=== PATIENT | female | born 1955 | race Caucasian/White ===

== ENCOUNTER 2019-07-14 15:09 | Observation (INO) | payer MEDICARE, MEDICAID, SELFPAY ==
[2019-07-14] VITALS (8 sets, daily range): BP systolic 98–134; BP diastolic 41–85; PULSE 72–86; RESP 17–22; TEMP 35.9–36.8; O2SAT 89–96; BMI 32.2
--- NOTE | ~2019-07-14 | XR_ITS ---
EXAMINATION: XR chest 2V EXAM DATE: 07/14/2019 16:19 INDICATION: Shortness of breath, cough, history COPD, aortic dissection. TECHNIQUE: Frontal and lateral projections of the chest obtained and reviewed. Comparison is made to prior examination from 01/01/2016. 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 Size d oes not appear significantly changed. Left midlung zone granuloma. Moderate chronic hyperinflation. N o confluent consolidation, pneumothorax or pleural effusion suspected. There are no osseous abnormali ties identified. IMPRESSION: 1. No acute cardiopulmonary findings. Reviewed, dictated and finalized at location A. MOLDER
--- NOTE | 2019-07-14 15:27 | ECG_ITS ---
Measurements Intervals [place] Rate: 72 P: 66 [place]: 207 QRS: 58 QRSD: 86 T: 65 QT: 404 QTc: 444 Interpretive Statements SINUS RHYTHM DELAYED PRECORDIAL R/S TRANSITION BASELINE ARTIFACT- I, II, III, AVR, AVL, AVF BORDERLINE ECG Electronically Signed On 07-14-2019 17:04:04 HEEL SPRAYER FIRST by Jamari Vallejo D.O.
[2019-07-14 15:47] LABS: Basophils Absolute Auto 0.05 K/mm3 (0.00-0.10); Basophils Percent Auto 0.3 % (0.0-1.0); Eosinophils Absolute Auto 0.36 K/mm3 (0.02-0.50); Eosinophils Percent Auto 2.3 % (1.0-6.0); Hematocrit 42.6 % (35.0-49.0); Hemoglobin 13.5 g/dL (12.0-15.0); Immature Granulocyte Absolute 0.15 K/mm3 (0.00-0.00); Lymphocytes Absolute Auto 2.77 K/mm3 (1.10-4.50); Lymphocytes Percent Auto 18.1 % (18.0-42.0); Mean Corpuscular HGB Conc 31.7 g/dL (32.0-36.0); Mean Corpuscular Hemoglobin 29.3 pg (27.0-31.0); Mean Corpuscular Volume 92.6 fL (78.0-102.0); Mean Platelet Volume 10.6 fl (9.2-11.8); Monocytes Absolute Auto 1.31 K/mm3 (0.10-0.90); Monocytes Percent Auto 8.6 % (2.0-11.0); Neutrophils Absolute Auto 10.7 K/mm3 (1.7-7.2); Neutrophils Percent Auto 69.7 % (50.0-70.0); Platelet Count Result 192 K/mm3 (150-420); Red Cell Distribution Width 14.9 % (11.6-14.4); White Blood Count 15.3 K/mm3 (4.8-10.8)
[2019-07-14] MEDS: IPRATROPIUM 0.5 MG/ALBUTEROL SULFATE 2.5 MG AMPUL.NEB 3 ML INHALATION ×2 (15:49→20:11)
[2019-07-14 16:04] LABS: Alanine Aminotransferase 15 U/L (14-59); Alkaline Phosphatase 72 U/L (46-116); Anion Gap 10.2 mmol/L (7-16); Aspartate Amino Transferase 9 U/L (15-37); Bilirubin,Total 0.4 mg/dL (0.00-1.00); Blood Urea Nitrogen 22 mg/dL (7-18); Calcium 8.9 mg/dL (8.5-10.1); Carbon Dioxide 32 mmol/L (21-32); Chloride 103 mmol/L (98-108); Estimated Glomerular Filt Rate 29; Glucose 97 mg/dL (70-99); Osmolality Calculated 295 mOsm/kg (285-295); Potassium 4.2 mmol/L (3.5-5.1); Sodium 141 mmol/L (136-145); Total Protein 8.2 g/dL (6.4-8.2)
[2019-07-14 16:07] LABS: Troponin I < 0.02 ng/mL (0.00-0.056)
--- NOTE | 2019-07-14 16:42 | ED.GENADULT ---
HPI - General Adult History of Present Illness HPI narrative: this 64-year-old has COPD non oxygen dependent. She presents with a 7 day history of a productive cough and shortness of breath. She has had a tactile fever. He last couple of days she has had a dyspnea with exertion even with minimal activities. At the doctor's office she had a pulse ox 86%. She states in the last 2 days her sputum has been dark appearing. She denies sweating. She states for about an hour today she had discomfort in her right lateral chest. Nothing exacerbated and there was no associated symptoms. She has never had this before. Related Data Home Medications Medication Instructions Recorded Confirmed albuterol sulfate 90 mcg/actuation 1 puff INHALATION Q4H PRN 06/06/19 07/14/19 aerosol inhaler alendronate 70 mg tablet 70 mg PO WEEKLY 06/06/19 07/14/19 atenolol 100 mg tablet 100 mg PO BID tablet 06/06/19 07/14/19 atorvastatin 40 mg tablet 40 mg PO DAILY 06/06/19 07/14/19 budesonide-formoterol HFA 160 2 puff INHALATION Q12H 06/06/19 07/14/19 mcg-4.5 mcg/actuation aerosol inhaler buspirone 15 mg tablet 30 mg PO BID tablet 06/06/19 07/14/19 citalopram 40 mg tablet 20 mg PO DAILY 06/06/19 07/14/19 gabapentin 300 mg capsule 300 mg PO TID 06/06/19 07/14/19 hydrochlorothiazide 25 mg tablet 25 mg PO DAILY 06/06/19 07/14/19 ranitidine HCl 150 mg tablet 150 mg PO BID tablet 06/06/19 07/14/19 tiotropium bromide 1.25 2 puff INHALATION DAILY 06/06/19 07/14/19 mcg/actuation mist for inhalation lisinopril 20 mg tablet 20 mg PO DAILY 07/14/19 07/14/19 Allergies Allergy/AdvReac Type Severity Reaction Status Date / Time No Known Allergies Allergy Verified 07/14/19 08:40 Review of Systems Review of Systems: All systems reviewed & are unremarkable except as noted in HPI and below PMFSH Past Medical History Medical History (Updated 07/15/19 @ 06:27 by Kush Burrell MD) Age related osteoporosis Chronic kidney disease (CKD) stage G4/A1, severely decreased glomerular filtration rate (GFR) between 15-29 mL/min/1.73 square meter and albuminuria creatinine ratio less than 30 mg/g COPD (chronic obstructive pulmonary disease) WILLIAM (generalized anxiety disorder) GERD (gastroesophageal reflux disease) Gout Hyperlipidemia Hypertension Nicotine dependence Overweight Surgical History Surgical History (Updated 07/14/19 @ 08:41 by Shireen Humphreys MA) History of hip replacement, total History of mandibular surgery Hx of cataract surgery Social History Social History Smoking packs per day: 1.5 Smoking cigarettes per day: 30.0 Years smoked: 30 Smoking pack-years: 45.00 Smoking status: Current every day smoker Tobacco type: cigarettes Alcohol intake: current Substance use: current Substance use type: marijuana Gender identity (if verbalized by the patient): Female Spiritual care concerns: No Agree to blood products: Yes Exam Const: Orientation/consciousness: oriented x3 HENMT: Mouth: Yes oral mucosae normal Other: no retractions Eyes: Conjunctivae: conjunctivae normal Chest: Chest palpation & inspection: normal inspection of the chest Other: Minor tenderness in the right pectoralis region to firm palpation. This is the location of chest pain earlier in the day no tenderness on the left side Resp: Auscultation: no rales, wheezes and diminished lung sounds Cardio: Other: heart sounds are distant. Difficult to assess murmur or sun GI: Other: flat soft nontender no organomegaly Back/Spine/Pelvis: Back: no CVA tenderness Skin: General skin exam: normal color Rashes: no rashes Neuro: General: oriented x3 Extrem: General: normal to inspection and no pedal edema Psych: Mental Status: mental status grossly normal Affect: normal affect Course Course Emergency Course: Improvement following neb. tx. Will admit for steroids, antibiotics a
--- NOTE | 2019-07-14 16:50 | PC.NURSE ---
IN FLUIDS INFUSING TO SECOND FLOOR
[2019-07-14] MEDS: methylPREDNISolone SOD SUCC 125 MG VIAL 80 MG IV PUSH (16:55)
[2019-07-14] MEDS: SODIUM CHLORIDE 0.9% IV 1,000 ML 125 ML IV CONT (16:55)
[2019-07-14 17:20] LABS: Influenza Control Valid (Valid)
[2019-07-14] MEDS: levoFLOXacin 500 MG/D5W 100 ML 500 MG/100 ML BAG 100 MG IVPB (17:27)
[2019-07-14] MEDS: BUDESONIDE/FORMOTEROL (*SP) 160-4.5 MCG 6 GM INH 2 PUFF INHALATION (20:09)
[2019-07-15] VITALS (16 sets, daily range): BP systolic 105–154; BP diastolic 49–82; PULSE 71–95; RESP 18–20; TEMP 36.4–36.7; O2SAT 90–96
[2019-07-15] MEDS: IPRATROPIUM 0.5 MG/ALBUTEROL SULFATE 2.5 MG AMPUL.NEB 3 ML INHALATION ×5 (00:47→23:31)
--- NOTE | 2019-07-15 01:28 | PC.NURSE ---
Rt tx waS given. PT ON O2 2L PER NC.
[2019-07-15] MEDS: SODIUM CHLORIDE 0.9% IV 1,000 ML 80 ML IV CONT ×2 (02:12→14:26)
--- NOTE | 2019-07-15 03:46 | PC.NURSE ---
Sleeping, resp even. O2 continues 2L per nc.
--- NOTE | 2019-07-15 05:18 | PC.NURSE ---
Remains on 2L o2 per nc. IV continues NS 80ml hr.
[2019-07-15] MEDS: BUDESONIDE/FORMOTEROL (*SP) 160-4.5 MCG 6 GM INH 2 PUFF INHALATION ×2 (05:58→18:17)
[2019-07-15 08:48] LABS: Hematocrit 41.7 % (35.0-49.0); Hemoglobin 13.1 g/dL (12.0-15.0); Mean Corpuscular HGB Conc 31.4 g/dL (32.0-36.0); Mean Corpuscular Hemoglobin 29.1 pg (27.0-31.0); Mean Corpuscular Volume 92.7 fL (78.0-102.0); Mean Platelet Volume 11.2 fl (9.2-11.8); Platelet Count Result 187 K/mm3 (150-420); Red Cell Distribution Width 14.7 % (11.6-14.4); White Blood Count 13.2 K/mm3 (4.8-10.8)
[2019-07-15 09:03] LABS: Anion Gap 12.7 mmol/L (7-16); Blood Urea Nitrogen 25 mg/dL (7-18); Carbon Dioxide 29 mmol/L (21-32); Chloride 106 mmol/L (98-108); Estimated CRCL calculation 41 ml/min; Estimated Glomerular Filt Rate 32; Glucose 157 mg/dL (70-99); Osmolality Calculated 303 mOsm/kg (285-295); Potassium 4.7 mmol/L (3.5-5.1); Sodium 143 mmol/L (136-145)
[2019-07-15] MEDS: BENZONATATE 100 MG CAPSULE 200 MG PO ×3 (09:09→16:54)
[2019-07-15] MEDS: predniSONE 20 MG TABLET 60 MG PO (09:09)
[2019-07-15] MEDS: hydroCHLOROthiazide 25 MG TABLET PO (09:10)
[2019-07-15] MEDS: ATORVASTATIN 10 MG TABLET 40 MG PO (09:10)
[2019-07-15] MEDS: busPIRone HCL 5 MG TABLET 30 MG PO ×2 (09:11→16:54)
[2019-07-15] MEDS: lisinopriL 20 MG TABLET PO (09:12)
[2019-07-15] MEDS: GABAPENTIN 300 MG CAPSULE PO ×3 (09:12→16:54)
[2019-07-15] MEDS: atenoloL 50 MG TABLET 100 MG PO ×2 (09:12→16:53)
[2019-07-15] MEDS: CITALOPRAM HYDROBROMIDE 20 MG TABLET PO (09:12)
--- NOTE | 2019-07-15 10:31 | PC.NURSE ---
Pt. sleeping quietly in bed with hob elevated. Friend dropped off several things for pt. Call light at side.
--- NOTE | 2019-07-15 10:51 | PM.IMHP ---
H&P: HPI History of Present Illness Chief complaint: breathing trouble Narrative: vital signsRosa Escalante is a 64 year old female to the ED with shortness of breath and a productive cough with dark sputum. According to patient she had this and shortness of for 7 days with subjective fever. While at the doctor's office her sats 86% air. She was then transported to the ED her past medical history is chronic kidney disease stage 4, COPD, generalized anxiety disorder, GERD, gout, hyperlipidemia, hypertension, overweight and nicotine dependence. patient was diagnosed with COPD exacerbation. While in the ER patient was giving nebulizer treatment sputum sample was collected and results pending, prednisone was given, oxygen therapy given with Levaquin. At this time patient vital signs are 154/82, 88, 20, 26.6, 96% on 2 L nasal cannula. Patient continues to have uncontrollable productive cough with clear sputum and shortness of breath while coughing. I will give patient cough suppressant and decongestant medication. I will alsobcontinue the Levaquin restart steroids Patient denies , CP, palpitation, extremity numbness, lightheadness, dizziness, constipation, diarrhea, or chills or fever. Patient agree that they are ready for discharge and discharge plan. Review of Systems Constitutional: Constitutional: Denies chills, Denies fatigue, Denies fever(s) and Denies headache(s) Cardiovascular: Cardiovascular: Denies no additional cardiovascular complaints, Denies chest pain, Denies edema, Denies lightheadedness, Denies palpitations and Reports dyspnea on exertion Respiratory: Respiratory: Reports chest congestion, Reports cough, Reports dyspnea and Reports dyspnea on exertion Gastrointestinal: Gastrointestinal: Reports no additional gastrointestinal complaints, Denies heartburn, Denies diarrhea, Denies nausea and Denies vomiting Musculoskeletal: Musculoskeletal: Denies muscle cramps, Reports muscle weakness, Denies stiffness and Denies tingling Neurologic: Denies vertigo, Denies dizziness, Denies syncope, Denies headache(s) and Reports weakness Psychiatric: Psychiatric: Reports anxiety PMFSH Past Medical History Medical History (Updated 07/15/19 @ 11:24 by DEBRA Ch-C) Age related osteoporosis Chronic kidney disease (CKD) stage G4/A1, severely decreased glomerular filtration rate (GFR) between 15-29 mL/min/1.73 square meter and albuminuria creatinine ratio less than 30 mg/g COPD (chronic obstructive pulmonary disease) WILLIAM (generalized anxiety disorder) GERD (gastroesophageal reflux disease) Gout Hyperlipidemia Hypertension Nicotine dependence Overweight Surgical History Surgical History (Updated 07/14/19 @ 08:41 by Shireen Humphreys MA) History of hip replacement, total History of mandibular surgery Hx of cataract surgery Social History Social History Smoking packs per day: 1.5 Smoking cigarettes per day: 30.0 Years smoked: 30 Smoking pack-years: 45.00 Smoking status: Current every day smoker Tobacco type: cigarettes Alcohol intake: current Substance use: current Substance use type: marijuana Gender identity (if verbalized by the patient): Female Spiritual care concerns: No Agree to blood products: Yes Meds Home Medications and Allergies Home Medications Medication Instructions Recorded Confirmed Type albuterol sulfate 90 mcg/actuation 1 puff INHALATION Q4H PRN 06/06/19 07/14/19 History aerosol inhaler alendronate 70 mg tablet 70 mg PO WEEKLY 06/06/19 07/14/19 History atenolol 100 mg tablet 100 mg PO BID tablet 06/06/19 07/14/19 History atorvastatin 40 mg tablet 40 mg PO DAILY 06/06/19 07/14/19 History budesonide-formoterol HFA 160 2 puff INHALATION Q12H 06/06/19 07/14/19 History mcg-4.5 mcg/actuation aerosol inhaler buspirone 15 mg tablet 30 mg PO BID tablet 06/06/19 07/14/19 History citalopram 40 mg tablet 20
[2019-07-15] MEDS: levoFLOXacin 250 MG/D5W 50 ML 250 MG/50 ML BAG 50 MG IVPB (16:54)
[2019-07-16 03:40] VITALS: O2SAT 93
[2019-07-16] MEDS: SODIUM CHLORIDE 0.9% IV 1,000 ML 80 ML IV CONT (03:42)
[2019-07-16 04:25] VITALS: BP 129/61; PULSE 71; RESP 18; TEMP 36.4; O2SAT 93
[2019-07-16 05:38] LABS: Hematocrit 38.2 % (35.0-49.0); Hemoglobin 11.8 g/dL (12.0-15.0); Mean Corpuscular HGB Conc 30.9 g/dL (32.0-36.0); Mean Corpuscular Hemoglobin 28.8 pg (27.0-31.0); Mean Corpuscular Volume 93.2 fL (78.0-102.0); Mean Platelet Volume 11.2 fl (9.2-11.8); Platelet Count Result 165 K/mm3 (150-420); Red Cell Distribution Width 14.7 % (11.6-14.4); White Blood Count 15.8 K/mm3 (4.8-10.8)
[2019-07-16 06:00] LABS: Anion Gap 10.2 mmol/L (7-16); Blood Urea Nitrogen 27 mg/dL (7-18); Calcium 8.1 mg/dL (8.5-10.1); Carbon Dioxide 30 mmol/L (21-32); Chloride 109 mmol/L (98-108); Estimated CRCL calculation 48 ml/min; Estimated Glomerular Filt Rate 39; Glucose 112 mg/dL (70-99); Osmolality Calculated 306 mOsm/kg (285-295); Potassium 4.2 mmol/L (3.5-5.1); Sodium 145 mmol/L (136-145)
[2019-07-16] MEDS: IPRATROPIUM 0.5 MG/ALBUTEROL SULFATE 2.5 MG AMPUL.NEB 3 ML INHALATION (06:01)
[2019-07-16 06:02] VITALS: PULSE 87; RESP 20
[2019-07-16 06:09] VITALS: PULSE 74; RESP 18
[2019-07-16] MEDS: BUDESONIDE/FORMOTEROL (*SP) 160-4.5 MCG 6 GM INH 2 PUFF INHALATION (06:10)
[2019-07-16] MEDS: busPIRone HCL 5 MG TABLET 30 MG PO (09:03)
[2019-07-16] MEDS: ATORVASTATIN 10 MG TABLET 40 MG PO (09:03)
[2019-07-16] MEDS: GABAPENTIN 300 MG CAPSULE PO (09:03)
[2019-07-16 09:04] VITALS: PULSE 75
[2019-07-16] MEDS: hydroCHLOROthiazide 25 MG TABLET PO (09:04)
[2019-07-16] MEDS: atenoloL 50 MG TABLET 100 MG PO (09:04)
[2019-07-16] MEDS: CITALOPRAM HYDROBROMIDE 20 MG TABLET PO (09:04)
[2019-07-16] MEDS: BENZONATATE 100 MG CAPSULE 200 MG PO (09:05)
[2019-07-16] MEDS: predniSONE 40 MG, predniSONE 10 MG 50 MG PO (09:05)
[2019-07-16] MEDS: lisinopriL 20 MG TABLET PO (09:05)
--- NOTE | 2019-07-16 10:20 | PC.NURSE ---
Pt. sleeping quietly in bed with hob elevated. IV fluids cont. per order. Shows no signs of distress. Breathing even and unlabored.
--- NOTE | 2019-07-16 11:15 | PC.NURSE ---
Pt. notified that all discharge instructions at complete. Nurse assisted pt. to gather belongings together. Pt. dressed self independenlty in room. Waiting for pt. friend to come pick her up.
--- NOTE | 2019-07-16 12:00 | PC.NURSE ---
IV site removed, tip intact. Dressing applied to site. All pt. belongings gathered together and sent home with pt. Pt. home medications sent home with her. All discharge instructions and education reviewed with pt. Pt. states understanding. Denies any questions or concerns. This nurse accompanied pt. to front door via wheelchair. Pt. left via private vehicle with friend.
--- NOTE | 2019-07-16 13:00 | PM.DS ---
DS: Diagnosis Admitting Diagnosis Admitting Diagnosis: Chronic obstructive pulmonary disease with (acute) exacerbation <ROOSEVELT Ch - Last Filed: 07/16/19 13:07> Discharge Diagnosis (1) Chronic kidney disease (CKD) stage G4/A1, severely decreased glomerular filtration rate (GFR) between 15-29 mL/min/1.73 square meter and albuminuria creatinine ratio less than 30 mg/g: Code(s): N18.4 - Chronic kidney disease, stage 4 (severe) <ROOSEVELT Ch - Last Filed: 07/16/19 13:07> Status: Acute <ROOSEVELT Ch - Last Filed: 07/16/19 13:07> Assessment and Plan: stable patient creatinine level has improved since admission , near baseline on discharge - baseline appears to be 1.10 back in 2015 <ROOSEVELT Ch - Last Filed: 07/16/19 13:07> (2) Acute exacerbation of chronic obstructive pulmonary disease (COPD): Code(s): J44.1 - Chronic obstructive pulmonary disease with (acute) exacerbation <ROOSEVELT Ch - Last Filed: 07/16/19 13:07> Status: Acute <ROOSEVELT Ch - Last Filed: 07/16/19 13:07> Assessment and Plan: - Continue p.o. Levaquin - continue use of prednisone - continue nebulizers and inhalers - order patient nebulizer - sputum culture pending - chest x-ray unremarkable. <ROOSEVELT Ch - Last Filed: 07/16/19 13:07> (3) Nicotine dependence: Code(s): F17.200 - Nicotine dependence, unspecified, uncomplicated <ROOSEVELT Ch - Last Filed: 07/16/19 13:07> Status: Acute <ROOSEVELT Ch - Last Filed: 07/16/19 13:07> Assessment and Plan: - patient educated on smoking cessation. <ROOSEVELT Ch - Last Filed: 07/16/19 13:07> (4) Hypertension: Code(s): I10 - Essential (primary) hypertension <ROOSEVELT Ch - Last Filed: 07/16/19 13:07> Status: Acute <ROOSEVELT Ch Last Filed: 07/16/19 13:07> Assessment and Plan: stable - continue lisinopril 20 mg daily and atenolol 100 mg b.i.d.. - follow up with PCP <ROOSEVELT Ch - Last Filed: 07/16/19 13:07> DS: Summary Hospital Course Hospital Course: patient's condition has improved since admission. She will be discharged home with antibiotics, steroids, Cough suppressant, congestion, neb treatments and a nebulizer machine. patient educated on smoking cessation before discharge. She was also given information on chronic kidney disease instructed to follow up with her primary care physician <ROOSEVELT Ch - Last Filed: 07/16/19 13:07> Time Spent with Patient Time attestation: Total time spent providing and/or coordinating discharge services:60 <ROOSEVELT Ch - Last Filed: 07/16/19 13:07> Exam Const: General: cooperative, alert, awake and uncomfortable <ROOSEVELT Ch - Last Filed: 07/16/19 13:07> Orientation/consciousness: oriented x3 <ROOSEVELT Ch Last Filed: 07/16/19 13:07> Resp: Auscultation: wheezes and diminished lung sounds <ROOSEVELT Ch - Last Filed: 07/16/19 13:07> Cardio: Rhythm: regular rhythm <ROOSEVELT Ch Last Filed: 07/16/19 13:07> GI: Inspection: normal to inspection and no edema <ROOSEVELT Ch Last Filed: 07/16/19 13:07> Auscultation: normal bowel sounds <ROOSEVELT Ch Last Filed: 07/16/19 13:07> Skin: General skin exam: normal color <ROOSEVELT Ch Last Filed: 07/16/19 13:07> Neuro: General: oriented x3 <ROOSEVELT Ch - Last Filed: 07/16/19 13:07> Psych: Attitude: cooperative <ROOSEVELT Ch - Last Filed: 07/16/19 13:07> DS: Data Data Completed and Pending Labs on day of discharge: Labs from last 24 hours 07/16/19 07/16/19 05:23 05:23 WBC 15.8 H RBC 4.10 L Hgb 11.8 L Hct 38.2 MCV 93.2 MCH 28.8 MCHC 30.9 L RDW
--- NOTE | 2019-07-16 20:23 | PM.EVENT ---
Event Note Event Note: The patient states that she feels much better today. She is now off of supplemental oxygen and maintaining normal sats. Late expiratory wheezing bilaterally with slightly decreased breath sounds throughout. Home today on steroids, antibiotics, and nebulizers. I have examined the patient and reviewed the chart. I discussed the patient's care S Micheal STRANGE and agree with her assessment and plan.
--- NOTE | 2019-07-18 14:24 | PC.NURSE ---
Discharge call back [phone] Understood all discharge instructions written and verbal. had a problem with obtaining prescriptions r/t cost.
--- NOTE | 2019-08-15 02:10 | PC.NURSE ---
Existing IV fluids from ER of 0.9NS completed @ this time.
== END 2019-07-16 12:05 | disposition home or self-care (01) ==
LOC: CHSED 15:30 → CHS2ND 16:50
PROVIDERS: Nurse Practitioner; Admitting Provider Family Medicine; Emergency Provider Family Medicine; PCP Family Medicine; Visit Provider Family Medicine
DX: J44.1 Chronic obstructive pulmonary disease with (acute) exacerbation (principal); M81.0 Age-related osteoporosis without current pathological fracture; I12.9 Hypertensive chronic kidney disease with stage 1 through stage 4 chronic kidney disease, or unspecified chronic kidney disease; N18.4 Chronic kidney disease, stage 4 (severe); K21.9 Gastro-esophageal reflux disease without esophagitis; E78.5 Hyperlipidemia, unspecified; F41.9 Anxiety disorder, unspecified; F17.210 Nicotine dependence, cigarettes, uncomplicated; Z96.649 Presence of unspecified artificial hip joint
CPT/HCPCS: 36415; 71046; 80048; 80053; 84484; 85025; 85027; 87070; 87205; 87804; 93005; 94640; 96361; 96365; 96366; 96375; 99285; A9270; G0378; J1650; J1956; J2930; J7030; J7512

== ENCOUNTER 2019-08-26 09:15 | Outpatient (CLI) | payer MEDICARE, MEDICAID, SELFPAY ==
--- NOTE | ~2019-08-26 | MR_ITS ---
EXAMINATION: MR lumbar spine wo con EXAM DATE: 08/26/2019 11:07 INDICATION: Chronic low back pain, bilateral leg pain. TECHNIQUE: Multi-sequential, multiplanar MR images of the lumbar spine were obtained without contrast . Sagittal T1, T2, T2 fat saturation images. Axial T2 weighted images. Comparison is made to prior examination from 05/05/2017. FINDINGS: There is partial osseous fusion anterior aspects of the L2 and 3 vertebral bodies. There is moderate to severe disc disease at L3-4, progression compared to prior study. Mild to moderate disc disease at the other lumbar levels. The conus medullaris terminates at the L1/2 level and has normal signal intensity and morphology. Endplate degenerative signal change mostly L3-4. Paraspinal soft ti ssue is unremarkable. There is aneurysmal dilation of the abdominal aorta, up to about 3.8 cm in AP d imension, probably not significant changed. Level by level evaluation: L1-L2: There is a mild diffuse disc bulge. Facet arthropathy: Mild. Neural foraminal stenosis: No stenosis. Central canal stenosis: No stenosis. L2-L3: Disc does not extend beyond the endplate margin. Facet arthropathy: Mild. Neural foraminal stenosis: No stenosis. Central canal stenosis: No stenosis. L3-L4: There is a moderate diffuse disc bulge. Facet arthropathy: Moderate. Ligamentum flavum enlargement. Neural foraminal stenosis: Mild to moderate bilateral. Central canal stenosis: Mild to moderate. L4-L5: There is a mild to moderate diffuse disc bulge. Facet arthropathy: Moderate. Neural foraminal stenosis: Mild to moderate bilateral. Central canal stenosis: Mild to moderate. L5-S1: There is a mild diffuse disc bulge. Facet arthropathy: Moderate right, mild left. Neural foraminal stenosis: Mild bilateral. Central canal stenosis: Mild. IMPRESSION: 1. L3-4 moderate to severe disc disease. 2. Lesser spondylosis above. Reviewed, dictated and finalized at location A. LO DRIVER
== END 2019-08-26 09:16 | disposition home or self-care (01) ==
PROVIDERS: PCP Family Medicine
DX: M54.5 Low back pain (principal); M54.16 Radiculopathy, lumbar region
CPT/HCPCS: 72148

== ENCOUNTER 2020-08-01 13:51 | Outpatient (CLI) | payer MEDICARE, MEDICAID, SELFPAY ==
--- NOTE | ~2020-08-01 | MM_ITS ---
EXAMINATION: MM screening liliana BI w rashard HISTORY: Screening mammogram TECHNIQUE: Craniocaudal and mediolateral oblique 3-D tomosynthesis images were obtained and synthetic 2-D images were generated. CAD analysis was submitted and interpreted. COMPARISON: 03/05/2011 bilateral digital screening mammogram and left breast ultrasound examination BREAST PARENCHYMAL COMPOSITION: There are scattered areas of fibroglandular density.. FINDINGS: Left breast: Approximately 1.6 cm circumscribed lobular mass is noted in the slightly upper mid left breast. There is an approximately 9.5 mm mass in the upper outer quadrant left breast. Diagnostic left mammog crow and left breast ultrasound examination are recommended. Right breast: There is no evidence of suspicious mass, calcification, or architectural distortion to suggest malignancy in the right breast breast. There has been no suspicious interval change of right breast. IMPRESSION: 1. Left breast masses 2. Diagnostic left mammogram and left breast ultrasound examination are recommended. BI-RADS Category 0: Incomplete: Needs additional imaging evaluation. Reviewed, dictated and finalized at location A. BAGGAGE PORTER IMPRESSION: 1. Left breast masses 2. Diagnostic left mammogram and left breast ultrasound examination are recomme nded. BI-RADS Category 0: Incomplete: Needs additional imaging evaluation.
== END 2020-08-01 13:52 | disposition home or self-care (01) ==
LOC: CHSIMG 13:53
PROVIDERS: PCP Family Medicine; Visit Provider Family Medicine
DX: Z12.31 Encounter for screening mammogram for malignant neoplasm of breast (principal)
CPT/HCPCS: 77063; 77067

== ENCOUNTER 2020-08-06 09:08 | Outpatient (CLI) | payer MEDICARE, MEDICAID, SELFPAY ==
--- NOTE | ~2020-08-06 | US_ITS ---
Please refer to diagnostic mammogram report dated 08/06/2020 for details. Reviewed, dictated and finalized at location A. CAL TRANSCRIPTIONIST
--- NOTE | ~2020-08-06 | MM_ITS ---
EXAMINATION: MM diagnostic liliana LT w rashard HISTORY: Follow-up left breast masses. TECHNIQUE: Additional 3-D tomosynthesis images of the left breast were performed and synthetic 2-D im ages were generated. CAD analysis was submitted and interpreted. High resolution left breast ultrasou nd was performed. COMPARISON: Comparison to multiple prior studies sequentially, with oldest reviewed study dated 03/05. BREAST PARENCHYMAL COMPOSITION: Breast composed of scattered areas of fibroglandular density. FINDINGS: MAMMOGRAPHIC FINDINGS: There are multiple masses of the left breast, largest measuring 1.7 cm maximum dimension in the upper central aspect of the left breast. There is a 1.1 cm mass in the upper outer quadrant of the left br east. There are smaller masses in the outer aspect of the left breast. ULTRASOUND: Left breast ultrasound: 12:00, 4 cm from the nipple there is a 1.5 cm cyst corresponding to the domin ant mass by mammography.. At 2:00 near the nipple there is a 7 mm cyst. At 2:00, 2 cm from the nipple there is a 3 mm cyst. There are multiple additional cysts. At 2:00, 4 cm from the nipple there is a 1.2 cm cyst. At 2:00, 2 cm from the nipple, there is an oval hypoechoic mass measuring 4 mm IMPRESSION: 1. Probable benign 4 mm hypoechoic mass of the left breast at 2:00, 2 cm from the nipple. 2. Recommend 6 month follow-up left breast ultrasound BI-RADS category 3, probably benign findings. Reviewed, dictated and finalized at location A. [employer] ENGINE[employer] IMPRESSION: 1. Probable benign 4 mm hypoechoic mass of the left breast at 2:00, 2 cm from t he nipple. 2. Recommend 6 month follow-up left breast ultrasound BI-RADS category 3, probably benign findings.
== END 2020-08-06 09:09 | disposition home or self-care (01) ==
PROVIDERS: PCP Family Medicine; Visit Provider Family Medicine
DX: R92.8 Other abnormal and inconclusive findings on diagnostic imaging of breast (principal)
CPT/HCPCS: 76641; 77061; 77065; G0279

== ENCOUNTER 2020-09-25 07:45 | Outpatient (CLI) | payer MEDICARE, MEDICAID, SELFPAY ==
--- NOTE | ~2020-09-25 | CT_ITS ---
EXAMINATION: CT abdomen pelvis w con DATE: 09/25/2020 08:42 INDICATION: Splenomegaly TECHNIQUE: Computed tomography (CT) of the abdomen and pelvis was performed with 100 mL Omnipaque-350 intravenous contrast. Automated exposure control and iterative reconstruction technique were employe d. The dose-length product was 1358.67 mGy-cm. COMPARISON: None FINDINGS: Mild discoid atelectasis in the bilateral lower lobes. Heart size is normal. Small amount of atherosc lerotic coronary artery calcification at the origin of the right coronary artery. Aortic valve calcif ication. No pericardial or pleural effusion. Small amount of gas within a small thick-walled structur e at the gallbladder fossa which appears contiguous with both the common bile duct in the duodenum delarosa ggesting a cholecystoduodenal fistula. Liver, pancreas and bilateral adrenal glands are normal. Khloe l spleen which measures 11.0 x 12.0 x 7.3 cm in maximal dimensions. Regions of cortical scarring at b oth kidneys most prominent on the right where there is moderate to severe atrophy. Bilateral renal cy sts the largest on the left measuring up to 4.0 cm. There are a couple 3 mm nonobstructing right ashvin l stones. Bladder, uterus and bilateral adnexa are unremarkable. Small calcified appendicolith within the normal appendix. No periappendiceal stranding to suggest acute appendicitis. No bowel obstructio n. A few scattered colonic diverticula without adjacent inflammatory change to suggest diverticulitis . Streak artifact extending across the deep pelvis resulting from a right total hip arthroplasty. No free intraperitoneal gas or fluid. No pathologically enlarged abdominal or pelvic lymphadenopathy. Se sky lumbar spondylosis with anterior fusion at L2-L3. Postoperative changes at the left and right inguinal regions likely related to vascular access for pr ior aortic stent grafting. There is calcified atherosclerosis of the aorta and many of the other traci zahra. There is a partially visualized stent graft in the visualized caudal thoracic aorta. There is a second infrarenal aortobiiliac stent graft extending into the proximal right external iliac artery a nd the distal aspect of the left external iliac artery. There is aneurysmal dilation of the distal th oracic aorta measuring up to 3.9 x 3.3 cm at the caudal aspect of the thoracic stent. There is an aor tic dissection with secondary fusiform aneurysm of the abdominal aorta beginning in the unstented abd ominal aorta between the level of the origin of the superior mesenteric artery and the bilateral ashvin l arteries, the latter which arise from the larger patent false lumen. The aneurysm measures up to ma ximal diameter of 4.0 x 3.7 cm immediately proximal to the cephalad aspect of the more caudal stent. The right internal iliac artery is ectatic measuring up to 1.3 cm in maximal diameter. IMPRESSION: 1. Normal spleen measuring 11.0 x 12.0 x 7.3 cm. 2. 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 3. Abdominal aortic dissection with 4.0 x 3.7 cm fusiform aneurysm situated between a lower thoracic abdominal aortic stent graft in the more caudal aortobiiliac stent graft. The bilateral renal arterie s arise from the patent false lumen. 4. Scattered bilateral renal cortical atrophy, mild on the left and moderate to severe on the right w hich may be related to infarcts related to the aortic dissection. 5. A couple nonobstructing 3 mm right renal stones. Reviewed, dictated and finalized at location B. IMPRESSION: 1. Normal spleen measuring 11.0 x 12.0 x 7.3 cm. 2. Small amount of gas within a likely decompressed gallbladder with cholecysto duodenal fistula which likely results from prior cho
[2020-09-25 07:59] LABS: Hematocrit 46.9 % (35.0-42.0); Hemoglobin 14.7 g/dL (11.7-13.8); Mean Corpuscular HGB Conc 31.3 g/dL (32.0-36.0); Mean Corpuscular Hemoglobin 29.6 pg (27.0-31.0); Mean Corpuscular Volume 94.6 fL (78.0-102.0); Mean Platelet Volume 11.2 fl (9.2-11.8); Platelet Count Result 146 K/mm3 (150-420); Red Blood Count 4.96 M/mm3 (4.20-5.40); Red Cell Distribution Width 14.6 % (11.6-14.4); White Blood Count 10.7 K/mm3 (4.8-10.8)
[2020-09-25 08:15] LABS: Alanine Aminotransferase 22 U/L (14-59); Albumin Level 3.4 g/dL (3.4-5.0); Alkaline Phosphatase 66 U/L (46-116); Anion Gap 10 mmol/L (8-16); Aspartate Amino Transferase 19 U/L (15-37); Bilirubin,Total 0.5 mg/dL (0.00-1.00); Blood Urea Nitrogen 26 mg/dL (7-18); Calcium 9.4 mg/dL (8.5-10.1); Carbon Dioxide 28 mmol/L (21-32); Chloride 104 mmol/L (98-108); Estimated Glomerular Filt Rate 35; Glucose 108 mg/dL (70-99); Osmolality Calculated 299 mOsm/kg (285-295); Potassium 4.2 mmol/L (3.5-5.1); Sodium 142 mmol/L (136-145); Total Protein 7.6 g/dL (6.4-8.2)
== END 2020-09-25 07:46 | disposition home or self-care (01) ==
LOC: CHSLAB 07:48
PROVIDERS: PCP Family Medicine; Visit Provider Family Medicine
DX: R16.1 Splenomegaly, not elsewhere classified (principal)
CPT/HCPCS: 36415; 74177; 80053; 85027; Q9967

== ENCOUNTER → 2020-11-30 01:57 | Outpatient (CLI) | payer MEDICARE, MEDICAID, SELFPAY ==
[2020-11-30 19:56] LABS: SARS-CoV-2 RNA PCR Negative
== END ==
PROVIDERS: PCP Family Medicine; Visit Provider Orthopaedic Surgery
DX: Z01.812 Encounter for preprocedural laboratory examination (principal); Z20.822 Contact with and (suspected) exposure to COVID-19
CPT/HCPCS: C9803; U0003; U0005

== ENCOUNTER 2020-11-30 09:04 | Outpatient (CLI) | payer MEDICARE, MEDICAID, SELFPAY ==
--- NOTE | 2020-11-30 | ECG_ITS ---
Measurements Intervals [place] Rate: 66 P: 39 AR: 205 QRS: 29 QRSD: 87 T: 61 QT: 399 QTc: 418 Interpretive Statements SINUS RHYTHM DELAYED PRECORDIAL R/S TRANSITION BASELINE ARTIFACT- I, II, AVR, AVF BORDERLINE ECG Electronically Signed On 11-30-2020 12:09:06 CDT by Jamari Vallejo D.O.
[2020-11-30 10:01] LABS: Anion Gap 5 mmol/L (8-16); Blood Urea Nitrogen 22 mg/dL (7-17); Calcium 9.7 mg/dL (8.4-10.2); Carbon Dioxide 30 mmol/L (22-30); Chloride 105 mmol/L (98-107); Estimated Glomerular Filt Rate 38; Glucose 102 mg/dL (65-105); Potassium 4.4 mmol/L (3.4-5.0); Sodium 140 mmol/L (137-145)
== END 2020-11-30 09:05 | disposition home or self-care (01) ==
PROVIDERS: PCP Family Medicine; Visit Provider Anesthesiology
DX: Z01.818 Encounter for other preprocedural examination (principal); T50.2X5A Adverse effect of carbonic-anhydrase inhibitors, benzothiadiazides and other diuretics, initial encounter; I10 Essential (primary) hypertension
CPT/HCPCS: 36415; 80048; 93005

== ENCOUNTER 2020-12-04 02:01 | Day surgery (SDC) | payer MEDICARE, MEDICAID, SELFPAY ==
[2020-11-20 15:24] VITALS: BMI 32.3
--- NOTE | 2020-11-28 11:41 | P.PNOP_ITS ---
Progress Note: A&P Additional Plan Patient has a ganglion cyst left wrist. The patient has discussed risks benefits limitations and alternatives of surgery in great detail Dr. Snell she is never a proceed with excision ganglion cyst left wrist. The patient is scheduled to go surgery December 04, 2020 [facility] Dr. Snell. The patient voiced understanding and agrees with above plan. Subjective Subjective Date/Time Seen: 11/28/20 11:41 The patient is a 65-year-old female who presents with a ganglion cyst left wrist. Patient has a chronic ongoing history of a mass consistent with a ganglion cyst, this is enlarged a bit over time it aggravates her daily activities. If she bumps it is painful. She denies any erythema heat effusion no signs of infection no weakness no neurovascular deficits due to the issue. She states her skin is otherwise intact. Despite conservative measures including activity modification and previous cyst aspiration symptoms continue. X-rays are unremarkable. The patient has a ganglion cyst left wrist like this excised. Review of Systems Review of Systems: All systems reviewed & are unremarkable except as noted in HPI and below Exam Narrative: Exam Narrative: Patient is well-developed well-nourished female no acute distress alert oriented x3. Normal mood and affect. HEENT exam within normal limits. Heart regular rate rhythm. Lungs are auscultation. Abdomen benign. Extremities showed the patient's left wrist did have a small mass consistent with a ganglion cyst. It is firm smooth somewhat mobile mildly tender. There is no erythema heat effusion or signs of infection. Range of mo tion of the wrist is well maintained. Strength is 5 5. Neurovascular patient is intact. Skin is intact without erosions are rashes. Central nervous system exam within normal limits.
--- NOTE | 2020-11-28 11:46 | PM.IMHP ---
H&P: HPI History of Present Illness Date/Time: 11/28/20 11:46 Ganglion cyst left wrist chronic in nature. Please see progress note dictated today as well. Chief Complaint: Left wrist pain/ganglion cyst left wrist Review of Systems Review of Systems: All systems reviewed & are unremarkable except as noted in HPI and below PMFSH Past Medical History Medical History Age related osteoporosis Chronic back pain Chronic kidney disease (CKD) stage G4/A1, severely decreased glomerular filtration rate (GFR) between 15-29 mL/min/1.73 square meter and albuminuria creatinine ratio less than 30 mg/g COPD (chronic obstructive pulmonary disease) WILLIAM (generalized anxiety disorder) GERD (gastroesophageal reflux disease) Gout Hyperlipidemia Hypertension Nicotine dependence Overweight Tobacco abuse Surgical History Surgical History History of hip replacement, total History of mandibular surgery Hx of cataract surgery Family History Family History Father Family history of malignant neoplasm Sibling Family history of malignant neoplasm of breast in first degree relative Mother Family history of congestive heart failure Other Hypertension Social History Social History Smoking packs per day: 1 Smoking cigarettes per day: 20.0 Years smoked: 50 Smoking pack-years: 50.00 Smoking status: Current every day smoker Tobacco type: cigarettes Second hand tobacco smoke exposure: No Alcohol intake: current Substance use: current Substance use type: marijuana Other substance usage details: ONCE A MONTH Last use: 07/07/20 Gender identity (if verbalized by the patient): Female Spiritual care concerns: No Agree to blood products: Yes Meds Home Medications and Allergies Home Medications Medication Instructions Recorded Confirmed Type nebulizer and compressor #1 each 07/16/19 11/20/20 Rx albuterol sulfate 90 mcg/actuation See Rx Instructions .ROUTE 01/02/20 11/20/20 Rx aerosol inhaler .COMPLEX #18 gm buspirone 15 mg tablet See Rx Instructions .ROUTE 01/17/20 11/20/20 Rx .COMPLEX #270 tablet atorvastatin 40 mg tablet See Rx Instructions .ROUTE 04/22/20 11/20/20 Rx .COMPLEX #90 tablet budesonide-formoterol HFA 160 See Rx Instructions .ROUTE 04/25/20 11/20/20 Rx mcg-4.5 mcg/actuation aerosol .COMPLEX #10.2 unspecified inhaler aspirin [Adult Low Dose Aspirin] 81 mg PO DAILY 07/18/20 11/20/20 History atenolol 100 mg PO BID 07/18/20 11/20/20 History cholecalciferol (vitamin D3) 50 mcg PO TID 07/18/20 11/20/20 History citalopram 40 mg PO QPM 07/18/20 11/20/20 History gabapentin 300 mg PO TID 07/18/20 11/20/20 History hydrochlorothiazide 25 mg PO DAILY 07/18/20 11/20/20 History hydrocodone-acetaminophen 1 tablet PO PRN PRN 07/18/20 11/20/20 History lisinopril 10 mg PO DAILY 07/18/20 11/20/20 History multivit with min-folic acid 1 tablet PO DAILY 07/18/20 11/20/20 History [Adult One Daily Multivitamin] alendronate 70 mg tablet See Rx Instructions .ROUTE 08/20/20 11/20/20 Rx .COMPLEX #4 tablet tiotropium bromide 1.25 2 puff INHALATION DAILY #4 g 09/19/20 11/20/20 Rx mcg/actuation mist for inhalation Allergies Allergy/AdvReac Type Severity Reaction Status Date / Time No Known Allergies Allergy Verified 11/20/20 15:23 Exam Narrative: Exam Narrative: Please see progress note physical exam dictated today Assessment and Plan Additional Plan Ganglion cyst left wrist, patient is now ready proceed with a excision ganglion cyst left wrist. The patient voiced understanding agrees above plan. Surgery scheduled for December 04, [address] [facility] [address] Snell.
--- NOTE | 2020-12-04 06:49 | WPDANESEPPF ---
Anes - Initial Pre Proc Eval Procedure: Operation Date: 12/04/20 07:30 Proposed Procedures p Excision of Ganglion Cyst Left Wrist - James Snell MD Date/Time: 12/04/20 06:49 Surgeon: James Snell MD Pre Op Diagnosis: Ganglion cyst left wrist Patient Data Age: 65 Gender: F Height: 1.78 m Weight: 102.06 kg Allergies Allergy/AdvReac Type Severity Reaction Status Date / Time No Known Allergies Allergy Verified 12/04/20 06:42 Home Medications Medication Instructions Recorded Confirmed Type nebulizer and compressor #1 each 07/16/19 11/20/20 Rx albuterol sulfate 90 mcg/actuation See Rx Instructions .ROUTE 01/02/20 11/20/20 Rx aerosol inhaler .COMPLEX #18 gm buspirone 15 mg tablet See Rx Instructions .ROUTE 01/17/20 11/20/20 Rx .COMPLEX #270 tablet atorvastatin 40 mg tablet See Rx Instructions .ROUTE 04/22/20 11/20/20 Rx .COMPLEX #90 tablet budesonide-formoterol HFA 160 See Rx Instructions .ROUTE 04/25/20 11/20/20 Rx mcg-4.5 mcg/actuation aerosol .COMPLEX #10.2 unspecified inhaler aspirin [Adult Low Dose Aspirin] 81 mg PO DAILY 07/18/20 12/04/20 History atenolol 100 mg PO BID 07/18/20 12/04/20 History cholecalciferol (vitamin D3) 50 mcg PO TID 07/18/20 12/04/20 History citalopram 40 mg PO QPM 07/18/20 11/20/20 History gabapentin 300 mg PO TID 07/18/20 11/20/20 History hydrochlorothiazide 25 mg PO DAILY 07/18/20 11/20/20 History hydrocodone-acetaminophen 1 tablet PO PRN PRN 07/18/20 11/20/20 History lisinopril 10 mg PO DAILY 07/18/20 11/20/20 History multivit with min-folic acid 1 tablet PO DAILY 07/18/20 12/04/20 History [Adult One Daily Multivitamin] alendronate 70 mg tablet See Rx Instructions .ROUTE 08/20/20 11/20/20 Rx .COMPLEX #4 tablet tiotropium bromide 1.25 2 puff INHALATION DAILY #4 g 09/19/20 11/20/20 Rx mcg/actuation mist for inhalation Patient hx anesthesia problems: none Family hx anesthesia problems: none PMFSH Past Medical History Medical History (Updated 12/03/20 @ 13:09 by Danie Spear DO) Age related osteoporosis Asthma Chronic back pain Chronic kidney disease (CKD) stage G4/A1, severely decreased glomerular filtration rate (GFR) between 15-29 mL/min/1.73 square meter and albuminuria creatinine ratio less than 30 mg/g COPD (chronic obstructive pulmonary disease) WILLIAM (generalized anxiety disorder) GERD (gastroesophageal reflux disease) Gout History of aortic dissection 2001 Hyperlipidemia Hypertension Nicotine dependence Overweight Tobacco abuse Surgical History Surgical History (Updated 12/03/20 @ 13:09 by Danie Spear DO) History of hip replacement, total History of mandibular surgery Hx of cataract surgery S/P insertion of iliac artery stent Family History Family History Father Family history of malignant neoplasm Sibling Family history of malignant neoplasm of breast in first degree relative Mother Family history of congestive heart failure Other Hypertension Social History Social History Smoking packs per day: 1 Smoking cigarettes per day: 20.0 Years smoked: 50 Smoking pack-years: 50.00 Smoking status: Current every day smoker Tobacco type: cigarettes Second hand tobacco smoke exposure: No Alcohol intake: current Alcohol use details: 1 glass of wine per year Substance use: current Substance use type: marijuana Other substance usage details: ONCE A MONTH Last use: 07/07/20 Living arrangements: with family Gender identity (if verbalized by the patient): Female Spiritual care concerns: No Agree to blood products: Yes Anes - Eval Final PreProcedure Day of Procedure 12/04/20 06:49 Patient weight: obese Heart: regular rate and rhythm Lungs: clear to auscultation and normal air movement Airway: Mallampati scale class II Neurological: alert and oriented [place]
[2020-12-04] MEDS: LACTATED RINGERS 1,000 ML 30 ML IV CONT (06:55)
[2020-12-04] MEDS: ACETAMINOPHEN 500 MG TABLET 1000 MG PO (06:59)
[2020-12-04 07:00] VITALS: BP 136/62; PULSE 73; RESP 18; TEMP 36.5; O2SAT 96; BMI 33.3
--- NOTE | 2020-12-04 07:10 | SUR.PREOP ---
0710- Notified Dr. Snell patient discontinued Aspirin 81MG on 12/01/2020. Per Dr. Snell it is OK to proceed with procedure this AM.
--- NOTE | 2020-12-04 07:17 | WPDHPUPDATE1 ---
History and Physical Update Update Date/Time: 12/04/20 07:17 History and Physical has been reviewed, including an updated exam of the patient. There are NO changes in the patient's condition. Risks, benefits, and alternatives have been discussed and questions answered. Patient agrees to proceed with procedure.
[2020-12-04] MEDS: ceFAZolin 2 GM/D5W 50 ML 2 GM/50 ML BAG IVPB (07:19)
--- NOTE | 2020-12-04 07:57 | PM.PROC ---
Procedure Note - Detailed Date of procedure: 12/04/20 Pre-op diagnosis: Ganglion cyst left wrist Surgeon: James Snell MD Registered Nurse Fetal Tomas Dickson Patient brought to operative room 7. General anesthetic was administered after she was placed on the operating table she had a massive cyst from the dorsal ulnar surface wrist after sterile prep and drape a longitudinal incision made over the dissection. Down fairly large cyst was dissected around staying above tendons patient shows removed on bloc. She had a fair bit of bleeding the edges cauterized and then the skin was closed with 2 O Vicryl 3 0 Prolene sterile dressing applied patient tolerated procedure well and left the operating room in satisfactory condition thank you.
[2020-12-04 08:15] VITALS: BP 161/71; PULSE 69; RESP 16; O2SAT 94
[2020-12-04 08:47] VITALS: BP 154/59; PULSE 67; RESP 14
== END 2020-12-04 09:15 | disposition home or self-care (01) ==
PROVIDERS: PCP Family Medicine; Visit Provider Orthopaedic Surgery
PROC: (CPT 25111; principal; 2020-12-04 07:30)
DX: M67.432 Ganglion, left wrist (principal); I12.9 Hypertensive chronic kidney disease with stage 1 through stage 4 chronic kidney disease, or unspecified chronic kidney disease; N18.4 Chronic kidney disease, stage 4 (severe); J44.9 Chronic obstructive pulmonary disease, unspecified; M81.0 Age-related osteoporosis without current pathological fracture; F41.1 Generalized anxiety disorder; E78.5 Hyperlipidemia, unspecified; M10.9 Gout, unspecified; F17.210 Nicotine dependence, cigarettes, uncomplicated; F12.90 Cannabis use, unspecified, uncomplicated; Z79.51 Long term (current) use of inhaled steroids; Z79.82 Long term (current) use of aspirin; E66.9 Obesity, unspecified; Z68.33 Body mass index [BMI] 33.0-33.9, adult
CPT/HCPCS: 25111; 36415; 80048; 88304; 88305; 93005; A9270; C9803; J0690; J2704; J3010; J7120; U0003; U0005

== ENCOUNTER 2021-10-02 13:38 | Inpatient (IN) | payer MEDICARE, MEDICAID, SELFPAY ==
[2021-10-02] VITALS (11 sets, daily range): BP systolic 115–150; BP diastolic 60–75; PULSE 70–88; RESP 16–26; TEMP 36.4–36.8; O2SAT 88–98
--- NOTE | ~2021-10-02 | XR_ITS ---
XR chest 1V portable 10/02/2021 14:29 Indication: Dyspnea. COPD. Procedure: AP portable chest Comparison: Comparison to multiple prior studies sequentially, with oldest reviewed study dated 11/29. Findings: Borderline heart size. There is an aortic stent. There is a calcified granuloma left midlun g. No focal air space disease, pulmonary edema, pleural effusion or suspected pneumothorax. Impression: 1: No acute cardiopulmonary disease. Reviewed, dictated and finalized at location A. Impression: 1: No acute cardiopulmonary disease.
--- NOTE | ~2021-10-02 | CT_ITS ---
EXAMINATION: CTA chest PE protocol DATE: 10/02/2021 15:47 INDICATION: Shortness of breath TECHNIQUE: Computed tomography angiography (CTA) of the chest was performed with 100 mL Omnipaque-350 intravenous contrast timed to evaluate the pulmonary arteries. Coronal maximum intensity projection 3D-reconstructions were created by the technologist. The dose-length product (DLP) was 668.49 mGy-cm. Automated exposure control and iterative reconstruction technique were employed. COMPARISON: 10/28/2016 FINDINGS: Respiratory motion artifact limits somewhat limits evaluation. The pulmonary arteries are w ell-opacified. No pulmonary embolism is identified. There is mild atelectasis in the lower lobes. No focal airspace opacity is identified. Calcified pulmonary nodules and calcified left hilar lymph node s are consistent with old granulomatous disease. There is no pleural effusion or pneumothorax. An end oluminal stent is present in the descending thoracic aorta. There is moderate thoracic spondylosis. IMPRESSION: 1. No pulmonary embolism or acute cardiopulmonary abnormality, sensitivity slightly limited by motion artifact.. Reviewed, dictated and finalized at location B. IMPRESSION: 1. No pulmonary embolism or acute cardiopulmonary abnormality, sensitivity slig htly limited by motion artifact..
--- NOTE | 2021-10-02 13:45 | ECG_ITS ---
Measurements Intervals [place] Rate: 79 P: 62 [place]: 190 QRS: 43 QRSD: 105 T: 73 QT: 401 QTc: 462 Interpretive Statements SINUS RHYTHM NONSPECIFIC T-WAVE ABNORMALITY DELAYED R-WAVE PROGRESSION ABNORMAL ECG COMPARED TO ECG 11/30/2020 09:46:30 NO SIGNIFICANT CHANGES Electronically Signed On 10-02-2021 15:36:53 CDT by [place] Park M.D.
--- NOTE | 2021-10-02 13:50 | ED.SOB ---
HPI - SOB/Dyspnea General Chief Complaint: Shortness of Breath/Dyspnea Stated Complaint: low oxygen level Time Seen by Provider: 10/02/21 15:07 Source: patient Mode of arrival: ambulatory Limitations: no limitations History of Present Illness HPI Narrative: this is a 66-year-old female that presented from her primary care's office has a history of COPD has been short of breath over the last few days has increased today and while at her primary care physician's office her O2 sats were in the 70s, patient was brought over to the emergency department placed on 2L and currently satting at about 94%. Patient has some mild cough with nonproductive with no chest pain no abdominal pain no peripheral edema no fever chills. Patient has a history of COPD and hypertension and is a current smoker. MD elicited complaint: shortness of breath Related Data Home Medications Medication Instructions Recorded Confirmed aspirin [Adult Low Dose Aspirin] 81 mg PO DAILY 07/18/20 12/04/20 cholecalciferol (vitamin D3) 50 mcg PO TID 07/18/20 12/04/20 multivit with min-folic acid 1 tablet PO DAILY 07/18/20 12/04/20 [Adult One Daily Multivitamin] varenicline 0.5 mg (11)-1 mg (42) ea PO 09/08/21 09/08/21 tablets in a dose pack Allergies Allergy/AdvReac Type Severity Reaction Status Date / Time No Known Allergies Allergy Verified 10/02/21 09:33 Review of Systems Review of Systems: All systems reviewed & are unremarkable except as noted in HPI and below PMFSH Past Medical History Medical History Age related osteoporosis Asthma Chronic back pain Chronic kidney disease (CKD) stage G4/A1, severely decreased glomerular filtration rate (GFR) between 15-29 mL/min/1.73 square meter and albuminuria creatinine ratio less than 30 mg/g COPD (chronic obstructive pulmonary disease) WILLIAM (generalized anxiety disorder) GERD (gastroesophageal reflux disease) Gout History of aortic dissection 2001 Hyperlipidemia Hypertension Overweight Tobacco abuse Surgical History Surgical History History of hip replacement, total History of mandibular surgery Hx of cataract surgery S/P insertion of iliac artery stent Family History Family History Father Family history of malignant neoplasm Sibling Family history of malignant neoplasm of breast in first degree relative Mother Family history of congestive heart failure Other Hypertension Social History Social History Smoking packs per day: 1 Smoking cigarettes per day: 20.0 Years smoked: 50 Smoking pack-years: 50.00 Tobacco type: cigarettes Second hand tobacco smoke exposure: No Alcohol intake: current Alcohol use details: 1 glass of wine per year Substance use: current Substance use type: marijuana Other substance usage details: ONCE A MONTH Last use: 07/07/20 Gender identity (if verbalized by the patient): Female Spiritual care concerns: No Agree to blood products: Yes Exam Const: General: no acute distress Orientation/consciousness: patient oriented x3 HENMT: Head: normal to inspection Eyes: Conjunctivae: conjunctivae normal Pupils: Equal, round and reactive pupils present EOM: EOMs intact bilaterally Neck: Neck: normal visual inspection, no lymphadenopathy and no meningeal signs Chest: Chest palpation & inspection: normal inspection of the chest Resp: Effort & Inspection: normal respiratory effort Auscultation: rhonchi and diminished lung sounds Cardio: Rate: regular rate and tachycardic GI: GI Palp: Yes Soft to palpation Percussion: Yes normal to percussion : General: Yes no CVA tenderness Urinary Catheter: Urinary Catheter: patent and draining Back/Spine/Pelvis: Back: no CVA tenderness Skin: General skin exam: nor
[2021-10-02] MEDS: IPRATROPIUM 0.5 MG/ALBUTEROL SULFATE 2.5 MG AMPUL.NEB 3 ML INHALATION ×3 (13:52→23:59)
[2021-10-02 13:55] LABS: Glucose Point of Care 124 mg/dl (65-105)
[2021-10-02] MEDS: methylPREDNISolone SOD SUCC 125 MG VIAL IV PUSH (13:57)
[2021-10-02 14:01] LABS: Base Excess ABG 0.6 mmol/L (0-2); HCO3 ABG 26.2 mmol/L (23-29); Oxygen Content ABG 17.5 %vol (16.0-22.0); Oxygen Saturation ABG 90.7 % (95-97); Oxyhemoglobin 87.5 % (94-100); PCO2 ABG 45.9 mmHg (35-45); PO2 ABG 59.6 mmHg (75-85); Total Hemoglobin 14.2 g/dL (12.0-18.0); pH ABG 7.38 (7.35-7.45)
[2021-10-02 14:03] LABS: Device ROOM AIR; Modified Allen's Test Pass; Site Drawn RIGHT RADIAL
[2021-10-02 14:21] LABS: Basophils Absolute Auto 0.03 K/mm3 (0.00-0.10); Basophils Percent Auto 0.3 % (0.0-1.0); Eosinophils Absolute Auto 0.05 K/mm3 (0.02-0.50); Eosinophils Percent Auto 0.6 % (1.0-6.0); Hematocrit 44.8 % (35.0-42.0); Hemoglobin 14.1 g/dL (11.7-13.8); Immature Granulocyte Absolute 0.05 K/mm3 (0.00-0.00); Immature Granulocyte Percent A 0.6 % (0.0-0.0); Immature Platelet Fraction Pct 5.8 % (1.0-7.0); Lymphocytes Absolute Auto 0.81 K/mm3 (1.10-4.50); Lymphocytes Percent Auto 9.2 % (18.0-42.0); Mean Corpuscular HGB Conc 31.5 g/dL (32.0-36.0); Mean Corpuscular Hemoglobin 30.7 pg (27.0-31.0); Mean Corpuscular Volume 97.6 fL (78.0-102.0); Mean Platelet Volume 11.9 fl (9.2-11.8); Monocytes Absolute Auto 0.92 K/mm3 (0.10-0.90); Monocytes Percent Auto 10.4 % (2.0-11.0); Neutrophils Percent Auto 78.9 % (50.0-70.0); Platelet Count Result 121 K/mm3 (150-420); Red Blood Count 4.59 M/mm3 (4.20-5.40); Red Cell Distribution Width 14.6 % (11.6-14.4); White Blood Count 8.8 K/mm3 (4.8-10.8)
[2021-10-02 14:31] LABS: Partial Thromboplastin Time 31.6 SEC (23.90-30.70); Prothrombin Time 11.1 Seconds (9.50-12.10)
[2021-10-02 14:37] LABS: SARS-CoV-2 RNA PCR Negative (Negative)
[2021-10-02 14:38] LABS: D Dimer 2.42 mg/L (0.19-0.50)
--- NOTE | 2021-10-02 14:38 | PC.NURSE ---
patient has 2.34 ddimer.
[2021-10-02 14:39] LABS: Alanine Aminotransferase 29 U/L (14-59); Albumin Level 3.1 g/dL (3.4-5.0); Alkaline Phosphatase 62 U/L (46-116); Anion Gap 10 mmol/L (8-16); Aspartate Amino Transferase 14 U/L (15-37); Bilirubin,Total 0.4 mg/dL (0.00-1.00); Blood Urea Nitrogen 20 mg/dL (7-18); Calcium 8.6 mg/dL (8.5-10.1); Carbon Dioxide 29 mmol/L (21-32); Chloride 100 mmol/L (98-108); Estimated CRCL calculation 42 ml/min; Estimated Glomerular Filt Rate 32; Glucose 112 mg/dL (70-99); Magnesium 2.1 mg/dL (1.8-2.4); NT Pro B Type Natriuretic Pept 1158 pg/mL (0-125); Osmolality Calculated 291 mOsm/kg (285-295); Potassium 3.7 mmol/L (3.5-5.1); Sodium 139 mmol/L (136-145); Total Protein 7.5 g/dL (6.4-8.2); Troponin I 10.3 ng/L (0.00-60.4)
[2021-10-02 14:40] LABS: Influenza A QL RT-PCR Positive (Negative); Influenza B QL RT-PCR Negative (Negative)
--- NOTE | 2021-10-02 18:27 | ADMGEN ---
This patient, Rosa Escalante, was admitted to 2nd Floor Room 202-2. she is here sob and copd. Patient/family oriented to hospital policies and general routines including ID bracelet, bed and alarms, visiting hours, pain management, procedures, bathroom and other care routines, personal items, smoking policy, room service/diet, and visiting hours. Information on how to activate the Rapid Response Team has been discussed. Patient/Family are encouraged to report perceived risks to care and to ask questions if they do not understand what they are told or what they should do.
[2021-10-02] MEDS: OSELTAMIVIR PHOSPHATE 30 MG CAPSULE PO (20:12)
[2021-10-02] MEDS: atenoloL 50 MG TABLET 100 MG PO (20:12)
[2021-10-02] MEDS: methylPREDNISolone SOD SUCC 125 MG VIAL 80 MG IV PUSH (20:13)
[2021-10-03] VITALS (22 sets, daily range): BP systolic 122–132; BP diastolic 61–71; PULSE 68–88; RESP 14–24; TEMP 36.2–36.6; O2SAT 84–99
[2021-10-03 05:21] LABS: Hematocrit 45.3 % (35.0-42.0); Hemoglobin 13.9 g/dL (11.7-13.8); Mean Corpuscular HGB Conc 30.7 g/dL (32.0-36.0); Mean Corpuscular Hemoglobin 30.5 pg (27.0-31.0); Mean Corpuscular Volume 99.3 fL (78.0-102.0); Platelet Count Result 119 K/mm3 (150-420); Red Blood Count 4.56 M/mm3 (4.20-5.40); Red Cell Distribution Width 14.5 % (11.6-14.4); White Blood Count 5.3 K/mm3 (4.8-10.8)
[2021-10-03] MEDS: IPRATROPIUM 0.5 MG/ALBUTEROL SULFATE 2.5 MG AMPUL.NEB 3 ML INHALATION ×3 (05:39→18:37)
[2021-10-03 05:44] LABS: Alanine Aminotransferase 41 U/L (14-59); Albumin Level 2.9 g/dL (3.4-5.0); Alkaline Phosphatase 56 U/L (46-116); Anion Gap 6 mmol/L (8-16); Aspartate Amino Transferase 11 U/L (15-37); Bilirubin,Total 0.3 mg/dL (0.00-1.00); Blood Urea Nitrogen 28 mg/dL (7-18); Calcium 8.5 mg/dL (8.5-10.1); Carbon Dioxide 33 mmol/L (21-32); Chloride 102 mmol/L (98-108); Estimated CRCL calculation 44 ml/min; Estimated Glomerular Filt Rate 34; Glucose 144 mg/dL (70-99); Magnesium 2.2 mg/dL (1.8-2.4); Osmolality Calculated 300 mOsm/kg (285-295); Potassium 4.3 mmol/L (3.5-5.1); Sodium 141 mmol/L (136-145); Total Protein 7.3 g/dL (6.4-8.2)
[2021-10-03] MEDS: BUDESONIDE/FORMOTEROL 80/4.5 MCG 6.9 GM INHALER (*SP) 2 PUFF INHALATION ×2 (06:08→19:00)
--- NOTE | 2021-10-03 07:56 | PM.IMHP ---
H&P: HPI History of Present Illness Date/Time: 10/03/21 07:56 this is a 66-year-old female who presented to her primary care physician's office with complaints of increased shortness of breath she was then sent to our emergency department. Patient has a history of asthma, chronic back pain, chronic kidney disease, COPD, WILLIAM, GERD, gout and osteoporosis. According to patient for the last 3 days she has been experience shortness of breath. Patient also notes that she has not had her solution for her nebulizer for 6 months and did not inform her primary care physician that she needed a refill. according to primary care physician notes patient presented to his office with a productive cough, shortness of breath and upper back pain with sats at 87% on room air. Patient did test positive for influenza A. WBCs 8.8, hemoglobin 14.1, hematocrit 44.8, platelets 121, D-dimer 2.42, ABG pH 7.38, CO2 45.9, O2 59.6, bicarb 26.2, sodium 139, potassium 3.7, BUN 20, creatinine 1.61, glucose 112, magnesium 2.1, total bili 0.4, AST 14, ALT 29, troponin 10.3, BNP 1158, negative for Covid, CTA negative for PE chest x-ray unremarkable. Patient being admitted for influenza A and COPD exacerbation. Patient continues to experience shortness of breath with uncontrollable nonproductive coughing. Home to evaluation indicates that patient needs continuous oxygen at 4 L with and without activity. Patient is anxious to discharge home she has animals that she needs to take care of. I have asked the patient to stay for 1 additional day for treatment, patient has agreed. Plans to discharge patient tomorrow, arranging for home oxygen Chief Complaint: Shortness of breath Review of Systems Review of Systems: A 14 organ system Review of Systems was performed and pertinent positives included in the HPI, otherwise remaining ROS is negative. [facility] Past Medical History Medical History Age related osteoporosis Asthma Chronic back pain Chronic kidney disease (CKD) stage G4/A1, severely decreased glomerular filtration rate (GFR) between 15-29 mL/min/1.73 square meter and albuminuria creatinine ratio less than 30 mg/g COPD (chronic obstructive pulmonary disease) WILLIAM (generalized anxiety disorder) GERD (gastroesophageal reflux disease) Gout History of aortic dissection 2002 Hyperlipidemia Hypertension Overweight Tobacco abuse Surgical History Surgical History History of hip replacement, total History of mandibular surgery Hx of cataract surgery S/P insertion of iliac artery stent Family History Family History Father Family history of malignant neoplasm Sibling Family history of malignant neoplasm of breast in first degree relative Mother Family history of congestive heart failure Other Hypertension Social History Social History Smoking packs per day: 30 Smoking cigarettes per day: 600.0 Years smoked: 50 Smoking pack-years: 1500.00 Smoking status: Heavy tobacco smoker Tobacco type: cigarettes Second hand tobacco smoke exposure: Yes Alcohol intake: never Alcohol use details: 1 glass of wine per year Substance use: never Substance use type: marijuana Other substance usage details: ONCE A MONTH Last use: 07/07/20 Gender identity (if verbalized by the patient): Female Spiritual care concerns: No Agree to blood products: Yes Meds Home Medications and Allergies Home Medications Medication Instructions Recorded Confirmed Type aspirin [Adult Low Dose Aspirin] 81 mg PO DAILY 07/18/20 10/02/21 History multivit with min-folic acid 1 tablet PO DAILY 07/18/20 10/02/21 History [Adult One Daily Multivitamin] hydrocodone-acetaminophen 1 tablet PO Q4H PRN #40 tablet 12/04/20 10/02/21 Rx atenolol 100 mg tablet See
--- NOTE | 2021-10-03 08:32 | HOMEO2EVAL ---
Evaluation was performed at [facility] Home Oxygen Evaluation RC: Home Oxygen (O2) Evaluation Start: 10/03/21 07:52 Freq: ONCE Status: Active Protocol: RPE Activity Type Activity Date Activity User E-Sign Co-Sign Detail Recorded Client Recorded Date Recorded By Document 10/03/21 08:00 SJB [id number] 10/03/21 08:31 SJB Document 10/03/21 08:02 SJB [id number] 10/03/21 08:31 SJB Document 10/03/21 08:03 SJB [id number] 10/03/21 08:31 SJB Document 10/03/21 08:04 SJB [id number] 10/03/21 08:31 SJB Document 10/03/21 08:06 SJB [id number] 10/03/21 08:31 SJB Document 10/03/21 08:10 SJB [id number] 10/03/21 08:31 SJB 10/03/21 10/03/21 10/03/21 08:00 08:02 08:03 Home O2 Evaluation Test Phase Resting Resting Resting Oxygen Delivery Room Air Nasal Cannula Nasal Cannula Oxygen Flow Rate (L/min) 1 2 Pulse Oximetry (90-100 %) 84 L 85 L 89 L Pulse Rate (60-100 beats/min) 72 70 68 Activity Tolerance Rating of Perceived Dyspnea (PD) +2 Mild, Some Difficulty, Noticeable to the Observer Rate of Perceived Exertion (PE) Ambulation Distance (feet) Ambulation Distance (meters) Home Oxygen Evaluation Comments Pts Sp02 at Sp02 on 1 lpm Sp02 on 2 lpm rest on r/a is at rest is 85%, is 89%, will 84%, will start will increase increase to 3 on 1 lpm. O2 to 2 lpm. lpm. Encouraged patient to talk less and do PLB. 10/03/21 10/03/21 10/03/21 08:04 08:06 08:10 Home O2 Evaluation Test Phase Resting Exercise Exercise Oxygen Delivery Nasal Cannula Nasal Cannula Nasal Cannula Oxygen Flow Rate (L/min) 3 3 4 Pulse Oximetry (90-100 %) 91 87 L 89 L Pulse Rate (60-100 beats/min) 69 76 78 Activity Tolerance Fair Fair Rating of Perceived Dyspnea (PD) +2 Mild, Some +3 Moderate Difficulty, Difficulty, But Noticeable to Can Continue the Observer Rate of Perceived Exertion (PE) 15 Hard Ambulation Distance (feet) 45 105 Ambulation Distance (meters) 13.71 32.00 Home Oxygen Evaluation Comments Will begin walk After approx 45 Pt finished now on 3 lpm. ft on 3 lpm, walk on 4 lpm pts Sp02 with Sp02 dropped to 87%. staying at or Will increase above 89%. Pt to 4 lpm. continually wanting to stop due c/o she is out of shape but finished walk pushing wheelchair without sitting down. Pt does not like to do PLB so had to be continuously reminded. She walked an approx total of 150 ft.
[2021-10-03] MEDS: BENZONATATE 100 MG CAPSULE 200 MG PO ×3 (08:44→16:40)
[2021-10-03] MEDS: PANTOPRAZOLE 40 MG TABLET PO (08:44)
[2021-10-03] MEDS: atenoloL 50 MG TABLET 100 MG PO ×2 (08:45→20:18)
[2021-10-03] MEDS: OSELTAMIVIR PHOSPHATE 30 MG CAPSULE PO ×2 (08:45→20:18)
[2021-10-03] MEDS: guaiFENesin 12 HR 600 MG TABCR 1200 MG PO ×2 (08:45→20:18)
[2021-10-03] MEDS: hydroCHLOROthiazide 25 MG TABLET PO (08:45)
[2021-10-03] MEDS: ASPIRIN 81 MG ENTERIC TABLET PO (08:46)
[2021-10-03] MEDS: NICOTINE (*PBKC) 21 MG PATCH 1 PATCH TRANSDERM (08:46)
[2021-10-03] MEDS: methylPREDNISolone SOD SUCC 125 MG VIAL 80 MG IV PUSH ×2 (13:00→22:25)
[2021-10-03] MEDS: CALCIUM CARBONATE (TUMS) 500 MG (200 MG ELEMENTAL) PO (13:23)
[2021-10-03] MEDS: ALBUTEROL SULFATE (*SP) INHALER 2 PUFF INHALATION (20:18)
[2021-10-04] VITALS (10 sets, daily range): BP systolic 153; BP diastolic 75; PULSE 71–80; RESP 19–20; TEMP 36.3; O2SAT 90–94
[2021-10-04] MEDS: IPRATROPIUM 0.5 MG/ALBUTEROL SULFATE 2.5 MG AMPUL.NEB 3 ML INHALATION ×2 (00:36→05:46)
[2021-10-04 05:08] LABS: Hemoglobin 13.1 g/dL (11.7-13.8); Mean Corpuscular HGB Conc 31.2 g/dL (32.0-36.0); Mean Corpuscular Hemoglobin 30.8 pg (27.0-31.0); Mean Corpuscular Volume 98.8 fL (78.0-102.0); Platelet Count Result 128 K/mm3 (150-420); Red Blood Count 4.25 M/mm3 (4.20-5.40); Red Cell Distribution Width 14.6 % (11.6-14.4); White Blood Count 9.5 K/mm3 (4.8-10.8)
[2021-10-04] MEDS: methylPREDNISolone SOD SUCC 125 MG VIAL 80 MG IV PUSH (05:12)
[2021-10-04 05:20] LABS: Anion Gap 6 mmol/L (8-16); Blood Urea Nitrogen 36 mg/dL (7-18); Calcium 8.5 mg/dL (8.5-10.1); Carbon Dioxide 32 mmol/L (21-32); Chloride 103 mmol/L (98-108); Estimated CRCL calculation 45 ml/min; Estimated Glomerular Filt Rate 35; Glucose 158 mg/dL (70-99); Osmolality Calculated 303 mOsm/kg (285-295); Potassium 3.9 mmol/L (3.5-5.1); Sodium 141 mmol/L (136-145)
[2021-10-04] MEDS: BUDESONIDE/FORMOTEROL 80/4.5 MCG 6.9 GM INHALER (*SP) 2 PUFF INHALATION (05:30)
--- NOTE | 2021-10-04 08:34 | P.DS_ITS ---
DS: Admitting Diagnosis Discharge Date 10/04/2021 Admitting Diagnosis Influenza and COPD exacerbation DS: Discharge Diagnosis Discharge Diagnosis (1) COPD exacerbation: Code(s): J44.1 - Chronic obstructive pulmonary disease with (acute) exacerbation Status: Acute Assessment and Plan: * Worsened by influenza * Chest x-ray no acute findings * Continue inhalers, nebulizer, Tessalon Perles, guaifenesin, supplementary oxygen and Solu-Medrol * Patient will discharge home with portable oxygen if 4 L continuous (2) Influenza A: Code(s): J10.1 - Influenza due to other identified influenza virus with other respiratory manifestations Status: Acute Assessment and Plan: * Continue Tamiflu x5-day, day 3/ 5 (3) Tobacco abuse: Code(s): Z72.0 - Tobacco use Status: Chronic Assessment and Plan: * Educated on cessation * Ordered a nicotine patch * Patient does not have the desire to stop smoking * Educated patient on the use tobacco in oxygen tanks. Informed her that she is not allowed to smoke with oxygen tank in the same room (4) Chronic back pain: Code(s): M54.9 - Dorsalgia, unspecified; G89.29 - Other chronic pain Status: Chronic Assessment and Plan: * Continue pain medication (5) Gout: Code(s): M10.9 - Gout, unspecified Status: Acute Assessment and Plan: * Stable (6) Hypertension: Code(s): I10 - Essential (primary) hypertension Status: Chronic Assessment and Plan: * Stable * Continue home medication * (7) Hyperlipidemia: Code(s): E78.5 - Hyperlipidemia, unspecified Status: Chronic Assessment and Plan: * Continue statins (8) GERD (gastroesophageal reflux disease): Code(s): K21.9 - Gastro-esophageal reflux disease without esophagitis Status: Chronic Assessment and Plan: * Continue pantoprazole (9) WILLIAM (generalized anxiety disorder): Code(s): F41.1 - Generalized anxiety disorder Status: Chronic Assessment and Plan: * Started Ativan (10) Overweight: Code(s): E66.3 - Overweight Status: Chronic Assessment and Plan: * Educated on healthy lifestyle (11) Elevated d-dimer: Code(s): R79.89 - Other specified abnormal findings of blood chemistry Status: Acute Assessment and Plan: * Possibly secondary to COPD exacerbation * CTA negative for PE (12) Chronic kidney disease (CKD) stage G4/A1, severely decreased glomerular filtration rate (GFR) between 15-29 mL/min/1.73 square meter and albuminuria creatinine ratio less than 30 mg/g: Code(s): N18.4 - Chronic kidney disease, stage 4 (severe) Status: Chronic Assessment and Plan: * Baseline BUN/creatinine appears to be at 26/1.40 now 28/1.54>36/1.50 * Follow-up with primary care physician DS: Summary Hospital Course Reason for hospitalization: Influenza, COPD exacerbation Hospital Course: this is a 66-year-old female who presented to her primary care physician's office with complaints of increased shortness of breath she was then sent to our emergency department. Patient has a history of asthma, chronic back pain, chronic kidney disease, COPD, WILLIAM, GERD, gout and osteoporosis. According to patient for the last 3 days she has been experience shortness of breath. Patient also notes that she has not had her solution for her nebulizer for 6 months and did not inform her primary care physician that she needed a refill. according to primary care physician notes
--- NOTE | 2021-10-04 08:34 | PM.DS ---
DS: Admitting Diagnosis Discharge Date 10/04/2021 Admitting Diagnosis Influenza and COPD exacerbation DS: Discharge Diagnosis Discharge Diagnosis (1) COPD exacerbation: Code(s): J44.1 - Chronic obstructive pulmonary disease with (acute) exacerbation Status: Acute Assessment and Plan: Worsened by influenza Chest x-ray no acute findings Continue inhalers, nebulizer, Tessalon Perles, guaifenesin, supplementary oxygen and Solu-Medrol Patient will discharge home with portable oxygen if 4 L continuous (2) Influenza A: Code(s): J10.1 - Influenza due to other identified influenza virus with other respiratory manifestations Status: Acute Assessment and Plan: Continue Tamiflu x5-day, day 3/ 5 (3) Tobacco abuse: Code(s): Z72.0 - Tobacco use Status: Chronic Assessment and Plan: Educated on cessation Ordered a nicotine patch Patient does not have the desire to stop smoking Educated patient on the use tobacco in oxygen tanks. Informed her that she is not allowed to smoke with oxygen tank in the same room (4) Chronic back pain: Code(s): M54.9 - Dorsalgia, unspecified; G89.29 - Other chronic pain Status: Chronic Assessment and Plan: Continue pain medication (5) Gout: Code(s): M10.9 - Gout, unspecified Status: Acute Assessment and Plan: Stable (6) Hypertension: Code(s): I10 - Essential (primary) hypertension Status: Chronic Assessment and Plan: Stable Continue home medication (7) Hyperlipidemia: Code(s): E78.5 - Hyperlipidemia, unspecified Status: Chronic Assessment and Plan: Continue statins (8) GERD (gastroesophageal reflux disease): Code(s): K21.9 - Gastro-esophageal reflux disease without esophagitis Status: Chronic Assessment and Plan: Continue pantoprazole (9) WILLIAM (generalized anxiety disorder): Code(s): F41.1 - Generalized anxiety disorder Status: Chronic Assessment and Plan: Started Ativan (10) Overweight: Code(s): E66.3 - Overweight Status: Chronic Assessment and Plan: Educated on healthy lifestyle (11) Elevated d-dimer: Code(s): R79.89 - Other specified abnormal findings of blood chemistry Status: Acute Assessment and Plan: Possibly secondary to COPD exacerbation CTA negative for PE (12) Chronic kidney disease (CKD) stage G4/A1, severely decreased glomerular filtration rate (GFR) between 15-29 mL/min/1.73 square meter and albuminuria creatinine ratio less than 30 mg/g: Code(s): N18.4 - Chronic kidney disease, stage 4 (severe) Status: Chronic Assessment and Plan: Baseline BUN/creatinine appears to be at 26/1.40 now 28/1.54>36/1.50 Follow-up with primary care physician DS: Summary Hospital Course Reason for hospitalization: Influenza, COPD exacerbation Hospital Course: this is a 66-year-old female who presented to her primary care physician's office with complaints of increased shortness of breath she was then sent to our emergency department. Patient has a history of asthma, chronic back pain, chronic kidney disease, COPD, WILLIAM, GERD, gout and osteoporosis. According to patient for the last 3 days she has been experience shortness of breath. Patient also notes that she has not had her solution for her nebulizer for 6 months and did not inform her primary care physician that she needed a refill. according to primary care physician notes patient presented to his office with a productive cough, shortness of breath and upper back pain with sats at 87% on room air. Patient did test positive for influenza A. Patient will discharge home today with oxygen which is new for her and 3 more days of Tamiflu. Patient agrees that she is ready for discharge. Spoke with patient once again about smoking informed her that her COPD will only worsen with the use of tobacco. Patient n
[2021-10-04] MEDS: atenoloL 50 MG TABLET 100 MG PO (09:15)
[2021-10-04] MEDS: OSELTAMIVIR PHOSPHATE 30 MG CAPSULE PO (09:16)
[2021-10-04] MEDS: hydroCHLOROthiazide 25 MG TABLET PO (09:16)
[2021-10-04] MEDS: BENZONATATE 100 MG CAPSULE 200 MG PO (09:16)
[2021-10-04] MEDS: ASPIRIN 81 MG ENTERIC TABLET PO (09:16)
[2021-10-04] MEDS: guaiFENesin 12 HR 600 MG TABCR 1200 MG PO (09:16)
[2021-10-04] MEDS: PANTOPRAZOLE 40 MG TABLET PO (09:16)
--- NOTE | 2021-10-04 09:35 | PC.NURSE ---
All discharge instructions and education reviewed with patient. Patient states understanding. All belongings gathered together and sent home with patient. Inhalers given to patient to take home. IV site removed, tip intact, dressing applied to site. Patient accompanied to front door via wheelchair with portable home 02 tank. Patient left via private vehicle with friend. Denies any questions at discharge
--- NOTE | 2021-10-07 10:02 | PC.NURSE ---
Pt states she received and understood her discharge instructions. Pt also states I just still feel awful .
== END 2021-10-04 09:35 | disposition home or self-care (01) | DRG 191 ==
LOC: CHSED 16:43 → CHS2ND 17:15
PROVIDERS: Nurse Practitioner; Admitting Provider Internal Medicine; Emergency Provider Emergency Medicine; PCP Family Medicine; Visit Provider Internal Medicine
DX: J44.1 Chronic obstructive pulmonary disease with (acute) exacerbation (principal); I12.9 Hypertensive chronic kidney disease with stage 1 through stage 4 chronic kidney disease, or unspecified chronic kidney disease; N18.4 Chronic kidney disease, stage 4 (severe); E78.5 Hyperlipidemia, unspecified; K21.9 Gastro-esophageal reflux disease without esophagitis; M81.0 Age-related osteoporosis without current pathological fracture; M10.9 Gout, unspecified; F41.1 Generalized anxiety disorder; F17.210 Nicotine dependence, cigarettes, uncomplicated; Z96.649 Presence of unspecified artificial hip joint; Z20.822 Contact with and (suspected) exposure to COVID-19; J10.1 Influenza due to other identified influenza virus with other respiratory manifestations; M54.9 Dorsalgia, unspecified; G89.29 Other chronic pain; R79.1 Abnormal coagulation profile
CPT/HCPCS: 36415; 36600; 71045; 71275; 80048; 80053; 82805; 82948; 83735; 83880; 84484; 85025; 85027; 85055; 85380; 85610; 85730; 87040; 87502; 93005; 94640; 96374; 99285; A9270; C9803; J1650; J2930; Q9967; U0003; U0005

== ENCOUNTER 2021-11-03 14:24 | Outpatient (CLI) | payer MEDICARE, MEDICAID, SELFPAY ==
--- NOTE | ~2021-11-03 | XR_ITS ---
XR chest 2V DATE: 11/03/2021 14:58 INDICATION: Shortness of breath for one week, leg swelling. Smoker. TECHNIQUE: 2 views COMPARISON: 09/28/2021 CT pulmonary scan FINDINGS: An endoluminal thoracic aortic stent is noted from the mid aortic arch including all of the descending thoracic aorta. Heart size is within normal range. No pulmonary infiltrate or consolidation, pleural effusion or pulmonary vascular congestion or pneumo thorax is detected. Diffuse osteopenia. IMPRESSION: No active pulmonary disease Reviewed, dictated and finalized at location A. IMPRESSION: No active pulmonary disease
[2021-11-03 14:46] LABS: Hematocrit 42.6 % (35.0-42.0); Mean Corpuscular HGB Conc 30.5 g/dL (32.0-36.0); Mean Corpuscular Hemoglobin 29.5 pg (27.0-31.0); Mean Corpuscular Volume 96.8 fL (78.0-102.0); Mean Platelet Volume 11.4 fl (9.2-11.8); Platelet Count Result 185 K/mm3 (150-420); Red Cell Distribution Width 14.9 % (11.6-14.4); White Blood Count 10.9 K/mm3 (4.8-10.8)
[2021-11-03 15:26] LABS: Alanine Aminotransferase 27 U/L (14-59); Albumin Level 2.8 g/dL (3.4-5.0); Alkaline Phosphatase 72 U/L (46-116); Anion Gap 4 mmol/L (8-16); Aspartate Amino Transferase 13 U/L (15-37); Bilirubin,Total 0.3 mg/dL (0.00-1.00); Blood Urea Nitrogen 16 mg/dL (7-18); Carbon Dioxide 36 mmol/L (21-32); Chloride 104 mmol/L (98-108); Estimated Glomerular Filt Rate 34; Glucose 105 mg/dL (70-99); NT Pro B Type Natriuretic Pept 244 pg/mL (0-125); Osmolality Calculated 299 mOsm/kg (285-295); Potassium 3.4 mmol/L (3.5-5.1); Sodium 144 mmol/L (136-145); Total Protein 6.7 g/dL (6.4-8.2); Troponin I 7.8 ng/L (0.00-60.4)
[2021-11-03 15:27] LABS: Thyroid Stimulating Hormone Reflex 0.77 u/IU/mL (0.36-3.74)
== END 2021-11-03 14:25 | disposition home or self-care (01) ==
PROVIDERS: PCP Family Medicine; Visit Provider Family Medicine
DX: I50.9 Heart failure, unspecified (principal); E11.9 Type 2 diabetes mellitus without complications
CPT/HCPCS: 36415; 71046; 80053; 83880; 84443; 84484; 85027

== ENCOUNTER 2021-11-07 12:24 | Outpatient (CLI) | payer MEDICARE, MEDICAID, SELFPAY ==
--- NOTE | 2021-11-07 12:30 | ECHO_ITS ---
Patient Info Name: Rosa Escalante Age: 66 years : 1955 Gender: Female Ht: 71 in Wt: 240 lbs BSA: 2.37 m2 Technical Quality: Fair Exam Date: 11/07/2021 12:26 PM Exam Location: [facility] [place] Patient Status: Outpatient Admit Date: 11/07/2021 Staff Ordering Physician: Kyle Montenegro DO Sales Host: Ignacia Johnson RDCS Attending Provider: Kyle Montenegro DO Exam Type: CA echo doppler color flow Study Info Indications I50.9 - Heart failure, unspecified Complete two-dimensional, color flow and Doppler transthoracic echocardiogram is performed. Summary 1. Complete two-dimensional, color flow and Doppler transthoracic echocardiogram is performed. 2. Left ventricular chamber dimension is normal. 3. Left ventricular systolic function is normal, estimated at 60-65%. 4. There is mildly increased left ventricular wall thickness. 5. The left ventricular diastolic function is grade I diastolic dysfunction. 6. Moderate lipomatous interatrial septum. 7. No pulmonary hypertension, estimated pulmonary arterial systolic pressure is 12 mmHg. Left Ventricle Tissue doppler is not performed. Left ventricular chamber dimension is normal. Left ventricular systolic function is normal, estimated at 60-65%. There is mildly increased left ventricular wall thickness. The left ventricular diastolic function is grade I diastolic dysfunction. Right Ventricle Right ventricular chamber dimension is normal. Right ventricular systolic function is normal. Left Atria Left atrial chamber dimension is normal. Right Atria Right atrial chamber dimension is normal. Atrial Septum Moderate lipomatous interatrial septum. Aortic Valve The aortic valve is trileaflet. There is no aortic valve stenosis. There is no aortic valve regurgitation. Pulmonic Valve There is no pulmonic regurgitation. Mitral Valve There is no mitral valve stenosis. There is no mitral valve regurgitation. Tricuspid Valve There is no tricuspid valve regurgitation. No pulmonary hypertension, estimated pulmonary arterial systolic pressure is 12 mmHg. Pericardium/Pleural There is no pericardial effusion. Inferior Vena Cava Normal inferior vena cava with >50% collapse upon inspiration consistent with normal right atrial pressure, 5 mmHg. Aorta The aortic root size at the sinus of Valsalva is normal. Left Ventricular Outflow Tract Name Value Normal LVOT 2D LVOT Diameter 2.0 cm LVOT Doppler LVOT Peak Velocity 78 cm/s LVOT Peak Gradient 2 mmHg LVOT Mean Gradient 1 mmHg LVOT VTI 16 cm LVOT VTI/AV VTI Ratio 0.7 LVOT Stroke Volume 53 ml Pulmonic Valve Name Value Normal RVOT Doppler RVOT Peak Gradient 3 mmHg
== END 2021-11-07 12:25 | disposition home or self-care (01) ==
LOC: CHSIMG 12:25
PROVIDERS: PCP Family Medicine; Visit Provider Family Medicine
DX: I50.9 Heart failure, unspecified (principal)
CPT/HCPCS: 93306

== ENCOUNTER 2021-11-13 19:33 | Observation (INO) | payer MEDICARE, MEDICAID, SELFPAY ==
[2021-11-13] VITALS (9 sets, daily range): BP systolic 133–135; BP diastolic 54–55; PULSE 67–74; RESP 22–24; TEMP 36.1–36.2; O2SAT 89–95; BMI 33.0
--- NOTE | ~2021-11-13 | XR_ITS ---
EXAMINATION: XR chest 1V portable DATE: 11/13/2021 20:12 INDICATION: Dyspnea. TECHNIQUE: A single frontal view of the chest was obtained. COMPARISON: Chest 2 views 11/03/[address] 10/02/2021 FINDINGS: A calcified left lung nodule and calcified left hilar lymph nodes are consistent with old g ranulomatous disease. No pleural effusion or pneumothorax. The heart size is normal. There is a stent graft in descending thoracic aorta. IMPRESSION: 1. No acute cardiopulmonary disease. Reviewed, dictated and finalized at location A.
--- NOTE | 2021-11-13 19:47 | ECG_ITS ---
Measurements Intervals [place] Rate: 72 P: 48 PA: 195 QRS: 37 QRSD: 97 T: 74 QT: 412 QTc: 451 Interpretive Statements SINUS RHYTHM BASELINE ARTIFACT- I, II, III, AVR, AVL, AVF, V1-V6 BORDERLINE ECG Electronically Signed On 11-14-2021 6:43:44 CDT by Jamari Vlalejo D.O.
[2021-11-13 20:06] LABS: Basophils Absolute Auto 0.02 K/mm3 (0.00-0.10); Basophils Percent Auto 0.3 % (0.0-1.0); Eosinophils Absolute Auto 0.09 K/mm3 (0.02-0.50); Eosinophils Percent Auto 1.2 % (1.0-6.0); Hematocrit 42.3 % (35.0-42.0); Hemoglobin 12.7 g/dL (11.7-13.8); Immature Granulocyte Absolute 0.05 K/mm3 (0.00-0.00); Immature Granulocyte Percent A 0.6 % (0.0-0.0); Lymphocytes Absolute Auto 1.69 K/mm3 (1.10-4.50); Lymphocytes Percent Auto 21.9 % (18.0-42.0); Mean Corpuscular Hemoglobin 28.7 pg (27.0-31.0); Mean Corpuscular Volume 95.5 fL (78.0-102.0); Mean Platelet Volume 12.4 fl (9.2-11.8); Monocytes Absolute Auto 0.82 K/mm3 (0.10-0.90); Monocytes Percent Auto 10.6 % (2.0-11.0); Neutrophils Absolute Auto 5.1 K/mm3 (1.7-7.2); Neutrophils Percent Auto 65.4 % (50.0-70.0); Platelet Count Result 128 K/mm3 (150-420); Red Blood Count 4.43 M/mm3 (4.20-5.40); Red Cell Distribution Width 15.6 % (11.6-14.4); White Blood Count 7.7 K/mm3 (4.8-10.8)
--- NOTE | 2021-11-13 20:18 | ED.SOB ---
HPI - SOB/Dyspnea General Chief Complaint: Shortness of Breath/Dyspnea Stated Complaint: AMB Source: patient and EMS Mode of arrival: EMS History of Present Illness HPI Narrative: this is a 66-year-old female with a history of COPD and/ asthma, is a chronic smoker has a history of CHF with grade 1 diastolic dysfunction with an ejection fraction of 60 to 65% presents via EMS with increasing shortness of breath patient was started on DuoNebs EN route by EMS currently the patient is satting 89 to 90% on room air. Patient with no chest pain abdominal no nausea vomiting no diarrhea constipation no dysuria no hematuria. Patient also has a history of hypertension, hyperlipidemia and chronic kidney disease. Patient has a small area of breakdown on her lower back area non tracking no drainage it is red. Currently there is no fever chills and vitals are stable. MD elicited complaint: shortness of breath and cough Pertinent past history: COPD and asthma Onset (ago): hour(s) Timing: constant Severity: moderate Exacerbating factors: coughing Related Data Home Medications Medication Instructions Recorded Confirmed tiotropium bromide [Spiriva 1.25 mcg INHALATION DAILY 11/13/21 11/13/21 Respimat] Allergies Allergy/AdvReac Type Severity Reaction Status Date / Time No Known Allergies Allergy Verified 11/13/21 20:30 Review of Systems Review of Systems: All systems reviewed & are unremarkable except as noted in HPI and below PMFSH Past Medical History Medical History Age related osteoporosis Asthma Chronic back pain Chronic kidney disease (CKD) stage G4/A1, severely decreased glomerular filtration rate (GFR) between 15-29 mL/min/1.73 square meter and albuminuria creatinine ratio less than 30 mg/g COPD (chronic obstructive pulmonary disease) WILLIAM (generalized anxiety disorder) GERD (gastroesophageal reflux disease) Gout History of aortic dissection 2001 Hyperlipidemia Hypertension Overweight Tobacco abuse Surgical History Surgical History History of hip replacement, total History of mandibular surgery Hx of cataract surgery S/P insertion of iliac artery stent Family History Family History Father Family history of malignant neoplasm Sibling Family history of malignant neoplasm of breast in first degree relative Mother Family history of congestive heart failure Other Hypertension Social History Social History Smoking packs per day: 3 Smoking cigarettes per day: 60.0 Years smoked: 50 Smoking pack-years: 150.00 Tobacco type: cigarettes Second hand tobacco smoke exposure: Yes Alcohol intake: never Alcohol use details: 1 glass of wine per year Substance use: never Substance use type: marijuana Other substance usage details: ONCE A MONTH Last use: 07/07/20 Gender identity (if verbalized by the patient): Female Spiritual care concerns: No Agree to blood products: Yes Exam Const: General: no acute distress and alert Orientation/consciousness: patient oriented x3 HENMT: Head: normal to inspection Eyes: Conjunctivae: conjunctivae normal Pupils: Equal, round and reactive pupils present Neck: Neck: normal visual inspection, no lymphadenopathy and no meningeal signs Chest: Chest palpation & inspection: normal inspection of the chest Resp: Effort & Inspection: normal respiratory effort Auscultation: diminished lung sounds Cardio: Rate: regular rate Rhythm: regular rhythm GI: GI Palp: Yes Soft to palpation Percussion: Yes normal to percussion : General: Yes no CVA tenderness Urinary Catheter: Urinary Catheter: patent and draining Back/Spine/Pelvis: Back: no CVA tenderness Skin: General skin exam: normal color Wounds: wounds noted Neuro: G
[2021-11-13 20:22] LABS: Partial Thromboplastin Time 29.4 SEC (23.90-30.70); Prothrombin Time 10.8 Seconds (9.50-12.10)
[2021-11-13] MEDS: methylPREDNISolone SOD SUCC 125 MG VIAL IV PUSH (20:23)
[2021-11-13 20:27] LABS: Lactic Acid Reflex 0.9 mmol/L (0.4-2.0)
[2021-11-13 20:28] LABS: Alanine Aminotransferase 20 U/L (14-59); Albumin Level 2.9 g/dL (3.4-5.0); Alkaline Phosphatase 64 U/L (46-116); Anion Gap 8 mmol/L (8-16); Aspartate Amino Transferase 18 U/L (15-37); Bilirubin,Total 0.9 mg/dL (0.00-1.00); Blood Urea Nitrogen 18 mg/dL (7-18); Carbon Dioxide 32 mmol/L (21-32); Chloride 100 mmol/L (98-108); Estimated CRCL calculation 48 ml/min; Estimated Glomerular Filt Rate 38; Glucose 89 mg/dL (70-99); NT Pro B Type Natriuretic Pept 213 pg/mL (0-125); Osmolality Calculated 290 mOsm/kg (285-295); Potassium 3.2 mmol/L (3.5-5.1); Sodium 140 mmol/L (136-145); Total Protein 7.6 g/dL (6.4-8.2); Troponin I 9.8 ng/L (0.00-60.4)
[2021-11-13] MEDS: POTASSIUM CHLORIDE 20 MEQ TABLET 40 MEQ PO (21:24)
[2021-11-13] MEDS: CLINDAMYCIN 600 MG/D5W 50 ML 600 MG/50 ML PIGGYBACK 100 MG IVPB (21:24)
--- NOTE | 2021-11-13 21:40 | PC.NURSE ---
wound photos taken and uploaded to system
--- NOTE | 2021-11-13 22:57 | PC.NURSE ---
Patient admitted to room 208 from the ER, is alert and oriented and denies pain, oriented to room and call rock.
[2021-11-13] MEDS: GABAPENTIN 300 MG CAPSULE PO (23:09)
[2021-11-13] MEDS: LORazepam INJ (*CRX) 2 MG/ML VIAL 0.5 MG IV PUSH (23:10)
[2021-11-13] MEDS: atenoloL 50 MG TABLET 100 MG PO (23:11)
[2021-11-14] VITALS (9 sets, daily range): BP systolic 119–144; BP diastolic 58–60; PULSE 68–82; RESP 16–20; TEMP 36–36.5; O2SAT 84–97
[2021-11-14] MEDS: IPRATROPIUM 0.5 MG/ALBUTEROL SULFATE 2.5 MG AMPUL.NEB 3 ML INHALATION ×3 (00:23→11:48)
[2021-11-14 05:22] LABS: Hematocrit 41.2 % (35.0-42.0); Hemoglobin 12.4 g/dL (11.7-13.8); Mean Corpuscular HGB Conc 30.1 g/dL (32.0-36.0); Mean Corpuscular Hemoglobin 29.1 pg (27.0-31.0); Mean Corpuscular Volume 96.7 fL (78.0-102.0); Mean Platelet Volume 12.5 fl (9.2-11.8); Platelet Count Result 119 K/mm3 (150-420); Red Blood Count 4.26 M/mm3 (4.20-5.40); Red Cell Distribution Width 15.3 % (11.6-14.4); White Blood Count 5.7 K/mm3 (4.8-10.8)
[2021-11-14 05:42] LABS: Alanine Aminotransferase 23 U/L (14-59); Albumin Level 2.6 g/dL (3.4-5.0); Alkaline Phosphatase 60 U/L (46-116); Anion Gap 6 mmol/L (8-16); Aspartate Amino Transferase 16 U/L (15-37); Bilirubin,Total 0.5 mg/dL (0.00-1.00); Blood Urea Nitrogen 21 mg/dL (7-18); Calcium 8.4 mg/dL (8.5-10.1); Carbon Dioxide 33 mmol/L (21-32); Chloride 105 mmol/L (98-108); Estimated CRCL calculation 49 ml/min; Estimated Glomerular Filt Rate 38; Glucose 162 mg/dL (70-99); Magnesium 2.1 mg/dL (1.8-2.4); Osmolality Calculated 305 mOsm/kg (285-295); Potassium 4.2 mmol/L (3.5-5.1); Sodium 144 mmol/L (136-145); Total Protein 7.3 g/dL (6.4-8.2)
[2021-11-14] MEDS: BUDESONIDE/FORMOTEROL 80/4.5 MCG 6.9 GM INHALER (*SP) 2 PUFF INHALATION (06:04)
[2021-11-14] MEDS: CIPROFLOXACIN 400 MG/D5W 200ML 200 ML 200 MG IVPB (07:37)
[2021-11-14] MEDS: methylPREDNISolone SOD SUCC 40 MG VIAL IV PUSH (08:27)
[2021-11-14] MEDS: busPIRone HCL 5 MG TABLET 30 MG PO (08:28)
[2021-11-14] MEDS: ENOXAPARIN 40 MG/0.4 ML SYRINGE SUB-Q (08:28)
[2021-11-14] MEDS: CITALOPRAM HYDROBROMIDE 20 MG TABLET 40 MG PO (08:29)
[2021-11-14] MEDS: ATORVASTATIN 40 MG TABLET PO (08:30)
[2021-11-14] MEDS: atenoloL 50 MG TABLET 100 MG PO (08:30)
[2021-11-14] MEDS: GABAPENTIN 300 MG CAPSULE PO ×2 (08:31→13:03)
[2021-11-14] MEDS: NICOTINE (*PBKC) 21 MG PATCH 1 PATCH TRANSDERM (08:31)
[2021-11-14] MEDS: FUROSEMIDE 10 MG TABLET PO (08:43)
--- NOTE | 2021-11-14 08:55 | PC.NURSE ---
Discontinued patient IV due to patient tolerating it poorly and will be discharging. IV ABT changed to oral.
[2021-11-14] MEDS: CIPROFLOXACIN 500 MG TAB PO (09:20)
--- NOTE | 2021-11-14 10:11 | PM.SD2 ---
Same Day Admit/Disch: HPI History of Present Illness Chief complaint: COPD EXCERBATION Narrative: Rosa Escalante is a 66 year old female that presented to our emergency department with shortness of breath and dyspnea. Patient has a past medical history of asthma, chronic back pain, chronic kidney disease stage IV, COPD, WILLIAM, GERD, gout, hyperlipidemia, hypertension, in tobacco abuse. Patient is well-known to our establishment. Patient notes that while at home she started to experience uncontrolled shortness of breath. Patient was previously ordered require oxygen. According to patient she told her primary care physician that she did not want oxygen and it was discontinued. Home oxygen evaluation completed today patient does require 3 L nasal cannula at all times. She does note that her condition has improved since her admission. Vital signs 97.7, 68, 16, 94% on 3 L nasal cannula, 119/60, WBCs 7.7, hemoglobin 12.7, hematocrit 42.3, platelets 128, sodium 140, potassium 3.2, BUN 18, creatinine 1.39, glucose 89, lactic acid 0.9, liver function test within normal limit, troponin 9.8, BUN 213, chest x-ray no acute findings. Patient will be admitted for COPD exacerbation and cellulitis to her buttocks area. The patient denies, CP, palpitation, extremity numbness, lightheadedness, dizziness, constipation, diarrhea, chills, or fever. Patient continues to have shortness of breath which is chronic for her PMFSH Past Medical History Medical History Age related osteoporosis Asthma Chronic back pain Chronic kidney disease (CKD) stage G4/A1, severely decreased glomerular filtration rate (GFR) between 15-29 mL/min/1.73 square meter and albuminuria creatinine ratio less than 30 mg/g COPD (chronic obstructive pulmonary disease) WILLIAM (generalized anxiety disorder) GERD (gastroesophageal reflux disease) Gout History of aortic dissection 2002 Hyperlipidemia Hypertension Overweight Tobacco abuse Surgical History Surgical History History of hip replacement, total History of mandibular surgery Hx of cataract surgery S/P insertion of iliac artery stent Family History Family History Father Family history of malignant neoplasm Sibling Family history of malignant neoplasm of breast in first degree relative Mother Family history of congestive heart failure Other Hypertension Social History Social History Smoking packs per day: 1 Smoking cigarettes per day: 20.0 Years smoked: 50 Smoking pack-years: 50.00 Smoking status: Current every day smoker Tobacco type: cigarettes Second hand tobacco smoke exposure: Yes Alcohol intake: never Alcohol use details: 1 glass of wine per year Substance use: never Substance use type: does not use Other substance usage details: ONCE A MONTH Last use: 07/07/20 Gender identity (if verbalized by the patient): Female Spiritual care concerns: No Agree to blood products: Yes Same Day Admit/Disch: Med Pre-admit Medications Home Medications Medication Instructions Recorded Confirmed Type hydrocodone-acetaminophen 1 tablet PO Q4H PRN #40 tablet 12/04/20 11/13/21 Rx atenolol 100 mg tablet See Rx Instructions .ROUTE 05/19/21 11/13/21 Rx .COMPLEX #180 tablet atorvastatin 40 mg tablet See Rx Instructions .ROUTE 05/19/21 11/13/21 Rx .COMPLEX #90 tablet citalopram 40 mg tablet See Rx Instructions .ROUTE 05/19/21 11/13/21 Rx .COMPLEX #90 tablet alendronate 70 mg tablet See Rx Instructions .ROUTE 08/18/21 11/13/21 Rx .COMPLEX #12 tablet buspirone 15 mg tablet 30 mg PO BID 90 Days #360 tablet 09/01/21 11/13/21 Rx budesonide-formoterol HFA 160 See Rx Instructions .ROUTE 09/29/21 11/13/21 Rx mcg-4.5 mcg/actuation aerosol .COMPLEX #10.2 g inhaler
--- NOTE | 2021-11-14 14:22 | PC.NURSE ---
Patient discharged from unit at 1415. Patient accompanied off unit to lobby by policy writer in w/c. Home O2 sent home with patient. Patient left by private vehicle. Discharge instructions given to patient, and patient voiced understanding. Personal items sent home with patient.
--- NOTE | 2021-11-17 09:40 | PC.NURSE ---
Unable to contact for discharge call back.
== END 2021-11-14 14:15 | disposition home or self-care (01) ==
LOC: CHSED 21:18 → CHS2ND 21:34
PROVIDERS: Nurse Practitioner; Admitting Provider Internal Medicine; Emergency Provider Emergency Medicine; PCP Family Medicine; Visit Provider Internal Medicine
DX: J44.1 Chronic obstructive pulmonary disease with (acute) exacerbation (principal); E87.6 Hypokalemia; I13.0 Hypertensive heart and chronic kidney disease with heart failure and stage 1 through stage 4 chronic kidney disease, or unspecified chronic kidney disease; I50.30 Unspecified diastolic (congestive) heart failure; N18.4 Chronic kidney disease, stage 4 (severe); E78.5 Hyperlipidemia, unspecified; K21.9 Gastro-esophageal reflux disease without esophagitis; L89.50 Pressure ulcer of unspecified ankle; L03.317 Cellulitis of buttock; M81.0 Age-related osteoporosis without current pathological fracture; M10.9 Gout, unspecified; F41.1 Generalized anxiety disorder; F17.210 Nicotine dependence, cigarettes, uncomplicated; Z96.649 Presence of unspecified artificial hip joint
CPT/HCPCS: 36415; 71045; 80053; 83605; 83735; 83880; 84484; 85025; 85027; 85610; 85730; 87040; 93005; 94618; 94640; 96365; 96366; 96367; 96372; 96375; 96376; 99285; A9270; G0378; J0744; J1650; J2060; J2920; J2930

== ENCOUNTER 2022-04-07 12:10 | Outpatient (CLI) | payer MEDICARE, SELFPAY ==
--- NOTE | ~2022-04-07 | US_ITS ---
EXAMINATION: US venous doppler [facility] DATE: 04/07/2022 12:48 INDICATION: Left lower limb swelling TECHNIQUE: Gonzalez scale images without and with compression and Doppler images of the left lower extrem ity veins were obtained. COMPARISON: None FINDINGS: The left common femoral vein, profunda femoral vein, femoral vein, popliteal vein, peroneal trunk, posterior tibial veins, and greater saphenous vein are patent. IMPRESSION: 1. Patent left lower extremity veins. No evidence of deep venous thrombosis. Reviewed, dictated and finalized at location A.
== END 2022-04-07 12:11 | disposition home or self-care (01) ==
LOC: CHSIMG 12:12
PROVIDERS: PCP Family Medicine; Visit Provider Family Medicine
DX: R60.0 Localized edema (principal)
CPT/HCPCS: 93971

== ENCOUNTER 2022-04-30 13:46 | Outpatient (CLI) | payer MEDICARE, MEDICAID, SELFPAY ==
[2022-04-30 14:12] LABS: Hematocrit 47.4 % (35.0-42.0); Mean Corpuscular HGB Conc 31.6 g/dL (32.0-36.0); Mean Corpuscular Hemoglobin 29.4 pg (27.0-31.0); Mean Corpuscular Volume 92.8 fL (78.0-102.0); Platelet Count Result 190 K/mm3 (150-420); Red Blood Count 5.11 M/mm3 (4.20-5.40); Red Cell Distribution Width 15.1 % (11.6-14.4); White Blood Count 11.4 K/mm3 (4.8-10.8)
[2022-04-30 14:50] LABS: Alanine Aminotransferase 26 U/L (14-59); Albumin Level 3.3 g/dL (3.4-5.0); Alkaline Phosphatase 77 U/L (46-116); Anion Gap 3 mmol/L (8-16); Aspartate Amino Transferase 14 U/L (15-37); Bilirubin,Total 0.9 mg/dL (0.00-1.00); Blood Urea Nitrogen 22 mg/dL (7-18); Calcium 9.8 mg/dL (8.5-10.1); Carbon Dioxide 39 mmol/L (21-32); Chloride 101 mmol/L (98-108); Estimated Glomerular Filt Rate 40; Glucose 90 mg/dL (70-99); NT Pro B Type Natriuretic Pept 171 pg/mL (0-125); Osmolality Calculated 299 mOsm/kg (285-295); Potassium 3.8 mmol/L (3.5-5.1); Sodium 143 mmol/L (136-145); Total Protein 7.5 g/dL (6.4-8.2)
== END 2022-04-30 13:47 | disposition home or self-care (01) ==
LOC: CHSLAB 13:49
PROVIDERS: PCP Family Medicine; Visit Provider Family Medicine
DX: I50.9 Heart failure, unspecified (principal); I10 Essential (primary) hypertension
CPT/HCPCS: 36415; 80053; 83880; 85027

== ENCOUNTER 2022-06-23 16:04 | Outpatient (CLI) | payer MEDICARE, MEDICAID, SELFPAY ==
[2022-06-23 16:16] LABS: Basophils Absolute Auto 0.05 K/mm3 (0.00-0.10); Basophils Percent Auto 0.4 % (0.0-1.0); Eosinophils Absolute Auto 0.54 K/mm3 (0.02-0.50); Eosinophils Percent Auto 4.6 % (1.0-6.0); Hematocrit 48.5 % (35.0-42.0); Hemoglobin 15.2 g/dL (11.7-13.8); Immature Granulocyte Absolute 0.06 K/mm3 (0.00-0.00); Immature Granulocyte Percent A 0.5 % (0.0-0.0); Lymphocytes Absolute Auto 2.07 K/mm3 (1.10-4.50); Lymphocytes Percent Auto 17.6 % (18.0-42.0); Mean Corpuscular HGB Conc 31.3 g/dL (32.0-36.0); Mean Corpuscular Hemoglobin 29.3 pg (27.0-31.0); Mean Corpuscular Volume 93.6 fL (78.0-102.0); Mean Platelet Volume 11.8 fl (9.2-11.8); Monocytes Absolute Auto 0.85 K/mm3 (0.10-0.90); Monocytes Percent Auto 7.2 % (2.0-11.0); Neutrophils Absolute Auto 8.2 K/mm3 (1.7-7.2); Neutrophils Percent Auto 69.7 % (50.0-70.0); Platelet Count Result 183 K/mm3 (150-420); Red Blood Count 5.18 M/mm3 (4.20-5.40); Red Cell Distribution Width 15.8 % (11.6-14.4); White Blood Count 11.8 K/mm3 (4.8-10.8)
[2022-06-23 16:38] LABS: Alanine Aminotransferase 33 U/L (14-59); Albumin Level 3.3 g/dL (3.4-5.0); Alkaline Phosphatase 77 U/L (46-116); Anion Gap 9 mmol/L (8-16); Aspartate Amino Transferase 18 U/L (15-37); Bilirubin,Total 0.6 mg/dL (0.00-1.00); Blood Urea Nitrogen 25 mg/dL (7-18); Calcium 9.6 mg/dL (8.5-10.1); Carbon Dioxide 31 mmol/L (21-32); Chloride 102 mmol/L (98-108); Estimated Glomerular Filt Rate 37; Glucose 94 mg/dL (70-99); NT Pro B Type Natriuretic Pept 101 pg/mL (0-125); Osmolality Calculated 298 mOsm/kg (285-295); Sodium 142 mmol/L (136-145); Total Protein 7.7 g/dL (6.4-8.2)
[2022-06-23 16:48] LABS: Add Urine Microscopic? YES; Appearance Urine Clear (Clear); Bilirubin Urine Negative (Negative); Blood Urine Trace-Intact (Negative); Color Urine Yellow (Yellow); Glucose Urine UA Negative (Negative); Ketones Urine Trace (Negative); Leukocyte Esterase Ur Negative LEU/UL (Negative); Nitrate Urine Negative (Negative); Protein Urine Trace (Negative); Urobilinogen Urine 0.2 mg/dL (0.2-1.0)
[2022-06-23 17:00] LABS: Bacteria Urine 1+ /hpf; RBC Urine 0-2 /hpf (0-2); Squamous Epithelial Cell Urine Moderate /hpf (Few); WBC Urine None seen /hpf (0-3)
== END 2022-06-23 16:05 | disposition home or self-care (01) ==
LOC: CHSLAB 16:07
PROVIDERS: PCP Nurse Practitioner Family; Visit Provider Nurse Practitioner Family
DX: R60.0 Localized edema (principal); I13.2 Hypertensive heart and chronic kidney disease with heart failure and with stage 5 chronic kidney disease, or end stage renal disease
CPT/HCPCS: 36415; 80053; 81001; 83880; 85025

== ENCOUNTER 2022-08-18 14:32 | Outpatient (CLI) | payer MEDICARE, MEDICAID, SELFPAY | END 2022-08-18 14:33 | disposition home or self-care (01) | PROVIDERS: PCP Nurse Practitioner Family; Visit Provider Specialist | DX: L01.00 Impetigo, unspecified (principal) | CPT/HCPCS: 87070; 87147; 87186; 87205 ==

== ENCOUNTER 2022-11-24 07:55 | Emergency (ER) | payer MEDICARE, MEDICAID, SELFPAY ==
[2022-11-24] VITALS (17 sets, daily range): BP systolic 126–134; BP diastolic 58–63; PULSE 75–86; RESP 18–32; TEMP 36.7–37.5; O2SAT 83–100
--- NOTE | ~2022-11-24 | XR_ITS ---
XR chest 1V portable 11/24/2022 08:30 Indication: Shortness of breath, cough Procedure: AP portable chest Comparison: Comparison to multiple prior studies sequentially, with oldest reviewed study dated 09/2019. Findings: Cardiomegaly. Diffuse bilateral interstitial infiltrates with peribronchial thickening. No pleural effusion or pneumothorax. No acute osseous abnormality. Calcified granuloma left mid thorax. Impression: 1: Diffuse bilateral interstitial infiltrates with peribronchial thickening which may represent mild edema or pneumonia. Reviewed, dictated and finalized at location L. Impression: 1: Diffuse bilateral interstitial infiltrates with peribronchial thickening whi ch may represent mild edema or pneumonia.
--- NOTE | 2022-11-24 08:04 | ECG_ITS ---
Measurements Intervals [place] Rate: 81 P: 72 [place]: 205 QRS: 103 QRSD: 103 T: 95 QT: 365 QTc: 426 Interpretive Statements SINUS RHYTHM ATRIAL AND VENTRICULAR PREMATURE COMPLEXES RIGHT AXIS DEVIATION INCOMPLETE RIGHT BUNDLE BRANCH BLOCK BORDERLINE R WAVE PROGRESSION, ANTERIOR LEADS BORDERLINE ST-T WAVE ABNORMALITY- ANTEROLAT/HIGH LAT LEADS BASELINE ARTIFACT- I, II, III, AVR, AVL, AVF, V3-V6 ABNORMAL ECG COMPARED TO ECG 11/13/2021 20:02:37 ATRIAL AND VENTRICULAR PREMATURE COMPLEXES NOW PRESENT Electronically Signed On 11-24-2022 11:48:05 CDT by Jamari Vallejo D.O.
[2022-11-24] MEDS: IPRATROPIUM BR 0.02% INH SOLN 0.5 MG/2.5 ML VIAL INHALATION (08:15)
[2022-11-24 08:16] LABS: Basophils Percent Auto 0.6 % (0.0-1.0); Eosinophils Absolute Auto 0.09 K/mm3 (0.02-0.50); Eosinophils Percent Auto 0.5 % (1.0-6.0); Hematocrit 48.1 % (35.0-42.0); Hemoglobin 15.2 g/dL (11.7-13.8); Immature Granulocyte Absolute 0.09 K/mm3 (0.00-0.00); Immature Granulocyte Percent A 0.5 % (0.0-0.0); Lymphocytes Percent Auto 7.9 % (18.0-42.0); Mean Corpuscular HGB Conc 31.6 g/dL (32.0-36.0); Mean Corpuscular Hemoglobin 29.9 pg (27.0-31.0); Mean Corpuscular Volume 94.5 fL (78.0-102.0); Mean Platelet Volume 11.4 fl (9.2-11.8); Monocytes Absolute Auto 1.57 K/mm3 (0.10-0.90); Monocytes Percent Auto 9.5 % (2.0-11.0); Neutrophils Absolute Auto 13.4 K/mm3 (1.7-7.2); Platelet Count Result 184 K/mm3 (150-420); Red Blood Count 5.09 M/mm3 (4.20-5.40); Red Cell Distribution Width 14.1 % (11.6-14.4); White Blood Count 16.5 K/mm3 (4.8-10.8)
[2022-11-24] MEDS: methylPREDNISolone SOD SUCC 125 MG VIAL IV PUSH (08:20)
[2022-11-24] MEDS: MAGNESIUM SULF 2 GM/WATER 50ML 2 GM/50 ML BAG IVPB (08:25)
[2022-11-24 08:30] LABS: D Dimer 1.32 mg/L (0.19-0.50)
[2022-11-24 08:40] LABS: Alanine Aminotransferase 35 U/L (14-59); Albumin Level 2.9 g/dL (3.4-5.0); Alkaline Phosphatase 83 U/L (46-116); Anion Gap 5 mmol/L (8-16); Aspartate Amino Transferase 21 U/L (15-37); Bilirubin,Total 1.1 mg/dL (0.00-1.00); Blood Urea Nitrogen 28 mg/dL (7-18); Calcium 9.8 mg/dL (8.5-10.1); Carbon Dioxide 40 mmol/L (21-32); Chloride 95 mmol/L (98-108); Estimated CRCL calculation 40 ml/min; Estimated Glomerular Filt Rate 35; Glucose 190 mg/dL (70-99); NT Pro B Type Natriuretic Pept 750 pg/mL (0-125); Osmolality Calculated 300 mOsm/kg (285-295); Potassium 2.8 mmol/L (3.5-5.1); Sodium 140 mmol/L (136-145); Total Protein 8.5 g/dL (6.4-8.2); Troponin I 12.3 ng/L (0.00-60.4)
[2022-11-24 08:42] LABS: Magnesium 2.1 mg/dL (1.8-2.4)
--- NOTE | 2022-11-24 08:47 | ED.SOB ---
HPI - SOB/Dyspnea General Chief Complaint: Shortness of Breath/Dyspnea Stated Complaint: SOB/COPD Time Seen by Provider: 11/24/22 08:00 History of Present Illness HPI Narrative: 67-year-old white female with a lifelong history of heavy tobacco smoking, large amount of secondhand tobacco exposure, severe COPD, on home O2 at 3 L nasal cannula 24 hours a day, and also has a history of obesity, section apparently treated with stent, peripheral vascular disease with apparent stents, chronic back pain, hyperlipidemia, chronic kidney disease, GFR between 15 and 29, noncompliance with medical regimen, presents with several-day history of increasing cough, shortness of breath, fatigue, generalized weakness, wheezing, and today she finally called EMS. On their arrival she had a pulse ox around 65%, but rapidly improved with O2, albuterol, and came up to the mid to upper 80s en route. She has been coughing, courses at times brings up sputums, at other times does not bring up sputum, denies any overt chest pain, palpitations, near-syncope or syncope. Denies abdominal pain, nausea or vomiting, diarrhea or constipation. 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 and would want to be intubated and resuscitated Related Data Home oxygen amount: 3 liters Home Medications Medication Instructions Recorded Confirmed aspirin 81 mg tablet,delayed 81 mg PO DAILY 07/16/22 11/24/22 release (Enteric Coated Aspirin) calcium carbonate 600 mg-vitamin 600 tablet PO DAILY 07/16/22 11/24/22 D3 10 mcg (400 unit) chewable tablet (Calcium 600 with Vitamin D3) cholecalciferol (vitamin D3) 25 25 mcg PO DAILY 07/16/22 11/24/22 mcg (1,000 unit) capsule multivitamin 1 tablet PO DAILY 07/16/22 11/24/22 omega-3 fatty acids 1,000 mg 2,000 mg PO DAILY 07/16/22 11/24/22 capsule Allergies Allergy/AdvReac Type Severity Reaction Status Date / Time No Known Allergies Allergy Verified 11/24/22 08:38 Review of Systems Review of Systems: All systems reviewed & are unremarkable except as noted in HPI and below PMFSH Past Medical History Medical History Age related osteoporosis Asthma Chronic back pain Chronic kidney disease (CKD) stage G4/A1, severely decreased glomerular filtration rate (GFR) between 15-29 mL/min/1.73 square meter and albuminuria creatinine ratio less than 30 mg/g COPD (chronic obstructive pulmonary disease) WILLIAM (generalized anxiety disorder) GERD (gastroesophageal reflux disease) Gout History of aortic dissection 2001 Hyperlipidemia Hypertension Overweight Tobacco abuse Surgical History Surgical History History of hip replacement, total History of mandibular surgery Hx of cataract surgery S/P insertion of iliac artery stent Family History Family History Father Family history of malignant neoplasm Sibling Family history of malignant neoplasm of breast in first degree relative Mother Family history of congestive heart failure Other Hypertension Social History Social History Smoking packs per day: 1 Smoking cigarettes per day: 20.0 Years smoked: 50 Smoking pack-years: 50.00 Smoking status: Current every day smoker Tobacco type: cigarettes Second hand tobacco smoke exposure: Yes Alcohol intake: never Alcohol use details: 1 glass of wine per year Substance use: never Substance use type: does not use Other substance usage details: ONCE A MONTH Last use: 07/07/20 Living arrangements: with family Occupation/Education: retired Gender identity (if verbalized by the patient): Female Spiritual care concerns: No Agree to blood products: Yes Exam Narrative: patient appears older than her stated age, skin changes consisten
[2022-11-24 08:49] LABS: Base Excess ABG 6.5 mmol/L (0-2); HCO3 ABG 38.4 mmol/L (23-29); Oxygen Content ABG 21.5 %vol (16.0-22.0); Oxygen Saturation ABG 98.7 % (95-97); Oxyhemoglobin 95.1 % (94-100); PO2 ABG 186.2 mmHg (75-85); Total Hemoglobin 15.8 g/dL (12.0-18.0); pH ABG 7.23 (7.35-7.45)
[2022-11-24 08:51] LABS: Modified Allen's Test Pass; PCO2 ABG 94.4 mmHg (35-45); Site Drawn LEFT RADIAL
[2022-11-24 08:52] LABS: Device NASAL CANNULA
[2022-11-24 09:23] LABS: Lactic Acid Reflex 1.6 mmol/L (0.4-2.0)
[2022-11-24] MEDS: ENOXAPARIN 100 MG/ML SYRINGE SUB-Q (09:32)
[2022-11-24] MEDS: cefTRIAXone 2 GM/NS 100 ML 2 GM/100 ML BAG IVPB (09:34)
[2022-11-24] MEDS: AZITHROMYCIN 500 MG/NS 250 ML 500 MG/250 ML BAG 250 MG IVPB (10:11)
[2022-11-24 10:24] LABS: Base Excess ABG 9.6 mmol/L (0-2); HCO3 ABG 39.8 mmol/L (23-29); Oxygen Content ABG 19.3 %vol (16.0-22.0); Oxygen Saturation ABG 89.9 % (95-97); Oxyhemoglobin 86.5 % (94-100); PO2 ABG 59.1 mmHg (75-85); Total Hemoglobin 15.9 g/dL (12.0-18.0); pH ABG 7.31 (7.35-7.45)
[2022-11-24] MEDS: POTASSIUM CHLORIDE 20 MEQ PACKET (FOR LIQUID) 40 MEQ PO (10:24)
[2022-11-24 10:26] LABS: Device BIPAP; Modified Allen's Test Pass; PCO2 ABG 80.1 mmHg (35-45); Site Drawn LEFT RADIAL
[2022-11-24 10:29] LABS: Expiratory Pressure 8 cmH2O; Inspiratory Pressure 16 cmH2O
[2022-11-24 10:46] LABS: Troponin I 19.4 ng/L (0.00-60.4)
--- NOTE | 2022-11-30 13:20 | PC.NURSE ---
FINAL BLOOD CULTURE RESULTS: No growth after 5 days. No further treatment needed.
== END 2022-11-24 10:44 | disposition short-term general hospital (02) ==
PROVIDERS: Emergency Provider Emergency Medicine; PCP Family Medicine
DX: J96.22 Acute and chronic respiratory failure with hypercapnia (principal); J96.21 Acute and chronic respiratory failure with hypoxia; J44.1 Chronic obstructive pulmonary disease with (acute) exacerbation; J18.9 Pneumonia, unspecified organism; F41.9 Anxiety disorder, unspecified; I12.9 Hypertensive chronic kidney disease with stage 1 through stage 4 chronic kidney disease, or unspecified chronic kidney disease; N18.4 Chronic kidney disease, stage 4 (severe); R74.8 Abnormal levels of other serum enzymes; E87.6 Hypokalemia; R60.0 Localized edema; R94.4 Abnormal results of kidney function studies; E78.5 Hyperlipidemia, unspecified; F17.210 Nicotine dependence, cigarettes, uncomplicated; Z79.82 Long term (current) use of aspirin; Z99.81 Dependence on supplemental oxygen
CPT/HCPCS: 36415; 36600; 71045; 80053; 82805; 83605; 83735; 83880; 84484; 85025; 85380; 87040; 93005; 94640; 96365; 96367; 96368; 96372; 96375; 99291; A9270; J0456; J0696; J1650; J2930; J3475

== ENCOUNTER 2023-07-15 11:25 | Outpatient (CLI) | payer MEDICARE, MEDICAID, SELFPAY ==
[2023-07-15 12:10] LABS: Hematocrit 45.1 % (35.0-42.0); Hemoglobin 14.2 g/dL (11.7-13.8); Mean Corpuscular HGB Conc 31.5 g/dL (32.0-36.0); Mean Corpuscular Hemoglobin 29.4 pg (27.0-31.0); Mean Corpuscular Volume 93.4 fL (78.0-102.0); Mean Platelet Volume 11.4 fl (9.2-11.8); Platelet Count Result 193 K/mm3 (150-420); Red Blood Count 4.83 M/mm3 (4.20-5.40); Red Cell Distribution Width 14.3 % (11.6-14.4); White Blood Count 12.1 K/mm3 (4.8-10.8)
[2023-07-15 12:53] LABS: Creatinine Urine 119.16 mg/dL (40-278); MALB Creatinine Ratio 10.9 mg/g (0-30); Microalbumin Urine Random < 13.0 mg/L
[2023-07-15 13:43] LABS: Alanine Aminotransferase 26 U/L (14-59); Albumin Level 3.4 g/dL (3.4-5.0); Alkaline Phosphatase 82 U/L (46-116); Anion Gap 5 mmol/L (8-16); Aspartate Amino Transferase 10 U/L (15-37); Bilirubin,Total 0.7 mg/dL (0.00-1.00); Blood Urea Nitrogen 27 mg/dL (7-18); Calcium 9.4 mg/dL (8.5-10.1); Carbon Dioxide 37 mmol/L (21-32); Chloride 101 mmol/L (98-108); Cholesterol 173 mg/dL (0-200); Estimated Glomerular Filt Rate 37; Glucose 86 mg/dL (70-99); HDL Direct 32 mg/dL (40-60); LDL Cholesterol Calculated 92 mg/dL (<130); Osmolality Calculated 300 mOsm/kg (285-295); Potassium 3.8 mmol/L (3.5-5.1); Sodium 143 mmol/L (136-145); Total Protein 7.1 g/dL (6.4-8.2); Triglycerides 246 mg/dL (0-150)
[2023-07-18 16:10] LABS: Vitamin D 25 Hydroxy 56 ng/mL (30-100)
[2023-07-21 13:15] LABS: H Band Histoplasma Negative (Negative); M Band Histoplasma Negative (Negative)
[2023-07-28 11:22] LABS: Blastomyces Antibody NEGATIVE
[2023-07-28 11:23] LABS: Candida Antibody NEGATIVE
[2023-07-28 11:24] LABS: Coccidioides Antibody NEGATIVE
== END 2023-07-15 11:26 | disposition home or self-care (01) ==
PROVIDERS: PCP Family Medicine; Visit Provider Nurse Practitioner Family
DX: E78.5 Hyperlipidemia, unspecified (principal); E66.3 Overweight; R60.0 Localized edema; M81.0 Age-related osteoporosis without current pathological fracture; I50.9 Heart failure, unspecified; I10 Essential (primary) hypertension; N18.4 Chronic kidney disease, stage 4 (severe); J44.1 Chronic obstructive pulmonary disease with (acute) exacerbation; R91.1 Solitary pulmonary nodule
CPT/HCPCS: 36415; 80053; 80061; 82043; 82306; 85027; 86606; 86612; 86628; 86635; 86698; 87385

== ENCOUNTER 2023-09-03 11:53 | Outpatient (CLI) | payer MEDICARE, MEDICAID, SELFPAY ==
--- NOTE | ~2023-09-03 | XR_ITS ---
EXAMINATION: XR foot LT min 3V DATE: 09/03/2023 12:20 INDICATION: Left foot pain. Injury. TECHNIQUE: 4 views of left foot were obtained. COMPARISON: Left knee radiographs 08/08/2019 FINDINGS: There is moderate hallux valgus. No fracture. There is mild osteoarthritis of first metatar sophalangeal joint. There are enthesophytes at the posterior and plantar aspects of calcaneal tuberos ity. IMPRESSION: 1. Mild osteoarthritis of first metatarsophalangeal joint. 2. Moderate hallux valgus. Reviewed, dictated and finalized at location E. [employer]
== END 2023-09-03 11:54 | disposition home or self-care (01) ==
PROVIDERS: PCP Family Medicine; Visit Provider Family Medicine
DX: S99.922A Unspecified injury of left foot, initial encounter (principal); M19.072 Primary osteoarthritis, left ankle and foot; M20.12 Hallux valgus (acquired), left foot
CPT/HCPCS: 73630

== ENCOUNTER 2023-11-16 12:46 | Outpatient (CLI) | payer MEDICARE, MEDICAID, SELFPAY ==
[2023-11-16 13:04] LABS: Basophils Absolute Auto 0.07 K/mm3 (0.00-0.10); Basophils Percent Auto 0.7 % (0.0-1.0); Eosinophils Absolute Auto 0.63 K/mm3 (0.02-0.50); Eosinophils Percent Auto 6.2 % (1.0-6.0); Hematocrit 44.4 % (35.0-42.0); Hemoglobin 14.3 g/dL (11.7-13.8); Immature Granulocyte Absolute 0.05 K/mm3 (0.00-0.00); Immature Granulocyte Percent A 0.5 % (0.0-0.0); Lymphocytes Absolute Auto 2.54 K/mm3 (1.10-4.50); Lymphocytes Percent Auto 25.1 % (18.0-42.0); Mean Corpuscular HGB Conc 32.2 g/dL (32-36); Mean Corpuscular Hemoglobin 28.9 pg (27.0-31.0); Mean Corpuscular Volume 89.7 fL (78.0-102.0); Monocytes Absolute Auto 0.86 K/mm3 (0.10-0.90); Monocytes Percent Auto 8.5 % (2.0-11.0); Neutrophils Absolute Auto 5.95 K/mm3 (1.70-7.20); Platelet Count Result 208 K/mm3 (150-420); Red Blood Count 4.95 M/mm3 (4.20-5.40); Red Cell Distribution Width 13.6 % (11.6-14.4); White Blood Count 10.1 K/mm3 (4.8-10.8)
[2023-11-16 13:15] LABS: Hemoglobin A1C 5.5 % (<5.7)
[2023-11-16 14:15] LABS: Alanine Aminotransferase 26 U/L (14-59); Albumin Level 3.5 g/dL (3.4-5.0); Alkaline Phosphatase 75 U/L (46-116); Anion Gap 6 mmol/L (4-12); Aspartate Amino Transferase 14 U/L (15-37); Bilirubin,Total 0.6 mg/dL (0.00-1.00); Blood Urea Nitrogen 24 mg/dL (7-18); Calcium 10.1 mg/dL (8.5-10.1); Carbon Dioxide 36 mmol/L (21-32); Chloride 101 mmol/L (98-108); Estimated Glomerular Filt Rate 41; Glucose 77 mg/dL (70-99); Osmolality Calculated 299 mOsm/kg (285-295); Potassium 3.9 mmol/L (3.5-5.1); Sodium 143 mmol/L (136-145); Total Protein 7.4 g/dL (6.4-8.2); Vitamin B12 607 pg/mL (193-986)
[2023-11-16 14:18] LABS: Folic Acid > 20.0 ng/mL (8.6->20)
[2023-11-16 14:36] LABS: Thyroid Stimulating Hormone Reflex 1.14 u/IU/mL (0.36-3.74)
== END 2023-11-16 12:47 | disposition home or self-care (01) ==
LOC: CHSLAB 12:49
PROVIDERS: PCP Family Medicine; Visit Provider Family Medicine
DX: E11.9 Type 2 diabetes mellitus without complications (principal); E53.8 Deficiency of other specified B group vitamins; E03.9 Hypothyroidism, unspecified; G62.9 Polyneuropathy, unspecified
CPT/HCPCS: 36415; 80053; 82607; 82746; 83036; 84443; 85025

== ENCOUNTER 2023-12-08 12:45 | Outpatient (CLI) | payer MEDICARE, MEDICAID, SELFPAY ==
--- NOTE | 2023-12-08 14:30 | NEURO_ITS ---
Impression: # Complains of pain of lower extremities. Not diabetic. # Asymmetrical motor/sensory neuropathy. # Needle/EMG exam with neurogenic changes but no acute fibrillations or myotonia. # Clinical correlation recommended. Nerve Conduction Studies Anti Sensory Summary Table Stim Site NR Peak (ms) P-T Amp (?V) Site1 Site2 Delta-P (ms) Dist (cm) Jose L (m/s) Left Sup Fibular Anti Sensory (Ant Lat Mall) 14 cm 3.4 18.5 14 cm Ant Lat Mall 3.4 16.0 47 Right Sup Fibular Anti Sensory (Ant Lat Mall) 14 cm 4.3 4.6 14 cm Ant Lat Mall 4.3 16.0 37 Left Sural Anti Sensory (Lat Mall) NO RESPONSE Calf NR Calf Lat Mall 16.0 Right Sural Anti Sensory (Lat Mall) NO RESPONSE Calf NR Calf Lat Mall 16.0 Motor Summary Table Stim Site NR Onset (ms) O-P Amp (mV) Site1 Site2 Delta-0 (ms) Dist (cm) Jose L (m/s) Left Peroneal Motor (Vastus Med) Ankle 4.9 1.0 Popit Ankle 10.9 44.0 40 Popit 15.8 1.0 Right Peroneal Motor (Vastus Med) Ankle 4.1 0.4 Popit Ankle 9.7 42.0 43 Popit 13.8 1.8 Left Tibial Motor (Abd Banks Brev) Ankle 4.8 0.3 Knee Ankle 13.8 42.0 30 Knee 18.6 0.6 Right Tibial Motor (Abd Banks Brev) Ankle 4.3 1.8 Knee Ankle 11.1 44.0 40 Knee 15.4 0.5 F Wave Studies NR F-Lat (ms) L-R F-Lat (ms) Left Peroneal (Mrkrs) (EDB) 61.28 3.74 Right Peroneal (Mrkrs) (EDB) 57.54 3.74 Left Tibial (Mrkrs) (Abd Hallucis) 60.70 3.29 Right Tibial (Mrkrs) (Abd Hallucis) 57.40 3.29 EMG Side Muscle Nerve Root Ins Act Fibs Amp Dur Recrt Comment Left AntTibialis Dp Br Fibular L4-5 Nml Nml Nml >12ms +1 Left Gastroc Tibial S1-2 Nml Nml Nml >12ms +1 Left Fibularis Long Sup Br Fibular L5-S1 Nml Nml Nml >12ms +1 Left Flex Dig Long Tibial L5-S2 Nml Nml Nml >12ms +1 Left Ext Dig Brev Dp Br Fibular L5, S1 Nml Nml Nml >12ms +1 Right AntTibialis Dp Br Fibular L4-5 Nml Nml Nml >12ms +1 Right Gastroc Tibial S1-2 Nml Nml Nml >12ms +1 Right Fibularis Long Sup Br Fibular L5-S1 Nml Nml Nml >12ms +1 Right Flex Dig Long Tibial L5-S2 Nml Nml Nml >12ms +1 Right Ext Dig Brev Dp Br Fibular L5, S1 Nml Nml Nml >12ms +1 MTDD
== END 2023-12-08 12:46 | disposition home or self-care (01) ==
LOC: ANHNEURO 12:46
PROVIDERS: PCP Family Medicine; Visit Provider Family Medicine
DX: G62.9 Polyneuropathy, unspecified (principal)
CPT/HCPCS: 95886; 95910

== ENCOUNTER 2024-03-20 01:40 | Day surgery (SDC) | payer MEDICARE, MEDICAID, SELFPAY ==
[2023-10-01 09:37] VITALS: BMI 27.3
--- NOTE | 2023-10-05 08:17 | SUR.PREOP ---
Patient called regarding upcoming procedure. Voicemail left regarding appointment times.
[2024-02-14 14:24] VITALS: BMI 26.4
--- NOTE | 2024-02-29 08:36 | SUR.PREOP ---
patient called and stated that she does not feel that she is cleaned out. She said she threw up last night and that her stools this morning are not clear. SPoke with Dr Serrano, orders to reschedule her. I notified the office and they said they would call her to reschedule.
[2024-03-08 16:13] VITALS: BMI 26.4
--- NOTE | 2024-03-17 10:43 | PC.NURSE ---
Pt called this morning to verify 2 day prep and see if she had any questions. We reviewed 2 day prep and clear liquid diet. 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
--- NOTE | 2024-03-20 09:29 | WPDANESEPPF ---
Anes - Initial Pre Proc Eval Procedure: Operation Date: 03/20/24 10:00 Proposed Procedures p Screening Colonoscopy - Cem Serrano DO Date/Time: 03/20/24 09:29 Surgeon: Cem Serrano DO Pre Op Diagnosis: neoplasm screening Patient Data Age: 69 Gender: F Height: 1.8 m Weight: 85.8 kg Allergies Allergy/AdvReac Type Severity Reaction Status Date / Time No Known Allergies Allergy Verified 03/20/24 08:57 Home Medications Medication Instructions Recorded Confirmed Type nebulizers #1 ea 10/14/21 01/20/24 Rx albuterol sulfate 2.5 mg/3 mL 2.5 mg (3 mL) inhalation Q4H PRN 04/30/22 01/20/24 Rx (0.083 %) solution for nebulization shortness of breath or wheezing #180 mL citalopram 40 mg tablet See Rx Instructions .Route 06/29/22 01/20/24 Rx .COMPLEX #90 tabs aspirin 81 mg tablet,delayed 81 mg PO DAILY 07/16/22 01/20/24 History release (Enteric Coated Aspirin) calcium carbonate 600 mg-vitamin 600 tablet PO DAILY 07/16/22 01/20/24 History D3 10 mcg (400 unit) chewable tablet (Calcium 600 with Vitamin D3) cholecalciferol (vitamin D3) 25 25 mcg PO DAILY 07/16/22 01/20/24 History mcg (1,000 unit) capsule multivitamin 1 tablet PO DAILY 07/16/22 01/20/24 History omega-3 fatty acids 1,000 mg 2,000 mg PO DAILY 07/16/22 01/20/24 History capsule fluticasone fur. 100 mcg-umeclid 1 inh inhalation DAILY 05/04/23 01/20/24 History 62.5 mcg-vilant 25 mcg inhalat.powder (Trelegy Ellipta) atorvastatin 40 mg tablet See Rx Instructions .Route 08/09/23 01/20/24 Rx .COMPLEX #90 tabs clobetasol 0.05 % scalp solution 1 applic topical DAILY 10/01/23 01/20/24 History hydrocodone 10 mg-acetaminophen 1 tablet PO Q6-8H PRN Pain 10/01/23 01/20/24 History 325 mg tablet mupirocin 2 % topical ointment 1 applic topical DAILY 10/01/23 01/20/24 History gabapentin 600 mg tablet 300 mg PO TID #90 tabs 12/07/23 02/09/24 Rx buspirone 15 mg tablet See Rx Instructions .Route 12/31/23 02/09/24 Rx .COMPLEX #360 tabs metoprolol succinate 50 mg See Rx Instructions .Route 12/31/23 02/09/24 Rx tablet,extended release 24 hr .COMPLEX #90 tabs pantoprazole 40 mg tablet,delayed See Rx Instructions .Route 01/10/24 02/09/24 Rx release .COMPLEX #90 tabs amlodipine 5 mg tablet 5 mg PO DAILY #90 tabs 01/20/24 02/09/24 Rx albuterol sulfate 90 mcg/actuation See Rx Instructions .Route 01/31/24 02/09/24 Rx aerosol inhaler .COMPLEX #8.5 grams furosemide 20 mg tablet See Rx Instructions .Route 01/31/24 02/09/24 Rx .COMPLEX #90 tabs hydrochlorothiazide 25 mg tablet See Rx Instructions .Route 01/31/24 02/09/24 Rx .COMPLEX #90 tabs alendronate 70 mg tablet See Rx Instructions .Route 02/28/24 Rx .COMPLEX #12 tabs varenicline 1 mg tablet See Rx Instructions .Route 03/03/24 Rx .COMPLEX #42 tabs Patient hx anesthesia problems: none Family hx anesthesia problems: none Results Review: All pre-operative results and documents have been reviewed as part of the pre-operative evaluation. [facility] Past Medical History Medical History Age related osteoporosis Asthma Chronic back pain Chronic kidney disease (CKD) stage G4/A1, severely decreased glomerular filtration rate (GFR) between 15-29 mL/min/1.73 square meter and albuminuria creatinine ratio less than 30 mg/g COPD (chronic obstructive pulmonary disease) WILLIAM (generalized anxiety disorder) GERD (gastroesophageal reflux disease) Gout History of aortic dissection 2001 Hyperlipidemia Hypertension Overweight Tobacco abuse Surgical History Surgical History History of hip replacement, total right History of mandibular surgery Hx of cataract surgery S/P insertion of iliac artery stent Family History Family History Father Family history of malignant neoplasm Sibling Family history of
[2024-03-20] MEDS: LACTATED RINGERS 1,000 ML 150 ML IV CONT (09:33)
[2024-03-20 09:36] VITALS: BP 143/68; PULSE 90; RESP 18; TEMP 36.2; O2SAT 96
--- NOTE | 2024-03-20 09:49 | PM.IMHP ---
H&P: HPI History of Present Illness Date/Time: 03/20/24 09:49 Chief Complaint: screening for colorectal cancer, history of colon polyps Narrative: this is a 69-year-old woman who presents for colonoscopy. Her last colonoscopy was 5 years ago. She had polyps removed at that time. She denies any hematochezia or melena. Review of Systems Review of Systems: All systems reviewed & are unremarkable except as noted in HPI and below Constitutional: Constitutional: Denies chills, Denies fever(s), Denies headache(s) and Denies weight loss Eyes: Eyes: Denies change in vision ENT: Denies dizziness, Denies headache(s), Denies neck mass and Denies throat swelling Cardiovascular: Cardiovascular: Denies chest pain, Denies lightheadedness and Denies dyspnea Respiratory: Respiratory: Denies cough, Denies dyspnea and Denies wheezing Gastrointestinal: Gastrointestinal: Denies abdominal pain, Denies change in bowel habits, Denies nausea and Denies vomiting Genitourinary: Genitourinary: Denies hematuria and Denies dysuria Musculoskeletal: Musculoskeletal: Reports as per HPI Integumentary/Breasts: Skin/Breast: Reports as per HPI Neurologic: Denies dizziness and Denies headache(s) Allergic/Immunologic: Allergic/Immunologic: Denies throat swelling and Denies wheezing [facility] Past Medical History Medical History Age related osteoporosis Asthma Chronic back pain Chronic kidney disease (CKD) stage G4/A1, severely decreased glomerular filtration rate (GFR) between 15-29 mL/min/1.73 square meter and albuminuria creatinine ratio less than 30 mg/g COPD (chronic obstructive pulmonary disease) WILLIAM (generalized anxiety disorder) GERD (gastroesophageal reflux disease) Gout History of aortic dissection 2001 Hyperlipidemia Hypertension Overweight Tobacco abuse Surgical History Surgical History History of hip replacement, total right History of mandibular surgery Hx of cataract surgery S/P insertion of iliac artery stent Family History Family History Father Family history of malignant neoplasm Sibling Family history of malignant neoplasm of breast in first degree relative Mother Family history of congestive heart failure Other Hypertension Social History Social History Smoking packs per day: 0.5 Smoking cigarettes per day: 10.0 Years smoked: 50 Smoking pack-years: 25.00 Smoking status: Current every day smoker Tobacco type: cigarettes Second hand tobacco smoke exposure: Yes Alcohol intake: current Alcohol use details: 1 glass of wine per year Substance use: current Substance use type: marijuana Other substance usage details: OCCASIONALLY Last use: 07/07/20 Do You Feel Safe in your Home?: Yes Lack of Transportation: YES Lack of Food: Never True Current Housing: I Have Housing Concerned About Future Housing: No Difficulty Paying Gas/Electric Bills: YES Difficulty Paying for Meds: No Currently Unemployed: No Education: High School Diploma/GED Difficulty w/ Childcare or Family Care: No Living arrangements: with family Additional living arrangements comments: [facility] WITH [facility] Occupation/Education: retired Gender identity (if verbalized by the patient): Female Spiritual care concerns: No Agree to blood products: Yes Meds Home Medications and Allergies Home Medications Medication Instructions Recorded Confirmed Type nebulizers #1 ea 10/14/21 01/20/24 Rx albuterol sulfate 2.5 mg/3 mL 2.5 mg (3 mL) inhalation Q4H PRN 04/30/22 03/20/24 Rx (0.083 %) solution for nebulization shortness of breath or wheezing #180 mL citalopram 40 mg tablet See Rx Instructions .Route 06/29/22 03/20/24 Rx .COMPLEX #90 tabs aspirin 81 mg tablet,delayed 81 mg PO
[2024-03-20 10:22] VITALS: BP 93/68; PULSE 71; RESP 21; O2SAT 97
[2024-03-20 10:32] VITALS: BP 134/74; PULSE 73; RESP 20; O2SAT 97
[2024-03-20 10:42] VITALS: BP 130/71; PULSE 74; RESP 20; O2SAT 100
== END 2024-03-20 10:56 | disposition home or self-care (01) ==
PROVIDERS: PCP Family Medicine; Visit Provider Surgery
PROC: 0DJD8ZZ Inspection of Lower Intestinal Tract, Via Natural or Artificial Opening Endoscopic (ICD-10-PCS; CPT 45378; principal; 2024-03-20 10:00)
DX: Z12.11 Encounter for screening for malignant neoplasm of colon (principal); K63.5 Polyp of colon; K64.8 Other hemorrhoids; K57.30 Diverticulosis of large intestine without perforation or abscess without bleeding; I12.9 Hypertensive chronic kidney disease with stage 1 through stage 4 chronic kidney disease, or unspecified chronic kidney disease; N18.4 Chronic kidney disease, stage 4 (severe); E78.5 Hyperlipidemia, unspecified; M81.0 Age-related osteoporosis without current pathological fracture; G89.29 Other chronic pain; J44.9 Chronic obstructive pulmonary disease, unspecified; F41.9 Anxiety disorder, unspecified; K21.9 Gastro-esophageal reflux disease without esophagitis; F17.210 Nicotine dependence, cigarettes, uncomplicated; Z79.51 Long term (current) use of inhaled steroids; Z79.82 Long term (current) use of aspirin; Z79.891 Long term (current) use of opiate analgesic; Z79.83 Long term (current) use of bisphosphonates; Z98.890 Other specified postprocedural states; Z95.5 Presence of coronary angioplasty implant and graft; Z86.79 Personal history of other diseases of the circulatory system; Z80.3 Family history of malignant neoplasm of breast; Z82.49 Family history of ischemic heart disease and other diseases of the circulatory system
CPT/HCPCS: 45385; 88305; J2704; J7120

== ENCOUNTER 2024-04-08 10:55 | Emergency (ER) | payer MEDICARE, MEDICAID, SELFPAY ==
--- NOTE | ~2024-04-08 | XR_ITS ---
XR wrist LT min 3V 04/08/2024 11:16 Indication: Left wrist pain Procedure: 3 views left wrist Comparison: Comparison to multiple prior studies sequentially, with oldest reviewed study dated 06/12. Findings: There is moderate-severe polyarticular osteoarthritis of the carpal bones. No fracture or t raumatic malalignment. There is mild soft tissue swelling dorsal to the carpal bones. There is a poss ible old triquetral fracture. Impression: 1: No acute fracture. Reviewed, dictated and finalized at location B. Impression: 1: No acute fracture.
[2024-04-08 10:56] VITALS: BP 129/80; PULSE 81; RESP 18; TEMP 36.7; O2SAT 97
--- NOTE | 2024-04-08 11:45 | ED.UPPEXIN ---
HPI - Extremity Injury (Upper) General Chief Complaint: Extremity Injury, Upper Stated Complaint: left wrist pain Time Seen by Provider: 04/08/24 11:03 Source: patient Mode of arrival: ambulatory Limitations: no limitations History of Present Illness HPI narrative: this is a 69-year-old female with left wrist pain no known injuries as no numbness or tingling has a history of osteoarthritis has a good radial pulse on the left with good range of motion although tender with palpation and movement. complaint: injury to: left Onset (ago): week(s) Other Extremity Injury: Left: wrist ( Tenderness) Related Data Home Medications Medication Instructions Recorded Confirmed aspirin 81 mg tablet,delayed 81 mg PO DAILY 07/16/22 03/20/24 release (Enteric Coated Aspirin) calcium carbonate 600 mg-vitamin 600 tablet PO DAILY 07/16/22 03/20/24 D3 10 mcg (400 unit) chewable tablet (Calcium 600 with Vitamin D3) cholecalciferol (vitamin D3) 25 25 mcg PO DAILY 07/16/22 01/20/24 mcg (1,000 unit) capsule multivitamin 1 tablet PO DAILY 07/16/22 03/20/24 omega-3 fatty acids 1,000 mg 2,000 mg PO DAILY 07/16/22 03/20/24 capsule fluticasone fur. 100 mcg-umeclid 1 inh inhalation DAILY 05/04/23 03/20/24 62.5 mcg-vilant 25 mcg inhalat.powder (Trelegy Ellipta) clobetasol 0.05 % scalp solution 1 applic topical DAILY 10/01/23 03/20/24 hydrocodone 10 mg-acetaminophen 1 tablet PO Q6-8H PRN Pain 10/01/23 03/20/24 325 mg tablet mupirocin 2 % topical ointment 1 applic topical DAILY 10/01/23 03/20/24 Allergies Allergy/AdvReac Type Severity Reaction Status Date / Time No Known Allergies Allergy Verified 04/08/24 11:44 Review of Systems Review of Systems: All systems reviewed & are unremarkable except as noted in HPI and below PMFSH Past Medical History Medical History Age related osteoporosis Asthma Chronic back pain Chronic kidney disease (CKD) stage G4/A1, severely decreased glomerular filtration rate (GFR) between 15-29 mL/min/1.73 square meter and albuminuria creatinine ratio less than 30 mg/g COPD (chronic obstructive pulmonary disease) WILLIAM (generalized anxiety disorder) GERD (gastroesophageal reflux disease) Gout History of aortic dissection 2002 Hyperlipidemia Hypertension Overweight Tobacco abuse Surgical History Surgical History History of hip replacement, total right History of mandibular surgery Hx of cataract surgery S/P insertion of iliac artery stent Family History Family History Father Family history of malignant neoplasm Sibling Family history of malignant neoplasm of breast in first degree relative Mother Family history of congestive heart failure Other Hypertension Social History Social History Smoking packs per day: 0.5 Smoking cigarettes per day: 10.0 Years smoked: 50 Smoking pack-years: 25.00 Smoking status: Current every day smoker Tobacco type: cigarettes Second hand tobacco smoke exposure: Yes Alcohol intake: current Alcohol use details: 1 glass of wine per year Substance use: current Substance use type: marijuana Other substance usage details: OCCASIONALLY Last use: 07/07/20 Do You Feel Safe in your Home?: Yes Lack of Transportation: YES Lack of Food: Never True Current Housing: I Have Housing Concerned About Future Housing: No Difficulty Paying Gas/Electric Bills: YES Difficulty Paying for Meds: No Currently Unemployed: No Education: High School Diploma/GED Difficulty w/ Childcare or Family Care: No Living arrangements: with family Additional living arrangements comments: [facility] WITH [facility] Occupation/Education: retired Gender identity (if verbalized by the patient): Female Spiritual care concerns:
== END 2024-04-08 11:50 | disposition home or self-care (01) ==
PROVIDERS: Emergency Provider Emergency Medicine; PCP Family Medicine
DX: S63.502A Unspecified sprain of left wrist, initial encounter (principal); E78.5 Hyperlipidemia, unspecified; I12.9 Hypertensive chronic kidney disease with stage 1 through stage 4 chronic kidney disease, or unspecified chronic kidney disease; N18.4 Chronic kidney disease, stage 4 (severe); F17.210 Nicotine dependence, cigarettes, uncomplicated; X58.XXXA Exposure to other specified factors, initial encounter
CPT/HCPCS: 73110; 99283

== ENCOUNTER 2024-09-27 12:12 | Outpatient (CLI) | payer MEDICARE, MEDICAID, SELFPAY ==
--- NOTE | 2024-09-27 12:19 | ECG_ITS ---
Test Date: 2024-09-27 12:32:41 Measurements Intervals [place] Rate: 83 P: 71 TX: 193 QRS: 69 QRSD: 86 T: 81 QT: 371 QTc: 438 Interpretive Statements SINUS RHYTHM NONSPECIFIC T-WAVE ABNORMALITY ABNORMAL ECG No previous ECG available for comparison Electronically Signed On 09-27-2024 12:56:54 CDT by [place] M.D.
--- OUTSIDE RECORDS SUMMARY | 2024-09-27 13:43 | XMS_ITS | Clinical Summary ---
Author Organization [facility] [employer] Address [address] [place] [address] Care Team Providers Care Administrator Of Home Health Name Role Phone Papo Ambriz MD Primary Care Provider [phone] Source Comments [facility] [employer],non-owned Affiliates and Associated Physician Practices is amultiple site organization consisting of ambulatory clinics and hospital sitesin [place], [place], [place] and [place]. This disclosure is being madepursuant to the Care Everywhere program and may not contain all information available regarding this patient. Last updated 18.[facility] [employer] Allergies No known active allergies Medications * Be aware that medications may not be up to date on this document. Alwaysverify current medications with the patient. Medication Sig Dispensed Refills Start Date End Date Status Calcium Carbonate (CALCIUM 500 PO) 2 times daily. Acti ve Multiple Vitamin (MULTIVITAMINS PO) once daily. Activ e LOVAZA PO 3 times daily. Active LORAZEPAM PO 2 times daily. Active atenolol (TENORMIN) 100 MG tablet 2 times daily. Active ranitidine (ZANTAC) 150 MG tablet 2 times daily. Active citalopram (CELEXA) 40 MG tablet once daily. Active hydrochlorothiazide (HYDRODIURIL) 12.5 MG TABS once daily. Active simvastatin (ZOCOR) 40 MG tablet once daily. Active ALBUTEROL IN 4 times daily as needed. Active Tiotropium [place] Monohydrate (SPIRIVA HANDIHALER IN) once daily. Active aspirin 81 MG tablet once daily. Act addis gabapentin (NEURONTIN) 300 MG capsule Take 300 mg by mouth 3 times daily Active busPIRone (BUSPAR) 10 MG tablet Take 10 mg by mouth 3 times daily Active hydrocodone-acetaminoph en (NORCO) 10-325 MG tablet Take 1 Tab by mouth every 4 hours as needed for Pain Active Active Problems Problem Noted Date Diagnosed Date High cholesterol Hypertension COPD (chronic obstructive pulmonary disease) Family History Medical History Relation Name Comments Leukemia Father Heart Disease Mother Breast Cancer after age 50 o r unknown Paternal Aunt 1 Cancer - Ovarian Paternal Aunt 2 Breast Cancer after age 50 o r unknown Sister 40 years old when di agnosed Cancer - Breast Sister Relation Name Status Comments Father Mother Paternal Aunt 1 Paternal Aunt 2 Sister Social History Tobacco Use Types Packs/Day Years Used Date Smoking Tobacco: Every Day Cigarettes Smokeless Tobacco: Never Alcohol Use Standard Drinks/Week Comments Not Asked 0 (1 standard drink = 0.6 oz pur e alcohol) Sex and Gender Information Value Date Recorded Sex Assigned at Not on file Gender Identity Not on file Sexual Orientation Not on file Last Filed Vital Signs Vital Sign Reading Time Taken Comments Blood Pressure 122/70 10/18/2012 11:35 AM CDT Pulse 79 05/05/2012 11:16 AM CDT Temperature 37.2 C (99 F) 05/05/2012 11:16 AM CDT Respiratory Rate - - Oxygen Saturation - - Inhaled Oxygen Concentration - - Weight 110.2 kg (243 lb) 10/18/2012 11:35 AM CDT Height 179.1 cm (5' 10.5 ) 10/18/2012 11:35 AM C DT Body Mass Index 34.37 10/18/2012 11:35 AM CDT Plan of Treatment Health Maintenance Due Date Last Done Comments BONE DENSITY TESTING 1955 COLOGUARD (AGES 45-75) - COLON CA SCREENING 1955 COLON MONITORING 1955 COLONOSCOPY - COLON CA SCREENING 1955 CT COLONOGRAPHY - COLON CA SCREENING 1955 Colorectal Cancer Screening 1955 FIT - COLON CA SCREENING 1955 FLEX SIG - COLON CA SCREENING 1955 HEPATITIS C SCREENING 02/25/1973 DTAP/TDAP/TD VACCINES (1 - Tdap) 1974 PNEUMOCOCCAL VACCINE 50+ (1 of 2 - PCV) 1974 ZOSTER VACCINE (1 of 2) 2005 Respiratory Syncytial Virus (RSV) Vaccine Pt: or over 60 yrs (1 - Risk 60-74 years 1-dose series) 2015 MAMMOGRAM 05/21/2017 05/21/2015, 05/05/2012 COVID-19 VACCINE ( - 2023- season) 2024 INFLUENZA VACCINE (#1) 2024 6, 03/14/2015, 05/04/2014, Additional history exists DEPRESSION SCREENING 07/12/2024 MEDICARE AWV CALENDAR YEAR 2024 HEPATITIS B VACCINE Aged Out No longe r eligible based on patient's age to complete this topic HIB VACCINE Aged Out No longer eligi ble based on patient's age to complete this topic HPV VACCINE Aged Out No longer eligi ble based on patient's age to complete this topic MENINGOCOCCAL (Group B) VACCINE SHARED DECISION-MAKING Aged Out No longer eligible based on patient's age to complete this topic MENINGOCOCCAL GROUPS A/C/Y/W VACCINE Aged Out No longer eligible based on patient's age to complete this topic Procedures Procedure Name Priority Date/Time Associated Diagnosis Comments MAMMO BILAT DIAGNOSTIC Routine 05/21/2015 1:58 PM MALTED MILK SUPERVISOR Breast cyst, left from Last 3 Months or Most Recently Relevant to Health Maintenance Results * MAMMO DIAG DIRECT DIGITAL IMAGE BILA (05/21/2015 1:58 PM MALTED MILK SUPERVISOR) Anatomical Region Laterality Modality Bilateral Mammography 05/21/2015 5:0 0 PM MALTED MILK SUPERVISOR Impressions 05/21/2015 5:03 PM MALTED MILK SUPERVISOR 1. No evidence of malignancy in either breast. 2. Multiple benign left breast masses. No further imaging followup is required. ASSESSMENT: BIRADS Category 2: Benign finding(s). RECOMMENDATION: 1. Patient may return to screening with next bilateral screening mammogram in one year. 2. Your patient recently completed a breast cancer risk assessment survey. Based on the information provided by your patient, it appears that she may be at increased risk to have a hereditary form of breast cancer. Patient is already under the care of Dr. Vera Rice. Findings and recommendation were discussed with the patient by Dr. Javed. Thank you for allowing us to participate in the care of your patient. [facility] utilizes [employer] as a reminder system to notify patients of their next recommended mammogram. Narrative 05/21/2015 5:03 PM MALTED MILK SUPERVISOR EXAMINATION: Digital bilateral diagnostic mammogram and targeted left breast ultrasound on 05/21/2015. Low-dose digital breast tomosynthesis examination was performed with 2D and 3D acquisitions. Computer assisted detection was utilized. PRIOR: 10/18/2012 and 05/05/2012. HISTORY: 60-year-old female here for followup of probably benign left breast mass, followed from October 2012. FINDINGS: Breast parenchymal density: The breasts are almost entirely fatty. Risk assessment calculation: Based on the information provided by your patient, her lifetime risk of breast cancer is intermediate (calculated at 12% by the BRCAPRO model, 6% by the Galo model, 13% by the Fanta model, and 15% by the Tyrer-Cuzick model). Her risk of a BRCA1/2 mutation is elevated (14% by BRCAPRO model, 5.3% by Myriad model). Please note this information is only as accurate as the data entered by the patient. No suspicious masses, areas of architectural distortion or microcalcifications are evident in either breast on 2D mammogram or tomosynthesis images. There has been no significant interval change since the prior examination. Multiple left breast masses with circumscribed margins are unchanged from 2012. Targeted ultrasound was performed at 11:00 in the left breast, 4 cm from the nipple, in location of previously identified probably benign mass. There is an unchanged oval hypoechoic mass measuring 1.1 x 1.1 x 0.4 cm, not significantly changed in size or morphology compared with the previous ultrasound in October 2012. Vera Rice MD MAMMO ORDERABLES from Last 3 Months or Most Recently Relevant to Health Maintenance Care Teams Administrator Of Home Health Relationship Specialty Start Date End Date Papo Ambriz MD PCP - General Internal Medicine 10/14/12
--- OUTSIDE RECORDS SUMMARY | 2024-09-27 13:43 | XMS_ITS | Encounter Summary ---
Author Organization [facility] Address [address] [place] [address] Care Team Providers Care Head Of Operation And Logistics Name Role Phone Fabien Jarrett MD Unavailable [phone] Jaqueline Rosas NP Unavailable [phone] Leo Jacobson MD Primary Care Provider + [phone] Simba Keating MD Unavailable [phone] Rah Reid MD Unavailable Bj Cox MD Unavailable Unavailable Leo Jacobson MD Primary Care Provider + [phone] Kyle Montenegro DO Primary Care Provider [phone] Irma Miller MD Unavailable Rah Reid MD Unavailable Simba Keating MD Unavailable [phone] Abdirahman Mcghee APRN Unavailable [phone] Jamil Flanagan MD Unavailable [phone] Vera Rice MD Unavailable [phone] Encounter Details Date Type Department Care Team (Late st Contact Info) Description 04/17/2015 Abstract [facility] [address] [place] [address] Fabien Jarrett MD [address] [place] [address], [address] [place], [place] [id number] Social History Tobacco Use Types Packs/Day Years Used Date Smoking Tobacco: Former Smokeless Tobacco: Never Alcohol Use Standard Drinks/Week Comments No 0 (1 standard drink = 0.6 oz pur e alcohol) Comments Unknown Sex and Gender Information Value Date Recorded Sex Assigned at Female 09/21/2024 8:52 AM CDT Legal Sex Female 9:27 PM CDT Gender Identity Female 09/18/2021 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 Sexual Orientation Not on file Occupation Industry Job Start Date Job End Date Disability Not on file Not on file Not on file documented as of this encounter Plan of Treatment Upcoming Encounters Date Type Department Care Team (Late st Contact Info) Description 02/26/2025 2:20 PM CDT Appointment [facility] [address] [place] [address] Abdirahman Mcghee, CARPENTER APPRENTICE [address] [address] 02/26/2025 3:15 PM CDT Office Visit [facility] [address] [place] [address] Simba Keating MD [address] [facility] [address] [facility], [address] [place] [address] documented as of this encounter Visit Diagnoses Not on filedocumented in this encounter Additional Health Concerns Infection Onset Date Last Indicated Resolved Time COVID-19 Rule Out 11/24/2022 11/24/2022 11/24/2022 2:05 PM CDT documented as of this encounter Care Teams Head Of Operation And Logistics Relationship Specialty Start Date End Date Leo Jacobson MD [address] [place] [address] PCP - General FAMILY PRACTICE 11/03/16 08/20/19 Leo Jacobson MD [address] [place] [address] PCP - General FAMILY PRACTICE 08/21/19 08/21/19 Kyle Montenegro DO [address] [place] [address] PCP - General FAMILY PRACTICE 08/22/19 Fabien Jarrett MD CARDIOVASCULAR DISEASE 06/02/16 07/19/18 Jaqueline Rosas NP [address] [place] [address] [address] [place] [address] Calion Diamond Expert NURSE PRACTITIONER 11/03/16 07/19/18 Simba Keating MD [address] [place] [address] CARDIOVASCULAR DISEASE 09/09/17 11/17/20 Rah Reid MD [address] [place] [address] Vascular/Diamond Expert INTERNAL MEDICINE 05/18/18 Bj Cox MD [address] [place] [address] Calion Diamond Expert INTERVENTIONAL CARDIOLOGY 07/20/18 11/17/20 Irma Miller MD [address] [place] [address] Consulting Physician CARDIOVASCULAR DISEASE 11/18/20 Rah Reid MD [address] [place] [address] Vascular/Diamond Expert INTERNAL MEDICINE 12/01/21 Simba Keating MD [address] [place] [address] Consulting Physician INTERVENTIONAL CARDIOLOGY 05/11/22 Abdiramhan Mcghee APRN [address] [place] [address] Nurse Practitioner NURSE PRACTITIONER 05/21/22 Jamil Flanagan MD [address] [place] [phone] Consulting Physician INTERNAL MEDICINE 04/22/23 Vera Rice MD [facility] [address] [address] SURGERY 04/22/23 documented as of this encounter
--- OUTSIDE RECORDS SUMMARY | 2024-09-27 13:43 | XMS_ITS | Encounter Summary ---
Author Organization [facility] Address [facility] [place] [address] Care Team Providers Care Service Order Clerk Name Role Phone Fabien Jarrett MD Unavailable [phone] Jaqueline Rosas NP Unavailable [phone] Leo Jacobson MD Primary Care Provider [phone] Simba Keating MD Unavailable [phone] Rah Reid MD Unavailable Bj Cox MD Unavailable Unavailable Leo Jacobson MD Primary Care Provider [phone] Kyle Montenegro DO Primary Care Provider [phone] Irma Miller MD Unavailable Rah Reid MD Unavailable Simba Keating MD Unavailable [phone] Abdirahman Mcghee APRN Unavailable [phone] Jamil Flanagan MD Unavailable [phone] Vera Rice MD Unavailable [phone] Encounter Details Date Type Department Care Team (Late st Contact Info) Description 09/25/2017 Abstract [facility] [address] [place], [place] [id number] , Generic MD Shanon Social History Tobacco Use Types Packs/Day Years Used Date Smoking Tobacco: Every Day Cigarettes 1.5 40 Smokeless Tobacco: Never Alcohol Use Standard Drinks/Week Comments Yes 0 (1 standard drink = 0.6 oz pur e alcohol) one glass of wine yearly Comments Unknown Sex and Gender Information Value Date Recorded Sex Assigned at Female 09/21/2024 8:52 AM CDT Legal Sex Female 9:27 PM CDT Gender Identity Female 09/18/2021 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 Sexual Orientation Not on file Occupation Industry Job Start Date Job End Date Disability Not on file Not on file Not on file Not on file Not on file Not on file Not on file documented as of this encounter Plan of Treatment Upcoming Encounters Date Type Department Care Team (Late st Contact Info) Description 02/26/2025 2:20 PM CDT Appointment [facility] [address] [place] [address] Abdirahman Mcghee, MAJOR LEAGUE BASEBALL UMPIRE [address] [address] 02/26/2025 3:15 PM CDT [facility] [address] [place] [phone] Simba Keating MD [address] [facility], [address] [place] [address] documented as of this encounter Visit Diagnoses Not on filedocumented in this encounter Additional Health Concerns Infection Onset Date Last Indicated Resolved Time COVID-19 Rule Out 11/24/2022 11/24/2022 11/24/2022 2:05 PM CDT documented as of this encounter Care Teams Service Order Clerk Relationship Specialty Start Date End Date Leo Jacobson MD [address] [place] [address] PCP - General FAMILY PRACTICE 11/03/16 08/20/19 Leo Jacobson MD [address] [place] [address] PCP - General FAMILY PRACTICE 08/21/19 08/21/19 Kyle Montenegro DO [address] [place] [address] PCP - General FAMILY PRACTICE 08/22/19 Fabien Jarrett MD CARDIOVASCULAR DISEASE 06/02/16 07/19/18 Jaqueline Rosas NP [address] [place] [address] [address] [place] [address] [employer] Patternmaker NURSE PRACTITIONER 11/03/16 07/19/18 Simba Keating MD [address] [place] [address] CARDIOVASCULAR DISEASE 09/09/17 11/17/20 Rah Reid MD [address] [place] [address] Vascular/Foundry Patternmaker INTERNAL MEDICINE 05/18/18 Bj Cox MD [address] [place] [address] [employer] INTERVENTIONAL CARDIOLOGY 07/20/18 11/17/20 Irma Miller MD [address] [place] [address] Consulting Physician CARDIOVASCULAR DISEASE 11/18/20 Rah Reid MD [address] [place] [address] Vascular/Foundry Patternmaker INTERNAL MEDICINE 12/01/21 Simba Keating MD [address] [place] [address] Consulting Physician INTERVENTIONAL CARDIOLOGY 05/11/22 Abdirahman Mcghee APRN [address] [place] [address] Nurse Practitioner NURSE PRACTITIONER 05/21/22 Jamil Flanagan MD [address] [place] [phone] Consulting Physician INTERNAL MEDICINE 04/22/23 Vera Rice MD [address] [address] SURGERY 04/22/23 documented as of this encounter
--- OUTSIDE RECORDS SUMMARY | 2024-09-27 13:43 | XMS_ITS | Clinical Summary ---
Author Organization [facility] Address [address] [place] [address] Care Team Providers Care Senior Electrical Project Manager Name Role Phone Kyle Montenegro Primary Care Provider [phone] Rah Reid MD Unavailable Simba Keating MD Unavailable [phone] Abdirahman Mcghee APRN Unavailable [phone] Sera Fisher MD Unavailable [phone] Vera Rice MD Unavailable [phone] Medications aspirin 81 MG tablet Aspirin 81 mg ; 1tablet daily ; 0; -Jun-2009; Active 9 Active Multiple Vitamin (MULTI-VITAMIN ) tablet Take 1 tablet by mouth daily. 1 Active alendronate 70 MG tablet Take 1 tablet (70 mg total) by mouth every 7 days. 8 Active OMEGA-3 ACID 1 GM capsule TAKE ONE CAPSULE BY MOUTH 3 TIMES A DAY 90 capsule 8 Active Additional Information Patient taking differently: 1 g Oral 2 times daily, (No instructions reported), Reported on 02/22/2023 atorvastatin 40 MG tablet Take 1 tablet (40 mg total) by mouth daily. 0 Active busPIRone 15 MG tablet Take 2 tablets (30 mg total) by mouth 2 (two) times a day. Take 2 tablets by mouth BID 0 Active citalopram 40 MG tablet Take 1 tablet (40 mg total) by mouth daily. 0 Active hydroCHLOROthi azide 25 MG tablet Take 1 tablet (25 mg total) by mouth every morning. 0 Active gabapentin 300 MG capsule Take 1 capsule (300 mg total) by mouth 3 (three) times daily. 0 Active VENTOLIN HFA 108 (90 Base) MCG/ACT inhaler 0 Active COMPRESSION STOCKINGS 20-30 MMHG Compression stockings, knee-high, open or closed toe Dx: I83.893 1 Container 6 2 Active calcium carb-cholecalc iferol (CALTRATE+D) 600-10 MG-MCG Tab tablet Take 1 tablet by mouth daily. Active furosemide (LASIX) 20 MG tablet Take 1 tablet (20 mg total) by mouth daily. Active pantoprazole EC (PROTONIX) 40 MG tablet Take 1 tablet (40 mg total) by mouth daily. 30 tablet 3 Active nystatin (MYCOSTATIN) powder Apply topically 2 (two) times daily. In btw gluteal cleft 60 g 1 3 Active Additional Information Patient not taking.Reported on 02/22/2023 zinc oxide (DESITIN) 40 % Paste paste Apply topically as needed for Irritation. 453 g 3 Active metoprolol succinate ER (TOPROL-XL) 50 MG 24 hr tablet TAKE 1 TABLET BY MOUTH DAILY. 30 tablet 6 3 Active HYDROcodone-ac etaminophen (NORCO) 10-325 MG tablet Take 1 tablet by mouth every 8 (eight) hours as needed for Pain. 3 Active varenicline (CHANTIX) 1 MG tablet Take 1 tablet (1 mg total) by mouth 2 (two) times daily. 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[facility]) 10/03/2018 Bilateral carotid bruits 10/03/2018 Other closed fracture of pro ximal end of left fibula, sequela 01/06/2017 COPD (chronic obstructive pu lmonary disease) ([facility]) 06/03/2016 Essential hypertension AAA (abdominal aortic aneurysm) Innominate artery stenosis PAD (peripheral artery disease) Resolved Problems Problem Noted Date Diagnosed Date Resolved Date Ruptured aneurysm of thoraci c aorta ([facility]) 02/23/2023 02/23/2023 High blood cholesterol 02/11/201710/04 Aortic dissection, thoracoabdominal 10/03/2018 Overview (06/02/2016): S-P ThoracicAortic Stent Graft, Bilateral common iliac stents () Encounters Date Type Department Care Team Description 09/21/2024 8:52 AM CDT - 09/21/2024 11:59 PM CDT Hospital Encounter [facility] [address] [place] [address] Sera Fisher MD Discharge Disposition: Home or Self Care (Routine Discharge) 09/21/2024 Travel 09/13/2024 Telephone [facility] [place] [address] [place] [address] Abdirahman Mcghee, RESEARCH MANAGEMENT ASSOCIATE Called To Cancel Office Appt. 09/06/2024 Telephone [facility] [place] [address] [place] [address] Abdirahman Mcghee, RESEARCH MANAGEMENT ASSOCIATE Problem 07/24/2024 Telephone [facility] [place] [address] [place] [address] Abdirahman Mcghee, RESEARCH MANAGEMENT ASSOCIATE Information from Last 3 Months Immunizations Name Administration Dates Next Due Influenza (Generic) 05/04/2014 Influenza Adult (Generic) 05/12/2016,03/14/2015, 03/27/2013,05/20/2012 Pneumococcal (Pneumovax 23) 06/19/2014 Pneumococcal (Prevnar 13) 12/12/2014 Family History Medical History Relation Comments Arthritis Mother Heart Disease Mother Hypertension Mother Relation Status Comments Brother Father (Age 51 ) Leukemia Maternal Grandfather Maternal Grandmother Mother (Age 77 ) CAD, CHF, CAB G Paternal Grandfather Paternal Grandmother Sister Cancer Social History Tobacco Use Types Packs/Day Years Used Date Smoking Tobacco: Every Day Cigarettes 1.5 50 Smokeless Tobacco: Never Tobacco Cessation:Ready to Q uit: Not Asked; Counseling Given: Not Answered Alcohol Use Standard Drinks/Week Comments Not Currently 0 (1 standard drink = 0.6 oz pur e alcohol) one glass of wine yearly Humiliation, Afraid, Rape, and Kick questionnair e Answer Date Recorded Within the last year, have y ou been afraid of your partner or ex-partner? No 11/24/2022 Within the last year, have y ou been humiliated or emotionally abused in other ways by your partner or ex-partner? No Within the last year, have y ou been kicked, hit, slapped, or otherwise physically hurt by your partner or ex-partner? No 11/24/2022 Within the last year, have y ou been raped or forced to have any kind of sexual activity by your partner or ex-partner? No 11/24/2022 Overall Financial Resource Strain (CARDIA) Answe r Date Recorded How hard is it for you to pa y for the very basics like food, housing, medical care, and heating? Not hard at all 11/24/2022 Hunger Vital Sign Answer Date Recorded Within the past 12 months, y ou worried that your food would run out before you got the money to buy more. Never true 11/25/19 23 Within the past 12 months, t he food you bought just didn't last and you didn't have money to get more. Never true 11/24/2022 PRAPARE - Transportation Answer Date Re corded In the past 12 months, has l ack of transportation kept you from medical appointments or from getting medications? No 11/09 In the past 12 months, has l ack of transportation kept you from meetings, work, or from getting things needed for daily living? No 11/24/2022 Housing Stability Vital Sign Answer Jeff e Recorded In the last 12 months, was t here a time when you were not able to pay the mortgage or rent on time? No 11/24/2022 In the last 12 months, how many places have you lived? 1 11/24/2022 In the last 12 months, was t here a time when you did not have a steady place to sleep or slept in a nursing home (including now)? 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 Sexual Orientation Not on file Occupation Industry Job Start Date Job End Date Disability Not on file Not on file Not on file Not on file Not on file Not on file Not on file Last Filed Vital Signs Vital Sign Reading Time Taken Comments Blood Pressure 122/76 02/22/2024 10:04 AM CDT Pulse 74 02/22/2024 10:04 AM CDT Temperature 36.5 C (97.7 F) 11/30/2022 8:05 AM CDT Respiratory Rate 16 02/22/2024 10:04 AM CDT Oxygen Saturation 95% 02/22/2024 10:04 AM CDT Inhaled Oxygen Concentration - - Weight 85.9 kg (189 lb 6.4 oz) 02/22/2024 10:04 AM CDT Height 177.8 cm (5' 10 ) 02/22/2024 10:04 AM CDT Body Mass Index 27.18 02/22/2024 10:04 AM CDT Plan of Treatment Upcoming Encounters Date Type Department Care Team (Late st Contact Info) Description 02/26/2025 2:20 PM CDT Appointment [facility] [address] [place], [place] [id number] Abdirahman Mcghee, RESEARCH MANAGEMENT ASSOCIATE [address] [id number] 02/26/2025 3:15 PM CDT Office Visit [facility] [address] [place] [phone] Simba Keating MD [address] [place] [address] Health Maintenance Due Date Last Done Comments ASCVD Statin 1955 Colorectal Cancer Screening Colonoscopy (10 Years) 1955 Hepatitis C 1973 DTaP, Tdap and Td Vaccines (1 - Tdap) 1974 Zoster Vaccines (1 of 2) 2005 RSV Immunization or 60+ Years (1 - Risk 60-74 years 1-dose series) 2015 Mammogram Screening 05/21/2017 05/21/2015, 10/18/2012, 05/05/2012 Annual Medicare Wellness Visit 2020 Dexa Scan (General) 2020 Pneumococcal Vaccine: 65+ Years (3 of 3 - PPSV23 or PCV20) 2020 12/12/2014, 06/19/2014 COVID-19 Vaccine ( season) 2024 Influenza Adult (#1) 2024 05/12/2016, 03/14/2015, 05/04/2014, Additional history exists Lung Cancer Screening 09/21/2025 09/21/2024 , 05/16/2024, 10/27/2023, Additional history exists Meningococcal B Vaccine Aged Out No l onger eligible based on patient's age to complete this topic Meningococcal Vaccine Aged Out No anyi jonel eligible based on patient's age to complete this topic RSV Immunizations Under 20 Months Aged Out No longer eligible based on patient's age to complete this topic Goals Goal Patient Goal Type Associated Problems Recent Progress Patient-Stated? Author Safety Patient/family will have appropriate support at home upon discharge Lifestyle No Leti Gupta, plasma cutting machine operator Procedure Name Priority Date/Time Associated Diagnosis Comments CT CHEST WO CON Routine 09/21/2024 9:00 AM CDT Nodule of lower lobe of lung from Last 3 Months Results * CT CHEST WO CON (09/21/2024 9:00 AM CDT) Anatomical Region Laterality Modality Chest Computed Tomogra phy 09/21/2024 10:1 8 AM CDT Impressions 09/21/2024 11:14 AM CDT Impression: 1. Redemonstrated 2 cm mixed density nodular region within the superior segment of the left lower lobe. This appears similar to the previous lung screening exam performed in May 2024 but has progressively increased in size over time and demonstrated FDG uptake on previous PET/CT imaging. As stated on prior lung screening examination, consider tissue sampling with image guidance. 2. A new 4.5 mm nodule is seen in the posterior left lower lobe. Attention to this region on follow-up imaging is recommended. 3. Other chronic and nonemergent findings as above. Ordered By: SERA FISHER Interpreted By: Young Yi MD, 09/21/2024 10:18 AM Narrative 09/21/2024 11:14 AM CDT [address] [place] [address] Examination: CT CHEST WO CON Clinical Information: Lung nodule. Comparison:CT 05/16/2024, 10/27/2023, 04/09/2023 and 02/21/2020. Technique: IV contrast: None. Oral contrast: None. Technical comments: Standard technique. Dose reduction: This CT exam was performed using one or more of the following dose reduction techniques: Automated exposure control, adjustment of the mA and/or kV according to patient size, and/or use of iterative reconstruction technique. Findings: MEDIASTINUM Support tubes and lines: None. Base of neck/thyroid: Negative. Heart: Normal in size. No pericardial effusion. Coronary artery calcifications are present. Lymph nodes: No supraclavicular, axillary, internal mammary, mediastinal, or hilar adenopathy. Granulomatous calcifications are noted. VASCULATURE Atherosclerotic calcification of the thoracic aorta. Redemonstrated arch and descending thoracic aorta graft, appearing similar to previous exams. The unenhanced pulmonary arteries appear unremarkable. LUNGS AND PLEURA Lungs: Scattered calcified granulomas are present. Right basilar atelectasis/scarring noted. Mild centrilobular emphysematous changes. Redemonstrated approximately 2 cm mixed density nodular region within the superior segment of the left lower lobe (series 3 image 41). This appears similar to the previous lung screening exam performed in May 2024 but has progressively increased in size over time and demonstrated FDG uptake on previous PET/CT imaging. A new 4.5 mm nodule is seen in the posterior left lower lobe (series 3 image 56). Pleura: No pleural effusion, thickening, or calcification. UPPER ABDOMEN Unremarkable. BONES/SOFT TISSUES No significant lesion. Procedure Note Young Yi MD - 09/21/2024 [facility] [address] [place] [address] Examination: CT CHEST WO CON Clinical Information: Lung nodule. Comparison:CT 05/16/2024, 10/27/2023, 04/09/2023 and 02/21/2020. Technique: IV contrast: None. Oral contrast: None. Technical comments: Standard technique. Dose reduction: This CT exam was performed using one or more of thefollowing dose reduction techniques: Automated exposure control,adjustment of the mA and/or kV according to patient size, and/or use ofiterative reconstruction technique. Findings: MEDIASTINUM Support tubes and lines: None. Base of neck/thyroid: Negative. Heart: Normal in size. No pericardial effusion. Coronary arterycalcifications are present. Lymph nodes: No supraclavicular, axillary, internal mammary, mediastinal,or hilar adenopathy. Granulomatous calcifications are noted. VASCULATURE Atherosclerotic calcification of the thoracic aorta. Redemonstrated archand descending thoracic aorta graft, appearing similar to previous exams.The unenhanced pulmonary arteries appear unremarkable. LUNGS AND PLEURA Lungs: Scattered calcified granulomas are present. Right basilaratelectasis/scarring noted. Mild centrilobular emphysematous changes.Redemonstrated approximately 2 cm mixed density nodular region within thesuperior segment of the left lower lobe (series 3 image 41). This appearssimilar to the previous lung screening exam performed in May 2024 buthas progressively increased in size over time and demonstrated FDG uptakeon previous PET/CT imaging. A new 4.5 mm nodule is seen in the posteriorleft lower lobe (series 3 image 56). Pleura: No pleural effusion, thickening, or calcification. UPPER ABDOMEN Unremarkable. BONES/SOFT TISSUES No significant lesion. Impression: 1. Redemonstrated 2 cm mixed density nodular region within the superiorsegment of the left lower lobe. This appears similar to the previous lungscreening exam performed in May 2024 but has progressively increasedin size over time and demonstrated FDG uptake on previous PET/CT imaging.As stated on prior lung screening examination, consider tissue samplingwith image guidance. 2. A new 4.5 mm nodule is seen in the posterior left lower lobe.Attention to this region on follow-up imaging is recommended. 3. Other chronic and nonemergent findings as above. Ordered By: SERA FISHER Interpreted By: Young Yi MD, 09/21/2024 10:18 AM Sera Fisher MD CT Final Result from Last 3 Months Insurance MEDICAID [facility] MEDICAID U[employer] Advance Directives * Full Code (Latest Code Status on File) Date Activated Date Inactivated Comments 11/24/2022 12:16 PM 11/30/2022 2:43 PM Care Teams Senior Electrical Project Manager Relationship Specialty Start Date End Date Kyle Montenegro DO [address] [place] [address] PCP - General FAMILY PRACTICE 08/22/19 Rah Reid MD [address] [place] [address] Vascular/Microsoft Solutions Architect INTERNAL MEDICINE 12/01/21 Simba Keating MD [address] [place] [address] Consulting Physician INTERVENTIONAL CARDIOLOGY 05/11/22 Abdirahman Mcghee APRN [address] [place] [address] Nurse Practitioner NURSE PRACTITIONER 05/21/22 Sera Fisher MD [address] [place] [phone] Consulting Physician INTERNAL MEDICINE 04/22/23 Vera Rice MD [address] [address] SURGERY 04/22/23
--- OUTSIDE RECORDS SUMMARY | 2024-09-27 13:43 | XMS_ITS | Encounter Summary ---
Author Organization [facility] Address [facility] [place] [address] Care Team Providers Care Gore Stitcher Name Role Phone Leo Jacobson MD Primary Care Provider [phone] Simba Keating MD Unavailable [phone] Rah Reid MD Unavailable Bj Cox MD Unavailable Unavailable Leo Jacobson MD Primary Care Provider [phone] Kyle Montenegro DO Primary Care Provider [phone] Irma Miller MD Unavailable Rah Reid MD Unavailable Simba Keating MD Unavailable [phone] Abdirahman Mcghee APRN Unavailable [phone] Jamil Flanagan MD Unavailable [phone] Vera Rice MD Unavailable [phone] Encounter Details Date Type Department Care Team (Late st Contact Info) Description 12/17/2018 Abstract [facility] CON[facility] [address] [place] [address] , Generic Conversion, Social History Tobacco Use Types Packs/Day Years Used Date Smoking Tobacco: Every Day Cigarettes 1.5 40 Smokeless Tobacco: Never Alcohol Use Standard Drinks/Week Comments Yes 0 (1 standard drink = 0.6 oz pur e alcohol) one glass of wine yearly Comments No Sex and Gender Information Value Date Recorded Sex Assigned at Female 09/21/2024 8:52 AM CDT Legal Sex Female 9:27 PM CDT Gender Identity Female 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 Not on file Occupation Industry Job Start Date Job End Date Disability Not on file Not on file Not on file Not on file Not on file Not on file Not on file documented as of this encounter Plan of Treatment Upcoming Encounters Date Type Department Care Team (Late st Contact Info) Description 02/26/2025 2:20 PM CDT Appointment [facility] [address] [place] [address] Abdirahman Mcghee, RADIO INTERFERENCE INVESTIGATOR [address] [address] 02/26/2025 3:15 PM CDT Office Visit [facility] [address] [place] [address] Simba Keating MD [address] [facility], [address] [place] [address] documented as of this encounter Visit Diagnoses Not on filedocumented in this encounter Additional Health Concerns Infection Onset Date Last Indicated Resolved Time COVID-19 Rule Out 11/24/2022 11/24/2022 11/24/2022 2:05 PM CDT documented as of this encounter Care Teams Gore Stitcher Relationship Specialty Start Date End Date Leo Jacobson MD [address] [place] [address] PCP - General FAMILY PRACTICE 11/03/16 08/20/19 Leo Jacobson MD [address] [place] [address] PCP - General FAMILY PRACTICE 08/21/19 08/21/19 Kyle Montenegro DO [address] [place] [address] PCP - General FAMILY PRACTICE 08/22/19 Simba Keating MD [address] [place] [address] CARDIOVASCULAR DISEASE 09/09/17 11/17/20 Rah Reid MD [address] [place] [address] Vascular/Photographer Helper INTERNAL MEDICINE 05/18/18 Bj Cox MD [address] [place] [address] Photographer Helper INTERVENTIONAL CARDIOLOGY 07/20/18 11/17/20 Irma Miller MD [address] [place] [address] Consulting Physician CARDIOVASCULAR DISEASE 11/18/20 Rah Reid MD [address] [place] [address] Vascular/Photographer Helper INTERNAL MEDICINE 12/01/21 Simba Keating MD [address] [place] [address] Consulting Physician INTERVENTIONAL CARDIOLOGY 05/11/22 Abdirahman Mcghee APRN [address] [place] [address] Nurse Practitioner NURSE PRACTITIONER 05/21/22 Jamil Flanagan MD [address] [place] [phone] Consulting Physician INTERNAL MEDICINE 04/22/23 Vera Rice MD [facility] [address] [address] SURGERY 04/22/23 documented as of this encounter
--- OUTSIDE RECORDS SUMMARY | 2024-09-27 13:43 | XMS_ITS | Data Portability ---
Author Organization [facility], [address] [place] [address] Neurology ([place]) Address [address] [address] Assessment Encounter Date Assessment Date Assessment LastModified by Organization Details LastModified Time 06/01/2024 06/01/2024 AMENDMENT: 06.18.2024 Patient's Mind.Px results shows that she is most likely a responder to ALL biologic classes. I recommend Cosentyx. Her labs have some abnormalities including abnormal kidney function (elevated creatinine) and slightly elevated CO2, in keeping with her COPD. Please fill out Cosentyx prescription form. s t x UnoReady: 300 mg/2 mL (2 mL) 300 mg once weekly at weeks 0, 1, 2, 3, and 4 followed by 300 mg every 4 weeks. Follow up as scheduled. ------- The following diagnoses are categorized as CHRONIC ILLNESS WITH EXACERBATION, PROGRESSION OR SIDE EFFECTS #Psoriasis including #Scalp Psoriasis (Severe) LOCATION: scalp , BL ears, face BSA: 3% pink well-demarcated plaques with micaceous scale Discussed diagnosis and treatment options. We reviewed the fact that this is a multisystem disorder and can be associated with other problems such as arthritis, diabetes, hypertension and hyperlipidemia. We discussed the chronic nature of this condition and the fact that symptoms can fluctuate over time. The importance of daily use of emollients was reviewed. Pt informed pt about psoriasis, cause, and that trauma/rubbing/it sheridan can make it worse. The various therapeutic modalities for psoriasis including topical treatments, ultraviolet light treatment, oral treatments and injectable biologic treatments were discussed. We discussed the benefits, risks and side effects of biologics in great details. Discussed these kind of medications may increase risk of serious infections, tuberculosis, malignancies, demyelinating disease, autoimmune disease, pancytopenia, reactivating hepatitis B, lupus like reaction, worsening heart failure and may cause anaphylaxis/hyper sensitivity reaction. Common adverse effects include but not limited to infections (i.e. candidiasis, URI), headache, fatigue, dizziness, skin rash, nausea, antibody development, injection site reaction, arthralgia, back pain. Discussed possible increased risk of NMSC. Pt instructed to hold the medication and seek medical attention right away if there is concern of infections, signs of demyelinating disease/pancytope leilani/heart failure/autoimmun e disease or development of malignancies. Patient advised that NO live vaccination while on this medication. Advised pt to update his vaccines prior to starting. Obtain flu,up to date tetanus. Consider pneumonia (especially >65 years old) and Shingle's (>50 years old) . Some forms of flu and Shingles are live so check with PCP. 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 Use daily until clear Start clobetasol 0.05% solution QHS. Do not apply clobetasol to face, axilla or groin due to risk of skin thinning unless deemed appropriate per MD. Stop Clobetasol once skin is no longer red and raised. Referral to Rheumatology due to joint pain or joint stiffness- to rule out psoriatic arthritis Patient is biologic naive, so I recommended we proceed with [employer] MindPx to determine which biologic class she would most likely respond to. MindPx sample obtained from occipital scalp/hairline. We will await results and proceed accordingly. Patient voiced understanding of education/anger control counselor ing provided. Follow up in 4-6 weeks for psoriasis [email or web address] Not available 06/18/2024 20:56:15 06/29/2024 06/29/2024 The following diagnoses are categorized as CHRONIC ILLNESS WITH EXACERBATION, PROGRESSION OR SIDE EFFECTS #Psoriasis including #Scalp Psoriasis (mild- slightly better) LOCATION: scalp , BL ears, face BSA: 3% pink well-demarcated plaques with micaceous scale Discussed diagnosis and treatment options. We reviewed the fact that this is a multisystem disorder and can be associated with other problems such as arthritis, diabetes, hypertension and hyperlipidemia. We discussed the chronic nature of this condition and the fact that symptoms can fluctuate over time. The importance of daily use of emollients was reviewed. Pt informed pt about psoriasis, cause, and that trauma/rubbing/it sheridan can make it worse. The various therapeutic modalities for psoriasis including topical treatments, ultraviolet light treatment, oral treatments and injectable biologic treatments were discussed. We discussed the benefits, risks and side effects of biologics in great details. Discussed these kind of medications may increase risk of serious infections, tuberculosis, malignancies, demyelinating disease, autoimmune disease, pancytopenia, reactivating hepatitis B, lupus like reaction, worsening heart failure and may cause anaphylaxis/hyper sensitivity reaction. Common adverse effects include but not limited to infections (i.e. candidiasis, URI), headache, fatigue, dizziness, skin rash, nausea, antibody development, injection site reaction, arthralgia, back pain. Discussed possible increased risk of NMSC. Pt instructed to hold the medication and seek medical attention right away if there is concern of infections, signs of demyelinating disease/pancytope leilani/heart failure/autoimmun e disease or development of malignancies. Patient advised that NO live vaccination while on this medication. Advised pt to update his vaccines prior to starting. Obtain flu,up to date tetanus. Consider pneumonia (especially >65 years old) and Shingle's (>50 years old) . Some forms of flu and Shingles are live so check with PCP. She denies any history of mlaignancy, heart failure, IBD - UC or Crohn's, or personal or family history of MS Patient does have COPD WNL: CBC/diff, CMP, quantiferon gold, HBsAg, HBsAb, HBcoreAb, HCV Ab, and HIV Mind.Px testing obtained (06/16/2024) Since she is a likely responder to TNFi, IL17i, and IL23i, we will give her a skyrizi sample today until we hear back from her insurance regarding Cosentyx. Skyrizi 150mg/ml was injected subcutaneously in Right Upper Arm Patient was advised to call the office should pt experience fever, chills, flu like symptoms or skin rash. Pt was also asked to report any medical problem of new onset while on Skyrizi Patient was asked to call the office if pt experiences upper respiratory infection, skin infection, sinus infection, pneumonia or any other infectious condition. Patient was advised to check with physician before having any vaccination while on Skyrizi because live vaccines should not be administered while on biologic Patient was asked to call the office with any questions or concerns. Patient voiced understanding of instructions given. Patient to follow-up in office with for recheck (in approximately 3 months after initial skyrizi if applicable PRESCRIPTION: Standard dosing for Cosentyx is 300 mg given subcutaneously once weekly at weeks 0, 1, 2, 3, and 4 followed by 300 mg every four weeks. Doses of 150 mg are sufficient for some patients For scalp: Cont: Ketoconazole 2% shampoo Lather to scalp, leave on for 5mins, then rinse. Use daily until clear Cont clobetasol 0.05% solution QHS. Do not apply clobetasol to face, axilla or groin due to risk of skin thinning unless deemed appropriate per MD. Stop Clobetasol once skin is no longer red and raised. Patient is biologic naive, so I recommended we proceed with [employer] MindPx to determine which biologic class she would most likely respond to. MindPx sample obtained from occipital scalp/hairline. We will await results and proceed accordingly. #Milia LOCATION: right medial cheek #Wart LOCATION: right medial cheek we will remove these at f/u if symptomatic. Patient voiced understanding of education/anger control counselor ing provided. Follow up in 3 months for psoriasis This encounter is considered to have a visit complexity inherent to evaluation and management associated with medical care services that serve as the continuing focal point for all needed health care services and/or with medical care services that are part of ongoing care related to a patient's single, serious condition or a complex condition. Physician-patient engagement in a continuous and active collaborative plan of care was performed and is expected to be performed with consistency and continuity over time. This includes patient education, discussion of expectations and responsibilities, shared decision-making around therapeutic goals, and shared commitments to achieve these goals. Care furnished during this visit is NOT of a discrete, routine, or time-limited nature. [email or web address] Not available 07/06/2024 18:19:33 08/04/2024 08/04/2024 Cosentyx was injected subcutaneously in abdomen. Lot:December 2025 [id number] Patient was advised to call the office should pt experience fever, chills, flu like symptoms or skin rash. Pt was also asked to report any medical problem of new onset while on Cosentyx Patient was asked to call the office if pt experiences upper respiratory infection, skin infection, sinus infection, pneumonia or any other infectious condition. Patient was advised to check with physician before having any vaccination while on Cosentyx because live vaccines should not be administered while on biologic Patient was asked to call the office with any questions or concerns. Patient voiced understanding of instructions given. Patient to follow-up in office with for recheck (in approximately 3 months after initial injection). Follow up is scheduled for October 03 2024. Not available 08/04/2024 15:09:54 08/14/2024 08/14/2024 IMPRESSION: 1. Clinical features suggestive of psoriatic arthritis possibly involving the hands. We will investigate further, see plan below. 2. Scalp psoriasis, currently undergoing initiation of biologics therapy with IL-17 antagonist, COSENTYX. This will help address both the joints and the skin. 3. Osteoarthritis. 4. Sensory peripheral neuropathy. 5. Postmenopausal status. PLAN: 1. Avoid oral NSAIDs. 2. May use acetaminophen up to 1 g p.o. t.i.d. p.r.n. for analgesic relief. 3. Labs today, including arthritis panel, CMP, CBC with differential, CRP, Westergren sed rate and HLA-B27 screen. 4. X-rays bilaterally of the hands and wrists. 5. Recommended to the patient that she obtain the Shingrix vaccine spacing each shot out by 6 months in the 2 shot series. 6. Schedule bone densitometry at [facility] near her home. 7. Counseled the patient today about the importance of smoking cessation. 8. COSENTYX dosing per Dermatology. 9. Followup visit in 4 months in [place]. [email or web address] Not available 08/14/2024 17:30:09 Plan of Treatment Reminders Order Date Submit Date Provider Last Modified By Organization Details Last Modified Time Details Appointments Laine perea Patient 10.EST 2024 11:10A M Dr. Julio Hernandez Not available Not available Not available Laine perea Patient 15.EST 2024 10:30A M Dr. Santy Brooks Not available Not available Not available New Patient Visit 15.NEW 2024 01:30P M YOBANI MARTINEZ Not available Not available Not available Lab arthrit is panel 2024 025 [email or web address] [facility], [address] [place] [address], [id number], 08/14/2024 18:04:59 CMP, serum or plasma 2024 025 [email or web address] [facility], [address] [place] [address], [id number], 08/14/2024 18:29:24 ESR (erythr ocyte sedimen tation rate), blood 2024 025 [email or web address] [facility], [address] [place] [address], [id number], 08/21/2024 09:18:57 C-react addis protein , quantit ative, serum or plasma 2024 025 [email or web address] [facility], [address] [place] [address], [id number], 08/14/2024 18:11:57 CBC w/ auto diff 2024 025 [email or web address] [facility], [address] [place] [address], [id number], 08/14/2024 17:38:48 hla-B27 , blood 2024 025 [email or web address] [facility], [address] [place] [address], [id number], 08/17/2024 18:37:52 CBC w/ auto diff 2023 024 [email or web address] [facility], [address] [place] [address], [id number], 06/05/2024 23:17:57 CMP, serum or plasma 2023 024 [email or web address] [facility], [address] [place] [address], [id number], 06/05/2024 23:17:57 HBsAg (hepati tis B surface Ag), serum 2023 024 [email or web address] [facility], [address] [place] [address], [id number], 06/05/2024 23:17:57 hepatit is B surface Ab, qualita tive, serum 2023 [email or web address] [facility], [address] [place] [address], [id number], 06/05/2024 23:17:57 Hepatit is B virus core Ab, qual immunoa ssay, serum or plasma 2023 024 [email or web address] [facility], [address] [place] [address], [id number], 06/05/2024 23:17:57 TB (M tubercu losis), IFN-andi ma+bryan gen-andi ma, blood 2023 024 [email or web address] [facility], [address] [place] [address], [id number], 06/29/2024 09:08:44 HIV 1+2 Ab + HIV 1 p24 Ag, panel, IA, serum or plasma 2023 024 [email or web address] [facility], [address] [place] [address], [id number], 06/05/2024 23:17:57 hepatit is C Ab, serum 2023 024 [email or web address] [facility], [address] [place] [address], [id number], 06/05/2024 23:17:57 Referral rheumat ologist referra l - Referra l to Rheumat ology due to joint pain or joint stiffne ss- to rule out psoriat ic arthrit is [email or web address] [facility] [address] [place] [address], [address] [place] [address], [place], [id number], 06/26/2024 10:29:17 Procedures None recorde d. Surgeries None recorde d. Imaging None recorde d. Medication Orders Cosenty x UnoRead y Pen 300 mg/2 mL subcuta neous 2024 025 Not available 08/04/2024 15:10:18 Skyrizi 150 mg/mL subcuta neous pen injecto r 2023 024 [email or web address] [facility] [place], [address], 08/14/2024 14:07:12 Zoryve 0.3 % topical cream 2023 024 [email or web address] [facility] [place], [id number], 08/14/2024 14:07:26 clobeta luis carlos 0.05 % scalp solutio n 2023 024 [email or web address] [facility] [place], [id number], 08/14/2024 14:06:03 ketocon azole 2 % shampoo 2023 024 [email or web address] [facility] [place], [id number], 08/14/2024 14:06:53 Patient TargetsNo targets recorded. Patient InstructionsNo instructions recorded. 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 Referral for Psoriasis of scalp Referral to Rheumatology due to joint pain or joint stiffness- to rule out psoriatic arthritis Referral to Rheumatology due to joint pain or joint stiffness- to rule out psoriatic arthritis Referring Physician: Julio Hernandez, Dermatology, Encounter Date: 06/01/2024 Results Created Date Observation Date Name Description Value Unit Range Abnormal Flag Note LastModifiedBy Organization Detail LastModifiedTime 06/01/2006/01/2024 CBC w/ auto diff CBC with differential Not Available [facility] [address] [place] [address], [id number], 06/01/2024 18:06:29 06/01/20 24 06/01/2024 CBC w/ auto diff WBC 9.7 K/uL 3.8-11 .2 Not Available [facility] [address] [place] [address], [id number], 06/01/2024 18:06:29 06/01/20 24 06/01/2024 CBC w/ auto diff RBC 5.33 M/uL 3.92-5 .10 high Not Available [facility] [address] [place] [address], [id number], 06/01/2024 18:06:29 06/01/20 24 06/01/2024 CBC w/ auto diff HGB 15.2 g/dL 11.8-1 5.3 Not Available [facility] [address] [place] [address], [id number], 06/01/2024 18:06:29 06/01/20 24 06/01/2024 CBC w/ auto diff HCT 45.6 % 36.5-4 4.8 high Not Available [facility] [address] [place] [address], [id number], 06/01/2024 18:06:29 06/01/20 24 06/01/2024 CBC w/ auto diff MCV 85.6 fL 80.0-9 9.0 Not Available [facility] [address] [place] [address], [id number], 06/01/2024 18:06:29 06/01/20 24 06/01/2024 CBC w/ auto diff MCH 28.5 pg 25.5-3 3.6 Not Available [facility] [address] [place] [address], [id number], 06/01/2024 18:06:29 06/01/20 24 06/01/2024 CBC w/ auto diff MCHC 33.3 g/dL 32.0-3 6.0 Not Available [facility] [address] [place] [address], [id number], 06/01/2024 18:06:29 06/01/20 24 06/01/2024 CBC w/ auto diff RDW-SD 43.6 fL 35.1 - 46.3 Not Available [facility] [address] [place] [address], [id number], 06/01/2024 18:06:29 06/01/20 24 06/01/2024 CBC w/ auto diff plt 225 K/uL 130-40 0 Not Available [facility] [address] [place] [address], [id number], 06/01/2024 18:06:29 06/01/20 24 06/01/2024 CBC w/ auto diff MPV 12.0 fL 9.3-12 .8 Not Available [facility] [address] [place] [address], [id number], 06/01/2024 18:06:29 06/01/20 24 06/01/2024 CBC w/ auto diff jana% 66.1 % not estab Not Available [facility] [address] [place] [address], [id number], 06/01/2024 18:06:29 06/01/20 24 06/01/2024 CBC w/ auto diff lym% 20.1 % not estab Not Available [facility] [address] [place] [address], [id number], 06/01/2024 18:06:29 06/01/20 24 06/01/2024 CBC w/ auto diff mono% 7.7 % not estab Not Available [facility] [address] [place] [address], [id number], 06/01/2024 18:06:29 06/01/20 24 06/01/2024 CBC w/ auto diff eos% 4.9 % not estab Not Available [facility] [address] [place] [address], [id number], 06/01/2024 18:06:29 06/01/20 24 06/01/2024 CBC w/ auto diff baso% 0.7 % not estab Not Available [facility] [address] [place] [address], [id number], 06/01/2024 18:06:29 06/01/20 24 06/01/2024 CBC w/ auto diff abs jana 6.4 K/uL 1.8-7. 5 Not Available [facility] [address] [place] [address], [id number], 06/01/2024 18:06:29 06/01/20 24 06/01/2024 CBC w/ auto diff abs lym 2.0 K/uL 1.1-3. 3 Not Available [facility] [address] [place] [address], [id number], 06/01/2024 18:06:29 06/01/20 24 06/01/2024 CBC w/ auto diff abs mono 0.8 K/uL 0.1-1. 0 Not Available [facility] [address] [place] [address], [id number], 06/01/2024 18:06:29 06/01/20 24 06/01/2024 CBC w/ auto diff abs eos 0.5 K/uL 0.0-0. 7 Not Available [facility] [address] [place] [address], [id number], 06/01/2024 18:06:29 06/01/20 24 06/01/2024 CBC w/ auto diff abs baso 0.1 K/uL 0.0-0. 2 Not Available [facility] [address] [place] [address], [id number], 06/01/2024 18:06:29 06/01/20 24 06/01/2024 CBC w/ auto diff imm. gran % 0.5 % 0-5 Not Available [facility] [address] [place] [address], [id number], 06/01/2024 18:06:29 06/01/20 24 06/01/2024 CBC w/ auto diff NRBC % 0.0 % 0.0-0. 2 Not Available [facility] [address] [place] [address], [id number], 06/01/2024 18:06:29 06/01/20 24 06/01/2024 CMP, serum or plasm a comp. met. panel Not Available [facility] [address] [place] [address], [id number], 06/01/2024 18:20:54 06/01/2006/01/2024 CMP, serum or plasm a sodium 142 mmol/ L 136-14 6 Not Available [facility] [address] [place] [address], [id number], 06/01/2024 18:20:54 06/01/20 24 06/01/2024 CMP, serum or plasm a potassium 3.5 mmol/ L 3.5-5. 1 Not Available [facility] [address] [place] [address], [id number], 06/01/2024 18:20:54 06/01/20 24 06/01/2024 CMP, serum or plasm a chloride 100 mmol/ L 98-110 Not Available [facility] [address] [place] [address], [id number], 06/01/2024 18:20:54 06/01/20 24 06/01/2024 CMP, serum or plasm a CO2 37 mEq/L 20-32 high Not Available [facility] [address] [place] [address], [id number], 06/01/2024 18:20:54 06/01/20 24 06/01/2024 CMP, serum or plasm a anion gap 9 mmol/ L 10-22 low Not Available [facility] [address] [place] [address], [id number], 06/01/2024 18:20:54 06/01/20 24 06/01/2024 CMP, serum or plasm a glucose 109 mg/dL 70-100 high Not Available [facility] [address] [place] [address], [id number], 06/01/2024 18:20:54 06/01/20 24 06/01/2024 CMP, serum or plasm a calcium 10.5 mg/dL 8.4-10 .4 high Not Available [facility] [address] [place] [address], [id number], 06/01/2024 18:20:54 06/01/20 24 06/01/2024 CMP, serum or plasm a total protein 7.3 g/dL 6.4-8. 3 Not Available [facility] [address] [place] [address], [id number], 06/01/2024 18:20:54 06/01/20 24 06/01/2024 CMP, serum or plasm a albumin 4.2 g/dL 3.5-5. 3 Not Available [facility] [address] [place] [address], [id number], 06/01/2024 18:20:54 06/01/20 24 06/01/2024 CMP, serum or plasm a ALP 88 U/L 44 - 127 Not Available [facility] [address] [place] [address], [id number], 06/01/2024 18:20:54 06/01/20 24 06/01/2024 CMP, serum or plasm a AST (SGOT) 19 U/L 10-40 Not Available [facility] [address] [place] [address], [id number], 06/01/2024 18:20:54 06/01/20 24 06/01/2024 CMP, serum or plasm a total bilirubin 0.4 mg/dL 0.2-1. 0 Not Available [facility] [address] [place] [address], [id number], 06/01/2024 18:20:54 06/01/20 24 06/01/2024 CMP, serum or plasm a ALT (SGPT) 23 U/L 8-35 Not Available [facility] [address] [place] [address], [id number], 06/01/2024 18:20:54 06/01/20 24 06/01/2024 CMP, serum or plasm a BUN 26 mg/dL 7-21 high Not Available [facility] [address] [place] [address], [id number], 06/01/2024 18:20:54 06/01/20 24 06/01/2024 CMP, serum or plasm a creatinine 1.5 mg/dL 0.7-1. 3 high Not Available [facility] [address] [place] [address], [id number], 06/01/2024 18:20:54 06/01/20 24 06/01/2024 CMP, serum or plasm a GFR(non-afri can czech) 37 Not Available [facility] [address] [place] [address], [id number], 06/01/2024 18:20:54 06/01/20 24 06/01/2024 CMP, serum or plasm a GFR() 44 (FINE ARTS TEACHER ORI KIDNE Y DISEA SE HAS A GFR LESS THAN 60 ML/NJ N/1.7 3 MM FOR A PERIO D OF THREE MONTH S OR MORE. ) Not Available [facility] [address] [place] [address], [id number], 06/01/2024 18:20:54 06/01/20 24 06/01/2024 HBsAg (hepa titis B surfa ce Ag), serum hepatitis B surface Ag NONREA CTIVE nonrea ctive Not Available [facility] [address] [place] [address], [id number], 06/01/2024 18:29:55 06/01/20 24 06/01/2024 HIV 1+2 Ab + HIV 1 p24 Ag, panel , IA, serum or plasm a HIV Ag/Ab 1-2 combo NONREA CTIVE nonrea ctive Not Available [facility] [address] [place] [address], [id number], 06/01/2024 18:43:05 06/01/20 24 06/01/2024 hepat itis C Ab, serum hepatitis C Ab NONREA CTIVE nonrea ctive Not Available [facility] [address] [place] [address], [id number], 06/01/2024 18:49:45 06/01/20 24 06/02/2024 hepat itis B surfa ce Ab, quali tativ e, serum hepatitis BS Ab, qual. NONREA CTIVE Non React addis: Not immun e to HBV infec tion. Equiv ocal: Unabl e to deter mine if anti- HBs is prese nt at level s consi stent with immun ity. React addis: Anti- HBs carl ntrat ion detec rahul at great er than 10 mIU/m L. Indiv idual is consi dered to be immun e to infec tion with HBV. Not Available [facility] [address] [place] [address], [id number], 06/02/2024 07:41:57 06/01/20 24 06/02/2024 Hepat itis B virus core Ab, qual immun oassa y, serum or plasm a hepatitis B core Ab NEGATI VE negati ve Not Available [facility] [address] [place] [address], [id number], 06/02/2024 07:41:59 06/01/20 24 06/05/2024 QUANT IFERO N TB GOLD quantiferon TB gold 0.00 IU/mL <=0.34 Not Available [address], [id number], 06/05/2024 14:25:46 06/01/20 24 06/05/2024 QUANT IFERO N TB GOLD quantiferon TB gold2 0.00 IU/mL <=0.34 Not Available [facility] [address] [place] [address], [id number], 06/05/2024 14:25:46 06/01/20 24 06/05/2024 QUANT IFERO N TB GOLD TB Q interp Negati ve M. tuber culos is infec tion (late nt tuber culos is or tuber culos is disea se) unlik chriss. The resul ts of Quant iFERO N TB Gold testi ng must be inter prete d in conju nctio n with other epide miolo gical , histo rical , medic al, and diagn ostic findi ngs. Not Available [facility] Only - [facility] [address] [place] [address], [id number], 06/05/2024 14:25:46 08/14/19 25 08/14/2024 CBC w/ auto diff CBC with differential Not Available [facility] - [facility] [address] [place] [address], [id number], 08/14/2024 17:38:48 08/14/19 25 08/14/2024 CBC w/ auto diff WBC 11.5 K/uL 3.8-11 .2 high Not Available [facility] - [facility] [address] [place] [address], [id number], 08/14/2024 17:38:48 08/14/19 25 08/14/2024 CBC w/ auto diff RBC 5.69 M/uL 3.92-5 .10 high Not Available [facility] [address] [place] [address], [id number], 08/14/2024 17:38:48 08/14/19 25 08/14/2024 CBC w/ auto diff HGB 15.8 g/dL 11.8-1 5.3 high Not Available [facility] [address] [place] [address], [id number], 08/14/2024 17:38:48 08/14/19 25 08/14/2024 CBC w/ auto diff HCT 47.9 % 36.5-4 4.8 high Not Available [facility] [address] [place] [address], [id number], 08/14/2024 17:38:48 08/14/19 25 08/14/2024 CBC w/ auto diff MCV 84.2 fL 80.0-9 9.0 Not Available [facility] [address] [place] [address], [id number], 08/14/2024 17:38:48 08/14/19 25 08/14/2024 CBC w/ auto diff MCH 27.8 pg 25.5-3 3.6 Not Available [facility] [address] [place] [address], [id number], 08/14/2024 17:38:48 08/14/19 25 08/14/2024 CBC w/ auto diff MCHC 33.0 g/dL 32.0-3 6.0 Not Available [facility] [address] [place] [address], [id number], 08/14/2024 17:38:48 08/14/19 25 08/14/2024 CBC w/ auto diff RDW-SD 43.8 fL 35.1 - 46.3 Not Available [facility] - [facility] [address] [place] [address], [id number], 08/14/2024 17:38:48 08/14/19 25 08/14/2024 CBC w/ auto diff plt 215 K/uL 130-40 0 Not Available [facility] - [facility] [address] [place] [address], [id number], 08/14/2024 17:38:48 08/14/19 25 08/14/2024 CBC w/ auto diff MPV 11.8 fL 9.3-12 .8 Not Available [facility] - [facility] [address] [place] [address], [id number], 08/14/2024 17:38:48 08/14/19 25 08/14/2024 CBC w/ auto diff jana% 61.7 % not estab Not Available [facility] [address] [place] [address], [id number], 08/14/2024 17:38:48 08/14/19 25 08/14/2024 CBC w/ auto diff lym% 23.9 % not estab Not Available [facility] [address] [place] [address], [id number], 08/14/2024 17:38:48 08/14/19 25 08/14/2024 CBC w/ auto diff mono% 8.6 % not estab Not Available [facility] - [facility] [address] [place] [address], [id number], 08/14/2024 17:38:48 08/14/19 25 08/14/2024 CBC w/ auto diff eos% 4.6 % not estab Not Available [facility] [address] [place] [address], [id number], 08/14/2024 17:38:48 08/14/19 25 08/14/2024 CBC w/ auto diff baso% 0.9 % not estab Not Available [facility] [address] [place] [address], [id number], 08/14/2024 17:38:48 08/14/19 25 08/14/2024 CBC w/ auto diff abs jana 7.1 K/uL 1.8-7. 5 Not Available [facility] - [facility] [address] [place] [address], [id number], 08/14/2024 17:38:48 08/14/19 25 08/14/2024 CBC w/ auto diff abs lym 2.7 K/uL 1.1-3. 3 Not Available [facility] - [facility] [address] [place] [address], [id number], 08/14/2024 17:38:48 08/14/19 25 08/14/2024 CBC w/ auto diff abs mono 1.0 K/uL 0.1-1. 0 Not Available [facility] - [facility] [address] [place] [address], [id number], 08/14/2024 17:38:48 08/14/19 25 08/14/2024 CBC w/ auto diff abs eos 0.5 K/uL 0.0-0. 7 Not Available [facility] - [facility] [address] [place] [address], [id number], 08/14/2024 17:38:48 08/14/19 25 08/14/2024 CBC w/ auto diff abs baso 0.1 K/uL 0.0-0. 2 Not Available [facility] - [facility] [address] [place] [address], [id number], 08/14/2024 17:38:48 08/14/19 25 08/14/2024 CBC w/ auto diff imm. gran % 0.3 % 0-5 Not Available [facility] - [facility] [address] [place] [address], [id number], 08/14/2024 17:38:48 08/14/19 25 08/14/2024 CBC w/ auto diff NRBC % 0.0 % 0.0-0. 2 Not Available [facility] - [facility] [address] [place] [address], [id number], 08/14/2024 17:38:48 08/14/19 25 08/14/2024 arthr itis panel uric acid 8.9 mg/dL 2.3-6. 6 high Not Available [facility] [address] [place] [address], [id number], 08/17/2024 17:21:01 08/14/19 25 08/14/2024 arthr itis panel sed rate 37 mm/HR 0 - 30 high Not Available [facility] [address] [place] [address], [id number], 08/17/2024 17:21:01 08/14/19 25 08/14/2024 arthr itis panel ccp antibody, IgG <0.54 U/mL <=4.9 Not Available [facility] - [facility] [address] [place] [address], [id number], 08/17/2024 17:21:01 08/14/19 25 08/15/2024 arthr itis panel rf 5.0 IU/mL <3.5-1 4 Not Available [facility] - [facility] [address] [place] [address], [id number], 08/17/2024 17:21:01 08/14/19 25 08/17/2024 arthr itis panel arthritis panel Not Available [facility] - [facility] [address] [place] [address], [id number], 08/17/2024 17:21:01 08/14/19 25 08/17/2024 arthr itis panel EVANGELIST screen NEGATI VE negati ve Perfo rmed by Bio-R ad enzym e immun oassa y Not Available [facility] - [facility] [address] [place] [address], [id number], 08/17/2024 17:21:01 08/14/19 25 08/14/2024 C-meeta ctive prote in, quant itati ve, serum or plasm a CRP high Not Available [facility] [address] [place] [address], [id number], 08/14/2024 18:11:57 08/14/19 25 08/14/2024 C-meeta ctive prote in, quant itati ve, serum or plasm a CRP 0.7 mg/dL <0.4-0 .5 high Not Available [facility] [address] [place] [address], [id number], 08/14/2024 18:11:57 08/14/19 25 08/14/2024 CMP, serum or plasm a comp. met. panel Not Available [facility] [address] [place] [address], [id number], 08/14/2024 18:29:24 08/14/19 25 08/14/2024 CMP, serum or plasm a sodium 140 mmol/ L 136-14 6 Not Available [facility] [address] [place] [address], [id number], 08/14/2024 18:29:24 08/14/19 25 08/14/2024 CMP, serum or plasm a potassium 3.7 mmol/ L 3.5-5. 1 Not Available [facility] [address] [place] [address], [id number], 08/14/2024 18:29:24 08/14/19 25 08/14/2024 CMP, serum or plasm a chloride 101 mmol/ L 98-110 Not Available [facility] [address] [place] [address], [id number], 08/14/2024 18:29:24 08/14/19 25 08/14/2024 CMP, serum or plasm a CO2 30 mEq/L 20-32 Not Available [facility] [address] [place] [address], [id number], 08/14/2024 18:29:24 08/14/19 25 08/14/2024 CMP, serum or plasm a anion gap 13 mmol/ L 10-22 Not Available [facility] [address] [place] [address], 78206, 08/14/2024 18:29:24 08/14/19 25 08/14/2024 CMP, serum or plasm a glucose 97 mg/dL 70-100 Not Available [facility] [address] [place] [address], 48020, 08/14/2024 18:29:24 08/14/19 25 08/14/2024 CMP, serum or plasm a calcium 10.4 mg/dL 8.4-10 .4 Not Available [facility] [address] [place] [address], [id number], 08/14/2024 18:29:24 08/14/19 25 08/14/2024 CMP, serum or plasm a total protein 7.8 g/dL 6.4-8. 3 Not Available [facility] [address] [place] [address], 30536, 08/14/2024 18:29:24 08/14/19 25 08/14/2024 CMP, serum or plasm a albumin 4.7 g/dL 3.5-5. 3 Not Available [facility] [address] [place] [address], [id number], 08/14/2024 18:29:24 08/14/19 25 08/14/2024 CMP, serum or plasm a ALP 86 U/L 44 - 127 Not Available [facility] [address] [place] [address], [id number], 08/14/2024 18:29:24 08/14/19 25 08/14/2024 CMP, serum or plasm a AST (SGOT) 18 U/L 10-40 Not Available [facility] - [facility] [address] [place] [address], [id number], 08/14/2024 18:29:24 08/14/19 25 08/14/2024 CMP, serum or plasm a total bilirubin 0.5 mg/dL 0.2-1. 0 Not Available [facility] [address] [place] [address], 09958, 08/14/2024 18:29:24 08/14/19 25 08/14/2024 CMP, serum or plasm a ALT (SGPT) 19 U/L 8-35 Not Available [facility] [address] [place] [address], [id number], 08/14/2024 18:29:24 08/14/19 25 08/14/2024 CMP, serum or plasm a BUN 27 mg/dL 7-21 high Not Available [facility] [address] [place] [address], 75214, 08/14/2024 18:29:24 08/14/19 25 08/14/2024 CMP, serum or plasm a creatinine 1.4 mg/dL 0.7-1. 3 high Not Available [facility] [address] [place] [address], 67630, 08/14/2024 18:29:24 08/14/19 25 08/14/2024 CMP, serum or plasm a CKD-epi GFR 41 low eGFR was calcu lated using the 2020 CKD-E PI equat ion. (Cnc Lathe Machine Operator ori Kidne y Disea se has an eGFR less than 60 mL/mi n/1.7 3mm for a perio d of three month s or more. ) This calcu latio n has not been valid ated for patie nt ages <18 or >90 years old. Not Available [facility] [address] [place] [address], [id number], 08/14/2024 18:29:24 08/14/19 25 08/17/2024 hla-B 27, blood hla-B27, DNA typing Not Available [facility] [address] [place] [address], [id number], 08/17/2024 18:37:52 08/14/19 25 08/17/2024 hla-B 27, blood hla-B27 NEGATI VE HLA-B *27 Negat addis B27 allel e inter preta tion for all loci based on IMGT/ HLA datab ase versi on 0 This test was devel oped and its perfo rmanc e yohannes cteri stics deter mined by [facility]. It has not been clear ed or appro marisela by the Food and Drug Admin istra tion. The FDA has deter mined that such clear ance or appro gian is not neces jasiel. [facility] CLIA ID Adama r [id number] This test was perfo rmed using Polym erase Chain React ion (PCR) and Seque nce Speci fic Oligo nucle otide Probe s (SSOP ) techn ique. Seque nce Based Typin g (SBT) may be used as a suppl ement al metho d when neces jasiel. If you have quest ions, pleas e call HLA custo lorenzo servi ce at [phone] or email at [email or web address]. Not Available [facility] [address] [place] [address], 78903, 08/17/2024 18:37:52 05/08/20 24 11/01/2023 imagi ng/di agnos tic resul t No observ ation record ed. [email or web address] Not Available 22:50:54 08/14/19 25 08/14/2024 XR, hand [facility] [address] [place] [address] 24558 Teleph one Name: Katelyn Roth [id number] am Date: 2024 Age: 69Phys ician: Ermias devlin MD, Allie stauffer : 1954Ex aminat ion: XR HANDS BILATE RAL PA EXAM: XR HANDS BILATE RAL PA HISTOR Y: Bilate ral hand pain for 5 plus years. Checki ng for arthri tis. No known injury . FINDIN GS: There is advanc ed bilate ral basal joint of the thumb osteoa rthrit is. There is advanc ed bilate ral osteoa rthrit is involv ing the lunate and capita te articu lation . There is mild bilate ral osteoa rthrit is involv ing the interp halang eal joints of the finger s. No acute fractu re or disloc ation is seen. Subcho ndral cyst format ion is noted within the carpal bones. IMPRES LEORA: Change s of osteoa rthrit is bilate rally Electr onical ly signed in Puente cribe by: CHRISTI Noguera on:08/14 2:04 PM cc: Page PAGE 1 of [facility] [address] [place] [address], [id number], 08/20/2024 16:35:21 Result Notes None recorded. Problems Name Problem SNOMED Code Status Onset Date Resolution Date Notes Provider Name and Address Organization Details Recorded Time Psoriasis of scalp 495173468 Active 2023 Ching Guard [facility] 4 12:55:25 Psoriasis 8746333 Active 2023 [facility] 4 12:56:04 Milia 962137300 Active 2023 [facility] 12:43:58 Facial wart 359516701 Active 2023 [facility] 4 12:44:04 Multiple joint pain 91946836 Active 2024 Santy Brooks MD [address] [place] [address], [id number] , [facility] 5 14:45:45 Degenerativ e joint disease involving multiple joints 015241877 Active 2024 Santy Brooks MD [address] [place] [address], [phone] 3, [facility] 5 14:45:53 Pain of bilateral hands 8121502664176 9109 Active 2024 [facility] 5 14:45:58 Peripheral sensory neuropathy 307939343 Active 2024 Santy Brooks MD [address] [place] [address], [phone] 3, [facility] 5 14:46:37 Postmenopau jesse osteoporosi s 123738892 Active 2024 Reagan King [facility] 5 14:46:56 Problem Notes None recorded. Procedures Surgical History Date Name Laterality Status Provider Name and Address Organization Details Recorded Time Prq card stent w/angio 1 vsl completed Not Available Health Note 08/08/2024 10:08:42 Colonoscopy with biopsy completed Not Available Health Note 08/08/2024 10:08:42 Total hip arthroplasty completed Not Available Health Note 08/08/2024 10:08:43 Imaging Results Imaging Date Name Status LastModified by Organiz ation Details LastModified Time 11/01/2023 imaging/diag nostic result completed [email or web address] Information not available 05/08/2024 22:50:54 08/14/2024 XR, hand completed tlenardo [facility] [address] [place] [address], [id number], 08/20/2024 16:35:21 Procedure Notes None recorded. Medical Equipment None Reported. Medications Name Sig Start Date Stop Date Status Note LastModified by Organization Details LastModified Time Prescript ion - Prior Authoriza tion Request active Not Available Not Available Not Available atorvasta tin 40 mg tablet Take 1 tablet every day by oral route. active Not Available Not Available No t Available gabapenti n 600 mg tablet Take 1 tablet 3 times a day by oral route. active Not Available Not Available No t Available ketoconaz ole 2 % shampoo Lather to the scalp, leave on for 5 minutes, then rinse. Unse daily until clear. 08/14 completed Not Available Not Available Not Available citalopra m 40 mg tablet Take 1 tablet every day by oral route. active Not Available Not Available No t Available metoprolo l succinate ER 50 mg tablet,ex tended release 24 hr Take 1 tablet every day by oral route. active Not Available Not Available No t Available alendrona te 70 mg tablet Take 1 tablet every week by oral route. active Not Available Not Available No t Available Claxton 3 120 mg-180 mg-1000 mg capsule once daily active Not Available Not Available No t Available amlodipin e 5 mg tablet Take 1 tablet every day by oral route. active Not Available Not Available No t Available hydrocodo ne 10 mg-acetam inophen 325 mg tablet TAKE 1 TABLET BY MOUTH EVERY 6 HOURS NEEDED active Not Available Not Available No t Available hydrocodo ne 7.5 mg-acetam inophen 325 mg tablet TAKE 1 TABLET BY MOUTH FIVE TIMES DAILY NEEDED 08/14 completed Not Available Not Available Not Available pantopraz ole 40 mg tablet,de layed release Take 1 tablet every day by oral route. active Not Available Not Available No t Available alcohol swabs USE DIRECTED 08/14 completed Not Available Not Available Not Available hydrochlo rothiazid e 25 mg tablet Take 1 tablet every day by oral route. active Not Available Not Available No t Available furosemid e 20 mg tablet Take 1 tablet every day by oral route. active Not Available Not Available No t Available albuterol 90 mcg/actua tion aerosol inhaler active Not Available Not Available Not Available clobetaso l 0.05 % scalp solution Apply to the scalp twice daily until clear 08/14 completed Not Available Not Available Not Available buspirone 15 mg tablet Take 2 tablets twice a day by oral route. active Not Available Not Available No t Available Mucinex 600 mg tablet, extended release Take 1 tablet every 12 hours by oral route. active Not Available Not Available No t Available Asprin Ec Low Dose 81 mg tablet,de layed release Take 1 tablet every day by oral route. active Not Available Not Available No t Available Calcium 600 two tablets daily active Not Available Not Available No t Available D3-2000 50 mcg (2,000 unit) capsule Take 1 capsule every day by oral route. active Not Available Not Available No t Available SharpSafe ty Container USE DIRECTED 08/14 completed Not Available Not Available Not Available Multi Vitamin once daily active Not Available Not Available No t Available Cosentyx 300 mg/2 Syringes (150 mg/mL) subcutane ous active Not Available Not Available Not Available naloxone 4 mg/actuat ion nasal spray CALL 911. SPR CONTENTS OF ONE SPRAYER (0.1ML) INTO ONE NOSTRIL. REPEAT IN 2-3 MIN IF SYMPTOMS OF OPIOID EMERGENC Y PERSIST, ALTERNAT E NOSTRILS 08/14 completed Not Available Not Available Not Available Trelegy Ellipta 100 mcg-62.5 mcg-25 mcg powder for inhalatio n Inhale 1 puff every day by inhalati on route. active Not Available Not Available No t Available Skyrizi 150 mg/mL subcutane ous pen injector Inject one pen subcutan eously every 4 weeks 08/14 completed Sample given to pt in office. Lot Number: [id number] xp date: April 2025 Not Available Not Available Not Available Zoryve 0.3 % topical cream APPLY TO THE AFFECTED AREA(S) BY TOPICAL ROUTE ONCE DAILY 08/14 completed 2 Samples provided Lot: [id number]: 12/03 Not Available Not Available Not Available Cosentyx UnoReady Pen 300 mg/2 mL subcutane ous Inject 300 MG (1 pen) Subcutan eously every 4 weeks 2024 active Not Available Not Available Not Avai lable Vitals Date Recorded Body height Oxygen saturation Oxygen saturation in Arterial blood by Pulse oximetry Heart rate Provider Name and Address Organization Details Last Updated DateTime 06/01/2024 177.8 cm 94 % 94 % 82 /min [facility] 06/01/2024 12:22:56 Date Recorded Body height Body mass index (BMI) Body weight Oxygen saturation Oxygen saturation in Arterial blood by Pulse oximetry Heart rate Provider Name and Address Organization Details Last Updated DateTime 177.8 cm 28.2 kg/m2 09121.8 2 g 93 % 93 % 90 /min [facility] 4 12:27:25 Date Recorded Body height Heart rate Oxygen saturation Oxygen saturation in Arterial blood by Pulse oximetry Provider Name and Address Organization Details Last Updated DateTime 08/04/2024 177.8 cm 80 /min 95 % 95 % Estefani Fuentes [facility] 08/04/2024 14:48:10 Date Recorded Body height Body mass index (BMI) Body weight Heart rate Oxygen saturation Oxygen saturation in Arterial blood by Pulse oximetry Pain severity - 0-10 verbal numeric rating [Score] - Reported Systolic blood pressure Diastolic blood pressure Provider Name and Address Organization Details Last Updated DateTime 177.8 cm 28 kg/m2 98482.1 5 g 80 /min 95 % 95 % 6 148 mm[Hg] 80 mm[Hg] Kelly Plunkett [facility] 5 14:05:18 Social History Question Answer Notes LastModified by Organizat ion Details LastModified Time Tobacco Smoking Status Current Every Day Smoker Kelly Plunkett [facility] 08/14/2024 14:15:12 Do You Have An Advance Directive? No [email or web address] Information not available 08/08/2024 What Is Your Level Of Alcohol Consumption? None [email or web address] Information not available 08/08/2024 What Is Your Level Of Caffeine Consumption? Moderate [email or web address] Information not available 08/08/2024 Are You Currently Employed? No [email or web address] Information not available 08/08/2024 What Is Your Occupation? Retired, Disabled [email or web address] Information not available 08/08/2024 How Many Times Per Week Do You Exercise? Less Than 1 Time Per Week [email or web address] Information not available 08/08/2024 Smokeless Tobacco? Former Smokeless Tobacco User [email or web address] Information not available 08/08/2024 How Many Packs Per Day (PPD)? 1 Pack Per Day [email or web address] Information not available 08/14/2024 How Long Have You Smoked? 50+ Years [email or web address] Information not available 08/08/2024 What Was The Date Of Your Most Recent Tobacco Screening? 08/14/2024 [email or web address] Information not available 08/08/2024 What Is Your Relationship Status? [email or web address] Information not available 08/08/2024 Do You Use Any Illicit Or Recreational Drugs? No [email or web address] Information not available 08/08/2024 Sex: Unknown Functional Status Question Answer Note LastModified by Organization D etails LastModified Time What is your exercise level? None [email or web address] Information not available 08/08/2024 Mental Status None recorded. Family History Relationship Description Onset Age of this Age Resolved Age Notes LastModified by Organization Details LastModified Time Father Family history of malignant neoplasm [email or web address] Not available 2024 10:08:41 Sister Family history of malignant neoplasm [email or web address] Not available 2024 10:08:41 Mother Heart disease [email or web address] Not available 2024 10:08:41 Mother Hypertensive disorder [email or web address] Not available 2024 10:08:41 Mother Hypercholest erolemia [email or web address] Not available 2024 10:08:41 Medical History Condition Response High Blood Pressure Y COPD Y Depression Y Anxiety Disorder N Arthritis Y Cancer N Stroke N Fibromyalgia N Kidney Disease N Bleeding Disorder N Asthma Y Seizures N Attention-deficit Hyperactivity Disorder N Thyroid Problems N Anemia N Diabetes N Hyperlipidemia N Heart Disease Y Osteoporosis N Gynecological HistoryNo gynecological history recorded. Obstetrics History GPAL:G 0 P 0 0 0 0 Past Encounters Encounter ID Performer Location Encounter Start Date Encounter Closed Date Diagnosis/Indication Diagnosis SNOMED-CT Code Diagnosis ICD10 Code Diagnosis Note [id number] MD [facility] [place] [address] [place] [address] 06/01/2024 11:40:53 06/01/2024 12:56:23 Psoriasis of scalp 186508365 L40.9 Psoriasis 1906496 L40.9 Taking hig h risk medication 4460053790 61282 Z79.899 [id number] MD [facility] [place] [address] [place] [id number] 06/29/2024 11:49:28 06/29/2024 13:16:46 Psoriasis of scalp 087962561 L40.9 Psoriasis 5460467 L40.9 Milia 444993132 L72.0 Facial wart 866282008 B0 7.9 [id number] [facility] [place] [address] [place] [id number] 08/04/2024 14:29:02 08/04/2024 14:50:33 Psoriasis 7309542 L40.9 Counseling 750218463 Z71 .89 [id number] Santy Brooks MD [address] [facility] ([place]) [address] [facility] [place] [address] 08/14/2024 13:53:50 08/15/2024 18:26:54 Psoriasis 6211017 L40.9 Multiple joint pain 3567 8005 M25.50 Degenerati ve joint disease involving multiple joints 512487834 M15.9 Postmenopausal state 764 50470 Z78.0 Peripheral sensory neuropathy 419055659 G60.8 Health Concerns Section Related Observation LastModified by Organization Detai ls LastModified Time None Recorded Concern Status LastModified by Organization Details LastModified Time None Recorded Advance Directives Directive N: Payers Encounter Date Sequence Insurance Name Policy Number Policy Jj Covered Member ID Jj Member ID Guarantor Name 06/01/2024 2 [facility] (MEDICAID REPLACEMENT - HMO) [id number] Rosa F Yauornik [id number] Rosa F Yauornik 06/29/2024 2 [facility] (MEDICAID REPLACEMENT - HMO) [id number] Rosa F Yauornik [id number] Rosa F Yauornik 06/29/2024 1 [facility] (MEDICARE REPLACEMENT/AD VANTAGE - PPO) [id number] Rosa F Yauornik [id number] Rosa F Yauornik 08/04/2024 2 [facility] (MEDICAID REPLACEMENT - HMO) [id number] Rosa F Yauornik [id number] Rosa F Yauornik 08/04/2024 1 [facility] (MEDICARE REPLACEMENT/AD VANTAGE - PPO) [id number] Rosa F Yauornik [id number] Rosa F Yauornik 08/14/2024 2 [facility] (MEDICAID REPLACEMENT - HMO) [id number] Rosa Alvaradolalo [id number] Rosa Alvaradolalo 08/14/2024 1 [facility] (MEDICARE REPLACEMENT/AD VANTAGE - PPO) [id number] Rosa Strattonbrendan [id number] Rosa Alvaradolalo Notes Date Note Type Note Provider Name and Address Organization Details Recorded Time 4 text/html NPV Room # 4 Referred by: self Reason for visit: NPV/Psoriasis Concerns: Pt states she has had psoriasis for 8 years. She has flares on her scalp and back of her neck. She has been given topicals by her previous failure analysis engineer but states she saw no change when using them. Family history of skin cancer: no Personal history of skin cancer: no Smoking: yes, 4 cigarettes a day Past dermatology: yes, Dr. Cem Kearney Work outdoors: no, retired Immunosuppression/Chemo drugs: no History of organ Transplant: no Currently , breast feeding or trying to conceive: no Wearing makeup: no Julio Hernandez MD [facility], [address], [facility] 06/18/2024 20:56:20 4 text/html Room # 4 Reason For Visit: 6 week Psoriasis Concerns:Pt states she has no concerns today. Smoking: yes, 5 a day (trying to quit) Make up: n/a Currently , breast-feeding, or trying to conceive: n/a Julio Hernandez MD [facility] [place] [address], [phone], [facility] 07/06/2024 18:19:38 5 text/html The patient is a 69-year-old postmenopausal white female smoker with a history of hyperlipidemia, hypertension, prediabetes, GERD, COPD, obstructive sleep apnea currently noncompliant with CPAP, chronic kidney disease stage 3, peripheral vascular disease status post stenting of both iliacs, also with a history of abdominal aortic dissection 20 years ago status post grafting, as well as psoriasis, who is seen today in consultation at the request of Dr. Hernandez, her failure analysis engineer, regarding rheumatologic evaluation and polyarthralgias in the setting of psoriasis, rule out psoriatic arthritis. The patient describes onset 15 years ago of a scaly erythematous rash on her scalp that was diagnosed as plaque psoriasis. She was treated with topicals, but these had not been of much benefit. Her former failure analysis engineer refused to prescribe oral DMARDs or biologic agents. She subsequently switched to Dr. Hernandez, who has initiated COSENTYX therapy. She currently has received 2 loading doses. She reports tolerating the medication well though she reports today several years of chronic lower back pain and issues with bilateral thumb and hand pain. Most of her pain is centered around the bases of the thumbs, as well as the wrists. She has noticed progressive deformities at the wrists. She has not undergone x-rays. She does see a chiropractor for her chronic low back pain, which has been diagnosed as degenerative disk disease of the lumbar spine. She did see Neurosurgery, but surgery was not an option due to her underlying multiple medical issues, including her history of aortic dissection. Currently she experiences 10 minutes of morning stiffness. She rates her pain a 6/10 on a scale. 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 No Raynaud s symptoms, fever, chills, inflammatory eye disease, pericarditis history, pleural or pericardial disease. She has a chronic cough and does smoke a pack per day of cigarettes. She has a left lower lobe nodule that is being followed by Dr. Flanagan, who is also managing her obstructive sleep apnea and COPD. The patient denies a history of peptic ulcer disease, GI bleeding, inflammatory bowel disease, melena or hematochezia. She did experience an 80 pound weight loss over the past few years and underwent extensive workup, including EGD and colonoscopy that were largely unrevealing. She reports her appetite is normal. She denies abdominal pain. No nausea or vomiting, renal calculi, gross hematuria, bleeding from the nares or gums, history of DVT or PE or shingles. She has had chickenpox as a girl. Currently she is battling some lower extremity sensory neuropathic symptoms with burning in the feet, especially at night. She is scheduled to see a neurologist in [place] in the coming month. She does take hydrocodone from her PCP and claims to take vitamin D3 though she is not sure of the exact dose. Family history is noncontributory. Of note, she has not previously, as noted above, taken any conventional DMARD agents nor anti-TNF agents. No KATHRINE inhibitors in the past. I have reviewed the patient s past medical history and [employer] intake form.angelique Sebastian a 69 year oldfemalepresenting for care. Visit Reason:Ankle or Foot Ankle/Foot/Toe Concerns: -Location: -left second toe, third toe -right second toe, third toe -left heel -plantar surface of right foot, right heel -Duration: approximately 3 year(s) -Patient complains of: deformity, difficulty ambulating, instability, swelling of surrounding area -Denies: ecchymosis, catching/locking, drainage, fevers, warmth, limited ROM, numbness, popping/clicking, erythema, tightness of shoes, wound/laceration of the affected area -Supportive treatments tried: arch support, compression stockings -Prior ankle/foot surgery: patient denies Treatments: -Seen by outside providers: no -Prior imaging/studies:X-ray-Pr ior imaging/studies location: [facility] -Denies prior: acupuncture, chiropractic treatments, injections, Medications, occupational therapy, physical therapy, surgery -Prior injury/difficulty with affected area: yes -Concern origination: Home ROS: :NegativeGeneral:Fatig ue, Unplanned Weight LossImmuno:NegativeENT:L oss of HearingOphtho:NegativeCa rdiac:NegativeRespirator y:Difficulty Breathing at Night, Swollen Legs or Feet, Wheezing (Asthma)GI:HeartburnMusc uloskeletal:Joint PainSkin:NegativeNeuro:M dacia Loss, Sensitivity or Pain of Hands or FeetPsych:Anxiety, Depression, Easily Losing TemperEndo:NegativeHem:N egative Santy Brooks MD [address] [place] [address], [phone], [place] [facility] 08/20/2024 11:18:55 OBGyn Episode No OBEpisode recorded.
== END 2024-09-27 12:13 | disposition home or self-care (01) ==
LOC: CHSLAB 12:15
PROVIDERS: PCP Family Medicine; Visit Provider Family Medicine
DX: I10 Essential (primary) hypertension (principal); R94.31 Abnormal electrocardiogram [ECG] [EKG]
CPT/HCPCS: 93005

== ENCOUNTER 2024-11-09 10:39 | Outpatient (CLI) | payer MEDICARE, MEDICAID, SELFPAY ==
--- NOTE | ~2024-11-09 | MR_ITS ---
MRI of the brain Clinical History: Other signs of symptoms of neurologic system Technique: Axial and sagittal T1-weighted images were acquired. These were followed by axial T2-weigh rahul, diffusion weighted, gradient, and FLAIR images. Findings: No significant signal abnormality seen in the brain parenchyma. No acute infarct, intracran ial hemorrhage, or mass lesion. Ventricles and subarachnoid spaces are unremarkable orbits are unremarkable. Paranasal sinuses and ma stoid air cells are essentially clear. Major intracranial flow voids are intact. Sagittal midline structures are intact. Prominent adenoids are noted. IMPRESSION: No intracranial abnormality. Prominent adenoids. Correlate with direct inspection as indicated. Reviewed, dictated and finalized at location .
--- NOTE | ~2024-11-09 | MR_ITS ---
MRI of the lumbar spine Clinical History: Disease of spinal cord Technique: Axial T2-weighted images, and sagittal T1-weighted, T2-weighted, and T2 fat-sat images wer e acquired. COMPARISON: 08/26/2019 Findings: No fracture or sublocation lumbar spine seen. There is straightening of the normal lumbar l ordosis. Osseous alignment unchanged from prior exam. There is partial fusion across the L2-L3 disc s pace. No suspicious bone marrow signal abnormality seen. There are Modic signal changes about the L3- L4 disc space due to underlying degenerative disc disease. At L1-L2, there is mild degenerative disc narrowing. There is minimal disc bulge and moderate facet a rthropathy. No central canal stenosis or definite neural foraminal narrowing. At L2-L3, there is advanced degenerative disc narrowing with mild facet arthropathy. No central canal stenosis. There is mild left neural foraminal narrowing. Right neural foramen preserved. At L3-L4, there is advanced degenerative disc narrowing. There is disc bulge with severe facet arthro yordy. There is mild central canal stenosis. There is severe bilateral neural foraminal compromise. At L4-L5, there is diffuse disc bulge and severe facet arthropathy. There is moderate to severe spina l canal stenosis/thecal sac compression. There is severe bilateral neural foraminal compromise. At L5-S1, there is minimal disc bulge with advanced facet arthropathy. No central canal stenosis. The re is mild bilateral neural foraminal narrowing. Paravertebral soft tissues are unremarkable. Impression: Moderate to advanced degenerative spondylosis, as detailed above, probably worst at L4-L5. Reviewed, dictated and finalized at [facility]. Impression: Moderate to advanced degenerative spondylosis, as detailed above, probably wors t at L4-L5.
--- OUTSIDE RECORDS SUMMARY | 2024-11-09 11:33 | XMS_ITS | Continuity of Care Document ---
Author Organization [facility] Eye [facility] Address [address] [place] [address] Phone Care Team Providers Care Shank Sorter Name Role Phone Morgan OD, Jeremias Unavailable Unavailable Procedures Procedure Date No Charge Contact Lens Check CL Replacement - Vistakon Disp W/BW Soft Tax - Medical Contact Lens Fitting Office Consultation Eye Exam & Treatment Advance Directives Directive Yes / No Effective Date File Name No Information Encounters Encounter Description Practice Location Reason(s) For Visit Diagnoses Date Provider Providers Copied on Encounter [facility], [address] [place] [address] [address], [place], [place], [id number], [place] tel:[phone] [facility] No Information 6-200 8 Morgan OD Jeremias. [address] [facility] , [address], [place], [place], [facility], . tel:[phone] [facility], [id number] [place] [address] [address], [place], [place], [id number], [place] tel:[phone] [facility] No Information 3-200 8 Morgan OD Jeremias. [address] [facility] , [address], [place], [address], [place]. tel:[phone] Referring Provider: Jones Rosas, [address] [place], [address]. tel:[phone] Office Consultation [facility], [address] [place] [address] [address], [place], [place], [id number], [place] tel:[phone] [facility] No Information [address] Alison Pedroza. [facility], [place], [address], [place]. tel:[phone] Referring Provider: Mila Holguin [address], [place], [place], [facility]. tel:[phone] [facility] Eye [facility], [address], [place], [place], [id number], tel:[phone] [facility] No Information 8 Jenny Zaragoza. [address] , [address], [place], [address], [place]. tel:[phone] Family History Family Member Type Diagnosis Age At Onset No Information Payers Payer name Insurance type Covered constitution party ID Authoriza tion(s) Medicare [facility] [id number] Social History Type Description Quantity Date Captured [...]
--- OUTSIDE RECORDS SUMMARY | 2024-11-09 11:33 | XMS_ITS | Encounter Summary ---
Author Organization [facility] Address [facility] [place] [address] Care Team Providers Care Pile Header Name Role Phone Fabien Jarrett MD Unavailable [phone] Jaqueline Rosas NP Unavailable [phone] Leo Jacobson MD Primary Care Provider [phone] Simba Keating MD Unavailable [phone] Rah Reid MD Unavailable Bj Cox MD Unavailable Unavailable Leo Jacobson MD Primary Care Provider + [phone] Kyle Montenegro DO Primary Care Provider [phone] Irma Miller MD Unavailable Rah Reid MD Unavailable Simba Keating MD Unavailable [phone] Abdirahman Mcghee APRN Unavailable [phone] Jamil Flanagan MD Unavailable [phone] Vera Rice MD Unavailable [phone] Encounter Details Date Type Department Care Team (Late st Contact Info) Description 09/25/2017 Abstract [facility] CONVERSION [address] [place], [place] [id number] , Generic MD Shanon Social History Tobacco [...] CDT Gender Identity Female 09/18/2021 2:09 PM [employer]OUN[employer] Sexual Orientation Not on file Occupation Industry Job Start Date Job End Date Disability Not on file Not on file Not on file Not on file Not on file Not on file Not on file documented as of this encounter Plan of Treatment Upcoming Encounters Date Type Department Care Team (Late st Contact Info) Description 02/26/2025 2:20 PM CDT Appointment [facility] [address] [place] [address] Abdirahman Mcghee, MUD ANALYSIS WELL LOGGING OPERATOR [address] [place] [phone] 02/26/2025 3:15 PM CDT Office Visit [facility] eld [address] [place] [phone] Simba Keating MD [address] [facility], [address] [place] [address] documented as of this encounter Visit Diagnoses Not on filedocumented in this encounter Additional Health Concerns Infection Onset Date Last Indicated Resolved Time COVID-19 Rule Out 11/24/2022 11/24/2022 11/24/2022 2:05 PM CDT documented as of this encounter Care Teams Pile Header Relationship Specialty Start Date End Date Leo Jacobson MD [address] [place] [address] PCP - General FAMILY PRACTICE 11/03/16 08/20/19 Leo Jacobson MD [address] [place] [address] PCP - General FAMILY PRACTICE 08/21/19 08/21/19 Kyle Montenegro DO [address] [place] [address] PCP - General FAMILY PRACTICE 08/22/19 Fabien Jarrett MD CARDIOVASCULAR DISEASE 06/02/16 07/19/18 Jaqueline Rosas NP [address] [place] [address] [address] [place] [address] [employer] NURSE PRACTITIONER 11/03/16 07/19/18 Simba Keating MD [address] [place] [address] CARDIOVASCULAR DISEASE 09/09/17 11/17/20 Rah Reid MD [address] [place] [address] Vascular/Extrusion Utility Worker INTERNAL MEDICINE 05/18/18 Bj Cox MD [address] [place] [address] [place] [employer] INTERVENTIONAL CARDIOLOGY 07/20/18 11/17/20 Irma Miller MD [address] [place] [address] Consulting Physician CARDIOVASCULAR DISEASE 11/18/20 Rah Reid MD [address] [place] [address] Vascular/Extrusion Utility Worker INTERNAL MEDICINE 12/01/21 Simba Keating MD [address] [place] [address] Consulting Physician INTERVENTIONAL CARDIOLOGY 05/11/22 Abdirahman Mcghee APRN [address] [place] [address] Nurse Practitioner NURSE PRACTITIONER 05/21/22 Jamil Flanagan MD [address] [place] [address] Consulting Physician INTERNAL MEDICINE 04/22/23 Vera Rice MD [address] [address] SURGERY 04/22/23 documented as of this encounter
--- OUTSIDE RECORDS SUMMARY | 2024-11-09 11:33 | XMS_ITS | Data Portability ---
Author Organization [facility], [address] [place] [address] Neurology ([place]) Address [address] [id number] Assessment Encounter Date Assessment Date Assessment LastModified [...] naive, so I recommended we proceed with [employer] MindPx to determine which biologic class she would most likely respond to. MindPx sample obtained from occipital scalp/hairline. We will await results and proceed accordingly. 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 Follow up in 4-6 weeks [...] should not be administered while on biologic P atient was asked to call the office with [...] naive, so I recommended we proceed with [employer] MindPx to determine which biologic class she would most likely respond to. MindPx sample obtained from occipital scalp/hairline. We will await results and proceed accordingly. #[place] LOCATION: right medial cheek #[place] LOCATION: right medial cheek we will remove these at f/u if symptomatic. 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 Follow up in 3 months [...] shot series. 6. Schedule bone densitometry at [facility] near her home. 7. Counseled the patient today about the importance of smoking cessation. 8. COSENTYX dosing per Dermatology. 9. Followup visit in 4 months in [place]. angelique Not available 08/14/2024 17:30:09 Plan of Treatment Reminders Order Date Submit Date Provider Last Modified By Organization Details Last Modified Time Details Appointments EMG 15.PRO 2024 09:00A M Dr. Kalen Jimenez Not available Not available Not available Laine perea Patient 10.EST 2024 11:10A M Dr. Julio Hernandez Not available Not available Not available Laine perea Patient 15.EST 2024 10:30A M Dr. Santy Brooks Not available Not available Not available New Patient Visit 15.NEW 2024 01:30P M YOBANI MARTINEZ Not available Not available Not available Lab arthrit is panel 2024 025 [email or web address] [facility], [address] [place] [address], [id number], 08/14/2024 18:04:59 CMP, serum or plasma 2024 025 KAYCEE [facility], [address] [place] [address], [id number], 08/14/2024 18:29:24 ESR (erythr ocyte sedimen tation rate), blood 2024 025 [email or web address] [facility], [address] [place] [address], [id number], 08/21/2024 09:18:57 C-react addis protein , quantit ative, serum or plasma 2024 025 KAYCEE [facility], [address] [place] [address], [id number], 08/14/2024 18:11:57 CBC w/ auto diff 2024 025 KAYCEE [facility], [address] [place] [address], 40130, 08/14/2024 17:38:48 [email or web address] , blood 2024 025 [email or web address] [facility], [address] [place] [address], [id number], 08/17/2024 18:37:52 CBC w/ auto diff 2023 024 [email or web address] [facility], [address] [place] [address], [id number], 06/05/2024 23:17:57 CMP, serum or plasma 2023 024 [email or web address] [facility], [address] [place] [address], 67904, 06/05/2024 23:17:57 HBsAg (hepati tis B surface Ag), serum 2023 024 [email or web address] [facility], [address] [place] [address], [id number], 06/05/2024 23:17:57 hepatit is B surface Ab, qualita tive, serum 2023 024 [email or web address] [facility], [address] [place] [address], [id number], 06/05/2024 23:17:57 Hepatit is B virus core Ab, qual immunoa ssay, serum or plasma 2023 024 [email or web address] [facility], [address] [place] [address], [id number], 06/05/2024 23:17:57 TB (M tubercu losis), IFN-andi ma+bryan gen-andi ma, blood 2023 024 [email or web address] [facility], [address] [place] [address], [id number], 06/29/2024 09:08:44 HIV 1+2 Ab + HIV 1 p24 Ag, panel, IA, serum or plasma 2023 024 [email or web address] [facility], [address] [place] [address], [id number], 06/05/2024 23:17:57 hepatit is C Ab, serum 2023 024 [email or web address] [facility], [address] [place] [address], [id number], 06/05/2024 23:17:57 Referral rheumat ologist referra l - Referra l to Rheumat ology due to joint pain or joint stiffne ss- to rule out psoriat ic arthrit is [address] [place]umatology ([place]), [address] [place] [address], [address] [place] [address], [place], [address], 06/26/2024 10:29:17 Procedures None recorde d. Surgeries None recorde d. Imaging None recorde d. Medication Orders Cosenty x UnoRead y Pen 300 mg/2 mL subcuta neous pen injecto r 2024 025 Not available 08/04/2024 15:10:18 Skyrizi 150 mg/mL subcuta neous pen injecto r 2023 024 [email or web address] [facility], [address], [place], [address], 08/14/2024 14:07:12 Zoryve 0.3 % topical cream 2023 024 [email or web address] [facility], [address] [facility] [address], [place], [address], 08/14/2024 14:07:26 clobeta luis carlos 0.05 % scalp solutio n 2023 024 [email or web address] [facility], [address] [facility] [address], [place], [address], 08/14/2024 14:06:03 ketocon azole 2 % shampoo 2023 024 [email or web address] [facility], [address] [facility] [address], [place], [address], 08/14/2024 14:06:53 Patient TargetsNo targets recorded. Patient InstructionsNo instructions recorded. 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 Referral for Psoriasis of scalp Referral to Rheumatology due to joint pain or joint stiffness- to rule out psoriatic arthritis Referral to Rheumatology due to joint pain or joint stiffness- to rule out psoriatic arthritis Referring Physician: Julio Hernandez, Dermatology, Encounter Date: 06/01/2024 Results Created Date Observation Date Name Description Value Unit Range Abnormal Flag Note LastModifiedBy Organization Detail LastModifiedTime 06/01/20 24 06/01/2024 CBC w/ auto diff CBC with differential Not Available [facility] [address] [place] [address], [id number], 06/01/2024 18:06:29 06/01/20 24 06/01/2024 CBC w/ auto diff WBC 9.7 K/uL 3.8-11 .2 Not Available [facility] [address] [place] [address], 32754, 06/01/2024 18:06:29 06/01/20 24 06/01/2024 CBC w/ auto diff RBC 5.33 M/uL 3.92-5 .10 high Not Available [facility] [address] [place] [address], 11387, 06/01/2024 18:06:29 06/01/20 24 06/01/2024 CBC w/ auto diff HGB 15.2 g/dL 11.8-1 5.3 Not Available [facility] [address] [place] [address], 52260, 06/01/2024 18:06:29 06/01/20 24 06/01/2024 CBC w/ auto diff HCT 45.6 % 36.5-4 4.8 high Not Available [facility] [address] [place] [address], 47438, 06/01/2024 18:06:29 06/01/20 24 06/01/2024 CBC w/ auto diff MCV 85.6 fL 80.0-9 9.0 Not Available [facility] [address] [place] [address], 97215, 06/01/2024 18:06:29 06/01/20 24 06/01/2024 CBC w/ auto diff MCH 28.5 pg 25.5-3 3.6 Not Available [facility] [address] [place] [address], 05903, 06/01/2024 18:06:29 06/01/20 24 06/01/2024 CBC w/ auto diff MCHC 33.3 g/dL 32.0-3 6.0 Not Available [facility] [address] [place] [address], 58806, 06/01/2024 18:06:29 06/01/20 24 06/01/2024 CBC w/ auto diff RDW-SD 43.6 fL 35.1 - 46.3 Not Available [facility] [address] [place] [address], 13284, 06/01/2024 18:06:29 06/01/20 24 06/01/2024 CBC w/ auto diff plt 225 K/uL 130-40 0 Not Available [facility] [address] [place] [address], 24698, 06/01/2024 18:06:29 06/01/20 24 06/01/2024 CBC w/ auto diff MPV 12.0 fL 9.3-12 .8 Not Available [facility] [address] [place] [address], 71239, 06/01/2024 18:06:29 06/01/20 24 06/01/2024 CBC w/ auto diff jana% 66.1 % not estab Not Available [facility] [address] [place] [address], 94714, 06/01/2024 18:06:29 06/01/20 24 06/01/2024 CBC w/ auto diff lym% 20.1 % not estab Not Available [facility] [address] [place] [address], 58046, 06/01/2024 18:06:29 06/01/20 24 06/01/2024 CBC w/ auto diff mono% 7.7 % not estab Not Available [facility] [address] [place] [address], 29418, 06/01/2024 18:06:29 06/01/20 24 06/01/2024 CBC w/ auto diff eos% 4.9 % not estab Not Available [facility] [address] [place] [address], 72823, 06/01/2024 18:06:29 06/01/20 24 06/01/2024 CBC w/ auto diff baso% 0.7 % not estab Not Available [facility] [address] [place] [address], 36492, 06/01/2024 18:06:29 06/01/20 24 06/01/2024 CBC w/ auto diff abs jana 6.4 K/uL 1.8-7. 5 Not Available [facility] [address] [place] [address], 09890, 06/01/2024 18:06:29 06/01/20 24 06/01/2024 CBC w/ auto diff abs lym 2.0 K/uL 1.1-3. 3 Not Available [facility] [address] [place] [address], 11141, 06/01/2024 18:06:29 06/01/20 24 06/01/2024 CBC w/ auto diff abs mono 0.8 K/uL 0.1-1. 0 Not Available [facility] [address] [place] [address], 74055, 06/01/2024 18:06:29 06/01/20 24 06/01/2024 CBC w/ auto diff abs eos 0.5 K/uL 0.0-0. 7 Not Available [facility] [address] [place] [address], 70086, 06/01/2024 18:06:29 06/01/20 24 06/01/2024 CBC w/ auto diff abs baso 0.1 K/uL 0.0-0. 2 Not Available [facility] [address] [place] [address], 40182, 06/01/2024 18:06:29 06/01/20 24 06/01/2024 CBC w/ auto diff imm. gran % 0.5 % 0-5 Not Available [facility] [address] [place] [address], 66961, 06/01/2024 18:06:29 06/01/20 24 06/01/2024 CBC w/ auto diff NRBC % 0.0 % 0.0-0. 2 Not Available [facility] [address] [place] [address], 87067, 06/01/2024 18:06:29 06/01/20 24 06/01/2024 CMP, serum or plasm a comp. met. panel Not Available [facility] [address] [place] [address], 00085, 06/01/2024 18:20:54 06/01/20 24 06/01/2024 CMP, serum or plasm a sodium 142 mmol/ L 136-14 6 Not Available [facility] [address] [place] [address], 97395, 06/01/2024 18:20:54 06/01/20 24 06/01/2024 CMP, serum or plasm a potassium 3.5 mmol/ L 3.5-5. 1 Not Available [facility] [address] [place] [address], 02762, 06/01/2024 18:20:54 06/01/20 24 06/01/2024 CMP, serum or plasm a chloride 100 mmol/ L 98-110 Not Available [facility] [address] [place] [address], 50283, 06/01/2024 18:20:54 06/01/20 24 06/01/2024 CMP, serum or plasm a CO2 37 mEq/L 20-32 high Not Available [facility] [address] [place] [address], [id number], 06/01/2024 18:20:54 06/01/20 24 06/01/2024 CMP, serum or plasm a anion gap 9 mmol/ L 10-22 low Not Available [facility] [address] [place] [address], 90898, 06/01/2024 18:20:54 06/01/20 24 06/01/2024 CMP, serum or plasm a glucose 109 mg/dL 70-100 high Not Available [facility] [address] [place] [address], 12067, 06/01/2024 18:20:54 06/01/20 24 06/01/2024 CMP, serum or plasm a calcium 10.5 mg/dL 8.4-10 .4 high Not Available [facility] [address] [place] [address], 89853, 06/01/2024 18:20:54 06/01/20 24 06/01/2024 CMP, serum or plasm a total protein 7.3 g/dL 6.4-8. 3 Not Available [facility] [address] [place] [address], 14391, 06/01/2024 18:20:54 06/01/20 24 06/01/2024 CMP, serum or plasm a albumin 4.2 g/dL 3.5-5. 3 Not Available [facility] [address] [place] [address], 18055, 06/01/2024 18:20:54 06/01/20 24 06/01/2024 CMP, serum or plasm a ALP 88 U/L 44 - 127 Not Available [facility] [address] [place] [address], 93653, 06/01/2024 18:20:54 06/01/20 24 06/01/2024 CMP, serum or plasm a AST (SGOT) 19 U/L 10-40 Not Available [facility] [address] [place] [address], 31871, 06/01/2024 18:20:54 06/01/20 24 06/01/2024 CMP, serum or plasm a total bilirubin 0.4 mg/dL 0.2-1. 0 Not Available [facility] [address] [place] [address], 14546, 06/01/2024 18:20:54 06/01/20 24 06/01/2024 CMP, serum or plasm a ALT (SGPT) 23 U/L 8-35 Not Available [facility] [address] [place] [address], 67595, 06/01/2024 18:20:54 06/01/20 24 06/01/2024 CMP, serum or plasm a BUN 26 mg/dL 7-21 high Not Available [facility] [address] [place] [address], 29973, 06/01/2024 18:20:54 06/01/20 24 06/01/2024 CMP, serum or plasm a creatinine 1.5 mg/dL 0.7-1. 3 high Not Available [facility] [address] [place] [address], 07673, 06/01/2024 18:20:54 06/01/20 24 06/01/2024 CMP, serum or plasm a GFR(non-afri can bhutanese) 37 Not Available [facility] [address] [place] [address], [id number], 06/01/2024 18:20:54 06/01/20 24 06/01/2024 CMP, serum or plasm a GFR() 44 (STORE DELI MANAGER ORI KIDNE Y DISEA SE HAS A GFR LESS THAN 60 ML/MO N/1.7 3 MM FOR A PERIO D OF THREE MONTH S OR MORE. ) Not Available [facility] [address] [place] [address], 66574, 06/01/2024 18:20:54 06/01/20 24 06/01/2024 HBsAg (hepa titis B surfa ce Ag), serum hepatitis B surface Ag NONREA CTIVE nonrea ctive Not Available [facility] [address] [place] [address], 88154, 06/01/2024 18:29:55 06/01/20 24 06/01/2024 HIV 1+2 Ab + HIV 1 p24 Ag, panel , IA, serum or plasm a HIV Ag/Ab 1-2 combo NONREA CTIVE nonrea ctive Not Available [facility] [address] [place] [address], 48076, 06/01/2024 18:43:05 06/01/20 24 06/01/2024 hepat itis C Ab, serum hepatitis C Ab NONREA CTIVE nonrea ctive Not Available [facility] [address] [place] [address], 90245, 06/01/2024 18:49:45 06/01/20 24 06/02/2024 hepat itis [...] to infec tion with HBV. Not Available [facility] [address] [place] [address], 50103, 06/02/2024 07:41:57 06/01/20 24 06/02/2024 Hepat itis B virus core Ab, qual immun oassa y, serum or plasm a hepatitis B core Ab NEGATI VE negati ve Not Available [facility] [address] [place] [address], 03068, 06/02/2024 07:41:59 06/01/20 24 06/05/2024 QUANT IFERO N TB GOLD quantiferon TB gold 0.00 IU/mL <=0.34 Not Available [facility] [address] [place] [address], [id number], 06/05/2024 14:25:46 06/01/20 24 06/05/2024 QUANT IFERO N TB GOLD quantiferon TB gold2 0.00 IU/mL <=0.[address] [facility] [address] [place] [address], 52206, 06/05/2024 14:25:46 06/01/20 24 06/05/2024 QUANT IFERO [...] and diagn ostic findi ngs. Not Available [facility] - [facility] [address] [place] [address], 40468, 06/05/2024 14:25:46 02/03/20 25 08/14/2024 CBC w/ auto diff CBC with differential Not Available [facility] [address] [place] [address], 88921, 08/14/2024 17:38:48 08/14/19 25 08/14/2024 CBC w/ auto diff WBC 11.5 K/uL 3.8-11 .2 high Not Available [facility] [address] [place] [address], 78986, 08/14/2024 17:38:48 08/14/19 25 08/14/2024 CBC w/ auto diff RBC 5.69 M/uL 3.92-5 .10 high Not Available [facility] [address] [place] [address], 56079, 08/14/2024 17:38:48 08/14/19 25 08/14/2024 CBC w/ auto diff HGB 15.8 g/dL 11.8-1 5.3 high Not Available [facility] [address] [place] [address], 37032, 08/14/2024 17:38:48 08/14/19 25 08/14/2024 CBC w/ auto diff HCT 47.9 % 36.5-4 4.8 high Not Available [facility] [address] [place] [address], 07718, 08/14/2024 17:38:48 08/14/19 25 08/14/2024 CBC w/ auto diff MCV 84.2 fL 80.0-9 9.0 Not Available [facility] [address] [place] [address], 31298, 08/14/2024 17:38:48 08/14/19 25 08/14/2024 CBC w/ auto diff MCH 27.8 pg 25.5-3 3.6 Not Available [facility] [address] [place] [address], 66433, 08/14/2024 17:38:48 08/14/19 25 08/14/2024 CBC w/ auto diff MCHC 33.0 g/dL 32.0-3 6.0 Not Available [facility] [address] [place] [address], 65513, 08/14/2024 17:38:48 08/14/19 25 08/14/2024 CBC w/ auto diff RDW-SD 43.8 fL 35.1 - 46.3 Not Available [facility] [address] [place] [address], 31727, 08/14/2024 17:38:48 08/14/19 25 08/14/2024 CBC w/ auto diff plt 215 K/uL 130-40 0 Not Available [facility] [address] [place] [address], 41299, 08/14/2024 17:38:48 08/14/19 25 08/14/2024 CBC w/ auto diff MPV 11.8 fL 9.3-12 .8 Not Available [facility] [address] [place] [address], 22089, 08/14/2024 17:38:48 08/14/19 25 08/14/2024 CBC w/ auto diff jana% 61.7 % not estab Not Available [facility] [address] [place] [address], 55960, 08/14/2024 17:38:48 08/14/19 25 08/14/2024 CBC w/ auto diff lym% 23.9 % not estab Not Available [facility] [address] [place] [address], 24921, 08/14/2024 17:38:48 08/14/19 25 08/14/2024 CBC w/ auto diff mono% 8.6 % not estab Not Available [facility] [address] [place] [address], 18214, 08/14/2024 17:38:48 08/14/19 25 08/14/2024 CBC w/ auto diff eos% 4.6 % not estab Not Available [facility] [address] [place] [address], 50455, 08/14/2024 17:38:48 08/14/19 25 08/14/2024 CBC w/ auto diff baso% 0.9 % not estab Not Available [facility] [address] [place] [address], [id number], 08/14/2024 17:38:48 08/14/19 25 08/14/2024 CBC w/ auto diff abs jana 7.1 K/uL 1.8-7. 5 Not Available [facility] [address] [place] [address], 29059, 08/14/2024 17:38:48 08/14/19 25 08/14/2024 CBC w/ auto diff abs lym 2.7 K/uL 1.1-3. 3 Not Available [facility] [address] [place] [address], 01212, 08/14/2024 17:38:48 08/14/19 25 08/14/2024 CBC w/ auto diff abs mono 1.0 K/uL 0.1-1. 0 Not Available [facility] [address] [place] [address], 06689, 08/14/2024 17:38:48 08/14/19 25 08/14/2024 CBC w/ auto diff abs eos 0.5 K/uL 0.0-0. 7 Not Available [facility] [address] [place] [address], 72231, 08/14/2024 17:38:48 08/14/19 25 08/14/2024 CBC w/ auto diff abs baso 0.1 K/uL 0.0-0. 2 Not Available [facility] [address] [place] [address], 83485, 08/14/2024 17:38:48 08/14/19 25 08/14/2024 CBC w/ auto diff imm. gran % 0.3 % 0-5 Not Available [facility] [address] [place] [address], 18201, 08/14/2024 17:38:48 08/14/19 25 08/14/2024 CBC w/ auto diff NRBC % 0.0 % 0.0-0. 2 Not Available [facility] [address] [place] [address], 86764, 08/14/2024 17:38:48 08/14/19 25 08/14/2024 arthr itis panel uric acid 8.9 mg/dL 2.3-6. 6 high Not Available [facility] [address] [place] [address], 40238, 08/17/2024 17:21:01 08/14/19 25 08/14/2024 arthr itis panel sed rate 37 mm/HR 0 - 30 high Not Available [facility] [address] [place] [address], 21950, 08/17/2024 17:21:01 08/14/19 25 08/14/2024 arthr itis panel ccp antibody, IgG <0.54 U/mL <=4.9 Not Available [facility] [address] [place] [address], 41814, 08/17/2024 17:21:01 08/14/19 25 08/15/2024 arthr itis panel rf 5.0 IU/mL <3.5-1 4 Not Available [facility] [address] [place] [address], 13893, 08/17/2024 17:21:01 08/14/19 25 08/17/2024 arthr itis panel arthritis panel Not Available [facility] [address] [place] [address], 16196, 08/17/2024 17:21:01 08/14/19 25 08/17/2024 arthr itis panel EVANGELIST screen NEGATI VE negati ve Perfo rmed by Bio-R ad enzym e immun oassa y Not Available [facility] [address] [place] [address], [id number], 08/17/2024 17:21:01 08/14/19 25 08/14/2024 C-meeta ctive prote in, quant itati ve, serum or plasm a CRP high Not Available [facility] [address] [place] [address], 96537, 08/14/2024 18:11:57 08/14/19 25 08/14/2024 C-meeta ctive prote in, quant itati ve, serum or plasm a CRP 0.7 mg/dL <0.4-0 .5 high Not Available [facility] [address] [place] [address], 55241, 08/14/2024 18:11:57 08/14/19 25 08/14/2024 CMP, serum or plasm a comp. met. panel Not Available [facility] [address] [place] [address], 87140, 08/14/2024 18:29:24 08/14/19 25 08/14/2024 CMP, serum or plasm a sodium 140 mmol/ L 136-14 6 Not Available [facility] [address] [place] [address], 71412, 08/14/2024 18:29:24 08/14/19 25 08/14/2024 CMP, serum or plasm a potassium 3.7 mmol/ L 3.5-5. 1 Not Available [facility] [address] [place] [address], 50449, 08/14/2024 18:29:24 08/14/19 25 08/14/2024 CMP, serum or plasm a chloride 101 mmol/ L 98-110 Not Available [facility] [address] [place] [address], [id number], 08/14/2024 18:29:24 08/14/19 25 08/14/2024 CMP, serum or plasm a CO2 30 mEq/L 20-32 Not Available [facility] [address] [place] [address], 50657, 08/14/2024 18:29:24 08/14/19 25 08/14/2024 CMP, serum or plasm a anion gap 13 mmol/ L 10-22 Not Available [facility] [address] [place] [address], 74384, 08/14/2024 18:29:24 08/14/19 25 08/14/2024 CMP, serum or plasm a glucose 97 mg/dL 70-100 Not Available [facility] [address] [place] [address], 83314, 08/14/2024 18:29:24 08/14/19 25 08/14/2024 CMP, serum or plasm a calcium 10.4 mg/dL 8.4-10 .4 Not Available [facility] [address] [place] [address], 94410, 08/14/2024 18:29:24 08/14/19 25 08/14/2024 CMP, serum or plasm a total protein 7.8 g/dL 6.4-8. 3 Not Available [facility] [address] [place] [address], 98571, 08/14/2024 18:29:24 08/14/19 25 08/14/2024 CMP, serum or plasm a albumin 4.7 g/dL 3.5-5. 3 Not Available [facility] [address] [place] [address], [id number], 08/14/2024 18:29:24 08/14/19 25 08/14/2024 CMP, serum or plasm a ALP 86 U/L 44 - 127 Not Available [facility] [address] [place] [address], [id number], 08/14/2024 18:29:24 08/14/19 25 08/14/2024 CMP, serum or plasm a AST (SGOT) 18 U/L 10-40 Not Available [facility] [address] [place] [address], 91635, 08/14/2024 18:29:24 08/14/19 25 08/14/2024 CMP, serum or plasm a total bilirubin 0.5 mg/dL 0.2-1. 0 Not Available [facility] [address] [place] [address], [id number], 08/14/2024 18:29:24 08/14/19 25 08/14/2024 CMP, serum or plasm a ALT (SGPT) 19 U/L 8-35 Not Available [facility] [address] [place] [address], 83788, 08/14/2024 18:29:24 08/14/19 25 08/14/2024 CMP, serum or plasm a BUN 27 mg/dL 7-21 high Not Available [facility] [address] [place] [address], 20271, 08/14/2024 18:29:24 08/14/19 25 08/14/2024 CMP, serum or plasm a creatinine 1.4 mg/dL 0.7-1. 3 high Not Available [facility] [address] [place] [address], [id number], 08/14/2024 18:29:24 08/14/19 25 08/14/2024 CMP, serum or plasm a CKD-epi GFR 41 low eGFR was calcu lated using the 2020 CKD-E PI equat ion. (Supervisor Steno Pool ori Kidne y Disea se has an eGFR less than 60 mL/mi n/1.7 3mm for a perio d of three month s or more. ) This calcu latio n has not been valid ated for patie nt ages <18 or >90 years old. Not Available [facility] [address] [place] [address], [id number], 08/14/2024 18:29:24 08/14/19 25 08/17/2024 hla-B 27, blood [id number], DNA typing Not Available [facility] [address] [place] [address], 57889, 08/17/2024 18:37:52 08/14/19 25 08/17/2024 hla-B 27, [...] [facility] CLIA ID Adama r [id number] This test was perfo rmed using Polym erase Chain React ion (PCR) and Seque nce Speci fic Oligo nucle otide Probe s (SSOP ) techn ique. Seque nce Based Typin g (SBT) may be used as a suppl ement al metho d when neces jasiel. If you have quest ions, pleas e call HLA custo lorenzo servi ce at [phone] or email at [email or web address]. Not Available [facility] [address] [place] [address], [id number], 08/17/2024 18:37:52 05/08/20 24 11/01/2023 imagi ng/di agnos tic resul t No observ ation record ed. [email or web address] Not Available 22:50:54 08/14/19 25 08/14/2024 XR, hand [facility] [address] [place] [id number] Teleph one Name: Katelyn Roth [id number] am Date: 2024 Age: 69Phys ician: Ermias devlin MD, Allie y : 1954Ex aminat ion: XR HANDS BILATE [...] 2:04 PM cc: Page PAGE 1 of [facility] ES 1 tlenardo [place] Only - Sc Radiology [address] [place], [address], 08/20/2024 16:35:21 Result Notes None recorded. Problems Name Problem SNOMED Code Status Onset Date Resolution Date Notes Provider Name and Address Organization Details Recorded Time Psoriasis of scalp 106031867 Active 2023 [facility] 4 12:55:25 Psoriasis 8468992 Active 2023 Ching Guard [facility] 4 12:56:04 Milia 729969149 Active 2023 [facility] 4 12:43:58 Facial wart 459136794 Active 2023 [facility] 4 12:44:04 Pain of multiple joints 51201480 Active 2024 Santy Brooks MD [address] [place] [address], [phone], [facility] 5 14:45:45 Generalized osteoarthri tis 018398868 Active 2024 Santy Brooks MD [address] [place] [address], [phone], [facility] 5 14:45:53 Pain of bilateral hands 3518644210504 9109 Active 2024 [facility] 14:45:58 Peripheral sensory neuropathy 956810185 Active 2024 Santy Brooks MD [address] [place] [address], [phone], [facility] 5 14:46:37 Postmenopau jesse osteoporosi s 948926404 Active 2024 Reagan King [facility] 5 14:46:56 Problem Notes None recorded. Procedures [...] Sc Only - Sc Radiology [address] [place] [address], [address], 08/20/2024 16:35:21 Procedure Notes None recorded. Medical [...] Not Available Not Available No t Available [place] 3 120 mg-180 mg-1000 mg capsule once [...] 300 mg/2 Syringes (150 mg/mL) subcutane ous syringe active Not Available Not Available Not Available [...] given to pt in office. Lot Number: [id number] xp date: April 2025 Not Available Not Available Not Available Zoryve 0.3 % topical cream APPLY TO THE AFFECTED AREA(S) BY TOPICAL ROUTE ONCE DAILY 08/14 completed 2 Samples provided Lot: [id number]: 12/03 Not Available Not Available Not Available Cosentyx UnoReady Pen 300 mg/2 mL subcutane ous pen injector Inject 300 MG (1 pen) Subcutan eously every 4 weeks 2024 active Not Available Not Available Not Avai lable Vitals Date Recorded Body height Oxygen saturation Oxygen saturation in Arterial blood by Pulse oximetry Heart rate Provider Name and Address Organization Details Last Updated DateTime 06/01/2024 177.8 cm 94 % 94 % 82 /min Marta Woodward [facility] 06/01/2024 12:22:56 Date Recorded Body height Body mass index (BMI) Body weight Oxygen saturation Oxygen saturation in Arterial blood by Pulse oximetry Heart rate Provider Name and Address Organization Details Last Updated DateTime 12/19/202 4 177.8 cm 28.2 kg/m2 62364.8 2 g 93 % 93 % 90 /min Marta Ernandezs [facility] 4 12:27:25 Date Recorded Body height Heart rate Oxygen saturation Oxygen saturation in Arterial blood by Pulse oximetry Provider Name and Address Organization Details Last Updated DateTime 08/04/2024 177.8 cm 80 /min 95 % 95 % Estefani Conradaya [facility] 08/04/2024 14:48:10 Date Recorded Body height Body mass index (BMI) Body weight Heart rate Oxygen saturation Oxygen saturation in Arterial blood by Pulse oximetry Pain severity - 0-10 verbal numeric rating [Score] - Reported Systolic blood pressure Diastolic blood pressure Provider Name and Address Organization Details Last Updated DateTime 5 177.8 cm 28 kg/m2 27330.1 5 g 80 /min 95 % 95 % 6 148 mm[Hg] 80 mm[Hg] Kelly Plunkett [facility] 5 14:05:18 Social History Question Answer Notes LastModified by Organizat ion Details LastModified Time Tobacco Smoking Status Current Every Day Smoker Kelly Plunkett [facility] 08/14/2024 14:15:12 Do You Have An Advance [...] 10:08:41 Sister Family history of malignant neoplasm [id number] Not available 2024 10:08:41 Mother Heart disease [id number] Not available 2024 10:08:[address] [facility]-[id number] Not available 2024 10:08:41 Mother Hypercholest erolemia [id number] Not available 2024 10:08:41 Medical History Condition Response Diabetes N Anxiety Disorder N Bleeding Disorder N Attention-deficit Hyperactivity Disorder N High Blood Pressure Y Arthritis Y Hyperlipidemia N Cancer N Thyroid Problems N Stroke N Asthma Y COPD Y Depression Y Anemia N Seizures N Heart Disease Y Fibromyalgia N Osteoporosis N Kidney Disease N Gynecological HistoryNo gynecological history recorded. Obstetrics History GPAL:G 0 P 0 0 0 0 Past Encounters Encounter ID Performer Location Encounter Start Date Encounter Closed Date Diagnosis/Indication Diagnosis SNOMED-CT Code Diagnosis ICD10 Code Diagnosis Note [id number] MD [facility] [place] [address] [place] [address] 06/01/2024 11:40:53 06/01/2024 12:56:23 Psoriasis of scalp 032529704 L40.9 Psoriasis 4816478 L40.9 Taking hig h risk medication 2102347023 52203 Z79.899 [id number] MD [facility] [place] [address] [place] [address] 06/29/2024 11:49:28 06/29/2024 13:16:46 Psoriasis of scalp 201838035 L40.9 Psoriasis 8796293 L40.9 Milia 981044830 L72.0 Facial wart 067413591 B0 7.9 [id number] MD [facility] [place] [address] [place] [address] 08/04/2024 14:29:02 08/04/2024 14:50:33 Psoriasis 3662997 L40.9 Counseling 872869801 Z71 .89 [id number] Santy Brooks MD [address] [facility] [place] ([place]) [address] [place] [address] 08/14/2024 13:53:50 08/15/2024 18:26:54 Psoriasis 2039214 L40.9 Pain of mu ltiple joints 55216649 M25.50 Generalize d osteoarthritis 469920614 M15.9 Postmenopausal state 764 47027 Z78.0 Peripheral sensory neuropathy 398575405 G60.8 Health Concerns Section Related Observation LastModified by Organization Detai ls LastModified Time None Recorded Concern Status LastModified by Organization Details LastModified Time None Recorded Advance Directives Directive N: Payers Encounter Date Sequence Insurance Name Policy Number Policy Jj Covered Member ID Jj Member ID Guarantor Name 06/01/2024 2 [facility] (MEDICAID REPLACEMENT - HMO) [id number] Rosa F Yauornik [id number] Rosa F Yauornik 06/29/2024 2 [facility] (MEDICAID REPLACEMENT - HMO) [id number] Rosa F Yauornik [id number] Rosa F Yauornik 06/29/2024 1 [facility] (MEDICARE REPLACEMENT/AD VANTAGE - PPO) [id number] Rosa F Yauornik [id number] Rosa F Yauornik 08/04/2024 2 [facility] (MEDICAID REPLACEMENT - HMO) [id number] Rosa F Yauornik [id number] Rosa F Yauornik 08/04/2024 1 [facility] (MEDICARE REPLACEMENT/AD VANTAGE - PPO) [id number] Rosa F Yauornik [id number] Rosa Alvaradolalo 08/14/2024 2 [facility] (MEDICAID REPLACEMENT - HMO) [id number] Rosa Escalante [id number] Rosa Escalante 08/14/2024 1 [facility] (MEDICARE REPLACEMENT/AD VANTAGE - PPO) [id number] Rosa Alvaradolalo [id number] Rosa Escalante Notes Date Note Type Note Provider Name and Address Organization Details Recorded Time 4 text/html NPV Room # 4 Referred by: self Reason for visit: NPV/Psoriasis Concerns: Pt states she has had psoriasis for 8 years. She has flares on her scalp and back of her neck. She has been given topicals by her previous stockroom selector but states she saw no change when using them. Family history of skin cancer: no Personal history of skin cancer: no Smoking: yes, 4 cigarettes a day Past dermatology: yes, Dr. Cem Kearney Work outdoors: no, retired Immunosuppression/Chemo drugs: no History of organ Transplant: no Currently , breast feeding or trying to conceive: no Wearing makeup: no Julio Hernandez MD [facility] [place] [address], [phone], [facility] 06/18/2024 20:56:20 4 text/html Room # 4 Reason For Visit: 6 week Psoriasis Concerns:Pt states she has no concerns today. Smoking: yes, 5 a day (trying to quit) Make up: n/a Currently , breast-feeding, or trying to conceive: n/a Julio Hernandez MD [facility] [place] [address], [phone], [facility] 07/06/2024 18:19:38 5 text/html The patient [...] at the request of Dr. Hernandez, her stockroom selector, regarding rheumatologic evaluation and polyarthralgias in the setting of psoriasis, rule out psoriatic arthritis. The patient describes onset 15 years ago of a scaly erythematous rash on her scalp that was diagnosed as plaque psoriasis. She was treated with topicals, but these had not been of much benefit. Her former stockroom selector refused to prescribe oral DMARDs or biologic [...] on a scale. 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 No [...] is scheduled to see a neurologist in [place] in the coming month. She does take hydrocodone from her PCP and claims to take vitamin D3 though she is not sure of the exact dose. Family history is noncontributory. Of note, she has not previously, as noted above, taken any conventional DMARD agents nor anti-TNF agents. No KATHRINE inhibitors in the past. I have reviewed the patient s past medical history and [employer] intake form.angelique Sebastian a [...] providers: no -Prior imaging/studies:X-ray-Pr ior imaging/studies location: [facility] -Denies prior: acupuncture, chiropractic treatments, injections, Medications, occupational therapy, physical therapy, surgery -Prior injury/difficulty with affected area: yes -Concern origination: Home ROS: :NegativeGeneral:Fatig ue, Unplanned Weight LossImmuno:NegativeENT:L oss of HearingOphtho:NegativeCa rdiac:NegativeRespirator y:Difficulty Breathing at Night, Swollen Legs or Feet, Wheezing (Asthma)GI:HeartburnMusc uloskeletal:Joint PainSkin:NegativeNeuro:M dacia Loss, Sensitivity or Pain of Hands or FeetPsych:Anxiety, Depression, Easily Losing TemperEndo:NegativeHem:N egative Santy Brooks MD [address] [place] [address], [phone], [facility] 08/20/2024 11:18:55 OBGyn Episode No OBEpisode recorded.
--- OUTSIDE RECORDS SUMMARY | 2024-11-09 11:33 | XMS_ITS | Encounter Summary ---
Author Organization [facility] Address [address] [place] [address] Care Team Providers Care Product Management Intern Name Role Phone Fabien Jarrett MD Unavailable [phone] Jaqueline Rosas NP Unavailable [phone] Leo Jacobson MD Primary Care Provider + [phone] Simba Keating MD Unavailable [phone] Rah Reid MD Unavailable Bj Cox MD Unavailable Unavailable Leo Jacobson MD Primary Care Provider + [phone] Kyle Montenegro DO Primary Care Provider [phone] Irma Miller MD Unavailable Rah Reid MD Unavailable Simba Keating MD Unavailable [phone] Abdirahman Mcghee APRN Unavailable [phone] Jamil Flanagan MD Unavailable [phone] Vera Rice MD Unavailable [phone] Encounter Details Date Type Department Care Team (Late st Contact Info) Description 04/17/2015 Abstract [facility] [address] [place] [address] Fabien Jarrett MD [address] [place] [address], [address] [place], [place] [id number] Social History Tobacco Use Types Packs/Day Years Used Date Smoking Tobacco: Former Smokeless Tobacco: Never Alcohol Use Standard Drinks/Week Comments No 0 (1 standard drink = 0.6 oz pur e alcohol) Comments Unknown Sex and Gender Information Value Date Recorded Sex Assigned at Female 09/21/2024 8:52 AM CDT Legal Sex Female 9:27 PM CDT Gender Identity Female 09/18/2021 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 Sexual Orientation Not on file Occupation Industry Job Start Date Job End Date Disability Not on file Not on file Not on file documented as of this encounter Plan of Treatment Upcoming Encounters Date Type Department Care Team (Late st Contact Info) Description 02/26/2025 2:20 PM CDT Appointment [facility] [address] [place] [address] Abdirahman Mcghee, SAP HANA ARCHITECT [address] [place] [phone] 02/26/2025 3:15 PM CDT Office Visit [facility] eld [address] [place] [phone] Simba Keating MD [address] [facility], [address] [place] [address] documented as of this encounter Visit Diagnoses Not on filedocumented in this encounter Additional Health Concerns Infection Onset Date Last Indicated Resolved Time COVID-19 Rule Out 11/24/2022 11/24/2022 11/24/2022 2:05 PM CDT documented as of this encounter Care Teams Product Management Intern Relationship Specialty Start Date End Date Leo Jacobson MD [address] [place] [address] PCP - General FAMILY PRACTICE 11/03/16 08/20/19 Leo Jacobson MD [address] [place] [address] PCP - General FAMILY PRACTICE 08/21/19 08/21/19 Kyle Montenegro DO [address] [place] [address] PCP - General FAMILY PRACTICE 08/22/19 Fabien Jarrett MD CARDIOVASCULAR DISEASE 06/02/16 07/19/18 Jaqueline Rosas NP [address] [place], [place] [address] [place] [phone] [employer] Manager Agricultural NURSE PRACTITIONER 11/03/16 07/19/18 Simba Keating MD [address] [place] [address] CARDIOVASCULAR DISEASE 09/09/17 11/17/20 Rah Reid MD [address] [place] [address] Vascular/Manager Agricultural INTERNAL MEDICINE 05/18/18 Bj Cox MD [address] [place] [address] [employer] Manager Agricultural INTERVENTIONAL CARDIOLOGY 07/20/18 11/17/20 Irma Miller MD [address] [place] [address] Consulting Physician CARDIOVASCULAR DISEASE 11/18/20 Rah Reid MD [address] [place] [address] Vascular/Manager Agricultural INTERNAL MEDICINE 12/01/21 Simba Keating MD [address] [place] [address] Consulting Physician INTERVENTIONAL CARDIOLOGY 05/11/22 Abdirahman Mcghee APRN [address] [place] [address] Nurse Practitioner NURSE PRACTITIONER 05/21/22 Jamil Flanagan MD [address] [place] [address] Consulting Physician INTERNAL MEDICINE 04/22/23 Vera Rice MD [address] [place] [address] SURGERY 04/22/23 documented as of this encounter
--- OUTSIDE RECORDS SUMMARY | 2024-11-09 11:33 | XMS_ITS | Clinical Summary ---
Author Organization [facility] Address [address] [place] [address] Care Team Providers Care Marine Fuel Dock Attendant Name Role Phone Kyle Montenegro Primary Care Provider [phone] Rah Reid MD Unavailable Simba Keating MD Unavailable [phone] Abdirahman Mcghee APRN Unavailable [phone] Sera Fisher MD Unavailable [phone] Vera Rice MD Unavailable [phone] Medications aspirin 81 MG tablet Aspirin 81 [...] aneurysm repair 02/23/2023 Acute hypoxemic respiratory failure ([facility]) 11/24/2022 (aortic stenosis) 10/02/2020 Pain of right lower extremity 06/11/2020 Palpitation 08/21/2019 Tobacco abuse 08/21/2019 Hypercholesterolemia 10/04/2018 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 Bilateral carotid bruits 10/03/2018 Other closed fracture of pro ximal end of left fibula, sequela 01/06/2017 COPD (chronic obstructive pu lmonary disease) ([facility]) 06/03/2016 Essential hypertension AAA (abdominal aortic aneurysm) Innominate artery stenosis PAD (peripheral artery disease) Resolved Problems Problem Noted Date Diagnosed Date Resolved Date Ruptured aneurysm of thoraci c aorta ([facility]) 02/23/2023 02/23/2023 High blood cholesterol 02/11/201710/04 Aortic dissection, thoracoabdominal 10/03/2018 Overview (06/02/2016): S-P ThoracicAortic Stent Graft, Bilateral common iliac stents () Encounters Date Type Department Care Team Description 10/06/2024 Transcribe Orders [facility] Pre Access Team [address] [place] [address] Danie Navarro MD 09/21/2024 8:52 AM CDT - 09/21/2024 11:59 PM CDT Hospital Encounter [facility] [address] [place] [address] Sera Fisher MD Discharge Disposition: Home or Self Care (Routine Discharge) 09/21/2024 Travel 09/13/2024 Telephone [facility] [address] [place] [address] Abdirahman Mcghee APRN Called To Cancel Office Appt. 09/06/2024 [facility] [address] [place] [phone] Abdirahman Mcghee APRN Problem from Last 3 Months Immunizations Immunization Administration Dates Next Due Influenza (Generic) 05/04/2014 [...] place to sleep or slept in a retirement (including now)? 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, [address] [place] [address] Health Maintenance Due Date Last Done Comments ASCVD Statin 1955 Colorectal Cancer Screening Colonoscopy (10 Years) 1955 Hepatitis C 1973 DTaP, Tdap and Td Vaccines (1 - Tdap) 1974 Zoster Vaccines (1 of 2) 2005 RSV Immunization or 60+ Years (1 - Risk 60-74 years 1-dose series) 2015 Mammogram Screening 05/21/2017 05/21/2015, 10/18/2012, 05/05/2012 Pneumococcal Vaccine: 50+ Years (3 of 3 - PCV20 or PCV21) 12/13/2019 12/12/2014, 06/19/2014 Annual Medicare Wellness Visit 2020 Dexa Scan (General) 2020 COVID-19 Vaccine ( season) 2024 Lung Cancer Screening 09/21/2025 09/21/2024 , 05/16/2024, [...] home upon discharge Lifestyle No Leti Gupta, vision impaired teacher Procedure Name Priority Date/Time Associated Diagnosis Comments [...] 10:18 AM Narrative 09/21/2024 11:14 AM CDT [address] [place] [address] Examination: CT CHEST WO CON Clinical Information: [...] Procedure Note Young Yi MD - 09/21/2024 [facility] [address] [facility] [address] [place] [address] Examination: CT CHEST WO CON Clinical Information: [...] Result from Last 3 Months Insurance [facility] [address] MEDICAID [facility] Advance Directives * Full Code (Latest Code Status on File) Date Activated Date Inactivated Comments 11/24/2022 12:16 PM 11/30/2022 2:43 PM Care Teams Marine Fuel Dock Attendant Relationship Specialty Start Date End Date Kyle Montenegro DO [facility] [place] [address] PCP - General FAMILY PRACTICE 08/22/19 Rah Reid MD [address] [place] [address] Vascular/Inspector [employer] INTERNAL MEDICINE 12/01/21 Simba Keating MD [address] [place] [address] Consulting Physician INTERVENTIONAL CARDIOLOGY 05/11/22 Abdirahman Mcghee APRN [address] [place] [address] Nurse Practitioner NURSE PRACTITIONER 05/21/22 Sera Fisher MD [address] [place] [address] Consulting Physician INTERNAL MEDICINE 04/22/23 Vera Rice MD [address] [place] [address] SURGERY 04/22/23
--- OUTSIDE RECORDS SUMMARY | 2024-11-09 11:33 | XMS_ITS | Clinical Summary ---
Author Organization [facility] Address [address] [place] [address] Phone Care Team Providers Care Hospital Nursing Assistant Name Role Phone Kyle Montenegro MD Primary Care Provider [phone] Allergies No known active allergies Medications citalopram (CeleXA) 10 MG Tablet Take 10 mg by mouth daily. Active aspirin EC 81 MG Tablet Delayed Response Take 81 mg by mouth daily. Active Calcium Carbonate (CALCIUM 600 PO) Take by mouth. Activ e VITAMIN D PO Take by mouth. Ac tive Multiple Vitamin (MULTIVITAMIN PO) Take by mouth. Activ e [place]-3 Fatty Acids (FISH OIL PO) Take by mouth. Activ e atorvastatin (LIPITOR) 40 MG Tablet Take 40 mg by mouth daily. Active clobetasol (TEMOVATE) 0.05 % Cream Apply 2 times daily. Application Site (Description and Location) Active HYDROcodone-rachel taminophen (NORCO) 10-325 MG Tablet Take 1 Tablet by mouth every 6 hours as needed. Active hydroCHLOROthia zide 25 MG Tablet Take 25 mg by mouth daily. Active busPIRone (BUSPAR) 15 MG Tablet Take 15 mg by mouth 3 times daily. Active albuterol (PROVENTIL, VENTOLIN) (2.5 MG/3ML) 0.083% Nebulizer Soln 2.5 mg by Nebulization route every 4 hours as needed. Active amLODIPine (NORVASC) 5 MG Tablet Take 5 mg by mouth daily. Active furosemide (LASIX) 20 MG Tablet Take 20 mg by mouth daily. Active alendronate (Fosamax) 70 MG Tablet Take 70 mg by mouth every 7 days. Active Fluticasone-Ume clidin-Vilant (TRELEGY ELLIPTA IN) take by inhalation. Active pregabalin (LYRICA) 75 MG Capsule Take 75 mg by mouth 3 times daily. Active metoprolol Succinate (TOPROL-XL) 50 MG TABLET SR 24 HR Take 50 mg by mouth daily. Active pantoprazole (PROTONIX) 40 MG Tablet Delayed Response Take 40 mg by mouth daily. Active gabapentin (NEURONTIN) 600 MG Tablet Take 600 mg by mouth 3 times daily. Active Family History Medical History Relation Name Comments Cancer Father Congestive Heart Failure Mother Relation Name Status Comments Father Mother Social History Tobacco Use Types Packs/Day Years Used Date Smoking Tobacco: Every Day Cigarettes Smokeless Tobacco: Never Tobacco Cessation:Ready to Q uit: Not Asked; Counseling Given: Not Answered Alcohol Use Standard Drinks/Week Comments Yes 0 (1 standard drink = 0.6 oz pur e alcohol) 1 glass wine per year Comments Unknown Sex and Gender Information Value Date Recorded Sex Assigned at Not on file Legal Sex Female 12:40 AM CDT Gender Identity Not on file Sexual Orientation Not on file Plan of Treatment Upcoming Encounters Date Type Department Care Team (Late st Contact Info) Description 11/09/2024 3:30 PM CDT Office Visit [facility] [address] [place] [address] Sharad Faulkner MD [address] [place] [address] Health Maintenance Due Date Last Done Comments DEXA Bone Density 1955 Hepatitis C Virus (HCV) Screening 1955 Mammogram 1955 TdaP Immunization 1955 Colonoscopy 2000 Colorectal Cancer Screening 2000 Cologuard 2005 Immunochemical Fecal Occult Blood 2005 Zoster Immunization (1 of 2) 2005 SARS-COV-2 Immunization ( season) 2024 11/01/2020, 10/04/2020 Influenza Immunization (Season Ended) 2025 08/19/2023, 04/30/2022, 09/08/2021, Additional history exists Respiratory Syncytial Virus (RSV) Immunization (Adult) (1 - 1-dose 75+ series) 2030 Pneumococcal Immunization (50+ years) Completed 10/26/2024, 08/19/2023, 12/12/2014, Additional history exists Hepatitis B Immunization Aged Out No longer eligible based on patient's age to complete this topic Meningococcal Immunization (ACWY) Aged Out No longer eligible based on patient's age to complete this topic Rotavirus Immunization Aged Out No lo nger eligible based on patient's age to complete this topic Insurance MEDICARE C [facility] on file MEDICAID [place] Care Teams Hospital Nursing Assistant Relationship Specialty Start Date End Date Kyle Montenegro MD [address] [place] [address] PCP - General Family Medicine 10/31/24
--- OUTSIDE RECORDS SUMMARY | 2024-11-09 11:33 | XMS_ITS | Clinical Summary ---
Author Organization [facility] Address [address] [place] [address] Care Team Providers Care Mouthpiece Maker Name Role Phone Papo Ambriz MD Primary Care Provider [phone] Source Comments [facility],non-owned Affiliates and Associated Physician Practices is amultiple site organization consisting of ambulatory clinics and hospital sitesin [place], [place], [place] and [place]. This disclosure is being madepursuant to the Care Everywhere program and may not contain all information available regarding this patient. Last updated 18.[facility] Allergies No known active allergies Medications * Be aware that medications may not be up to date on this document. Alwaysverify current medications with the patient. Calcium Carbonate (CALCIUM 500 PO) 2 times daily. Active Multiple Vitamin (MULTIVITAMINS PO) once daily. Active LOVAZA PO 3 times daily. Active LORAZEPAM PO 2 times daily. Active atenolol (TENORMIN) 100 MG tablet 2 times daily. Active ranitidine (ZANTAC) 150 MG tablet 2 times daily. Active citalopram (CELEXA) 40 MG tablet once daily. Active hydrochlorothiaz philly (HYDRODIURIL) 12.5 MG TABS once daily. Activ e simvastatin (ZOCOR) 40 MG tablet once daily. Active ALBUTEROL IN 4 times daily as needed. Active Tiotropium [place] Monohydrate (SPIRIVA HANDIHALER IN) once daily. Act addis aspirin 81 MG tablet once daily. Active gabapentin (NEURONTIN) 300 MG capsule Take 300 mg by mouth 3 times daily Active busPIRone (BUSPAR) 10 MG tablet Take 10 mg by mouth 3 times daily Active hydrocodone-acet aminophen (NORCO) 10-325 MG tablet Take 1 Tab [...] = 0.6 oz pur e alcohol) Comments No Sex and Gender Information Value Date Recorded Sex Assigned at Not on file Legal Sex Female 2:12 PM TIP SCOURER Gender Identity Not on file Sexual Orientation [...] MAMMOGRAM 05/21/2017 05/21/2015, 05/05/2012 COVID-19 VACCINE ( season) 2024 DEPRESSION SCREENING 07/12/2024 MEDICARE AWV CALENDAR YEAR 2024 INFLUENZA VACCINE (Season Ended) 2025 05/12/2016, 03/14/2015, 05/04/2014, Additional history exists HEPATITIS B VACCINE Aged Out No longe [...] MAMMO BILAT DIAGNOSTIC Routine 05/21/2015 1:58 PM TIP SCOURER Breast cyst, left from Last 3 Months or Most Recently Relevant to Health Maintenance Results * MAMMO DIAG DIRECT DIGITAL IMAGE BILA (05/21/2015 1:58 PM TIP SCOURER) Anatomical Region Laterality Modality Bilateral Mammography 05/21/2015 5:00 PM TIP SCOURER Impressions 05/21/2015 5:03 PM TIP SCOURER 1. No evidence of malignancy in either [...] participate in the care of your patient. [facility] utilizes [employer] as a reminder system to notify patients of their next recommended mammogram. Narrative 05/21/2015 5:03 PM TIP SCOURER EXAMINATION: Digital bilateral diagnostic mammogram and targeted [...] masses with circumscribed margins are unchanged from 2011. Targeted ultrasound was performed at 11:00 in the left breast, 4 cm from the nipple, in location of previously identified probably benign mass. There is an unchanged oval hypoechoic mass measuring 1.1 x 1.1 x 0.4 cm, not significantly changed in size or morphology compared with the previous ultrasound in October 2012. us Vera Rice MD MAMMO ORDERABLES Final Resu lt from Last 3 Months or Most Recently Relevant to Health Maintenance Insurance [facility] MANAGED MEDICARE ADV [address] [place] [id number] Care Teams Mouthpiece Maker Relationship Specialty Start Date End Date Papo Ambriz MD PCP - General Internal Medicine 10/14/12
--- OUTSIDE RECORDS SUMMARY | 2024-11-09 11:33 | XMS_ITS | Encounter Summary ---
Author Organization [facility] Address [facility] [place] [address] Care Team Providers Care Risk Management Specialist Name Role Phone Leo Jacobson MD Primary Care Provider [phone] Simba Keating MD Unavailable [phone] Rah Reid MD Unavailable Bj Cox MD Unavailable Unavailable Leo Jacobson MD Primary Care Provider [phone] Kyle Montenegro DO Primary Care Provider [phone] Irma Miller MD Unavailable Rah Reid MD Unavailable Simba Keating MD Unavailable [phone] Abdirahman Mcghee APRN Unavailable [phone] Jamil Flanagan MD Unavailable [phone] Vera Rice MD Unavailable [phone] Encounter Details Date Type Department Care Team (Late st Contact Info) Description 12/17/2018 Abstract [facility] CONVERSION [address] [place] [address] , Generic Conversion, Social History [...] CDT Gender Identity Female 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 Sexual Orientation Not on file Occupation Industry Job Start Date Job End Date Disability Not on file Not on file Not on file Not on file Not on file Not on file Not on file documented as of this encounter Plan of Treatment Upcoming Encounters Date Type Department Care Team (Late st Contact Info) Description 02/26/2025 2:20 PM CDT Appointment [facility] [address] [place] [address] Abdirahman Mcghee, MUSIC STORE MANAGER [address] [place] [phone] 02/26/2025 3:15 PM CDT [facility] [address] [place] [phone] Simba Keating MD [address] [facility] [place], [address] [place], [place] [id number] documented as of this encounter Visit Diagnoses Not on filedocumented in this encounter Additional Health Concerns Infection Onset Date Last Indicated Resolved Time COVID-19 Rule Out 11/24/2022 11/24/2022 11/24/2022 2:05 PM CDT documented as of this encounter Care Teams Risk Management Specialist Relationship Specialty Start Date End Date Leo Jacobson MD [address] [place] [address] PCP - General FAMILY PRACTICE 11/03/16 08/20/19 Leo Jacobson MD [address] [place] [address] PCP - General FAMILY PRACTICE 08/21/19 08/21/19 Kyle Montenegro DO [address] [place] [address] PCP - General FAMILY PRACTICE 08/22/19 Simba Keating MD [address] [place] [phone] CARDIOVASCULAR DISEASE 09/09/17 11/17/20 Rah Reid MD [address] [place] [phone] Vascular/Business Operations Analyst INTERNAL MEDICINE 05/18/18 Bj Cox MD [address] [place] [address] Business Operations Analyst INTERVENTIONAL CARDIOLOGY 07/20/18 11/17/20 Irma Miller MD [address] [place] [phone] Consulting Physician CARDIOVASCULAR DISEASE 11/18/20 Rah Reid MD [address] [place] [address] Vascular/Business Operations Analyst INTERNAL MEDICINE 12/01/21 Simba Keating MD [address] [place] [address] Consulting Physician INTERVENTIONAL CARDIOLOGY 05/11/22 Abdirahman Mcghee APRN [address] [place] [phone] Nurse Practitioner NURSE PRACTITIONER 05/21/22 Jamil Flanagan MD [address] [place] [address] [phone] Consulting Physician INTERNAL MEDICINE 04/22/23 Vera Rice MD [facility] [address] [address] SURGERY 04/22/23 documented as of this encounter
== END 2024-11-09 10:40 | disposition home or self-care (01) ==
LOC: CHSIMG 10:39
PROVIDERS: PCP Family Medicine; Visit Provider Family Medicine
DX: G95.9 Disease of spinal cord, unspecified (principal); M43.06 Spondylolysis, lumbar region
CPT/HCPCS: 70551; 72148

== ENCOUNTER 2024-12-10 12:50 | Emergency (ER) | payer MEDICARE, MEDICAID, SELFPAY ==
--- OUTSIDE RECORDS SUMMARY | 2024-12-11 07:43 | XMS_ITS | Continuity of Care Document ---
Author Organization [facility] Address [id number] [place] [address] [address] [place] [address] Phone Care Team Providers Care Track Manager Name Role Phone Morgan OD, Jeremias Unavailable Unavailable Procedures Procedure Date No Charge Contact Lens Check CL Replacement - Vistakon Disp W/BW Soft Tax - Medical Contact Lens Fitting Office Consultation Eye Exam & Treatment Advance Directives Directive Yes / No Effective Date File Name No Information Encounters Encounter Description Practice Location Reason(s) For Visit Diagnoses Date Provider Providers Copied on Encounter [facility], [address] [place] [address] [address], [place], [place], [id number], [place] tel:[phone] [facility] No Information 6-200 8 Morgan OD Jeremias. [address] , [address], [place], [place], [facility], . tel:[phone] [facility], [address] [place] [address] [address], [place], [place], [id number], [place] tel:[phone] [facility] No Information 3-200 8 Morgan OD Jeremias. [address] , [address], [place], [address], [place]. tel:[phone] Referring Provider: Jones Rosas, [address] [place], [address]. tel:[phone] [facility], [address] [place] [address] [address], [place], [place], [id number], [place] tel:[phone] [facility] No Information 200 8 Alison Pedroza. [address] [facility], [place], [address], [place]. tel:[phone] Referring Provider: Mila Holguin [address], [place], [place], [facility]. tel:[phone] [facility], [address], [place], [place], [id number], tel:[phone] [facility] No Information 8 Jenny Zaragoza. [address] , [address], [place], [address], [place]. tel:[phone] Family History Family Member Type Diagnosis Age At Onset No Information Payers Payer name Insurance type Covered libertarian ID Authoriza tion(s) Medicare [facility] [id number] Social History Type Description Quantity Date Captured [...]
--- OUTSIDE RECORDS SUMMARY | 2024-12-11 07:43 | XMS_ITS | Data Portability ---
Author Organization [facility], [address] [place] [address] Neurology ([place]) Address [address] [address] Assessment Encounter Date Assessment Date Assessment LastModified [...] naive, so I recommended we proceed with Boastify MindPx to determine which biologic class she would most likely respond to. MindPx sample obtained from occipital scalp/hairline. We will await results and proceed accordingly. Patient voiced understanding of education/certified genetic counselor ing provided. Follow up in 4-6 [...] naive, so I recommended we proceed with Boastify MindPx to determine which biologic class she would most likely respond to. MindPx sample obtained from occipital scalp/hairline. We will await results and proceed accordingly. #[place] LOCATION: right medial cheek #[place] LOCATION: right medial cheek we will remove these at f/u if symptomatic. Patient voiced understanding of education/certified genetic counselor ing provided. Follow up in 3 [...] shot series. 6. Schedule bone densitometry at [facility] near her home. 7. Counseled the patient today about the importance of smoking cessation. 8. COSENTYX dosing per Dermatology. 9. Followup visit in 4 months in [place]. angelique Not available 08/14/2024 17:30:09 Plan of Treatment Reminders Order Date Submit Date Provider Last Modified By Organization Details Last Modified Time Details Appointments Laine perea Patient 15.EST 2024 10:30A M Dr. Santy Brooks Not available Not available Not available Laine perea Patient 10.EST 2024 02:40P M Dr. Julio Hernandez Not available Not available Not available New Patient Visit 15.NEW 2024 01:30P M YOBANI MARTINEZ Not available Not available Not available Lab arthrit is panel 2024 025 [email or web address], [address] [place] [address], [id number], 08/14/2024 18:04:59 CMP, serum or plasma 2024 025 [facility], [address] [place] [address], 92917, 08/14/2024 18:29:24 ESR (erythr ocyte sedimen tation rate), blood 2024 025 [email or web address] [facility], [address] [place] [address], [id number], 08/21/2024 09:18:57 C-react addis protein , quantit ative, serum or plasma 2024 025 [place] [facility], [address] [place] [address], 86794, 08/14/2024 18:11:57 CBC w/ auto diff 2024 025 [facility], [address] [place] [address], 45787, 08/14/2024 17:38:48 [id number] , blood 2024 025 [email or web address], [address] [place] [address], 61844, 08/17/2024 18:37:52 CBC w/ auto diff 2023 024 [email or web address] [facility], [address] [place] [address], 47636, 06/05/2024 23:17:57 CMP, serum or plasma 2023 024 [email or web address] [facility], [address] [place] [address], 60976, 06/05/2024 23:17:57 HBsAg (hepati tis B surface Ag), serum 2023 024 [email or web address] [facility], [address] [place] [address], 83074, 06/05/2024 23:17:57 hepatit is B surface Ab, qualita tive, serum 2023 024 [email or web address] [facility], [address] [place] [address], 59994, 06/05/2024 23:17:57 Hepatit is B virus core Ab, qual immunoa ssay, serum or plasma 2023 024 [email or web address] [facility], [address] [place] [address], 62084, 06/05/2024 23:17:57 TB (M tubercu losshira), IFN-andi ma+bryan gen-andi ma, blood 2023 024 [email or web address] [facility], [address] [place] [address], 49783, 06/29/2024 09:08:44 HIV 1+2 Ab + HIV 1 p24 Ag, panel, IA, serum or plasma 2023 024 [email or web address] [facility], [address] [place] [address], 73707, 06/05/2024 23:17:57 hepatit is C Ab, serum 2023 024 [email or web address] [facility], [address] [place] [address], 93034, 06/05/2024 23:17:57 Referral rheumat ologist referra l - Referra l to Rheumat ology due to joint pain or joint stiffne ss- to rule out psoriat ic arthrit is [email or web address] [facility] ([facility]), [address] [place] [address], [address] [place] [address], [place], [address], 06/26/2024 10:29:17 Procedures None recorde d. Surgeries None recorde d. Imaging None recorde d. Medication Orders Cosenty x UnoRead y Pen 300 mg/2 mL subcuta neous pen injecto r 2024 025 Not available 08/04/2024 15:10:18 Skyrizi 150 mg/mL subcuta neous pen injecto r 2023 024 [email or web address] [facility], [address], [address], 08/14/2024 14:07:12 Zoryve 0.3 % topical cream 2023 024 [email or web address] [facility], [address], [address], 08/14/2024 14:07:26 clobeta luis carlos 0.05 % scalp solutio n 2023 024 [email or web address] [facility] [place], [address] [facility] [address], [place], [address], 08/14/2024 14:06:03 ketocon azole 2 % shampoo 2023 024 [email or web address] [facility] [place], [address] [facility] [address], [place], [address], 08/14/2024 14:06:53 Patient TargetsNo targets recorded. Patient InstructionsNo instructions recorded. Reason for Referral Manufacturing Team Member Referral for Psoriasis of scalp Referral to [...] Not Available [facility] [address] [place] [address], 16026, 06/01/2024 18:06:29 06/01/20 24 06/01/2024 CBC w/ auto diff WBC 9.7 K/uL 3.8-11 .2 Not Available [facility] [address] [place] [address], 65773, 06/01/2024 18:06:29 06/01/20 24 06/01/2024 CBC w/ auto diff RBC 5.33 M/uL 3.92-5 .10 high Not Available [facility] [address] [place] [address], 76478, 06/01/2024 18:06:29 06/01/20 24 06/01/2024 CBC w/ auto diff HGB 15.2 g/dL 11.8-1 5.3 Not Available [facility] [address] [place] [address], 04915, 06/01/2024 18:06:29 06/01/20 24 06/01/2024 CBC w/ auto diff HCT 45.6 % 36.5-4 4.8 high Not Available [facility] [address] [place] [address], 61325, 06/01/2024 18:06:29 06/01/20 24 06/01/2024 CBC w/ auto diff MCV 85.6 fL 80.0-9 9.0 Not Available [facility] [address] [place] [address], 16790, 06/01/2024 18:06:29 06/01/20 24 06/01/2024 CBC w/ auto diff MCH 28.5 pg 25.5-3 3.6 Not Available [facility] [address] [place] [address], 51848, 06/01/2024 18:06:29 06/01/20 24 06/01/2024 CBC w/ auto diff MCHC 33.3 g/dL 32.0-3 6.0 Not Available [facility] [address] [place] [address], 60795, 06/01/2024 18:06:29 06/01/20 24 06/01/2024 CBC w/ auto diff RDW-SD 43.6 fL 35.1 - 46.3 Not Available [facility] [address] [place] [address], 39632, 06/01/2024 18:06:29 06/01/20 24 06/01/2024 CBC w/ auto diff plt 225 K/uL 130-40 0 Not Available [facility] [address] [place] [address], 95425, 06/01/2024 18:06:29 06/01/20 24 06/01/2024 CBC w/ auto diff MPV 12.0 fL 9.3-12 .8 Not Available [facility] [address] [place] [address], 70162, 06/01/2024 18:06:29 06/01/20 24 06/01/2024 CBC w/ auto diff jana% 66.1 % not estab Not Available [facility] [address] [place] [address], 32452, 06/01/2024 18:06:29 06/01/20 24 06/01/2024 CBC w/ auto diff lym% 20.1 % not estab Not Available [facility] [address] [place] [address], 36694, 06/01/2024 18:06:29 06/01/20 24 06/01/2024 CBC w/ auto diff mono% 7.7 % not estab Not Available [facility] [address] [place] [address], 14606, 06/01/2024 18:06:29 06/01/20 24 06/01/2024 CBC w/ auto diff eos% 4.9 % not estab Not Available [facility] [address] [place] [address], 17720, 06/01/2024 18:06:29 06/01/20 24 06/01/2024 CBC w/ auto diff baso% 0.7 % not estab Not Available [facility] [address] [place] [address], 13348, 06/01/2024 18:06:29 06/01/20 24 06/01/2024 CBC w/ auto diff abs jana 6.4 K/uL 1.8-7. 5 Not Available [facility] [address] [place] [address], 55947, 06/01/2024 18:06:29 06/01/20 24 06/01/2024 CBC w/ auto diff abs lym 2.0 K/uL 1.1-3. 3 Not Available [facility] [address] [place] [address], 46294, 06/01/2024 18:06:29 06/01/20 24 06/01/2024 CBC w/ auto diff abs mono 0.8 K/uL 0.1-1. 0 Not Available [facility] [address] [place] [address], 72260, 06/01/2024 18:06:29 06/01/20 24 06/01/2024 CBC w/ auto diff abs eos 0.5 K/uL 0.0-0. 7 Not Available [facility] [address] [place] [address], 11058, 06/01/2024 18:06:29 06/01/20 24 06/01/2024 CBC w/ auto diff abs baso 0.1 K/uL 0.0-0. 2 Not Available [facility] [address] [place] [address], 58342, 06/01/2024 18:06:29 06/01/20 24 06/01/2024 CBC w/ auto diff imm. gran % 0.5 % 0-5 Not Available [facility] [address] [place] [address], 69929, 06/01/2024 18:06:29 06/01/20 24 06/01/2024 CBC w/ auto diff NRBC % 0.0 % 0.0-0. 2 Not Available [facility] [address] [place] [address], 04187, 06/01/2024 18:06:29 06/01/20 24 06/01/2024 CMP, serum or plasm a comp. met. panel Not Available [facility] [address] [place] [address], 20091, 06/01/2024 18:20:54 06/01/20 24 06/01/2024 CMP, serum or plasm a sodium 142 mmol/ L 136-14 6 Not Available [facility] [address] [place] [address], 28813, 06/01/2024 18:20:54 06/01/20 24 06/01/2024 CMP, serum or plasm a potassium 3.5 mmol/ L 3.5-5. 1 Not Available [facility] [address] [place] [address], 85833, 06/01/2024 18:20:54 06/01/20 24 06/01/2024 CMP, serum or plasm a chloride 100 mmol/ L 98-110 Not Available [facility] [address] [place] [address], 95051, 06/01/2024 18:20:54 06/01/20 24 06/01/2024 CMP, serum or plasm a CO2 37 mEq/L 20-32 high Not Available [facility] [address] [place] [address], 71312, 06/01/2024 18:20:54 06/01/20 24 06/01/2024 CMP, serum or plasm a anion gap 9 mmol/ L 10-22 low Not Available [facility] [address] [place] [address], 37220, 06/01/2024 18:20:54 06/01/20 24 06/01/2024 CMP, serum or plasm a glucose 109 mg/dL 70-100 high Not Available [facility] [address] [place] [address], 55942, 06/01/2024 18:20:54 06/01/20 24 06/01/2024 CMP, serum or plasm a calcium 10.5 mg/dL 8.4-10 .4 high Not Available [facility] [address] [place] [address], 03395, 06/01/2024 18:20:54 06/01/20 24 06/01/2024 CMP, serum or plasm a total protein 7.3 g/dL 6.4-8. 3 Not Available [facility] [address] [place] [address], 48423, 06/01/2024 18:20:54 06/01/20 24 06/01/2024 CMP, serum or plasm a albumin 4.2 g/dL 3.5-5. 3 Not Available [facility] [address] [place] [address], 03668, 06/01/2024 18:20:54 06/01/20 24 06/01/2024 CMP, serum or plasm a ALP 88 U/L 44 - 127 Not Available [facility] [address] [place] [address], 19855, 06/01/2024 18:20:54 06/01/20 24 06/01/2024 CMP, serum or plasm a AST (SGOT) 19 U/L 10-40 Not Available [facility] [address] [place] [address], 10675, 06/01/2024 18:20:54 06/01/20 24 06/01/2024 CMP, serum or plasm a total bilirubin 0.4 mg/dL 0.2-1. 0 Not Available [facility] [address] [place] [address], 83729, 06/01/2024 18:20:54 06/01/20 24 06/01/2024 CMP, serum or plasm a ALT (SGPT) 23 U/L 8-35 Not Available [facility] [address] [place] [address], 29751, 06/01/2024 18:20:54 06/01/20 24 06/01/2024 CMP, serum or plasm a BUN 26 mg/dL 7-21 high Not Available [facility] [address] [place] [address], 29759, 06/01/2024 18:20:54 06/01/20 24 06/01/2024 CMP, serum or plasm a creatinine 1.5 mg/dL 0.7-1. 3 high Not Available [facility] [address] [place] [address], 20832, 06/01/2024 18:20:54 06/01/20 24 06/01/2024 CMP, serum or plasm a GFR(non-afri can estonian) 37 Not Available [facility] [address] [place] [address], 24127, 06/01/2024 18:20:54 06/01/20 24 06/01/2024 CMP, serum or plasm a GFR() 44 (WORKFORCE INVESTMENT ACT CAREER MANAGER ORI KIDNE Y DISEA SE HAS A GFR LESS THAN 60 ML/W[place] N/1.7 3 MM FOR A PERIO D OF THREE MONTH S OR MORE. ) Not Available [facility] [address] [place] [address], 15535, 06/01/2024 18:20:54 06/01/20 24 06/01/2024 HBsAg (hepa titis B surfa ce Ag), serum hepatitis B surface Ag NONREA CTIVE nonrea ctive Not Available [facility] [address] [place] [address], 16361, 06/01/2024 18:29:55 06/01/20 24 06/01/2024 HIV 1+2 Ab + HIV 1 p24 Ag, panel , IA, serum or plasm a HIV Ag/Ab 1-2 combo NONREA CTIVE nonrea ctive Not Available [facility] [address] [place] [address], 69300, 06/01/2024 18:43:05 06/01/20 24 06/01/2024 hepat itis C Ab, serum hepatitis C Ab NONREA CTIVE nonrea ctive Not Available [facility] [address] [place] [address], 46630, 06/01/2024 18:49:45 06/01/20 24 06/02/2024 hepat itis [...] to infec tion with HBV. Not Available [facility] [address] [place] [address], 25117, 06/02/2024 07:41:57 06/01/20 24 06/02/2024 Hepat itis B virus core Ab, qual immun oassa y, serum or plasm a hepatitis B core Ab NEGATI VE negati ve Not Available [facility] [address] [place] [address], 06547, 06/02/2024 07:41:59 06/01/20 24 06/05/2024 QUANT IFERO N TB GOLD quantiferon TB gold 0.00 IU/mL <=0.34 Not Available [facility] [address] [place] [address], 04980, 06/05/2024 14:25:46 06/01/20 24 06/05/2024 QUANT IFERO N TB GOLD quantiferon TB gold2 0.00 IU/mL <=0.34 Not Available [facility] [address] [place] [address], 24280, 06/05/2024 14:25:46 06/01/20 24 06/05/2024 QUANT IFERO [...] and diagn ostic findi ngs. Not Available [facility] - [facility] [address] [place] [address], 98571, 06/05/2024 14:25:46 08/14/19 25 08/14/2024 CBC w/ auto diff CBC with differential Not Available [facility] [address] [place] [address], 63036, 08/14/2024 17:38:48 08/14/19 25 08/14/2024 CBC w/ auto diff WBC 11.5 K/uL 3.8-11 .2 high Not Available [facility] [address] [place] [address], 04884, 08/14/2024 17:38:48 08/14/19 25 08/14/2024 CBC w/ auto diff RBC 5.69 M/uL 3.92-5 .10 high Not Available [facility] [address] [place] [address], 16876, 08/14/2024 17:38:48 08/14/19 25 08/14/2024 CBC w/ auto diff HGB 15.8 g/dL 11.8-1 5.3 high Not Available [facility] [address] [place] [address], 52894, 08/14/2024 17:38:48 08/14/19 25 08/14/2024 CBC w/ auto diff HCT 47.9 % 36.5-4 4.8 high Not Available [facility] [address] [place] [address], 84533, 08/14/2024 17:38:48 08/14/19 25 08/14/2024 CBC w/ auto diff MCV 84.2 fL 80.0-9 9.0 Not Available [facility] [address] [place] [address], 99355, 08/14/2024 17:38:48 08/14/19 25 08/14/2024 CBC w/ auto diff MCH 27.8 pg 25.5-3 3.6 Not Available [facility] [address] [place] [address], 12635, 08/14/2024 17:38:48 08/14/19 25 08/14/2024 CBC w/ auto diff MCHC 33.0 g/dL 32.0-3 6.0 Not Available [facility] [address] [place] [address], 39438, 08/14/2024 17:38:48 08/14/19 25 08/14/2024 CBC w/ auto diff RDW-SD 43.8 fL 35.1 - 46.3 Not Available [facility] [address] [place] [address], 73429, 08/14/2024 17:38:48 08/14/19 25 08/14/2024 CBC w/ auto diff plt 215 K/uL 130-40 0 Not Available [facility] [address] [place] [address], 16319, 08/14/2024 17:38:48 08/14/19 25 08/14/2024 CBC w/ auto diff MPV 11.8 fL 9.3-12 .8 Not Available [facility] [address] [place] [address], 73649, 08/14/2024 17:38:48 08/14/19 25 08/14/2024 CBC w/ auto diff jana% 61.7 % not estab Not Available [facility] [address] [place] [address], 62682, 08/14/2024 17:38:48 08/14/19 25 08/14/2024 CBC w/ auto diff lym% 23.9 % not estab Not Available [facility] [address] [place] [address], 64054, 08/14/2024 17:38:48 08/14/19 25 08/14/2024 CBC w/ auto diff mono% 8.6 % not estab Not Available [facility] [address] [place] [address], 71433, 08/14/2024 17:38:48 08/14/19 25 08/14/2024 CBC w/ auto diff eos% 4.6 % not estab Not Available [facility] [address] [place] [address], 94048, 08/14/2024 17:38:48 08/14/19 25 08/14/2024 CBC w/ auto diff baso% 0.9 % not estab Not Available [facility] [address] [place] [address], 06514, 08/14/2024 17:38:48 08/14/19 25 08/14/2024 CBC w/ auto diff abs jana 7.1 K/uL 1.8-7. 5 Not Available [facility] [address] [place] [address], 28844, 08/14/2024 17:38:48 08/14/19 25 08/14/2024 CBC w/ auto diff abs lym 2.7 K/uL 1.1-3. 3 Not Available [facility] [address] [place] [address], 81104, 08/14/2024 17:38:48 08/14/19 25 08/14/2024 CBC w/ auto diff abs mono 1.0 K/uL 0.1-1. 0 Not Available [facility] [address] [place] [address], 66619, 08/14/2024 17:38:48 08/14/19 25 08/14/2024 CBC w/ auto diff abs eos 0.5 K/uL 0.0-0. 7 Not Available [facility] [address] [place] [address], 01266, 08/14/2024 17:38:48 08/14/19 25 08/14/2024 CBC w/ auto diff abs baso 0.1 K/uL 0.0-0. 2 Not Available [facility] [address] [place] [address], 64861, 08/14/2024 17:38:48 08/14/19 25 08/14/2024 CBC w/ auto diff imm. gran % 0.3 % 0-5 Not Available [facility] [address] [place] [address], 33235, 08/14/2024 17:38:48 08/14/19 25 08/14/2024 CBC w/ auto diff NRBC % 0.0 % 0.0-0. 2 Not Available [facility] [address] [place] [address], 06942, 08/14/2024 17:38:48 08/14/19 25 08/14/2024 arthr itis panel uric acid 8.9 mg/dL 2.3-6. 6 high Not Available [facility] [address] [place] [address], 14176, 08/17/2024 17:21:01 08/14/19 25 08/14/2024 arthr itis panel sed rate 37 mm/HR 0 - 30 high Not Available [facility] [address] [place] [address], 72553, 08/17/2024 17:21:01 08/14/19 25 08/14/2024 arthr itis panel ccp antibody, IgG <0.54 U/mL <=4.9 Not Available [facility] [address] [place] [address], 35099, 08/17/2024 17:21:01 08/14/19 25 08/15/2024 arthr itis panel rf 5.0 IU/mL <3.5-1 4 Not Available [facility] [address] [place] [address], 59424, 08/17/2024 17:21:01 08/14/19 25 08/17/2024 arthr itis panel arthritis panel Not Available [facility] [address] [place] [address], 53917, 08/17/2024 17:21:01 08/14/19 25 08/17/2024 arthr itis panel EVANGELIST screen NEGATI VE negati ve Perfo rmed by Bio-R ad enzym e immun oassa y Not Available [facility] [address] [place] [address], 75555, 08/17/2024 17:21:01 08/14/19 25 08/14/2024 C-meeta ctive prote in, quant itati ve, serum or plasm a CRP high Not Available [facility] [address] [place] [address], 78524, 08/14/2024 18:11:57 08/14/19 25 08/14/2024 C-meeta ctive prote in, quant itati ve, serum or plasm a CRP 0.7 mg/dL <0.4-0 .5 high Not Available [facility] [address] [place] [address], 13452, 08/14/2024 18:11:57 08/14/19 25 08/14/2024 CMP, serum or plasm a comp. met. panel Not Available [facility] [address] [place] [address], 90388, 08/14/2024 18:29:24 08/14/19 25 08/14/2024 CMP, serum or plasm a sodium 140 mmol/ L 136-14 6 Not Available [facility] [address] [place] [address], 21484, 08/14/2024 18:29:24 08/14/19 25 08/14/2024 CMP, serum or plasm a potassium 3.7 mmol/ L 3.5-5. 1 Not Available [facility] [address] [place] [address], 05354, 08/14/2024 18:29:24 08/14/19 25 08/14/2024 CMP, serum or plasm a chloride 101 mmol/ L 98-110 Not Available [facility] [address] [place] [address], 93852, 08/14/2024 18:29:24 08/14/19 25 08/14/2024 CMP, serum or plasm a CO2 30 mEq/L 20-32 Not Available [facility] [address] [place] [address], 00576, 08/14/2024 18:29:24 08/14/19 25 08/14/2024 CMP, serum or plasm a anion gap 13 mmol/ L 10-22 Not Available [facility] [address] [place] [address], 22606, 08/14/2024 18:29:24 08/14/19 25 08/14/2024 CMP, serum or plasm a glucose 97 mg/dL 70-100 Not Available [facility] [address] [place] [address], 32134, 08/14/2024 18:29:24 08/14/19 25 08/14/2024 CMP, serum or plasm a calcium 10.4 mg/dL 8.4-10 .4 Not Available [facility] [address] [place] [address], 41678, 08/14/2024 18:29:24 08/14/19 25 08/14/2024 CMP, serum or plasm a total protein 7.8 g/dL 6.4-8. 3 Not Available [facility] [address] [place] [address], 25060, 08/14/2024 18:29:24 08/14/19 25 08/14/2024 CMP, serum or plasm a albumin 4.7 g/dL 3.5-5. 3 Not Available [facility] [address] [place] [address], 03477, 08/14/2024 18:29:24 08/14/19 25 08/14/2024 CMP, serum or plasm a ALP 86 U/L 44 - 127 Not Available [facility] [address] [place] [address], 06991, 08/14/2024 18:29:24 08/14/19 25 08/14/2024 CMP, serum or plasm a AST (SGOT) 18 U/L 10-40 Not Available [facility] [address] [place] [address], 62813, 08/14/2024 18:29:24 08/14/19 25 08/14/2024 CMP, serum or plasm a total bilirubin 0.5 mg/dL 0.2-1. 0 Not Available [facility] [address] [place] [address], 26620, 08/14/2024 18:29:24 08/14/19 25 08/14/2024 CMP, serum or plasm a ALT (SGPT) 19 U/L 8-35 Not Available [facility] [address] [place] [address], 64527, 08/14/2024 18:29:24 08/14/19 25 08/14/2024 CMP, serum or plasm a BUN 27 mg/dL 7-21 high Not Available [facility] [address] [place] [address], 98165, 08/14/2024 18:29:24 08/14/19 25 08/14/2024 CMP, serum or plasm a creatinine 1.4 mg/dL 0.7-1. 3 high Not Available [facility] [address] [place] [address], 57547, 08/14/2024 18:29:24 08/14/19 25 08/14/2024 CMP, serum or plasm a CKD-epi GFR 41 low eGFR was calcu lated using the 2020 CKD-E PI equat ion. (Chemical Engineer ori Kidne y Disea se has an eGFR less than 60 mL/mi n/1.7 3mm for a perio d of three month s or more. ) This calcu latio n has not been valid ated for patie nt ages <18 or >90 years old. Not Available [facility] [address] [place] [address], 47267, 08/14/2024 18:29:24 08/14/19 25 08/17/2024 hla-B 27, blood [id number], DNA typing Not Available [facility] [address], [address], 08/17/2024 18:37:52 08/14/19 25 08/17/2024 hla-B 27, [...] not neces jasiel. [facility] CLIA ID [id number] r [id number] This test was perfo rmed using Polym erase Chain React ion (PCR) and Seque nce Speci fic Oligo nucle otide Probe s (SSOP ) techn ique. Seque nce Based Typin g (SBT) may be used as a suppl ement al metho d when neces jasiel. If you have quest ions, pleas e call HLA custo lorenzo servi ce at [phone] or email at [email or web address]. Not Available [facility] Only [facility] [address], [address], 08/17/2024 18:37:52 05/08/20 24 11/01/2023 imagi ng/di agnos tic resul t No observ ation record ed. [email or web address] Not Available 22:50:54 08/14/19 25 08/14/2024 XR, hand [facility] [address] [place] [id number] Teleph one Name: Katelyn Roth [id number] am Date: 2024 Age: 69Phys ician: Ermias devlin MD, Timoth y : 1954Ex aminat ion: XR HANDS [...] 2:04 PM cc: Page PAGE 1 of [facility] 1 kiko Vt Only - [facility] [address] [place], [address], 08/20/2024 16:35:21 Result Notes None recorded. Problems Name Problem SNOMED Code Status Onset Date Resolution Date Notes Provider Name and Address Organization Details Recorded Time Psoriasis of scalp 966274241 Active 2023 Ching Guard null, [facility] 4 12:55:25 Psoriasis [id number] Active 2023 Ching [employer] null, [facility] 4 12:56:04 Milia 843213420 Active 2023 Ching Guard null, [facility] 4 12:43:58 Facial wart 792609182 Active 2023 Herrick Guard null, [facility] 4 12:44:04 Pain of multiple joints 62970759 Active 2024 Santy Brooks MD [address] [place], [address] [place] [address] 5 14:45:45 Generalized osteoarthri tis 801630854 Active 2024 Santy Brooks MD [address] [place] [address], [address], [facility] 5 14:45:53 Pain of bilateral hands 8016117649187 9109 Active 2024 [facility] 5 14:45:58 Peripheral sensory neuropathy 987158482 Active 2024 Santy Brooks MD [address] , [place], [address], [facility] 5 14:46:37 Postmenopau jesse osteoporosi s 378329201 Active 2024 [facility] 5 14:46:56 Seborrheic dermatitis 67258539 Active [address] [facility] 5 12:46:02 Inflamed seborrheic keratosis 731537065 Active [address] [facility] 5 12:47:49 Problem Notes None recorded. Procedures Surgical History Date Name Laterality Status Provider Name and Address Organization Details Recorded Time Prq card stent w/angio 1 vsl completed Not Available Health Note 08/08/2024 10:08:42 Colonoscopy with biopsy completed Not Available Health Note 08/08/2024 10:08:42 Total hip arthroplasty completed Not Available Health Note 08/08/2024 10:08:43 Imaging Results None recorded. Procedure Notes None recorded. Medical Equipment None [...] Not Available Not Available No t Available [place] 3 120 mg-180 mg-1000 mg capsule once [...] Not Available Not Available No t Available hydrocort isone 2.5 % topical cream Mix 1:1 with ketocona zole and apply to the face and external ears until clear, then use once weekly for [facility] 2024 active Not Available Not Available Not Avai lable alcohol swabs USE DIRECTED 08/14 completed Not [...] active Not Available Not Available Not Available ketoconaz ole 2 % topical cream Mix 1:1 with hydrocor tisone and apply to the face and external ears until clear, then use once weekly for [facility] 2024 active Not Available Not Available Not Avai lable clobetaso l 0.05 % scalp solution Apply [...] Not Available Not Available No t Available fluocinol one acetonide oil 0.01 % ear drops Apply 2-3 drops to both ear canals twice daily until clear, then use once weekly for maintena nce 2024 active Not Available Not Available Not Avai lable D3-2000 50 mcg (2,000 unit) capsule Take [...] given to pt in office. Lot Number: [id number] xp date: April 2025 Not Available Not [...] Avai lable Vitals Date Recorded Body height Heart rate Oxygen saturation Oxygen saturation in Arterial blood by Pulse oximetry Provider Name and Address Organization Details Last Updated DateTime 08/04/2024 177.8 cm 80 /min 95 % 95 % Estefani Fuentes [facility] 08/04/2024 14:48:10 Date Recorded Body height Body mass index (BMI) Body weight Heart rate Oxygen saturation Oxygen saturation in Arterial blood by Pulse oximetry Systolic blood pressure Diastolic blood pressure Provider Name and Address Organization Details Last Updated DateTime 5 177.8 cm 28 kg/m2 27446.1 5 g 80 /min 95 % 95 % 148 mm[Hg] 80 mm[Hg] Kelly jeremiah [facility] 5 14:05:18 Date Recorded Body height Oxygen saturation Oxygen saturation in Arterial blood by Pulse oximetry Heart rate Body mass index (BMI) Body weight Provider Name and Address Organization Details Last Updated DateTime 5 177.8 cm 94 % 94 % 110 /min 29 kg/m2 57954.1 g [facility] 5 12:34:46 Date Recorded Body height Oxygen saturation Oxygen saturation in Arterial blood by Pulse oximetry Heart rate Provider Name and Address Organization Details Last Updated DateTime 06/01/2024 177.8 cm 94 % 94 % 82 /min [facility] 06/01/2024 12:22:56 Date Recorded Body height Body mass index (BMI) Body weight Oxygen saturation Oxygen saturation in Arterial blood by Pulse oximetry Heart rate Provider Name and Address Organization Details Last Updated DateTime 4 177.8 cm 28.2 kg/m2 39028.8 2 g 93 % 93 % 90 /min [facility] 4 12:27:25 Social History Question Answer Notes LastModified by Organizat ion Details LastModified Time Tobacco Smoking Status Current Every Day Smoker Kelly Plunkett [facility] 08/14/2024 14:15:12 Do You Have An Advance Directive? No [email or web address] Information not available 08/08/2024 What Is Your Level Of Caffeine Consumption? Moderate [email or web address] Information not available 08/08/2024 How Many [...] Relationship Status? [email or web address] Information not available 08/08/2024 Sex: Unknown Functional Status Question Answer Note LastModified by Organizat ion Details LastModified Time Do you use any illicit or recreational drugs? No [email or web address] Information not available 08/08/2024 What is your level of alcohol consumption? None [email or web address] Information not available 08/08/2024 Are you currently employed? No [email or web address] Information not available 08/08/2024 What is your occupation? Retired, disabled [email or web address] Information not available 08/08/2024 What is your exercise level? None [email or web address] [...] SNOMED-CT Code Diagnosis ICD10 Code Diagnosis Note [id number] MD [facility] [address] [place] [address] 06/01/2024 11:40:53 06/01/2024 12:56:23 Psoriasis of scalp 939807399 L40.9 Psoriasis 8703686 L40.9 Taking hig h risk medication 6652577740 65149 Z79.899 [id number] MD [facility] [address] [place] [address] 06/29/2024 11:49:28 06/29/2024 13:16:46 Psoriasis of scalp 475913716 L40.9 Psoriasis 6159665 L40.9 Milia 184872061 L72.0 Facial wart 672174398 B0 7.9 [id number] MD [facility] [address] [place] [address] 08/04/2024 14:29:02 08/04/2024 14:50:33 Psoriasis 2510334 L40.9 Counseling 374822559 Z71 .89 [id number] Santy Brooks MD [address] [facility] ([place]) [address] [place] [address],[address] [place] [address] 08/14/2024 13:53:50 08/15/2024 18:26:54 Psoriasis 1739525 L40.9 Pain of mu ltiple joints 69576133 M25.50 Generalize d osteoarthritis 090143039 M15.9 Postmenopausal state 764 17071 Z78.0 Peripheral sensory neuropathy 589794029 G60.8 [id number] MD [facility] [address] [place] [address] 12/06/2024 11:50:28 12/06/2024 12:52:51 Psoriasis of scalp 364294609 L40.9 Psoriasis 8469117 L40.9 Seborrheic dermatitis 50 794978 L21.9 Inflamed s eborrheic keratosis 850886951 L82.0 Health Concerns Section Related Observation LastModified by Organization Detai ls LastModified Time None Recorded Concern Status LastModified by Organization Details LastModified Time None Recorded Advance Directives Directive N: Payers Insurance Date Sequence Insurance Name Policy Number Policy Jj Covered Member ID Jj Member ID Guarantor Name 12/01/2024 1 [facility] (MEDICARE REPLACEMENT/AD VANTAGE - PPO) [id number] Rosa Escalante [id number] Rosa Escalante 12/01/2024 2 [facility] (MEDICAID REPLACEMENT - HMO) [id number] Rosa Escalante [id number] Rosa Escalante Notes Date Note Type Note Provider Name and Address Organization Details Recorded Time 4 text/html NPV Room # 4 Referred by: self Reason for visit: NPV/Psoriasis Concerns: Pt states she has had psoriasis for 8 years. She has flares on her scalp and back of her neck. 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 Family history of skin cancer: no Personal history of skin cancer: no Smoking: yes, 4 cigarettes a day Past dermatology: yes, Dr. Cem Kearney Work outdoors: no, retired Immunosuppression/Chemo drugs: no History of organ Transplant: no Currently , breast feeding or trying to conceive: no Wearing makeup: no Julio Hernandez MD [facility] [place] [address], [address], [facility] 06/18/2024 20:56:20 4 text/html Room # 4 Reason For Visit: 6 week Psoriasis Concerns:Pt states she has no concerns today. Smoking: yes, 5 a day (trying to quit) Make up: n/a Currently , breast-feeding, or trying to conceive: n/a Julio Hernandez MD [address] [place] [address], [phone], [facility] 07/06/2024 18:19:38 5 text/html The patient [...] at the request of Dr. Hernandez, her aluminum siding installer, regarding rheumatologic evaluation and polyarthralgias in the setting of psoriasis, rule out psoriatic arthritis. The patient describes onset 15 years ago of a scaly erythematous rash on her scalp that was diagnosed as plaque psoriasis. She was treated with topicals, but these had not been of much benefit. Her former aluminum siding installer refused to prescribe oral DMARDs or biologic [...] on a scale. 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 She does take hydrocodone from her PCP and claims to take vitamin D3 though she is not sure of the exact dose. Family history is noncontributory. Of note, she has not previously, as noted above, taken any conventional DMARD agents nor anti-TNF agents. No KATHRINE inhibitors in the past. I have reviewed the patient s past medical history and [employer] [place] [employer] intake form.angelique Sebastian a [...] outside providers: no -Prior imaging/studies:X-ray-Pr ior imaging/studies location:[facility]-Denies prior: acupuncture, chiropractic treatments, injections, Medications, occupational therapy, physical therapy, surgery -Prior injury/difficulty with affected area: yes -Concern origination: Home ROS: :NegativeGeneral:Fatig ue, Unplanned Weight LossImmuno:NegativeENT:L oss of HearingOphtho:NegativeCa rdiac:NegativeRespirator y:Difficulty Breathing at Night, Swollen Legs or Feet, Wheezing (Asthma)GI:HeartburnMusc uloskeletal:Joint PainSkin:NegativeNeuro:M dacia Loss, Sensitivity or Pain of Hands or FeetPsych:Anxiety, Depression, Easily Losing TemperEndo:NegativeHem:N egative Santy Brooks MD [address] [place] [address], [phone], [facility] 08/20/2024 11:18:55 OBGyn Episode No OBEpisode recorded.
--- OUTSIDE RECORDS SUMMARY | 2024-12-11 07:43 | XMS_ITS | Clinical Summary ---
Author Organization [facility] Address [address] [place] [address] Phone Care Team Providers Care Geophysical Operator Name Role Phone Kyle Montenegro MD Primary Care Provider [phone] Allergies No known active allergies Medications citalopram (CeleXA) 10 MG Tablet Take 10 mg by mouth daily. Active aspirin EC 81 MG Tablet Delayed Response Take 81 mg by mouth daily. Active Calcium Carbonate (CALCIUM 600 PO) Take by mouth. Activ e VITAMIN D PO Take by mouth. Ac tive Multiple Vitamin (MULTIVITAMIN PO) Take by mouth. Activ e [place]-3 Fatty Acids (FISH OIL PO) Take by [...] mg by mouth 3 times daily. Active Encounters Date Type Department Care Team Description 11/13/2024 11:40 AM CDT - 11/13/2024 11:59 PM CDT Hospital Encounter [facility] [address] [place] [address] Provider, Not On File Discharge Disposition: Discharged to home or Selfcare 11/13/2024 11:37 AM CDT - 11/13/2024 11:39 AM CDT Hospital Encounter [facility] [address] [place] [address] Provider, Not On File Discharge Disposition: Discharged to home or Selfcare 11/13/2024 11:30 AM CDT EMG [facility] [address] [place] [address] Sharad Faulkner MD Weakness of left lower extremity Discharge Disposition: Discharged to home or Selfcare 11/13/2024 Travel 11/09/2024 3:30 PM CDT Office Visit [facility] [address] [place] [address] Sharad Faulkner MD Weakness of left lower extremity (Primary Dx) Discharge Disposition: Discharged to home or Selfcare 11/09/2024 Travel from Last 3 Months Family History Medical History Relation Name Comments [...] Sign Reading Time Taken Comments Blood Pressure 122/82 11/09/2024 3:42 PM CDT Pulse 88 11/09/2024 3:42 PM CDT Temperature 36.5 C (97.7 F) 11/09/2024 3:42 PM CDT Respiratory Rate 16 11/09/2024 3:42 PM CDT Oxygen Saturation 95% 11/09/2024 3:42 PM CDT Inhaled Oxygen Concentration - - Weight 88.3 kg (194 lb 11.2 oz) 11/09/2024 3:42 PM CDT Height 180.3 cm (5' 11) 11/09/2024 3:42 PM CDT Body Mass Index 27.16 11/09/2024 3:42 PM CDT Plan of Treatment Upcoming Encounters Date Type Department Care Team (Late st Contact Info) Description 02/05/2025 1:45 PM CDT Office Visit [facility] [address] [place] [address] Sharad Faulkner MD [address] [place] [address] Health Maintenance Due Date Last Done Comments DEXA Bone Density 1955 Hepatitis C Virus (HCV) Screening 1955 TdaP Immunization 1955 Colonoscopy 2000 Colorectal Cancer Screening 2000 Cologuard 2005 Immunochemical Fecal Occult Blood 2005 Zoster Immunization (1 of 2) 2005 Mammogram 05/21/2016 05/21/2015, 05/05/2012 SARS-COV-2 Immunization ( season) 2024 11/01/2020, 10/04/2020 Influenza Immunization (Season Ended) 2025 08/19/2023, 04/30/2022, 09/08/2021, Additional history exists Respiratory Syncytial Virus (RSV) Immunization (Adult) (1 - 1-dose 75+ series) 2030 Pneumococcal Immunization (50+ years) Completed 10/26/2024, 08/19/2023, 12/12/2014, Additional history exists Hepatitis B Immunization Aged Out No longer eligible based on patient's age to complete this topic Human Papillomavirus (HPV) Immunization Aged Out No longer eligible based on patient's age to complete this topic Meningococcal Immunization (ACWY) Aged Out No longer eligible based on patient's age to complete this topic Rotavirus Immunization Aged Out No lo nger eligible based on patient's age to complete this topic Procedures Procedure Name Priority Date/Time Associated Diagnosis Comments MR REFERENCE IMAGES FOR IMAGE IMPORT Routine 11/13/2024 11:40 AM CDT MR REFERENCE IMAGES FOR IMAGE IMPORT Routine 11/13/2024 11:37 AM CDT EMG Routine 11/13/2024 12:00 AM CDT Weakness of left lower extremity from Last 3 Months Results * MR REFERENCE IMAGES FOR IMAGE IMPORT (11/13/2024 11:40 AM CDT) Only the most recent of2 resultswithin the time period is included. us Not On File Provider IMG MR ORDERABLES Final Res ult * EMG (11/13/2024 12:00 AM CDT) 11/13/2024 Narrative SCAN - 11/13/2024 12:00 AM CDT Sharad Faulkner MD 11/15/2024 3:26 PM Electromyogram Procedure Note Date of Procedure: 11/13/2024 Pre-operative Diagnosis: bilateral lower extremity weakness. Post-operative Diagnosis: Indications: Diagnostic Procedure Details Motor Nerve Conduction Studies: The bilateral peroneal motor nerve shows normal distal motor latency, normal motor amplitude and decreased conduction velocity. The bilateral tibial motor nerve was not reactive. Sensory Nerve Conduction Studies: The bilateral sural sensory nerve peak latency was not reactive. The bilateral superficial peroneal sensory nerve peak latency was not reactive. F waves: F wave latencies for the bilateral peroneal nerve were prolonged. F wave latencies for the bilateral tibial nerve were not reactive. EMG: Needle EMG of the bilateral tibialis anterior and gastrocnemius shows polyphasic motor units. Needle EMG of the left EHL shows no motor units. Needle EMG of the bilateral vastus medialis were normal. 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 Clinical correlation is required. us Sharad Faulkner MD NEUROLOGY ORDERABLES V2 Danelle cara Result SCAN from Last 3 Months Insurance [facility]ICARE [facility] [place] Care Teams Geophysical Operator Relationship Specialty Start Date End Date Kyle Montenegro MD [address] [place] [id number] PCP - General Family Medicine 10/31/24
--- OUTSIDE RECORDS SUMMARY | 2024-12-11 07:43 | XMS_ITS | Clinical Summary ---
Author Organization [facility] [employer] Address [address] [place] [address] Care Team Providers Care Decorating Machine Tender Name Role Phone Papo Ambriz MD Primary Care Provider [phone] Source Comments [facility] [employer],non-owned Affiliates and Associated Physician Practices is amultiple site organization consisting of ambulatory clinics and hospital sitesin [place], [place], [place] and [place]. This disclosure is being madepursuant to the Care Everywhere program and may not contain all information available regarding this patient. Last updated 18.[facility] [employer] Allergies No known active allergies Medications * [...] 4 times daily as needed. Active Tiotropium [place] Monohydrate (SPIRIVA HANDIHALER [place]) once daily. Act [...] on file Legal Sex Female 2:12 PM PHYSICIAN ANESTHESIOLOGIST Gender Identity Not on file Sexual Orientation [...] 11:35 AM CDT Height 179.1 cm (5' 10.5) 10/18/2012 11:35 AM C DT Body Mass [...] MAMMO BILAT DIAGNOSTIC Routine 05/21/2015 1:58 PM PHYSICIAN ANESTHESIOLOGIST Breast cyst, left from Last 3 Months or Most Recently Relevant to Health Maintenance Results * MAMMO DIAG DIRECT DIGITAL IMAGE BILA (05/21/2015 1:58 PM PHYSICIAN ANESTHESIOLOGIST) Anatomical Region Laterality Modality Bilateral Mammography 05/21/2015 5:00 PM PHYSICIAN ANESTHESIOLOGIST Impressions 05/21/2015 5:03 PM PHYSICIAN ANESTHESIOLOGIST 1. No evidence of malignancy in either [...] of your patient. [facility] utilizes Dtime as a reminder system to notify patients of their next recommended mammogram. Narrative 05/21/2015 5:03 PM PHYSICIAN ANESTHESIOLOGIST EXAMINATION: Digital bilateral diagnostic mammogram and targeted [...] Most Recently Relevant to Health Maintenance Insurance [facility] [place] [address] [id number] [place] [id number] Care Teams Decorating Machine Tender Relationship Specialty Start Date End Date Papo Ambriz MD PCP - General Internal Medicine 10/14/12
--- NOTE | 2024-12-11 09:31 | ED_ITS ---
HPI - General Adult General Chief complaint: Abdominal Pain Stated complaint: ABD PAIN History of Present Illness HPI narrative: see downtime/paper chart Related Data Home Medications ?Medication ?Instructions ?Recorded ?Confirmed ?Last Taken ?Type aspirin 81 mg tablet,delayed 81 mg PO DAILY 07/16/22 11/30/24 Unknown History release (Enteric Coated Aspirin) calcium 600 mg (as carbonate)-vit 600 tablet PO DAILY 07/16/22 11/30/24 Unknown History D3 10 mcg (400 unit) chewable tablet (Calcium 600 with Vitamin D3) cholecalciferol (vitamin D3) 25 25 mcg PO DAILY 07/16/22 11/30/24 Unknown Hi story mcg (1,000 unit) capsule multivitamin 1 tablet PO DAILY 07/16/22 11/30/24 Unknown History omega-3 fatty acids 1,000 mg 2,000 mg PO DAILY 07/16/22 11/30/24 Unknown History capsule clobetasol 0.05 % scalp solution 1 applic topical DAILY 10/01/23 11/30/24 Unknown History hydrocodone 10 mg-acetaminophen 1 tablet PO Q6-8H PRN Pain 10/01/23 11/30/24 Unknown History 325 mg tablet mupirocin 2 % topical ointment 1 applic topical DAILY 10/01/23 11/30/24 Unknown History pregabalin 75 mg capsule 75 mg PO BID 09/22/24 11/30/24 Unknown History Allergies Allergy/AdvReac Type Severity Reaction Status Date / Time No Known Allergies Allergy Verified 11/30/24 10:14 [facility] [place] Past Medical History Medical History Peripheral neuropathy Asthma History of aortic dissection 2001 Tobacco abuse Chronic back pain Chronic kidney disease (CKD) stage G4/A1, severely decreased glomerular filtration rate (GFR) between 15-29 mL/min/1.73 square meter and albuminuria creatinine ratio less than 30 mg/g Gout Age related osteoporosis Hypertension Hyperlipidemia GERD (gastroesophageal reflux disease) WILLIAM (generalized anxiety disorder) COPD (chronic obstructive pulmonary disease) Overweight Surgical History Surgical History S/P insertion of iliac artery stent History of mandibular surgery History of hip replacement, total right Hx of cataract surgery Family History Family History Father Family history of malignant neoplasm Sibling Family history of malignant neoplasm of breast in first degree relative Mother Family history of congestive heart failure Other Hypertension Social History Social History Smoking packs per day: 0.5 Smoking cigarettes per day: 10.0 Years smoked: 50 Smoking pack-years: 25.00 Smoking status: Current every day smoker Tobacco type: cigarettes Second hand tobacco smoke exposure: Yes Alcohol intake: current Alcohol use details: 1 glass of wine per year Substance use: current Substance use type: marijuana Other substance usage details: OCCASIONALLY Last use: 07/07/20 Do You Feel Safe in your Home?: Yes Lack of Transportation: YES Lack of Food: Never True Current Housing: I Have Housing Concerned About Future Housing: No Difficulty Paying Gas/Electric Bills: YES Difficulty Paying for Meds: No Currently Unemployed: No Education: High School Diploma/GED Difficulty w/ Childcare or Family Care: No Living arrangements: with family Additional living arrangements comments: [facility] Occupation/Education: retired Gender identity (if verbalized by the patient): Female Spiritual care concerns: No Agree to blood products: Yes Discharge Plan Discharge Clinical Impression: Abdominal mass Qualifiers: Abdominal location: left upper quadrant Qualified Code(s): R19.02 - Left upper quadrant abdominal swelling, mass and lump Patient Disposition: Home Condition: Stable Patient Language: Cymraes Prescriptions: No Action multivitamin Tablet 1 tablet PO DAILY Calcium 600 with Vitamin D3 600 mg-10 mcg (400 unit) tablet,chewable 600 tablet PO DAILY cholecalciferol (vitamin D3) 25 mcg (1,000 unit) capsule 25 mcg PO DAILY omega-3 fatty acids 1,000 mg capsule 2,000 mg PO DAILY aspirin [Enteric Coated Aspirin] 81 mg tablet,delayed release (DR/EC) 81 mg PO DAILY (DME) nebulizers Misc See Rx Instructions .Route Qty: 1 0RF Rx Instructions: As directed pregabalin 75 mg capsule 75 mg PO BID gabapentin 600 mg tablet 300 mg PO TID Qty: 270 3RF hydrocodone-acetaminophen 10-325 mg tablet 1 tablet PO Q6-8H PRN (Reason: Pain) mupirocin 2 % ointment 1 applic TOPICAL DAILY clobetasol 0.05 % solution 1 applic TOPICAL DAILY citalopram 40 mg tablet See Rx Instructions .ROUTE .COMPLEX Qty: 90 3RF Dose Instruction: TAKE ONE TABLET BY MOUTH DAILY. Rx Instructions: TAKE ONE TABLET BY MOUTH DAILY. atorvastatin 40 mg tablet See Rx Instructions .ROUTE .COMPLEX Qty: 90 0RF Dose Instruction: TAKE 1 TABLET BY MOUTH DAILY Rx Instructions: TAKE 1 TABLET BY MOUTH DAILY albuterol sulfate 2.5 mg /3 mL (0.083 %) solution for nebulization 2.5 mg inhalation Q4H PRN (Reason: shortness of breath or wheezing) Qty: 180 3RF Trelegy Ellipta 100-62.5-25 mcg blister with device See Rx Instructions .ROUTE .COMPLEX Qty: 60 3RF Dose Instruction: 1 INHALATIONS INHALED DAILY Rx Instructions: 1 INHALATIONS INHALED DAILY metoprolol succinate 50 mg tablet extended release 24 hr See Rx Instructions .ROUTE .COMPLEX Qty: 90 0RF Dose Instruction: TAKE 1 TABLET BY MOUTH DAILY. Rx Instructions: TAKE 1 TABLET BY MOUTH DAILY. pantoprazole 40 mg tablet,delayed release (DR/EC) See Rx Instructions .ROUTE .COMPLEX Qty: 90 0RF Dose Instruction: TAKE ONE TABLET BY MOUTH EVERY MORNING Rx Instructions: TAKE ONE TABLET BY MOUTH EVERY MORNING hydrochlorothiazide 25 mg tablet See Rx Instructions .ROUTE .COMPLEX Qty: 90 1RF Dose Instruction: TAKE 1 TABLET BY MOUTH DAILY Rx Instructions: TAKE 1 TABLET BY MOUTH DAILY amlodipine 5 mg tablet See Rx Instructions .ROUTE .COMPLEX Qty: 90 0RF Dose Instruction: TAKE ONE TABLET BY MOUTH DAILY Rx Instructions: TAKE ONE TABLET BY MOUTH DAILY furosemide 20 mg tablet See Rx Instructions .ROUTE .COMPLEX Qty: 90 0RF Dose Instruction: TAKE 1 TABLET BY MOUTH EVERY MORNING Rx Instructions: TAKE 1 TABLET BY MOUTH EVERY MORNING alendronate 70 mg tablet See Rx Instructions .ROUTE .COMPLEX Qty: 12 0RF Dose Instruction: TAKE 1 TABLET BY MOUTH WEEKLY Rx Instructions: TAKE 1 TABLET BY MOUTH WEEKLY buspirone 15 mg tablet See Rx Instructions .ROUTE .COMPLEX Qty: 360 0RF Dose Instruction: TAKE 2 TABLETS BY MOUTH 2 TIMES DAILY Rx Instructions: TAKE 2 TABLETS BY MOUTH 2 TIMES DAILY varenicline tartrate 0.5 mg (11)- 1 mg (42) tablets,dose pack See Rx Instructions .ROUTE .COMPLEX Qty: 53 0RF Dose Instruction: BY MOUTH PER PKG DIRECTIONS Rx Instructions: BY MOUTH PER PKG DIRECTIONS albuterol sulfate 90 mcg/actuation HFA aerosol inhaler See Rx Instructions .ROUTE .COMPLEX Qty: 6.7 1RF Dose Instruction: INHALE 1 PUFF BY MOUTH EVERY 4 HOURS OR EVERY 6 HOURS NEEDED FOR SHORTNESS OF BREATH Rx Instructions: INHALE 1 PUFF BY MOUTH EVERY 4 HOURS OR EVERY 6 HOURS NEEDED FOR SHORTNESS OF BREATH Time of Disposition: 09:32
[2024-12-11 10:23] LABS: Basophils Absolute Auto 0.05 K/mm3 (0.00-0.10); Basophils Percent Auto 0.4 % (0.0-1.0); Eosinophils Absolute Auto 0.29 K/mm3 (0.02-0.50); Eosinophils Percent Auto 2.5 % (1.0-6.0); Hematocrit 46.2 % (35.0-42.0); Hemoglobin 14.9 g/dL (11.7-13.8); Immature Granulocyte Absolute 0.08 K/mm3 (0.00-0.00); Immature Granulocyte Percent A 0.7 % (0.0-0.0); Lymphocytes Absolute Auto 1.77 K/mm3 (1.10-4.50); Lymphocytes Percent Auto 15.1 % (18.0-42.0); Mean Corpuscular HGB Conc 32.3 g/dL (32-36); Mean Corpuscular Hemoglobin 27.3 pg (27.0-31.0); Mean Corpuscular Volume 84.6 fL (78.0-102.0); Mean Platelet Volume 11.3 fl (9.2-11.8); Monocytes Absolute Auto 1.15 K/mm3 (0.10-0.90); Monocytes Percent Auto 9.8 % (2.0-11.0); Neutrophils Absolute Auto 8.37 K/mm3 (1.70-7.20); Neutrophils Percent Auto 71.5 % (50.0-70.0); Platelet Count Result 214 K/mm3 (150-420); Red Blood Count 5.46 M/mm3 (4.20-5.40); Red Cell Distribution Width 14.7 % (11.6-14.4); White Blood Count 11.7 K/mm3 (4.8-10.8)
[2024-12-11 10:26] LABS: Anion Gap 9 mmol/L (4-12); Aspartate Amino Transferase 34 U/L (14-36); Bilirubin,Total 1.1 mg/dL (0.2-1.3); Blood Urea Nitrogen 28 mg/dL (7-17); Calcium 8.9 mg/dL (8.4-10.2); Carbon Dioxide 30 mmol/L (22-30); Chloride 98 mmol/L (98-107); Estimated Glomerular Filt Rate 45; Glucose 138 mg/dL (65-110); Osmolality Calculated 291 mOsm/kg (285-295); Potassium 3.3 mmol/L (3.4-5.0); Sodium 137 mmol/L (137-145)
[2024-12-11 10:27] LABS: Alanine Aminotransferase 25 U/L (6-35); Albumin Level 4.1 g/dL (3.5-5.1); Alkaline Phosphatase 70 U/L (38-126); INR 0.9; Partial Thromboplastin Time 30.8 Sec (23.9-30.70); Prothrombin Time 10.3 Seconds (9.64-11.0); Total Protein 8.5 g/dL (6.3-8.2)
== END 2024-12-10 14:10 | disposition home or self-care (01) ==
LOC: CHSED 12-11 07:41
PROVIDERS: Emergency Provider Emergency Medicine; PCP Family Medicine
DX: R10.12 Left upper quadrant pain (principal); R19.02 Left upper quadrant abdominal swelling, mass and lump
CPT/HCPCS: 36415; 80053; 85025; 85610; 85730; 99284; A9270

== ENCOUNTER 2024-12-12 09:53 | Outpatient (CLI) | payer MEDICARE, MEDICAID, SELFPAY ==
--- NOTE | ~2024-12-12 | CT_ITS ---
CT of the Abdomen and Pelvis: Indication: Left-sided abdominal pain swelling Technique: 2.5 mm axial scans were obtained through the abdomen and pelvis following intravenous adm inistration of 100 cc of Omnipaque 350. Dose reduction technique was used on this scan by utilizing a utomated exposure control and iterative reconstruction technique. The dose-length product (DLP) was 6 39.54 mGy-cm. Findings: Scans through the lung bases demonstrate bibasilar atelectasis and/or scarring. Diffuse hepatic steatosis present. Gallbladder probably contracted with small stones. The spleen, oden creas, and adrenal glands are within normal limits. Bilateral renal cysts are present. Right kidney r elatively atrophic with cortical scarring and 6 mm nonobstructing stone. No lymphadenopathy. There is a stent graft partially imaged of the distal descending thoracic aorta, with extensive ather osclerotic calcification and probable underlying aneurysmal dilatation or possibly chronic dissection . There is also extensive atherosclerotic calcification the abdominal aorta with suspected chronic di ssection versus diffuse mild aneurysm. Distal abdominal aortic stent graft is in place. No bowel obstruction or bowel wall thickening. There is no evidence to suggest acute appendicitis. Images through the pelvis were performed. Urinary bladder unremarkable. No pelvic mass seen. No ascit es. Impression: No acute abnormality seen. Probable cholelithiasis. Diffuse hepatic steatosis. 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 Correlate with relevant clinical and treatment history. Nonobstructing right nephrolithiasis. Reviewed, dictated and finalized at location . Impression: No acute abnormality seen. Probable cholelithiasis. Diffuse hepatic steatosis. 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 Correlate with relevant clinica l and treatment history. Nonobstructing right nephrolithiasis.
--- OUTSIDE RECORDS SUMMARY | 2024-12-12 10:16 | XMS_ITS | Data Portability ---
Author Organization [facility], [address] [place] [address] Neurology ([place]) Address [address] [address] Assessment Encounter Date Assessment Date Assessment LastModified [...] naive, so I recommended we proceed with DocOnYou MindPx to determine which biologic class she would most likely respond to. MindPx sample obtained from occipital scalp/hairline. We will await results and proceed accordingly. Patient voiced understanding of education/mental health counselor ing provided. Follow up in 4-6 [...] naive, so I recommended we proceed with DocOnYou MindPx to determine which biologic class she would most likely respond to. MindPx sample obtained from occipital scalp/hairline. We will await results and proceed accordingly. #Milia LOCATION: right medial cheek #Wart LOCATION: right medial cheek we will remove these at f/u if symptomatic. Patient voiced understanding of education/mental health counselor ing provided. Follow up in 3 [...] shot series. 6. Schedule bone densitometry at [facility] near her home. 7. Counseled the patient today about the importance of smoking cessation. 8. COSENTYX dosing per Dermatology. 9. Followup visit in 4 months in [place]. angelique Not available 08/14/2024 17:30:09 Plan of [...] 025 [email or web address] [facility], [address] [place] [address], [id number], 08/14/2024 18:04:59 CMP, serum or plasma 2024 025 [email or web address] [facility], [address] [place] [address], [id number], 08/14/2024 18:29:24 ESR (erythr ocyte sedimen tation rate), blood 2024 025 [email or web address] [facility], [address] [place] [address], [id number], 08/21/2024 09:18:57 C-react addis protein , quantit ative, serum or plasma 2024 025 YUMA [facility], [address] [place] [address], [id number], 08/14/2024 18:11:57 CBC w/ auto diff 2024 025 [email or web address] [facility], [address] [place] [address], 83225, 08/14/2024 17:38:48 [email or web address] , blood 2024 025 [email or web address] [facility], [address] [place] [address], 89574, 08/17/2024 18:37:52 CBC w/ auto diff 2023 024 [email or web address] [facility], [address] [place] [address], [id number], 06/05/2024 23:17:57 CMP, serum or plasma 2023 024 [email or web address] [facility], [address] [place] [address], 62302, 06/05/2024 23:17:57 HBsAg (hepati tis B surface Ag), serum 2023 024 [email or web address] [facility], [address] [place] [address], [id number], 06/05/2024 23:17:57 hepatit is B surface Ab, qualita tive, serum 2023 024 [email or web address] [facility], [address] [place] [address], [id number], 06/05/2024 23:17:57 Hepatit is B virus core Ab, qual immunoa ssay, serum or plasma 2023 024 [email or web address] [facility], [address] [place] [address], 07835, 06/05/2024 23:17:57 TB (M tubercu losshira), IFN-andi ma+bryan gen-andi ma, blood 2023 024 [email or web address] [facility], [address] [place] [address], [id number], 06/29/2024 09:08:44 HIV 1+2 Ab + HIV 1 p24 Ag, panel, IA, serum or plasma 2023 024 [email or web address] [facility], [address] [place] [address], 55696, 06/05/2024 23:17:57 hepatit is C Ab, serum 2023 024 [email or web address] [facility], [address] [place] [address], [id number], 06/05/2024 23:17:57 Referral rheumat ologist referra l - Referra l to Rheumat ology due to joint pain or joint stiffne ss- to rule out psoriat ic arthrit is [email or web address] [facility] ([facility]), [address] [place] [address], [address] [place] [address], [place], [address], 06/26/2024 10:29:17 Procedures None recorde d. Surgeries None recorde d. Imaging None recorde d. Medication Orders Cosenty x UnoRead y Pen 300 mg/2 mL subcuta neous pen injecto r 2024 025 Not available 08/04/2024 15:10:18 Skyrizi 150 mg/mL subcuta neous pen injecto r 2023 024 [email or web address] [facility], [address], [address], 08/14/2024 14:07:12 Zoryve 0.3 % topical cream 2023 024 [email or web address] [facility], [address], [address], 08/14/2024 14:07:26 clobeta luis carlos 0.05 % scalp solutio n 2023 024 [email or web address] [facility] [place], [address] [facility] [address], [place], [address], 08/14/2024 14:06:03 ketocon azole 2 % shampoo 2023 024 [email or web address] [facility] [place], [address] [facility] [address], [place], [address], 08/14/2024 14:06:53 Patient TargetsNo targets recorded. Patient InstructionsNo instructions recorded. Reason for Referral Sinker Winder Referral for Psoriasis of scalp Referral to [...] Not Available [facility] [address] [place] [address], 32509, 06/01/2024 18:06:29 06/01/20 24 06/01/2024 CBC w/ auto diff WBC 9.7 K/uL 3.8-11 .2 Not Available [facility] [address] [place] [address], 21392, 06/01/2024 18:06:29 06/01/20 24 06/01/2024 CBC w/ auto diff RBC 5.33 M/uL 3.92-5 .10 high Not Available [facility] [address] [place] [address], [id number], 06/01/2024 18:06:29 06/01/20 24 06/01/2024 CBC w/ auto diff HGB 15.2 g/dL 11.8-1 5.3 Not Available [facility] [address] [place] [address], 09114, 06/01/2024 18:06:29 06/01/20 24 06/01/2024 CBC w/ auto diff HCT 45.6 % 36.5-4 4.8 high Not Available [facility] [address] [place] [address], 02219, 06/01/2024 18:06:29 06/01/20 24 06/01/2024 CBC w/ auto diff MCV 85.6 fL 80.0-9 9.0 Not Available [facility] [address] [place] [address], 31555, 06/01/2024 18:06:29 06/01/20 24 06/01/2024 CBC w/ auto diff MCH 28.5 pg 25.5-3 3.6 Not Available [facility] [address] [place] [address], [id number], 06/01/2024 18:06:29 06/01/20 24 06/01/2024 CBC w/ auto diff MCHC 33.3 g/dL 32.0-3 6.0 Not Available [facility] [address] [place] [address], 55637, 06/01/2024 18:06:29 06/01/20 24 06/01/2024 CBC w/ auto diff RDW-SD 43.6 fL 35.1 - 46.3 Not Available [facility] [address] [place] [address], 95632, 06/01/2024 18:06:29 06/01/20 24 06/01/2024 CBC w/ auto diff plt 225 K/uL 130-40 0 Not Available [facility] [address] [place] [address], 34246, 06/01/2024 18:06:29 06/01/20 24 06/01/2024 CBC w/ auto diff MPV 12.0 fL 9.3-12 .8 Not Available [facility] [address] [place] [address], 16146, 06/01/2024 18:06:29 06/01/20 24 06/01/2024 CBC w/ auto diff jana% 66.1 % not estab Not Available [facility] [address] [place] [address], 68739, 06/01/2024 18:06:29 06/01/20 24 06/01/2024 CBC w/ auto diff lym% 20.1 % not estab Not Available [facility] [address] [place] [address], 44004, 06/01/2024 18:06:29 06/01/20 24 06/01/2024 CBC w/ auto diff mono% 7.7 % not estab Not Available [facility] [address] [place] [address], 74352, 06/01/2024 18:06:29 06/01/20 24 06/01/2024 CBC w/ auto diff eos% 4.9 % not estab Not Available [facility] [address] [place] [address], 41587, 06/01/2024 18:06:29 06/01/20 24 06/01/2024 CBC w/ auto diff baso% 0.7 % not estab Not Available [facility] [address] [place] [address], 77879, 06/01/2024 18:06:29 06/01/20 24 06/01/2024 CBC w/ auto diff abs jana 6.4 K/uL 1.8-7. 5 Not Available [facility] [address] [place] [address], 72686, 06/01/2024 18:06:29 06/01/20 24 06/01/2024 CBC w/ auto diff abs lym 2.0 K/uL 1.1-3. 3 Not Available [facility] [address] [place] [address], 46922, 06/01/2024 18:06:29 06/01/20 24 06/01/2024 CBC w/ auto diff abs mono 0.8 K/uL 0.1-1. 0 Not Available [facility] [address] [place] [address], 53013, 06/01/2024 18:06:29 06/01/20 24 06/01/2024 CBC w/ auto diff abs eos 0.5 K/uL 0.0-0. 7 Not Available [facility] [address] [place] [address], 25229, 06/01/2024 18:06:29 06/01/20 24 06/01/2024 CBC w/ auto diff abs baso 0.1 K/uL 0.0-0. 2 Not Available [facility] [address] [place] [address], 76604, 06/01/2024 18:06:29 06/01/20 24 06/01/2024 CBC w/ auto diff imm. gran % 0.5 % 0-5 Not Available [facility] [address] [place] [address], 26112, 06/01/2024 18:06:29 06/01/20 24 06/01/2024 CBC w/ auto diff NRBC % 0.0 % 0.0-0. 2 Not Available [facility] [address] [place] [address], 73142, 06/01/2024 18:06:29 06/01/20 24 06/01/2024 CMP, serum or plasm a comp. met. panel Not Available [facility] [address] [place] [address], 69229, 06/01/2024 18:20:54 06/01/20 24 06/01/2024 CMP, serum or plasm a sodium 142 mmol/ L 136-14 6 Not Available [facility] [address] [place] [address], 95066, 06/01/2024 18:20:54 06/01/20 24 06/01/2024 CMP, serum or plasm a potassium 3.5 mmol/ L 3.5-5. 1 Not Available [facility] [address] [place] [address], 24030, 06/01/2024 18:20:54 06/01/20 24 06/01/2024 CMP, serum or plasm a chloride 100 mmol/ L 98-110 Not Available [facility] [address] [place] [address], 54097, 06/01/2024 18:20:54 06/01/20 24 06/01/2024 CMP, serum or plasm a CO2 37 mEq/L 20-32 high Not Available [facility] [address] [place] [address], 73681, 06/01/2024 18:20:54 06/01/20 24 06/01/2024 CMP, serum or plasm a anion gap 9 mmol/ L 10-22 low Not Available [facility] [address] [place] [address], 06628, 06/01/2024 18:20:54 06/01/20 24 06/01/2024 CMP, serum or plasm a glucose 109 mg/dL 70-100 high Not Available [facility] [address] [place] [address], 77728, 06/01/2024 18:20:54 06/01/20 24 06/01/2024 CMP, serum or plasm a calcium 10.5 mg/dL 8.4-10 .4 high Not Available [facility] [address] [place] [address], 93252, 06/01/2024 18:20:54 06/01/20 24 06/01/2024 CMP, serum or plasm a total protein 7.3 g/dL 6.4-8. 3 Not Available [facility] [address] [place] [address], 61883, 06/01/2024 18:20:54 06/01/20 24 06/01/2024 CMP, serum or plasm a albumin 4.2 g/dL 3.5-5. 3 Not Available [facility] [address] [place] [address], 94239, 06/01/2024 18:20:54 06/01/20 24 06/01/2024 CMP, serum or plasm a ALP 88 U/L 44 - 127 Not Available [facility] [address] [place] [address], 63328, 06/01/2024 18:20:54 06/01/20 24 06/01/2024 CMP, serum or plasm a AST (SGOT) 19 U/L 10-40 Not Available [facility] [address] [place] [address], 07692, 06/01/2024 18:20:54 06/01/20 24 06/01/2024 CMP, serum or plasm a total bilirubin 0.4 mg/dL 0.2-1. 0 Not Available [facility] [address] [place] [address], 53142, 06/01/2024 18:20:54 06/01/20 24 06/01/2024 CMP, serum or plasm a ALT (SGPT) 23 U/L 8-35 Not Available [facility] [address] [place] [address], 39277, 06/01/2024 18:20:54 06/01/20 24 06/01/2024 CMP, serum or plasm a BUN 26 mg/dL 7-21 high Not Available [facility] [address] [place] [address], 01486, 06/01/2024 18:20:54 06/01/20 24 06/01/2024 CMP, serum or plasm a creatinine 1.5 mg/dL 0.7-1. 3 high Not Available [facility] [address] [place] [address], 93370, 06/01/2024 18:20:54 06/01/20 24 06/01/2024 CMP, serum or plasm a GFR(non-afri can emirati) 37 Not Available [facility] [address] [place] [address], 12101, 06/01/2024 18:20:54 06/01/20 24 06/01/2024 CMP, serum or plasm a GFR() 44 (MANUSCRIPT EDITOR ORI KIDNE Y DISEA SE HAS A GFR LESS THAN 60 ML/ND N/1.7 3 MM FOR A PERIO D OF THREE MONTH S OR MORE. ) Not Available [facility] [address] [place] [address], 26617, 06/01/2024 18:20:54 06/01/20 24 06/01/2024 HBsAg (hepa titis B surfa ce Ag), serum hepatitis B surface Ag NONREA CTIVE nonrea ctive Not Available [facility] [address] [place] [address], 16179, 06/01/2024 18:29:55 06/01/20 24 06/01/2024 HIV 1+2 Ab + HIV 1 p24 Ag, panel , IA, serum or plasm a HIV Ag/Ab 1-2 combo NONREA CTIVE nonrea ctive Not Available [facility] [address] [place] [address], 57663, 06/01/2024 18:43:05 06/01/20 24 06/01/2024 hepat itis C Ab, serum hepatitis C Ab NONREA CTIVE nonrea ctive Not Available [facility] [address] [place] [address], 19486, 06/01/2024 18:49:45 06/01/20 24 06/02/2024 hepat itis [...] to infec tion with HBV. Not Available [facility] [address] [place] [address], 53980, 06/02/2024 07:41:57 06/01/20 24 06/02/2024 Hepat itis B virus core Ab, qual immun oassa y, serum or plasm a hepatitis B core Ab NEGATI VE negati ve Not Available [facility] [address] [place] [address], 43860, 06/02/2024 07:41:59 06/01/20 24 06/05/2024 QUANT IFERO N TB GOLD quantiferon TB gold 0.00 IU/mL <=0.34 Not Available [facility] [address] [place] [address], 79910, 06/05/2024 14:25:46 06/01/20 24 06/05/2024 QUANT IFERO N TB GOLD quantiferon TB gold2 0.00 IU/mL <=0.34 Not Available [facility] [address] [place] [address], 63093, 06/05/2024 14:25:46 06/01/20 24 06/05/2024 QUANT IFERO [...] and diagn ostic findi ngs. Not Available [facility] - [facility] [address] [place] [address], 07697, 06/05/2024 14:25:46 08/14/19 25 08/14/2024 CBC w/ auto diff CBC with differential Not Available [facility] [address] [place] [address], 75051, 08/14/2024 17:38:48 08/14/19 25 08/14/2024 CBC w/ auto diff WBC 11.5 K/uL 3.8-11 .2 high Not Available [facility] [address] [place] [address], 32132, 08/14/2024 17:38:48 08/14/19 25 08/14/2024 CBC w/ auto diff RBC 5.69 M/uL 3.92-5 .10 high Not Available [facility] [address] [place] [address], 72513, 08/14/2024 17:38:48 08/14/19 25 08/14/2024 CBC w/ auto diff HGB 15.8 g/dL 11.8-1 5.3 high Not Available [facility] [address] [place] [address], 58132, 08/14/2024 17:38:48 08/14/19 25 08/14/2024 CBC w/ auto diff HCT 47.9 % 36.5-4 4.8 high Not Available [facility] [address] [place] [address], 75101, 08/14/2024 17:38:48 08/14/19 25 08/14/2024 CBC w/ auto diff MCV 84.2 fL 80.0-9 9.0 Not Available [facility] [address] [place] [address], 57609, 08/14/2024 17:38:48 08/14/19 25 08/14/2024 CBC w/ auto diff MCH 27.8 pg 25.5-3 3.6 Not Available [facility] [address] [place] [address], 79429, 08/14/2024 17:38:48 08/14/19 25 08/14/2024 CBC w/ auto diff MCHC 33.0 g/dL 32.0-3 6.0 Not Available [facility] [address] [place] [address], 47517, 08/14/2024 17:38:48 08/14/19 25 08/14/2024 CBC w/ auto diff RDW-SD 43.8 fL 35.1 - 46.3 Not Available [facility] [address] [place] [address], 54452, 08/14/2024 17:38:48 08/14/19 25 08/14/2024 CBC w/ auto diff plt 215 K/uL 130-40 0 Not Available [facility] [address] [place] [address], 21697, 08/14/2024 17:38:48 08/14/19 25 08/14/2024 CBC w/ auto diff MPV 11.8 fL 9.3-12 .8 Not Available [facility] [address] [place] [address], 25650, 08/14/2024 17:38:48 08/14/19 25 08/14/2024 CBC w/ auto diff jana% 61.7 % not estab Not Available [facility] [address] [place] [address], 51858, 08/14/2024 17:38:48 08/14/19 25 08/14/2024 CBC w/ auto diff lym% 23.9 % not estab Not Available [facility] [address] [place] [address], 02139, 08/14/2024 17:38:48 08/14/19 25 08/14/2024 CBC w/ auto diff mono% 8.6 % not estab Not Available [facility] [address] [place] [address], 73921, 08/14/2024 17:38:48 08/14/19 25 08/14/2024 CBC w/ auto diff eos% 4.6 % not estab Not Available [facility] [address] [place] [address], 95006, 08/14/2024 17:38:48 08/14/19 25 08/14/2024 CBC w/ auto diff baso% 0.9 % not estab Not Available [facility] [address] [place] [address], 98352, 08/14/2024 17:38:48 08/14/19 25 08/14/2024 CBC w/ auto diff abs jana 7.1 K/uL 1.8-7. 5 Not Available [facility] [address] [place] [address], 82567, 08/14/2024 17:38:48 08/14/19 25 08/14/2024 CBC w/ auto diff abs lym 2.7 K/uL 1.1-3. 3 Not Available [facility] [address] [place] [address], 61993, 08/14/2024 17:38:48 08/14/19 25 08/14/2024 CBC w/ auto diff abs mono 1.0 K/uL 0.1-1. 0 Not Available [facility] [address] [place] [address], 59051, 08/14/2024 17:38:48 08/14/19 25 08/14/2024 CBC w/ auto diff abs eos 0.5 K/uL 0.0-0. 7 Not Available [facility] [address] [place] [address], 51808, 08/14/2024 17:38:48 08/14/19 25 08/14/2024 CBC w/ auto diff abs baso 0.1 K/uL 0.0-0. 2 Not Available [facility] [address] [place] [address], 50962, 08/14/2024 17:38:48 08/14/19 25 08/14/2024 CBC w/ auto diff imm. gran % 0.3 % 0-5 Not Available [facility] [address] [place] [address], 23857, 08/14/2024 17:38:48 08/14/19 25 08/14/2024 CBC w/ auto diff NRBC % 0.0 % 0.0-0. 2 Not Available [facility] [address] [place] [address], 25194, 08/14/2024 17:38:48 08/14/19 25 08/14/2024 arthr itis panel uric acid 8.9 mg/dL 2.3-6. 6 high Not Available [facility] [address] [place] [address], 18738, 08/17/2024 17:21:01 08/14/19 25 08/14/2024 arthr itis panel sed rate 37 mm/HR 0 - 30 high Not Available [facility] [address] [place] [address], 53259, 08/17/2024 17:21:01 08/14/19 25 08/14/2024 arthr itis panel ccp antibody, IgG <0.54 U/mL <=4.9 Not Available [facility] [address] [place] [address], 55324, 08/17/2024 17:21:01 08/14/19 25 08/15/2024 arthr itis panel rf 5.0 IU/mL <3.5-1 4 Not Available [facility] [address] [place] [address], 96517, 08/17/2024 17:21:01 08/14/19 25 08/17/2024 arthr itis panel arthritis panel Not Available [facility] [address] [place] [address], 88228, 08/17/2024 17:21:01 08/14/19 25 08/17/2024 arthr itis panel EVANGELIST screen NEGATI VE negati ve Perfo rmed by Bio-R ad enzym e immun oassa y Not Available [facility] [address] [place] [address], 26793, 08/17/2024 17:21:01 08/14/19 25 08/14/2024 C-meeta ctive prote in, quant itati ve, serum or plasm a CRP high Not Available [facility] [address] [place] [address], 84809, 08/14/2024 18:11:57 08/14/19 25 08/14/2024 C-meeta ctive prote in, quant itati ve, serum or plasm a CRP 0.7 mg/dL <0.4-0 .5 high Not Available [facility] [address] [place] [address], 53770, 08/14/2024 18:11:57 08/14/19 25 08/14/2024 CMP, serum or plasm a comp. met. panel Not Available [facility] [address] [place] [address], 47112, 08/14/2024 18:29:24 08/14/19 25 08/14/2024 CMP, serum or plasm a sodium 140 mmol/ L 136-14 6 Not Available [facility] [address] [place] [address], 21411, 08/14/2024 18:29:24 08/14/19 25 08/14/2024 CMP, serum or plasm a potassium 3.7 mmol/ L 3.5-5. 1 Not Available [facility] [address] [place] [address], 55113, 08/14/2024 18:29:24 08/14/19 25 08/14/2024 CMP, serum or plasm a chloride 101 mmol/ L 98-110 Not Available [facility] [address] [place] [address], 10461, 08/14/2024 18:29:24 08/14/19 25 08/14/2024 CMP, serum or plasm a CO2 30 mEq/L 20-32 Not Available [facility] [address] [place] [address], 18305, 08/14/2024 18:29:24 08/14/19 25 08/14/2024 CMP, serum or plasm a anion gap 13 mmol/ L 10-22 Not Available [facility] [address] [place] [address], 65778, 08/14/2024 18:29:24 08/14/19 25 08/14/2024 CMP, serum or plasm a glucose 97 mg/dL 70-100 Not Available [facility] [address] [place] [address], 88456, 08/14/2024 18:29:24 08/14/19 25 08/14/2024 CMP, serum or plasm a calcium 10.4 mg/dL 8.4-10 .4 Not Available [facility] [address] [place] [address], 52383, 08/14/2024 18:29:24 08/14/19 25 08/14/2024 CMP, serum or plasm a total protein 7.8 g/dL 6.4-8. 3 Not Available [facility] [address] [place] [address], 10709, 08/14/2024 18:29:24 08/14/19 25 08/14/2024 CMP, serum or plasm a albumin 4.7 g/dL 3.5-5. 3 Not Available [facility] [address] [place] [address], 74702, 08/14/2024 18:29:24 08/14/19 25 08/14/2024 CMP, serum or plasm a ALP 86 U/L 44 - 127 Not Available [facility] [address] [place] [address], 86211, 08/14/2024 18:29:24 08/14/19 25 08/14/2024 CMP, serum or plasm a AST (SGOT) 18 U/L 10-40 Not Available [facility] [address] [place] [address], 94420, 08/14/2024 18:29:24 08/14/19 25 08/14/2024 CMP, serum or plasm a total bilirubin 0.5 mg/dL 0.2-1. 0 Not Available [facility] [address] [place] [address], 61331, 08/14/2024 18:29:24 08/14/19 25 08/14/2024 CMP, serum or plasm a ALT (SGPT) 19 U/L 8-35 Not Available [facility] [address] [place] [address], 10250, 08/14/2024 18:29:24 08/14/19 25 08/14/2024 CMP, serum or plasm a BUN 27 mg/dL 7-21 high Not Available [facility] [address] [place] [address], 17570, 08/14/2024 18:29:24 08/14/19 25 08/14/2024 CMP, serum or plasm a creatinine 1.4 mg/dL 0.7-1. 3 high Not Available [facility] [address] [place] [address], 22005, 08/14/2024 18:29:24 08/14/19 25 08/14/2024 CMP, serum or plasm a CKD-epi GFR 41 low eGFR was calcu lated using the 2020 CKD-E PI equat ion. (Deputy Assessor ori Kidne y Disea se has an eGFR less than 60 mL/mi n/1.7 3mm for a perio d of three month s or more. ) This calcu latio n has not been valid ated for patie nt ages <18 or >90 years old. Not Available [facility] [address] [place] [address], 59646, 08/14/2024 18:29:24 08/14/19 25 08/17/2024 hla-B 27, blood [id number]-B27, DNA typing Not Available [facility] [address], [address], 08/17/2024 18:37:52 08/14/19 25 08/17/2024 hla-B 27, [...] HLA Lab CLIA ID Melbae r [id number] This test was perfo rmed using Polym erase Chain React ion (PCR) and Seque nce Speci fic Oligo nucle otide Probe s (SSOP ) techn ique. Seque nce Based Typin g (SBT) may be used as a suppl ement al metho d when neces jasiel. If you have quest ions, pleas e call HLA custo lorenzo servi ce at [phone] or email at [email or web address]. Not Available [facility] - [facility] [address], [address], 08/17/2024 18:37:52 05/08/20 24 11/01/2023 imagi ng/di agnos tic resul t No observ ation record ed. [email or web address] Not Available 22:50:54 08/14/19 25 08/14/2024 XR, hand [facility] [address] [place] [address] Teleph one [phone] 23 Name: Katelyn Roth [id number] am Date: 2024 [...] 2:04 PM cc: Page PAGE 1 of [facility] 1 kiko Ut Only - [facility] Rad[facility] [address] [place], [address], 08/20/2024 16:35:21 Result Notes None recorded. Problems Name Problem SNOMED Code Status Onset Date Resolution Date Notes Provider Name and Address Organization Details Recorded Time Psoriasis of scalp 388825421 Active 2023 Ching Guard null, [facility] 4 12:55:25 Psoriasis 1013448 Active 2023 Ching Guard null, [facility] 4 12:56:04 Milia 407221164 Active 2023 Ching Guard null, [facility] 4 12:43:58 Facial wart 892221648 Active 2023 [place] Guard null, [facility] 4 12:44:04 Pain of multiple joints 33225562 Active 2024 Santy Brooks MD [address] [place], [address] [place] [address] 5 14:45:45 Generalized osteoarthri tis 536979012 Active 2024 Santy Brooks MD [address] [place] [address], [address], [facility] 5 14:45:53 Pain of bilateral hands 6066645676007 9109 [facility] 2024 [facility] 5 14:45:58 Peripheral sensory neuropathy 185314834 Active 2024 Santy Brooks MD [address] , [place], [address], [facility] 5 14:46:37 Postmenopau jesse osteoporosi s 931066376 Active 2024 [facility] 5 14:46:56 Seborrheic dermatitis 10510328 Active 2024 Ching Guard [facility] 5 12:46:02 Inflamed seborrheic keratosis 499617051 Active 2024 [facility] 5 12:47:49 Problem Notes None recorded. [...] Not Available Not Available No t Available [place] 3 120 mg-180 mg-1000 mg capsule once [...] until clear, then use once weekly for [facility] 2024 active Not Available Not Available Not [...] until clear, then use once weekly for [facility] 2024 active Not Available Not Available Not [...] given to pt in office. Lot Number: [id number] xp date: April 2025 Not Available Not [...] /min 95 % 95 % Estefani Fuentes [facility] 08/04/2024 14:48:10 Date Recorded Body height Body mass index (BMI) Body weight Heart rate Oxygen saturation Oxygen saturation in Arterial blood by Pulse oximetry Systolic blood pressure Diastolic blood pressure Provider Name and Address Organization Details Last Updated DateTime 5 177.8 cm 28 kg/m2 83673.1 5 g 80 /min 95 % 95 % 148 mm[Hg] 80 mm[Hg] Kelly jeremiah [facility] 5 14:05:18 Date Recorded Body height Oxygen saturation Oxygen saturation in Arterial blood by Pulse oximetry Heart rate Body mass index (BMI) Body weight Provider Name and Address Organization Details Last Updated DateTime 5 177.8 cm 94 % 94 % 110 /min 29 kg/m2 38704.1 g [facility] 5 12:34:46 Date Recorded Body height Oxygen saturation Oxygen saturation in Arterial blood by Pulse oximetry Heart rate Provider Name and Address Organization Details Last Updated DateTime 06/01/2024 177.8 cm 94 % 94 % 82 /min [facility] 06/01/2024 12:22:56 Date Recorded Body height Body mass index (BMI) Body weight Oxygen saturation Oxygen saturation in Arterial blood by Pulse oximetry Heart rate Provider Name and Address Organization Details Last Updated DateTime 4 177.8 cm 28.2 kg/m2 52319.8 2 g 93 % 93 % 90 /min [facility] 4 12:27:25 Social History Question Answer Notes LastModified by Organizat ion Details LastModified Time Tobacco Smoking Status Current Every Day Smoker Kelly [facility] 08/14/2024 14:15:12 Do You Have An [...] Y Arthritis Y Hyperlipidemia N Cancer N Stroke N Thyroid Problems N Asthma Y Depression Y COPD Y Anemia N Seizures N Heart Disease Y Fibromyalgia N Osteoporosis N Kidney Disease N Gynecological HistoryNo gynecological history recorded. Obstetrics History GPAL:G 0 P 0 0 0 0 Past Encounters Encounter ID Performer Location Encounter Start Date Encounter Closed Date Diagnosis/Indication Diagnosis SNOMED-CT Code Diagnosis ICD10 Code Diagnosis Note [id number] MD [facility] [place] [address] [place] [address] 06/01/2024 11:40:53 06/01/2024 12:56:23 Psoriasis of scalp 650943721 L40.9 Psoriasis 9620409 L40.9 Taking hig h risk medication 6864218636 32336 Z79.899 [id number] MD [facility] [place] [address] [place] [address] 06/29/2024 11:49:28 06/29/2024 13:16:46 Psoriasis of scalp 993113706 L40.9 Psoriasis 4623265 L40.9 Milia 443429749 L72.0 Facial wart 415410294 B0 7.9 [id number] MD [facility] [place] [address] [place] [address] 08/04/2024 14:29:02 08/04/2024 14:50:33 Psoriasis 4103270 L40.9 Counseling 906282934 Z71 .89 [id number] Santy Brooks MD [address] [facility] ([place]) [address] [place] [address],[address] [place] [address] 08/14/2024 13:53:50 08/15/2024 18:26:54 Psoriasis 5184439 L40.9 Pain of mu ltiple joints 70685455 M25.50 Generalize d osteoarthritis 129344434 M15.9 Postmenopausal state 764 15227 Z78.0 Peripheral sensory neuropathy 185370490 G60.8 [id number] MD [facility] [place] [address] [place] [address] 12/06/2024 11:50:28 12/06/2024 12:52:51 Psoriasis of scalp 969654015 L40.9 Psoriasis 1026958 L40.9 Seborrheic dermatitis 50 687422 L21.9 Inflamed s eborrheic keratosis 134231890 L82.0 Health Concerns Section Related Observation LastModified by Organization Detai ls LastModified Time None Recorded Concern Status LastModified by Organization Details LastModified Time None Recorded Advance Directives Directive N: Payers Insurance Date Sequence Insurance Name Policy Number Policy Jj Covered Member ID Jj Member ID Guarantor Name 12/01/2024 1 [facility] (MEDICARE REPLACEMENT/AD VANTAGE - PPO) [id number] Rosa Escalante [id number] Rosa Escalante 12/01/2024 2 [facility] (MEDICAID REPLACEMENT - HMO) [id number] Rosa Escalante [id number] Rosa Escalante Notes Date Note Type Note Provider Name and Address Organization Details Recorded Time 4 text/html NPV Room # 4 Referred by: self Reason for visit: NPV/Psoriasis Concerns: Pt states she has had psoriasis for 8 years. She has flares on her scalp and back of her neck. She has been given topicals by her previous secondary spanish teacher but states she saw no change when using them. Family history of skin cancer: no Personal history of skin cancer: no Smoking: yes, 4 cigarettes a day Past dermatology: yes, Dr. Cem Kearney Work outdoors: no, retired Immunosuppression/Chemo drugs: no History of organ Transplant: no Currently , breast feeding or trying to conceive: no Wearing makeup: no Julio Hernandez MD [facility] [place] [address], [phone], [facility] 06/18/2024 20:56:20 4 text/html Room # 4 Reason For Visit: 6 week Psoriasis Concerns:Pt states she has no concerns today. Smoking: yes, 5 a day (trying to quit) Make up: n/a Currently , breast-feeding, or trying to conceive: n/a Julio Hernandez MD [address] [place] [address], [phone], [facility] 07/06/2024 18:19:38 5 text/html The patient is [...] at the request of Dr. Hernandez, her secondary spanish teacher, regarding rheumatologic evaluation and polyarthralgias in the setting of psoriasis, rule out psoriatic arthritis. The patient describes onset 15 years ago of a scaly erythematous rash on her scalp that was diagnosed as plaque psoriasis. She was treated with topicals, but these had not been of much benefit. Her former secondary spanish teacher refused to prescribe oral DMARDs or biologic [...] on a scale. She does complain of mission commander weakness, but no carpal tunnel symptoms. No [...] is scheduled to see a neurologist in [place] in the coming month. She does take hydrocodone from her PCP and claims to take vitamin D3 though she is not sure of the exact dose. Family history is noncontributory. Of note, she has not previously, as noted above, taken any conventional DMARD agents nor anti-TNF agents. No KATHRINE inhibitors in the past. I have reviewed the patient s past medical history and [employer] intake form.angelique Sebastian a [...] TemperEndo:NegativeHem:N egative Santy Brooks MD [address] [place] [address], [phone], [facility] 08/20/2024 11:18:55 OBGyn Episode No OBEpisode recorded.
--- OUTSIDE RECORDS SUMMARY | 2024-12-12 10:16 | XMS_ITS | Clinical Summary ---
Author Organization [facility] Address [address] [place] [address] Phone Care Team Providers Care Oceanography Professor Name Role Phone Kyle Montenegro MD Primary Care Provider Allergies No known active allergies Medications citalopram (CeleXA) 10 MG Tablet Take 10 mg by mouth daily. Active aspirin EC 81 MG Tablet Delayed Response Take 81 mg by mouth daily. Active Calcium Carbonate (CALCIUM 600 PO) Take by mouth. Activ e VITAMIN D PO Take by mouth. Ac tive Multiple Vitamin (MULTIVITAMIN PO) Take by mouth. Activ e Burnham-3 Fatty Acids (FISH OIL PO) Take by [...] - 11/13/2024 11:59 PM CDT Hospital Encounter [facility] [address] [place] [address] Provider, Not On File Discharge Disposition: Discharged to home or Selfcare 11/13/2024 11:37 AM CDT - 11/13/2024 11:39 AM CDT Hospital Encounter [facility] [address] [place] [address] Provider, Not On File Discharge Disposition: Discharged to home or Selfcare 11/13/2024 11:30 AM CDT [facility] [address] [place] [address] Sharad Faulkner MD Weakness of left lower extremity Discharge Disposition: Discharged to home or Selfcare 11/13/2024 Travel 11/09/2024 3:30 PM CDT Office Visit [facility] [address] [place] [address] Sharad Faulkner MD Weakness of left lower [...] Visit [facility] - [facility] [address] [place] [address] Sharad Faulkner MD [address] [place] [address] Health Maintenance Due Date Last Done Comments [...] from Last 3 Months Insurance MEDICARE C [facility] [address] [place] Care Teams Oceanography Professor Relationship Specialty Start Date End Date Kyle Montenegro MD [address] [place] [address] PCP - General Family Medicine 10/31/24
--- OUTSIDE RECORDS SUMMARY | 2024-12-12 10:16 | XMS_ITS | Clinical Summary ---
Author Organization [facility] Address [address] [place] [address] Care Team Providers Care Hardware Design Engineer Name Role Phone Papo Ambriz MD Primary Care Provider [phone] Source Comments [facility],non-owned Affiliates and Associated Physician Practices is amultiple site organization consisting of ambulatory clinics and hospital sitesin [place], [place], [place] and [place]. This disclosure is being madepursuant to the Care Everywhere program and may not contain all information available regarding this patient. Last updated 18.[facility] Allergies No known active allergies Medications * [...] 4 times daily as needed. Active Tiotropium [place] Monohydrate (SPIRIVA HANDIHALER [place]) once daily. Act [...] on file Legal Sex Female 2:12 PM DIAMOND MERCHANT Gender Identity Not on file Sexual Orientation [...] MAMMO BILAT DIAGNOSTIC Routine 05/21/2015 1:58 PM DIAMOND MERCHANT Breast cyst, left from Last 3 Months or Most Recently Relevant to Health Maintenance Results * MAMMO DIAG DIRECT DIGITAL IMAGE BILA (05/21/2015 1:58 PM DIAMOND MERCHANT) Anatomical Region Laterality Modality Bilateral Mammography 05/21/2015 5:00 PM DIAMOND MERCHANT Impressions 05/21/2015 5:03 PM DIAMOND MERCHANT 1. No evidence of malignancy in either [...] of your patient. [facility] utilizes Logly as a reminder system to notify patients of their next recommended mammogram. Narrative 05/21/2015 5:03 PM DIAMOND MERCHANT EXAMINATION: Digital bilateral diagnostic mammogram and targeted [...] Most Recently Relevant to Health Maintenance Insurance [facility] MANAGED MEDICARE ADV [address] [place] [id number] Care Teams Hardware Design Engineer Relationship Specialty Start Date End Date Papo Ambriz MD PCP - General Internal Medicine 10/14/12
--- OUTSIDE RECORDS SUMMARY | 2024-12-12 10:16 | XMS_ITS | Continuity of Care Document ---
Author Organization [facility] Address [address] [place] [address] [address] [place] [address] Phone Care Team Providers Care Hospice Aide Name Role Phone Morgan OD, Jeremias Unavailable Unavailable Procedures Procedure Date No Charge Contact Lens Check CL Replacement - Vistakon Disp W/BW Soft Tax - Medical Contact Lens Fitting Office Consultation Eye Exam & Treatment Advance Directives Directive Yes / No Effective Date File Name No Information Encounters Encounter Description Practice Location Reason(s) For Visit Diagnoses Date Provider Providers Copied on Encounter [facility], [address] [place] [address] [address], [place], [place], [id number], [place] tel:[phone] [facility] No Information 6-200 8 Morgan OD Jeremias. [address] , [address], [place], [place], [facility], . tel:[phone] [facility], [address] [place] [address] [address], [place], [place], [id number], [place] tel:[phone] [facility] No Information 3-200 8 Morgan OD Jeremias. [address] [facility] , [address], [place], [address], [place]. tel:[phone] Referring Provider: Jones Rosas, [address] [place], [address]. tel:[phone] Office Consultation [facility], [address] [place] [address] [address], [place], [place], [id number], [place] tel:[phone] [facility] No Information 200 8 Alison Pedroza. [address] [facility], [place], [address], [place]. tel:[phone] Referring Provider: Mila Holguin [address], [place], [place], [facility]. tel:[phone] [facility], [address], [place], [place], [id number], tel:[phone] [facility] No Information 8 Jenny Zaragoza. [address] , [address], [place], [address], [place]. tel:[phone] Family History Family Member Type Diagnosis Age At Onset No Information Payers Payer name Insurance type Covered alliance party ID Authoriza tion(s) Medicare [facility] [id number] Social History Type Description Quantity Date Captured [...]
== END 2024-12-12 09:54 | disposition home or self-care (01) ==
LOC: CHSIMG 09:54
PROVIDERS: PCP Family Medicine; Visit Provider Family Medicine
DX: R16.1 Splenomegaly, not elsewhere classified (principal); K76.0 Fatty (change of) liver, not elsewhere classified; Z98.61 Coronary angioplasty status; N20.0 Calculus of kidney
CPT/HCPCS: 74177; Q9967

== ENCOUNTER 2025-02-17 11:25 | Emergency (ER) | payer MEDICARE, MEDICAID, SELFPAY ==
--- NOTE | ~2025-02-17 | XR_ITS ---
EXAMINATION: XR knee RT 3V DATE: 02/17/2025 12:18 INDICATION: 4 days of worsening right knee pain TECHNIQUE: Anteroposterior, oblique and crosstable lateral views of the right knee were obtained COMPARISON: None. FINDINGS: Alignment is normal. No fracture. Mild osteoarthritis at the medial compartment of the right knee. N o joint effusion/layering lipohemarthrosis. Soft tissues are unremarkable. IMPRESSION: 1. Mild medial compartment osteoarthritis at the right knee. No joint effusion or acute osseous abnor mality. Reviewed, dictated and finalized at location A. IMPRESSION: 1. Mild medial compartment osteoarthritis at the right knee. No joint effusion or acute osseous abnormality.
[2025-02-17 11:25] VITALS: BP 132/84; PULSE 96; RESP 18; TEMP 36.5; O2SAT 94
--- OUTSIDE RECORDS SUMMARY | 2025-02-17 11:31 | XMS_ITS | Encounter Summary ---
Author Organization [facility] Address [address] [place] [address] Care Team Providers Care Account Classification Clerk Name Role Phone Fabien Jarrett MD Unavailable [phone] Jaqueline Rosas NP Unavailable [phone] Leo Jacobson MD Primary Care Provider [phone] Simba Keating MD Unavailable [phone] Rah Reid MD Unavailable Bj Cox MD Unavailable Unavailable Leo Jacobson MD Primary Care Provider [phone] Kyle Montenegro DO Primary Care Provider [phone] Irma Miller MD Unavailable Rah Reid MD Unavailable Simba Keating MD Unavailable [phone] Abdirahman Mcghee APRN Unavailable [phone] Jamil Flanagan MD Unavailable [phone] Vera Rice MD Unavailable [phone] Encounter Details Date Type Department Care Team (Late st Contact Info) Description 09/25/2017 Abstract [facility] CONVERSION [address] [place], [place] [id number] , Generic MD Shanon Social History Tobacco [...] CDT Gender Identity Female 09/18/2021 2:09 PM HAND BOX COVERER Sexual Orientation Not on file Occupation Industry Job Start Date Job End Date Disability Not on file Not on file Not on file Not on file Not on file Not on file Not on file documented as of this encounter Plan of Treatment Upcoming Encounters Date Type Department Care Team (Late st Contact Info) Description 02/26/2025 2:20 PM CDT Appointment [facility] [address] [place] [address] Abdirahman Mcghee, FRONT END ASSISTANT [address] [place] [phone] 02/26/2025 3:15 PM CDT Office Visit [facility] eld [address] [place] [phone] Simba Keating MD [address] [facility], [address] [place] [address] documented as of this encounter Visit Diagnoses Not on filedocumented in this encounter Additional Health Concerns Infection Onset Date Last Indicated Resolved Time COVID-19 Rule Out 11/24/2022 11/24/2022 11/24/2022 2:05 PM CDT documented as of this encounter Care Teams Account Classification Clerk Relationship Specialty Start Date End Date Leo Jacobson MD [address] [place] [address] PCP - General FAMILY PRACTICE 11/03/16 08/20/19 Leo Jacobson MD [address] [place] [address] PCP - General FAMILY PRACTICE 08/21/19 08/21/19 Kyle Montenegro DO [address] [place] [address] PCP - General FAMILY PRACTICE 08/22/19 Fabien Jarrett MD CARDIOVASCULAR DISEASE 06/02/16 07/19/18 Jaqueline Rosas NP [address] [place] [address] [address] [place] [address] Manning Brick Wheeler NURSE PRACTITIONER 11/03/16 07/19/18 Simba Keating MD [address] [place] [address] CARDIOVASCULAR DISEASE 09/09/17 11/17/20 Rah Reid MD [address] [place] [address] Vascular/Brick Wheeler INTERNAL MEDICINE 05/18/18 Bj Cox MD [address] [place] [address] Manning B[place] Wheeler INTERVENTIONAL CARDIOLOGY 07/20/18 11/17/20 Irma Miller MD [address] [place] [address] Consulting Physician CARDIOVASCULAR DISEASE 11/18/20 Rah Reid MD [address] [place] [address] Vascular/[place]rick Wheeler INTERNAL MEDICINE 12/01/21 Simba Keating MD [address] [place] [address] Consulting Physician INTERVENTIONAL CARDIOLOGY 05/11/22 Abdirahman Mcghee APRN [address] [place] [address] Nurse Practitioner NURSE PRACTITIONER 05/21/22 Jamil Flanagan MD [address] [place] [address] Consulting Physician INTERNAL MEDICINE 04/22/23 Vera Rice MD [address] [address] SURGERY 04/22/23 documented as of this encounter
--- OUTSIDE RECORDS SUMMARY | 2025-02-17 11:31 | XMS_ITS | Clinical Summary ---
Author Organization [facility] Address [address] [place] [address] Care Team Providers Care Playground Equipment Erector Name Role Phone Kyle Montenegro Primary Care Provider [phone] Rah Reid MD Unavailable Simba Keating MD Unavailable [phone] Abdirahman Mcghee APRN Unavailable [phone] Sera Fisher MD Unavailable [phone] Vera Rice MD Unavailable [phone] Medications aspirin 81 MG tablet Aspirin 81 [...] aneurysm repair 02/23/2023 Acute hypoxemic respiratory failure ([facility]) 11/24/2022 (aortic stenosis) 10/02/2020 Pain of right lower extremity 06/11/2020 Palpitation 08/21/2019 Tobacco abuse 08/21/2019 Hypercholesterolemia 10/04/2018 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 Bilateral carotid bruits 10/03/2018 Other closed fracture of pro ximal end of left fibula, sequela 01/06/2017 COPD (chronic obstructive pu lmonary disease) ([facility]) 06/03/2016 Essential hypertension AAA (abdominal aortic aneurysm) Innominate artery stenosis PAD (peripheral artery disease) Resolved Problems Problem Noted Date Diagnosed Date Resolved Date Ruptured aneurysm of thoraci c aorta ([facility]) 02/23/2023 02/23/2023 High blood cholesterol 02/11/201710/04 Aortic dissection, thoracoabdominal 10/03/2018 Overview (06/02/2016): S-P ThoracicAortic Stent Graft, Bilateral common iliac stents () Immunizations Immunization Administration Dates Next Due Influenza [...] place to sleep or slept in a correction (including now)? No 11/24/2022 Comments No Sex and Gender Information Value Date Recorded Sex Assigned at Female 09/21/2024 8:52 AM CDT Legal Sex Female 9:27 PM CDT Gender Identity Female 09/18/2021 2:09 PM BEAD TRIMMER Sexual Orientation Not on file Occupation Industry [...] 10:04 AM CDT Height 177.8 cm (5' 10) 02/22/2024 10:04 AM CDT Body Mass Index 27.18 02/22/2024 10:04 AM CDT Plan of Treatment Upcoming Encounters Date Type Department Care Team (Late st Contact Info) Description 02/26/2025 2:20 PM CDT Appointment [facility] [address] [place] [address] Abdirahman Mcghee, STATION ATTENDANT [address] [place] [phone] 02/26/2025 3:15 PM CDT Office Visit [facility] eld [address] [place] [address] Simba Keating MD [address] [facility] [place] [address] Health Maintenance Due Date Last Done Comments [...] Dexa Scan (General) 2020 COVID-19 Vaccine ( - season) 2024 Lung Cancer Screening 09/21/2025 09/21/2024 [...] home upon discharge Lifestyle No Leti 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 [place] [address] Examination: CT CHEST WO CON Clinical Information: [...] Procedure Note Young Yi MD - 09/21/[address] [place] [address] Examination: CT CHEST WO CON Clinical Information: [...] CT Final Result from Last 3 Months or Most Recently Relevant to Health Maintenance Insurance MEDICAID Member Subscriber Plan / Payer (Ef fective 2017-Present) Name:Rosa Escalante Relation to Subscriber:Self Name:Rosa Escalante Payer ID:Not on file Group ID:Not on file Type:Not on file Address: [address] MEDICAID Advance Directives * Full Code (Latest Code Status on File) Date Activated Date Inactivated Comments 11/24/2022 12:16 PM 11/30/2022 2:43 PM Care Teams Playground Equipment Erector Relationship Specialty Start Date End Date Kyle Montenegro DO [address] [place] [address] PCP - General FAMILY PRACTICE 08/22/19 Rah Reid MD [address] [place] [address] Vascular/Wall Washer INTERNAL MEDICINE 12/01/21 Simba Keating MD [address] [place] [address] Consulting Physician INTERVENTIONAL CARDIOLOGY 05/11/22 Abdirahman Mcghee APRN [address] [place] [address] Nurse Practitioner NURSE PRACTITIONER 05/21/22 Sera Fisher MD [address] [place] [phone] Consulting Physician INTERNAL MEDICINE 04/22/23 Vera Rice MD [address] [facility] [address] [place] [address] SURGERY 04/22/23
--- OUTSIDE RECORDS SUMMARY | 2025-02-17 11:31 | XMS_ITS | Encounter Summary ---
Author Organization [facility] Address Formerly [facility] [place] [address] Care Team Providers Care Events Assistant Name Role Phone Leo Jacobson MD Primary Care Provider [phone] Simba Keating MD Unavailable [phone] Rah Reid MD Unavailable Bj Cox MD Unavailable Unavailable Leo Jacobson MD Primary Care Provider + [phone] Kyle Montenegro DO Primary Care Provider [phone] Irma Miller MD Unavailable Rah Reid MD Unavailable Simba Keating MD Unavailable + [phone] Abdirahman Mchgee APRN Unavailable [phone] Jamil Flanagan MD Unavailable [phone] Vera Rice MD Unavailable [phone] Encounter Details Date Type Department Care Team (Late st Contact Info) Description 12/17/2018 Abstract [facility] [address] [place] [address] , Generic Conversion, Social History [...] CDT Gender Identity Female 09/18/2021 2:09 PM BUSINESS OFFICE DIRECTOR Sexual Orientation Not on file Occupation Industry Job Start Date Job End Date Disability Not on file Not on file Not on file Not on file Not on file Not on file Not on file documented as of this encounter Plan of Treatment Upcoming Encounters Date Type Department Care Team (Late st Contact Info) Description 02/26/2025 2:20 PM CDT Appointment [facility] [address] [place] [address] Abdirahman Mcghee, TRAFFIC CLERK [address] [place] [phone] 02/26/2025 3:15 PM CDT [facility] [address] [place] [phone] Simba Keating MD [address] [facility], [address] [place], [place] [id number] documented as of this encounter Visit Diagnoses Not on filedocumented in this encounter Additional Health Concerns Infection Onset Date Last Indicated Resolved Time COVID-19 Rule Out 11/24/2022 11/24/2022 11/24/2022 2:05 PM CDT documented as of this encounter Care Teams Events Assistant Relationship Specialty Start Date End Date Leo Jacobson MD [address] [place] [address] PCP - General FAMILY PRACTICE 11/03/16 08/20/19 Leo Jacobson MD [address] [place] [address] PCP - General FAMILY PRACTICE 08/21/19 08/21/19 Kyle Montenegro DO [address] [place] [address] PCP - General FAMILY PRACTICE 08/22/19 Simba Keating MD [address] [place] [address] CARDIOVASCULAR DISEASE 09/09/17 11/17/20 Rah Reid MD [address] [place] [address] Vascular/Manager Non Profit INTERNAL MEDICINE 05/18/18 Bj Cox MD [address] [place] [address] Manager Non Profit INTERVENTIONAL CARDIOLOGY 07/20/18 11/17/20 Irma Miller MD [address] [place] [address] Consulting Physician CARDIOVASCULAR DISEASE 11/18/20 Rah Reid MD [address] [place] [address] Vascular/Manager Non Profit INTERNAL MEDICINE 12/01/21 Simba Keating MD [address] [place] [address] Consulting Physician INTERVENTIONAL CARDIOLOGY 05/11/22 Abdirahman Mcghee APRN [address] [place] [address] Nurse Practitioner NURSE PRACTITIONER 05/21/22 Jamil Flanagan MD [address] [place] [phone] Consulting Physician INTERNAL MEDICINE 04/22/23 Vera Rice MD [facility] [address] [address] SURGERY 04/22/23 documented as of this encounter
--- OUTSIDE RECORDS SUMMARY | 2025-02-17 11:31 | XMS_ITS | Clinical Summary ---
Author Organization [facility] Address [address] [place] [address] Care Team Providers Care Line Cook Name Role Phone Papo Ambriz MD Primary Care Provider [phone] Source Comments [facility],non-owned Affiliates and Associated Physician Practices is amultiple site organization consisting of ambulatory clinics and hospital sitesin [place], [place] and [place]. This disclosure is being madepursuant to the Care Everywhere program and may not contain all information available regarding this patient. Last updated 18.[facility] [employer] Allergies No known active allergies Medications * [...] 4 times daily as needed. Active Tiotropium [place] Monohydrate (SPIRIVA HANDIHALER IN) once daily. Act [...] on file Legal Sex Female 2:12 PM LOSS MITIGATION SPECIALIST Gender Identity Not on file Sexual Orientation [...] MEDICARE AWV CALENDAR YEAR 2024 INFLUENZA VACCINE (#1) 2025 6, 03/14/2015, 05/04/2014, Additional history exists HEPATITIS B [...] MAMMO BILAT DIAGNOSTIC Routine 05/21/2015 1:58 PM LOSS MITIGATION SPECIALIST Breast cyst, left from Last 3 Months or Most Recently Relevant to Health Maintenance Results * MAMMO DIAG DIRECT DIGITAL IMAGE BILA (05/21/2015 1:58 PM LOSS MITIGATION SPECIALIST) Anatomical Region Laterality Modality Bilateral Mammography 05/21/2015 5:00 PM LOSS MITIGATION SPECIALIST Impressions 05/21/2015 5:03 PM LOSS MITIGATION SPECIALIST 1. No evidence of malignancy in either [...] of your patient. [facility] utilizes Mir [employer] as a reminder system to notify patients of their next recommended mammogram. Narrative 05/21/2015 5:03 PM LOSS MITIGATION SPECIALIST EXAMINATION: Digital bilateral diagnostic mammogram and targeted [...] Most Recently Relevant to Health Maintenance Insurance [facility] MANAGED MEDICARE ADV [address] [place] [id number] Care Teams Line Cook Relationship Specialty Start Date End Date Papo Ambriz MD PCP - General Internal Medicine 10/14/12
--- OUTSIDE RECORDS SUMMARY | 2025-02-17 11:31 | XMS_ITS | Encounter Summary ---
Author Organization [facility] Address [address] [place] [address] Care Team Providers Care V Block Saw Operator Name Role Phone Fabien Jarrett MD Unavailable [phone] Jaqueline Rosas NP Unavailable [phone] Leo Jacobson MD Primary Care Provider + [phone] Simba Keating MD Unavailable [phone] Rah Reid MD Unavailable Bj Cox MD Unavailable Unavailable Leo Jacobson MD Primary Care Provider + [phone] Kyle Montenegro DO Primary Care Provider [phone] Irma Miller MD Unavailable Rah Reid MD Unavailable Simba Keating MD Unavailable [phone] Abdirahman Mcghee APRN Unavailable [phone] Jamli Flanagan MD Unavailable [phone] Vera Rice MD Unavailable [phone] Encounter Details Date Type Department Care Team (Late st Contact Info) Description 04/17/2015 Abstract [facility] [address] [place] [address] Fabien Jarrett MD [address] [place] [address], [address] [place], [place] [id number] Social History Tobacco Use Types Packs/Day Years Used Date Smoking Tobacco: Former Smokeless Tobacco: Never Alcohol Use Standard Drinks/Week Comments No 0 (1 standard drink = 0.6 oz pur e alcohol) Comments Unknown Sex and Gender Information Value Date Recorded Sex Assigned at Female 09/21/2024 8:52 AM CDT Legal Sex Female 9:27 PM CDT Gender Identity Female 09/18/2021 2:09 PM 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 [address] [place] [address] Abdirahman Mcghee, PIPING DRAFTER [address] [place] [phone] 02/26/2025 3:15 PM CDT Office Visit [facility] eld [address] [place] [phone] Simba Keating MD [address] [facility], [address] [place] [address] documented as of this encounter Visit Diagnoses Not on filedocumented in this encounter Additional Health Concerns Infection Onset Date Last Indicated Resolved Time COVID-19 Rule Out 11/24/2022 11/24/2022 11/24/2022 2:05 PM CDT documented as of this encounter Care Teams V Block Saw Operator Relationship Specialty Start Date End Date Leo Jacobson MD [address] [place] [address] PCP - General FAMILY PRACTICE 11/03/16 08/20/19 Leo Jacobson MD [address] [place] [address] PCP - General FAMILY PRACTICE 08/21/19 08/21/19 Kyle Montenegro DO [address] [place] [address] PCP - General FAMILY PRACTICE 08/22/19 Fabien Jarrett MD CARDIOVASCULAR DISEASE 06/02/16 07/19/18 Jaqueline Rosas NP [address] [place], [place] [phone] [place] [phone] [employer] NURSE PRACTITIONER 11/03/16 07/19/18 Simba Keating MD [address] [place] [address] CARDIOVASCULAR DISEASE 09/09/17 11/17/20 Rah Reid MD [address] [place] [address] Vascular/Money Market Dealer INTERNAL MEDICINE 05/18/18 Bj Cox MD [address] [place] [address] [employer] INTERVENTIONAL CARDIOLOGY 07/20/18 11/17/20 Irma Miller MD [address] [place] [address] Consulting Physician CARDIOVASCULAR DISEASE 11/18/20 Rah Reid MD [address] [place] [address] Vascular/Money Market Dealer INTERNAL MEDICINE 12/01/21 Simba Keating MD [address] [place] [address] Consulting Physician INTERVENTIONAL CARDIOLOGY 05/11/22 Abdirahman Mcghee APRN [address] [place] [address] Nurse Practitioner NURSE PRACTITIONER 05/21/22 Jamil Flanagan MD [address] [place] [phone] Consulting Physician INTERNAL MEDICINE 04/22/23 Vera Rice MD [address] [place] [address] SURGERY 04/22/23 documented as of this encounter
--- OUTSIDE RECORDS SUMMARY | 2025-02-17 11:31 | XMS_ITS | Continuity of Care Document ---
Author Organization [facility] Address [address] [place] [address] [address] [place] [address] Phone Care Team Providers Care Maintenance Inspector Name Role Phone Morgan OD, Jeremias Unavailable Unavailable Procedures Procedure Date No Charge Contact Lens Check CL Replacement - Vistakon Disp W/BW Soft Tax - Medical Contact Lens Fitting Office Consultation Eye Exam & Treatment Advance Directives Directive Yes / No Effective Date File Name No Information Encounters Encounter Description Practice Location Reason(s) For Visit Diagnoses Date Provider Providers Copied on Encounter [facility], [address] [place] [address] [address], [place], [place], [id number], [place] tel:[phone] [facility] No Information 6-200 8 Morgan OD Jeremias. [address] [facility] , [address], [place], [place], [facility], . tel:[phone] [facility], [address] [place] [address] [address], [place], [place], [id number], [place] tel:[phone] [facility] No Information 3-200 8 Morgan OD Jeremias. [address] [facility] , [address], [place], [address], [place]. tel:[phone] Referring Provider: Jones Rosas, [address] [place], [address]. tel:[phone] Office Consultation [facility], [address] [place] [address] [address], [place], [place], [id number], [place] tel:[phone] [facility] No Information 200 [address] Alison Pedroza. [facility], [place], [address], [place]. tel:[phone] Referring Provider: Mila Holguin [address], [place], [place], [facility]. tel:[phone] [facility], [address], [place], [place], [id number], tel:[phone] [facility] No Information 8 Jenny Zaragoza. [address] , [address], [place], [address], [place]. tel:[phone] Family History Family Member Type Diagnosis Age At Onset No Information Payers Payer name Insurance type Covered alliance party ID Authoriza tion(s) Medicare [facility] [id number] Social History Type Description Quantity Date Captured [...]
--- OUTSIDE RECORDS SUMMARY | 2025-02-17 11:31 | XMS_ITS | Clinical Summary ---
Author Organization [facility] Address [address] [place] [address] Phone Care Team Providers Care Furnace Clerk Name Role Phone Kyle Montenegro MD Primary Care Provider [phone] Sharad Faulkner MD Unavailable Allergies No known active allergies Medications citalopram (CeleXA) 10 MG Tablet Take 10 mg by mouth daily. Active aspirin EC 81 MG Tablet Delayed Response Take 81 mg by mouth daily. Active Calcium Carbonate (CALCIUM 600 PO) Take by mouth. Activ e VITAMIN D PO Take by mouth. Ac tive Multiple Vitamin (MULTIVITAMIN PO) Take by mouth. Activ e [place] Light-3 Fatty Acids (FISH OIL PO) Take by mouth. Activ e atorvastatin (LIPITOR) 40 MG Tablet Take 40 mg by mouth daily. Active clobetasol (TEMOVATE) 0.05 % Cream Apply 2 times daily. Application Site (Description and Location) Active HYDROcodone-ac etaminophen (NORCO) 10-325 MG Tablet Take 1 Tablet by mouth every 6 hours as needed. Active busPIRone (BUSPAR) 15 MG Tablet Take [...] mg by mouth every 7 days. Active Fluticasone-Um eclidin-Vilant (TRELEGY ELLIPTA IN) take by inhalation. Active [...] mg by mouth 3 times daily. Active meclizine (ANTIVERT) 25 MG Tablet Take 1 Tablet by mouth 3 times daily as needed for Dizziness. 30 Tablet Active hydroCHLOROthi azide 25 MG Tablet Take 25 mg by mouth daily. 025 Discontin ued(Med List Clean Up) Encounters Date Type Department Care Team Description 02/05/2025 1:45 PM CDT Office Visit [facility] [address] [place] [address] Sharad Faulkner MD Dizziness (Primary Dx); Polyneuropathy Discharge Disposition: Discharged to home or Selfcare 02/05/2025 Travel from Last 3 Months Family History Medical History Relation Name Comments Cancer Father Congestive Heart Failure Mother Relation Name Status Comments Father Mother Social History Tobacco Use Types Packs/Day Years Used Date Smoking Tobacco: Every Day Cigarettes Smokeless Tobacco: Never Tobacco Cessation:Ready to Q uit: Yes; Counseling Given: Yes Alcohol Use Standard Drinks/Week Comments Yes 0 [...] Sign Reading Time Taken Comments Blood Pressure 156/90 02/05/2025 2:18 PM CDT Pulse 76 02/05/2025 2:18 PM CDT Temperature 36.4 C (97.6 F) 02/05/2025 2:18 PM CDT Respiratory Rate 18 02/05/2025 2:18 PM CDT Oxygen Saturation 95% 11/09/2024 3:42 PM CDT Inhaled Oxygen Concentration - - Weight 93.4 kg (205 lb 12.8 oz) 02/05/2025 2:18 PM CDT Height 180.3 cm (5' 11) 02/05/2025 2:18 PM CDT Body Mass Index 28.7 02/05/2025 2:18 PM CDT Plan of Treatment Upcoming Encounters Date Type Department Care Team (Late st Contact Info) Description 08/07/2025 10:30 AM TIN FLOPPER Office Visit [facility] [address] [place] [address] Sharad Faulkner MD [address] [place] [address] Health Maintenance Due Date Last Done Comments DEXA Bone Density 1955 Hepatitis C Virus (HCV) Screening 1955 TdaP Immunization 1955 Cologuard 2000 Colonoscopy 2000 Colorectal Cancer Screening 2000 Immunochemical Fecal Occult Blood 2000 Zoster Immunization (1 of 2) 2005 Mammogram 05/21/2016 05/21/2015, 05/05/2012 SARS-COV-2 Immunization ( season) 2024 11/01/2020, 10/04/2020 Influenza Immunization (#1) 2025 02/0 02/2024, 04/30/2022, 09/08/2021, Additional history exists Respiratory Syncytial [...] to complete this topic Insurance MEDICARE C [employer] MEDICAID [place] Care Teams Furnace Clerk Relationship Specialty Start Date End Date Kyle Montenegro MD [address] [place] [address] PCP - General Family Medicine 10/31/24 Sharad Faulkner MD [address] [place] [address] Consulting Physician Neurology 02/02/25
--- NOTE | 2025-02-17 11:47 | ED_ITS ---
HPI - Extremity Injury (Lower) General Chief Complaint: Extremity Injury, Lower Stated Complaint: right leg pain Time Seen by Provider: 02/17/25 11:45 Source: patient Mode of arrival: ambulatory Limitations: no limitations History of Present Illness HPI Narrative: 69-year-old female with history of smoking, CAD, chronic low back pain, CKD, COPD, hypertension, peripheral vascular disease status post iliac stent/ aortic endograft,status post right replacement, orthostatic hypotension presents to the ED with a 3 day history of --right calf pain. the pain radiates to thigh and the hip. Patient has a history of right hip replacement many years ago. no history of trauma No chest pain. chronic shortness of breath and cough. no recent worsening of shortness of breath. Onset (ago): day(s) ( Three days) Severity: mild Relieving factors: immobilization Exacerbating factors: movement Related Data Home Medications ?Medication ?Instructions ?Recorded ?Confirmed ?Last Taken ?Type aspirin 81 mg tablet,delayed 81 mg PO DAILY 07/16/22 02/02/25 Unknown History release (Enteric Coated Aspirin) calcium 600 mg (as carbonate)-vit 600 tablet PO DAILY 07/16/22 02/02/25 Unknown History D3 10 mcg (400 unit) chewable tablet (Calcium 600 with Vitamin D3) cholecalciferol (vitamin D3) 25 25 mcg PO DAILY 07/16/22 02/02/25 Unknown History mcg (1,000 unit) capsule multivitamin 1 tablet PO DAILY 07/16/22 02/02/25 Unknown History omega-3 fatty acids 1,000 mg 2,000 mg PO DAILY 07/16/22 02/02/25 Unknown History capsule clobetasol 0.05 % scalp solution 1 applic topical DAILY 10/01/23 02/02/25 Unknown History hydrocodone 10 mg-acetaminophen 1 tablet PO Q6-8H PRN Pain 10/01/23 02/02/25 Unknown History 325 mg tablet mupirocin 2 % topical ointment 1 applic topical DAILY 10/01/23 02/02/25 Unknown History pregabalin 75 mg capsule 75 mg PO BID 09/22/24 02/02/25 Unknown History Allergies Allergy/AdvReac Type Severity Reaction Status Date / Time No Known Allergies Allergy Verified 02/17/25 11:33 Review of Systems 2 Review of Systems: All systems reviewed & are unremarkable except as noted in HPI and below Constitutional: Constitutional: Reports as per HPI and Reports no additional constitutional complaints Eyes: Eyes: Reports as per HPI and Reports no additional eye complaints ENT: Reports system reviewed and no additional complaints, except as documented and Reports as per HPI Cardiovascular: Cardiovascular: Reports as per HPI and Reports no additional cardiovascular complaints Respiratory: Respiratory: Reports as per HPI, Reports no additional respiratory complaints, Reports cough, Reports dyspnea and Reports wheezing C omments: No recent worsening of shortness of breath. Gastrointestinal: Gastrointestinal: Reports as per HPI and Reports no additional gastrointestinal complaints Genitourinary: Genitourinary: Reports no additional female genitourinary complaints and Reports as per HPI Musculoskeletal: Musculoskeletal: Reports as per HPI, Reports back pain and Reports arthralgias Integumentary/Breasts: Skin/Breast: Reports system reviewed and no additional complaints, except as docu and Reports as per HPI Neurologic: Reports system reviewed and no additional complaints, except as documented and Reports as per HPI Psychiatric: Psychiatric: Reports no additional psychiatric complaints and Reports as per HPI Endocrine: Endocrine: Reports no additional endocrine complaints and Reports as per HPI Hematologic/Lymphatic: Hematologic/Lymphatic: Reports no additional hematologic/lymphatic complaints and Reports as per HPI Allergic/Immunologic: Allergic/Immunologic: Reports no additional allergic/immunologic complaints and Reports as per HPI [facility] Past Medical History Medical History Peripheral neuropathy Asthma History of aortic dissection 2002 Tobacco abuse Chronic back pain Chronic kidney disease (CKD) stage G4/A1, severely decreased glomerular filtration rate (GFR) between 15-29 mL/min/1.73 square meter and albuminuria creatinine ratio less than 30 mg/g Gout Age related osteoporosis Hypertension Hyperlipidemia GERD (gastroesophageal reflux disease) WILLIAM (generalized anxiety disorder) COPD (chronic obstructive pulmonary disease) Overweight Surgical History Surgical History S/P insertion of iliac artery stent History of mandibular surgery History of hip replacement, total right Hx of cataract surgery Family History Family History Father Family history of malignant neoplasm Sibling Family history of malignant neoplasm of breast in first degree relative Mother Family history of congestive heart failure Other Hypertension Social History Social History Smoking packs per day: 0.5 Smoking cigarettes per day: 10.0 Years smoked: 50 Smoking pack-years: 25.00 Smoking status: Current every day smoker Tobacco type: cigarettes Second hand tobacco smoke exposure: Yes Alcohol intake: current Alcohol use details: 1 glass of wine per year Substance use: current Substance use type: marijuana Other substance usage details: OCCASIONALLY Last use: 07/07/20 Do You Feel Safe in your Home?: Yes Lack of Transportation: No Lack of Food: Never True Current Housing: I Have Housing Concerned About Future Housing: No Difficulty Paying Gas/Electric Bills: YES Difficulty Paying for Meds: No Currently Unemployed: No Education: High School Diploma/GED Difficulty w/ Childcare or Family Care: No Living arrangements: with family Additional living arrangements comments: [facility] WITH [facility] Occupation/Education: retired Gender identity (if verbalized by the patient): Female Spiritual care concerns: No Agree to blood products: Yes Exam 2 Narrative: vitals are stable Const: General: no acute distress Orientation/consciousness: patient oriented x3 Limitations: no limitations HENMT: Head: normal to inspection Ears: external ears normal F rachel/Nose/Sinus: Normal external nose present Face and sinus: normal facial exam Mouth: Yes Normal oral and palatal mucosa present Throat: posterior oropharynx normal Eyes: Conjunctivae: conjunctivae normal Pupils: Equal, round and reactive pupils present EOM: EOMs intact bilaterally Direct Ophthalmoscopy: no photophobia Neck: Neck: normal visual inspection, no lymphadenopathy and no meningeal signs Chest: Chest palpation & inspection: normal inspection of the chest Resp: Effort & Inspection: normal respiratory effort Auscultation: clear to auscultation bilaterally Cardio: Rate: regular rate Rhythm: regular rhythm GI: GI Palp: Yes Soft to palpation Auscultation: normal bowel sounds O ther: no tenderness/ rigidity /rebound. : General: Yes no CVA tenderness Back/Spine/Pelvis: Back: no CVA tenderness Skin: General skin exam: normal color Rashes: no rashes Wounds: no wounds Neuro: General: patient oriented x3, moves all extremities, no meningeal signs and no focal motor deficits Speech: normal speech Extrem: Other: Right calf-- tenderness over the right gastrocnemius. No calf swelling compared to the other cough. Normal range of motion of the right knee and the right thigh Psych: Mental Status: mental status grossly normal Affect: normal affect Attitude: cooperative Course Course Emergency Course: right calf pain-- no calf swelling. Distal pulses are intact. Patient has a positive D-dimer. will transfer to [facility] for venous Dopplers. x-rays of the right knee revealed arthritis No prior history of DVT / PE. No recent worsening shortness of breath. Patient saturating 97 on room air with a respiratory rate of 18. An EKG done today does not show any new findings suggestive of RV strain. COPD CKD with a BUN/creatinine of 19/1.3 Vital Signs Vital signs: Vital Signs Temperature 36.5 C 02/17/25 11:25 Pulse Rate 96 02/17/25 11:25 Respiratory Rate 18 02/17/25 11:25 Blood Pressure 132/84 02/17/25 11:25 Pulse Oximetry 94 02/17/25 11:25 Oxygen Delivery Room Air 02/17/25 11:25 Temperature 36.5 C 02/17/25 11:25 Pulse Rate 85 02/17/25 12:30 Respiratory Rate 18 02/17/25 12:30 Blood Pressure 136/80 02/17/25 12:30 Pulse Oximetry 97 02/17/25 12:30 Oxygen Delivery Room Air 02/17/25 12:30 MDM - Extremity Injury (Lower) MDM Narrative Medical decision making narrative: right calf pain with elevated D-dimer. tenderness over right gastrocnemius Right knee arthritis Differential Diagnosis Differential diagnosis: Likely other ( arthritis of the knee.) Medical Records Attestation: I reviewed the patient's medical records. Lab Data Attestation: I reviewed the patient's lab results. 02/17/25 12:19 02/17/25 12:19 Labs: Lab Results 02/17/25 Range/Units 12:19 WBC 8.6 (4.8-10.8) K/mm3 RBC 5.46 H (4.20-5.40) M/mm3 Hgb 15.1 H (11.7-13.8) g/dL Hct 47.8 H (35.0-42.0) % MCV 87.5 (78.0-102.0) fL MCH 27.7 (27.0-31.0) pg MCHC 31.6 L (32-36) g/dL RDW 14.7 H (11.6-14.4) % Plt Count 171 (150-420) K/mm3 MPV 11.6 (9.2-11.8) fl Immature Gran % (Auto) 0.3 H (0.0-0.0) % Neut % (Auto) 60.3 (50.0-70.0) % Lymph % (Auto) 25.1 (18.0-42.0) % [place] % (Auto) 7.5 (2.0-11.0) % Eos % (Auto) 6.1 H (1.0-6.0) % Baso % (Auto) 0.7 (0.0-1.0) % Lymph # (Auto) 2.17 (1.10-4.50) K/mm3 [place] # (Auto) 0.65 (0.10-0.90) K/mm3 Eos # (Auto) 0.53 H (0.02-0.50) K/mm3 Baso # (Auto) 0.06 (0.00-0.10) K/mm3 Abs Immat Gran (auto) 0.03 H (0.00-0.00) K/mm3 Absolute Neuts (auto) 5.19 (1.70-7.20) K/mm3 Absolute Nucleated RBC 0.00 (0.00-0.00) K/mm3 Nucleated RBC % 0.0 (0-0.0) % PT 10.2 (9.50-12.1) Seconds INR 0.9 APTT 29.4 (23.9-30.70) Sec D-Dimer 3.49 H (0.19-0.50) mg/L Sodium 139 (137-145) mmol/L Potassium 3.3 L (3.4-5.0) mmol/L Chloride 101 (98-107) mmol/L Carbon Dioxide 33 H (22-30) mmol/L Anion Gap 5 (4-12) mmol/L BUN 19 H (7-17) mg/dL Creatinine 1.30 H (0.7-1.0) mg/dL Estim Creat Clear Calc 41 ml/min Estimated GFR 41 L (59 - ) Glucose 139 H (65-110) mg/dL Calculated Osmolality 292 (285-295) mOsm/kg Calcium 9.6 (8.4-10.2) mg/dL NT-Pro-B Natriuret Pep 63 (19.9-100) pg/mL ECG Data EKG #1: ECG completion date: 02/17/25 ECG completion time: 13:49 Interpretation: Normal sinus rhythm. Left axis deviation. No ST elevation. Nonspecific T- wave changes EKG similar to previous EKG done on 09/27/2024. Discharge Plan Discharge Clinical Impression: Right calf pain, Myalgia, Positive D dimer Patient Disposition: Still a Patient Condition: Stable Additional Instructions: transfer patient to [place] ED for venous Doppler. Patient Language: Greenlandic Prescriptions: No Action multivitamin Tablet 1 tablet PO DAILY Calcium 600 with Vitamin D3 600 mg-10 mcg (400 unit) tablet,chewable 600 tablet PO DAILY cholecalciferol (vitamin D3) 25 mcg (1,000 unit) capsule 25 mcg PO DAILY omega-3 fatty acids 1,000 mg capsule 2,000 mg PO DAILY aspirin [Enteric Coated Aspirin] 81 mg tablet,delayed release (DR/EC) 81 mg PO DAILY (DME) nebulizers Misc See Rx Instructions .Route Qty: 1 0RF Rx Instructions: As directed pregabalin 75 mg capsule 75 mg PO BID gabapentin 600 mg tablet 300 mg PO TID Qty: 270 3RF hydrocodone-acetaminophen 10-325 mg tablet 1 tablet PO Q6-8H PRN (Reason: Pain) mupirocin 2 % ointment 1 applic TOPICAL DAILY clobetasol 0.05 % solution 1 applic TOPICAL DAILY citalopram 40 mg tablet See Rx Instructions .ROUTE .COMPLEX Qty: 90 3RF Dose Instruction: TAKE ONE TABLET BY MOUTH DAILY. Rx Instructions: TAKE ONE TABLET BY MOUTH DAILY. atorvastatin 40 mg tablet See Rx Instructions .ROUTE .COMPLEX Qty: 90 0RF Dose Instruction: TAKE 1 TABLET BY MOUTH DAILY Rx Instructions: TAKE 1 TABLET BY MOUTH DAILY albuterol sulfate 2.5 mg /3 mL (0.083 %) solution for nebulization 2.5 mg inhalation Q4H PRN (Reason: shortness of breath or wheezing) Qty: 180 3RF buspirone 15 mg tablet See Rx Instructions .ROUTE .COMPLEX Qty: 360 0RF Dose Instruction: TAKE 2 TABLETS BY MOUTH 2 TIMES DAILY Rx Instructions: TAKE 2 TABLETS BY MOUTH 2 TIMES DAILY albuterol sulfate 90 mcg/actuation HFA aerosol inhaler See Rx Instructions .ROUTE .COMPLEX Qty: 6.7 1RF Dose Instruction: INHALE 1 PUFF BY MOUTH EVERY 4 HOURS OR EVERY 6 HOURS NEEDED FOR SHORTNESS OF BREATH Rx Instructions: INHALE 1 PUFF BY MOUTH EVERY 4 HOURS OR EVERY 6 HOURS NEEDED FOR SHORTNESS OF BREATH Otis Ellipta 100-62.5-25 mcg blister with device See Rx Instructions .ROUTE .COMPLEX Qty: 60 3RF Dose Instruction: 1 INHALATIONS INHALED DAILY Rx Instructions: 1 INHALATIONS INHALED DAILY metoprolol succinate 50 mg tablet extended release 24 hr See Rx Instructions .ROUTE .COMPLEX Qty: 90 0RF Dose Instruction: TAKE 1 TABLET BY MOUTH DAILY. Rx Instructions: TAKE 1 TABLET BY MOUTH DAILY. pantoprazole 40 mg tablet,delayed release (DR/EC) See Rx Instructions .ROUTE .COMPLEX Qty: 90 0RF Dose Instruction: TAKE ONE TABLET BY MOUTH EVERY MORNING Rx Instructions: TAKE ONE TABLET BY MOUTH EVERY MORNING amlodipine 5 mg tablet See Rx Instructions .ROUTE .COMPLEX Qty: 90 1RF Dose Instruction: TAKE ONE TABLET BY MOUTH DAILY Rx Instructions: TAKE ONE TABLET BY MOUTH DAILY furosemide 20 mg tablet See Rx Instructions .ROUTE .COMPLEX Qty: 90 1RF Dose Instruction: TAKE 1 TABLET BY MOUTH EVERY MORNING Rx Instructions: TAKE 1 TABLET BY MOUTH EVERY MORNING alendronate 70 mg tablet See Rx Instructions .ROUTE .COMPLEX Qty: 12 0RF Dose Instruction: TAKE 1 TABLET BY MOUTH WEEKLY Rx Instructions: TAKE 1 TABLET BY MOUTH WEEKLY varenicline tartrate 1 mg tablet See Rx Instructions .ROUTE .COMPLEX Qty: 56 0RF Dose Instruction: 1 MG ORALLY TWICE A DAY Rx Instructions: 1 MG ORALLY TWICE A DAY Follow-up/Referrals: Kyle Montenegro DO [Primary Care Provider] - Time of Disposition: 13:51
--- OUTSIDE RECORDS SUMMARY | 2025-02-17 11:57 | XMS_ITS | Clinical Summary ---
Author Organization [facility] Address [address] [place] [address] Care Team Providers Care Control Room Tender Name Role Phone Papo Ambriz MD Primary Care Provider [phone] Source Comments [facility],non-owned Affiliates and Associated Physician Practices is amultiple site organization consisting of ambulatory clinics and hospital sitesin [place], [place], [place] and [place]. This disclosure is being madepursuant to the Care Everywhere program and may not contain all information available regarding this patient. Last updated 18.[facility] Allergies No known active allergies Medications * [...] 4 times daily as needed. Active Tiotropium [place] Monohydrate (SPIRIVA HANDIHALER [place]) once daily. Act [...] on file Legal Sex Female 2:12 PM CLINICAL DENTAL TECHNICIAN Gender Identity Not on file Sexual Orientation [...] MAMMO BILAT DIAGNOSTIC Routine 05/21/2015 1:58 PM CLINICAL DENTAL TECHNICIAN Breast cyst, left from Last 3 Months or Most Recently Relevant to Health Maintenance Results * MAMMO DIAG DIRECT DIGITAL IMAGE BILA (05/21/2015 1:58 PM CLINICAL DENTAL TECHNICIAN) Anatomical Region Laterality Modality Bilateral Mammography 05/21/2015 5:00 PM CLINICAL DENTAL TECHNICIAN Impressions 05/21/2015 5:03 PM CLINICAL DENTAL TECHNICIAN 1. No evidence of malignancy in either [...] of your patient. [facility] utilizes [employer] as a reminder system to notify patients of their next recommended mammogram. Narrative 05/21/2015 5:03 PM CLINICAL DENTAL TECHNICIAN EXAMINATION: Digital bilateral diagnostic mammogram and targeted [...] Most Recently Relevant to Health Maintenance Insurance [facility] MANAGED MEDICARE ADV [address] [place] [id number] Care Teams Control Room Tender Relationship Specialty Start Date End Date Papo Ambriz MD PCP - General Internal Medicine 10/14/12
--- OUTSIDE RECORDS SUMMARY | 2025-02-17 11:57 | XMS_ITS | Encounter Summary ---
Author Organization [facility] Address [address] [place] [address] Care Team Providers Care Superintendent Local Name Role Phone Fabien Jarrett MD Unavailable [phone] Jaqueline Rosas NP Unavailable [phone] Leo Jacobson MD Primary Care Provider [phone] Simba Keating MD Unavailable [phone] Rah Reid MD Unavailable Bj Cox MD Unavailable Unavailable Leo Jacobson MD Primary Care Provider [phone] Kyle Montenegro DO Primary Care Provider [phone] Irma Miller MD Unavailable Rah Reid MD Unavailable Simba Keating MD Unavailable [phone] Abdirahman Mcghee APRN Unavailable [phone] Jamil Flanagan MD Unavailable [phone] Vera Rice MD Unavailable [phone] Encounter Details Date Type Department Care Team (Late st Contact Info) Description 09/25/2017 Abstract [facility] [address] [place], [place] [id number] , Generic MD Shanon Social History Tobacco [...] CDT Gender Identity Female 09/18/2021 2:09 PM SCHEDULE ANNOUNCER Sexual Orientation Not on file Occupation Industry Job Start Date Job End Date Disability Not on file Not on file Not on file Not on file Not on file Not on file Not on file documented as of this encounter Plan of Treatment Upcoming Encounters Date Type Department Care Team (Late st Contact Info) Description 02/26/2025 2:20 PM CDT Appointment [facility] [address] [place] [address] Abdirahman Mcghee, IUSS MASTER ANALYST [address] [place] [phone] 02/26/2025 3:15 PM CDT Office Visit [facility] eld [address] [place] [phone] Simba Keating MD [address], [address] [place] [address] documented as of this encounter Visit Diagnoses Not on filedocumented in this encounter Additional Health Concerns Infection Onset Date Last Indicated Resolved Time COVID-19 Rule Out 11/24/2022 11/24/2022 11/24/2022 2:05 PM CDT documented as of this encounter Care Teams Superintendent Local Relationship Specialty Start Date End Date Leo Jacobson MD [address] [place] [address] PCP - General FAMILY PRACTICE 11/03/16 08/20/19 Leo Jacobson MD [address] [place] [address] PCP - General FAMILY PRACTICE 08/21/19 08/21/19 Kyle Montenegro DO [address] [place] [address] PCP - General FAMILY PRACTICE 08/22/19 Fabien Jarrett MD CARDIOVASCULAR DISEASE 06/02/16 07/19/18 Jaqueline Rosas NP [address] [place] [address] [id number] [place] [phone] Iliamna Brake Assembler NURSE PRACTITIONER 11/03/16 07/19/18 Simba Keating MD [address] [place] [address] CARDIOVASCULAR DISEASE 09/09/17 11/17/20 Rah Reid MD [address] [place] [address] Vascular/Brake Assembler INTERNAL MEDICINE 05/18/18 Bj Cox MD [address] [place] [address] Iliamna Brake Assembler INTERVENTIONAL CARDIOLOGY 07/20/18 11/17/20 Irma Miller MD [address] [place] [address] Consulting Physician CARDIOVASCULAR DISEASE 11/18/20 Rah Reid MD [address] [place] [address] Vascular/Brake Assembler INTERNAL MEDICINE 12/01/21 Simba Keating MD [address] [place] [address] Consulting Physician INTERVENTIONAL CARDIOLOGY 05/11/22 Abdirahman Mcghee APRN [address] [place] [address] Nurse Practitioner NURSE PRACTITIONER 05/21/22 Jamil Flanagan MD [address] [place] [address] Consulting Physician INTERNAL MEDICINE 04/22/23 Vera Rice MD [address] [address] SURGERY 04/22/23 documented as of this encounter
--- OUTSIDE RECORDS SUMMARY | 2025-02-17 11:57 | XMS_ITS | Clinical Summary ---
Author Organization [facility] Address [address] [place] [address] Care Team Providers Care Dry Sander Name Role Phone Kyle Montenegro Primary Care Provider [phone] Rah Reid MD Unavailable Simba Keating MD Unavailable [phone] Abdirahman Mcghee APRN Unavailable [phone] Sera Fisher MD Unavailable [phone] Vera Rice MD Unavailable [phone] Medications aspirin 81 MG tablet Aspirin 81 [...] aneurysm repair 02/23/2023 Acute hypoxemic respiratory failure ([facility]) 11/24/2022 (aortic stenosis) 10/02/2020 Pain of right lower extremity 06/11/2020 Palpitation 08/21/2019 Tobacco abuse 08/21/2019 Hypercholesterolemia 10/04/2018 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/03/2018 Bilateral carotid bruits 10/03/2018 Other closed fracture of pro ximal end of left fibula, sequela 01/06/2017 COPD (chronic obstructive pu lmonary disease) ([facility]) 06/03/2016 Essential hypertension AAA (abdominal aortic aneurysm) Innominate artery stenosis PAD (peripheral artery disease) Resolved Problems Problem Noted Date Diagnosed Date Resolved Date Ruptured aneurysm of thoraci c aorta ([facility]) 02/23/2023 02/23/2023 High blood cholesterol 02/11/201710/04 [...] place to sleep or slept in a senior care (including now)? No 11/24/2022 Comments No Sex and Gender Information Value Date Recorded Sex Assigned at Female 09/21/2024 8:52 AM CDT Legal Sex Female 9:27 PM CDT Gender Identity Female 09/18/2021 2:09 PM DEPUTY CHIEF COUNSEL Sexual Orientation Not on file Occupation Industry [...] Info) Description 02/26/2025 2:20 PM CDT Appointment [facility] [place] [address] [place] [address] Abdirahman Mcghee, SUCTION WORKER [address] [place] [phone] 02/26/2025 3:15 PM CDT Office Visit [facility] eld [address] [place] [address] Simba Keating MD [address] [facility] [place] [address] Health Maintenance Due Date Last [...] home upon discharge Lifestyle No Leti Gupta, parent trainer Procedure Name Priority Date/Time Associated Diagnosis Comments [...] 10:18 AM Narrative 09/21/2024 11:14 AM CDT [address] [place] [address] Examination: CT CHEST WO CON Clinical Information: [...] Procedure Note Young Yi MD - 09/21/[address] [place] [address] Examination: CT CHEST WO CON Clinical Information: [...] ID:Not on file Type:Not on file Address: [address] MEDICAID Advance Directives * Full Code (Latest Code Status on File) Date Activated Date Inactivated Comments 11/24/2022 12:16 PM 11/30/2022 2:43 PM Care Teams Dry Sander Relationship Specialty Start Date End Date Kyle Montenegro DO [address] [place] [address] PCP - General FAMILY PRACTICE 08/22/19 Rah Reid MD [address] [place] [address] Vascular/Audio Operator INTERNAL MEDICINE 12/01/21 Simba Keating MD [address] [place] [address] Consulting Physician INTERVENTIONAL CARDIOLOGY 05/11/22 Abdirahman Mcghee APRN [address] [place] [address] Nurse Practitioner NURSE PRACTITIONER 05/21/22 Sera Fisher MD [address] [place] [phone] Consulting Physician INTERNAL MEDICINE 04/22/23 Vera Rice MD [address] [facility] [address] [place] [address] SURGERY 04/22/23
--- OUTSIDE RECORDS SUMMARY | 2025-02-17 11:57 | XMS_ITS | Encounter Summary ---
Author Organization [facility] Address [address] [place] [address] Care Team Providers Care Clay Processing Factory Worker Name Role Phone Fabien Jarrett MD Unavailable [phone] Jaqueline Rosas NP Unavailable [phone] Leo Jacobson MD Primary Care Provider + [phone] Simba Keating MD Unavailable + [phone] Rah Reid MD Unavailable Bj Cox MD Unavailable Unavailable Leo Jacobson MD Primary Care Provider + [phone] Kyle Montenegro DO Primary Care Provider [phone] Irma Miller MD Unavailable Rah Reid MD Unavailable Simba Keating MD Unavailable + [phone] Abdirahman Mcghee APRN Unavailable [phone] Jamil Flanagan MD Unavailable [phone] Vera Rice MD Unavailable [phone] Encounter Details Date Type Department Care Team (Late st Contact Info) Description 04/17/2015 Abstract [facility] [address] [place] [address] Fabien Jarrett MD [address] [place] [address], [address] [place], [place] [id number] Social History Tobacco Use Types Packs/Day Years Used Date Smoking Tobacco: Former Smokeless Tobacco: Never Alcohol Use Standard Drinks/Week Comments No 0 (1 standard drink = 0.6 oz pur e alcohol) Comments Unknown Sex and Gender Information Value Date Recorded Sex Assigned at Female 09/21/2024 8:52 AM CDT Legal Sex Female 9:27 PM CDT Gender Identity Female 09/18/2021 2:09 PM PATENT EXAMINER Sexual Orientation Not on file Occupation Industry Job Start Date Job End Date Disability Not on file Not on file Not on file documented as of this encounter Plan of Treatment Upcoming Encounters Date Type Department Care Team (Late st Contact Info) Description 02/26/2025 2:20 PM CDT Appointment [facility] [address] [place] [address] Abdirahman Mcghee, INSTRUMENT SPECIALIST [address] [place] [place] [phone] 02/26/2025 3:15 PM CDT Office Visit [facility] eld [address] [place] [phone] Simba Keating MD [address] [facility], [address] [place] [address] documented as of this encounter Visit Diagnoses Not on filedocumented in this encounter Additional Health Concerns Infection Onset Date Last Indicated Resolved Time COVID-19 Rule Out 11/24/2022 11/24/2022 11/24/2022 2:05 PM CDT documented as of this encounter Care Teams Clay Processing Factory Worker Relationship Specialty Start Date End Date Leo Jacobson MD [address] [place] [address] PCP - General FAMILY PRACTICE 11/03/16 08/20/19 Leo Jacobson MD [address] [place] [address] PCP - General FAMILY PRACTICE 08/21/19 08/21/19 Kyle Montenegro DO [address] [place] [address] PCP - General FAMILY PRACTICE 08/22/19 Fabien Jarrett MD CARDIOVASCULAR DISEASE 06/02/16 07/19/18 Jaqueline Rosas NP [address] [place], [place] [address] [place] [phone] Burton Retort Kiln Burner NURSE PRACTITIONER 11/03/16 07/19/18 Simba Keating MD [address] [place] [address] CARDIOVASCULAR DISEASE 09/09/17 11/17/20 Rah Reid MD [address] [place] [address] Vascular/Retort Kiln Burner INTERNAL MEDICINE 05/18/18 Bj Cox MD [address] [place] [address] [employer] Kiln Burner INTERVENTIONAL CARDIOLOGY 07/20/18 11/17/20 Irma Miller MD [address] [place] [address] Consulting Physician CARDIOVASCULAR DISEASE 11/18/20 Rah Reid MD [address] [place] [address] Vascular/Retort Kiln Burner INTERNAL MEDICINE 12/01/21 Simba Keating MD [address] [place] [address] Consulting Physician INTERVENTIONAL CARDIOLOGY 05/11/22 Abdirahman Mcghee APRN [address] [place] [address] Nurse Practitioner NURSE PRACTITIONER 05/21/22 Jamil Flanagan MD [address] [place] [phone] Consulting Physician INTERNAL MEDICINE 04/22/23 Vera Rice MD [address] [place] [address] SURGERY 04/22/23 documented as of this encounter
--- OUTSIDE RECORDS SUMMARY | 2025-02-17 11:57 | XMS_ITS | Clinical Summary ---
Author Organization [facility] Address [address] [place] [address] Phone Care Team Providers Care Deaf Teacher Name Role Phone Kyle Montenegro MD Primary Care Provider [phone] Sharad Faulkner MD Unavailable [phone] Allergies No known active allergies Medications citalopram (CeleXA) 10 MG Tablet Take 10 mg by mouth daily. Active aspirin EC 81 MG Tablet Delayed Response Take 81 mg by mouth daily. Active Calcium Carbonate (CALCIUM 600 PO) Take by mouth. Activ e VITAMIN D PO Take by mouth. Ac tive Multiple Vitamin (MULTIVITAMIN PO) Take by mouth. Activ e Houston-3 Fatty Acids (FISH OIL PO) Take by [...] Description 02/05/2025 1:45 PM CDT Office Visit [facility] [address] [place] [address] Sharad Faulkner MD Dizziness (Primary Dx); Polyneuropathy [...] st Contact Info) Description 08/07/2025 10:30 AM RESIDENTIAL REAL ESTATE AGENT Office Visit [facility] [address] [place] [address] Sharad Faulkner MD [address] [place] [address] Health Maintenance Due Date Last Done Comments [...] MEDICARE C [employer] [place] Care Teams Deaf Teacher Relationship Specialty Start Date End Date Kyle Montenegro MD [address] [place] [address] PCP - General Family Medicine 10/31/24 Sharad Faulkner MD [address] [place] [address] Consulting Physician Neurology 02/02/25
--- OUTSIDE RECORDS SUMMARY | 2025-02-17 11:57 | XMS_ITS | Encounter Summary ---
Author Organization [facility] Address [facility] [place] [address] Care Team Providers Care Cabin Cleaning Supervisor Name Role Phone Leo Jacobson MD Primary Care Provider [phone] Simba Keating MD Unavailable + [phone] Rah Reid MD Unavailable Bj Cox MD Unavailable Unavailable Leo Jacobson MD Primary Care Provider + [phone] Kyle Montenegro DO Primary Care Provider [phone] Irma Miller MD Unavailable Rah Reid MD Unavailable Simba Keating MD Unavailable + [phone] Abdirahman Mcghee APRN Unavailable [phone] Jamil Flanagan MD Unavailable [phone] Vera Rice MD Unavailable [phone] Encounter Details Date Type Department Care Team (Late st Contact Info) Description 12/17/2018 Abstract [facility] [address] [place] [address] , Generic Conversion, Social History [...] CDT Gender Identity Female 09/18/2021 2:09 PM OPHTHALMIC ASST Sexual Orientation Not on file Occupation Industry Job Start Date Job End Date Disability Not on file Not on file Not on file Not on file Not on file Not on file Not on file documented as of this encounter Plan of Treatment Upcoming Encounters Date Type Department Care Team (Late st Contact Info) Description 02/26/2025 2:20 PM CDT Appointment [facility] [address] [place] [address] Abdirahman Mcghee, TEST MAN [address] [place] [phone] 02/26/2025 3:15 PM CDT [facility] [address] [place] [phone] Simba Keating MD [address] [facility], [address] [place], [place] [address] documented as of this encounter Visit Diagnoses Not on filedocumented in this encounter Additional Health Concerns Infection Onset Date Last Indicated Resolved Time COVID-19 Rule Out 11/24/2022 11/24/2022 11/24/2022 2:05 PM CDT documented as of this encounter Care Teams Cabin Cleaning Supervisor Relationship Specialty Start Date End Date Leo Jacobson MD [address] [place] [address] PCP - General FAMILY PRACTICE 11/03/16 08/20/19 Leo Jacobson MD [address] [place] [address] PCP - General FAMILY PRACTICE 08/21/19 08/21/19 Kyle Montenegro DO [address] [place] [address] PCP - General FAMILY PRACTICE 08/22/19 Simba Keating MD [address] [place] [address] CARDIOVASCULAR DISEASE 09/09/17 11/17/20 Rah Reid MD [address] [place] [address] Vascular/Program Support Clerk INTERNAL MEDICINE 05/18/18 Bj Cox MD [address] [place] [address] Program Support Clerk INTERVENTIONAL CARDIOLOGY 07/20/18 11/17/20 Irma Miller MD [address] [place] [address] Consulting Physician CARDIOVASCULAR DISEASE 11/18/20 Rah Reid MD [address] [place] [address] Vascular/Program Support Clerk INTERNAL MEDICINE 12/01/21 Simba Keating MD [address] [place] [address] Consulting Physician INTERVENTIONAL CARDIOLOGY 05/11/22 Abdirahman Mcghee APRN [address] [place] [address] Nurse Practitioner NURSE PRACTITIONER 05/21/22 Jamil Flanagan MD [address] [place] [phone] Consulting Physician INTERNAL MEDICINE 04/22/23 Vera Rice MD [facility] [address] [address] SURGERY 04/22/23 documented as of this encounter
--- OUTSIDE RECORDS SUMMARY | 2025-02-17 11:57 | XMS_ITS | Continuity of Care Document ---
Author Organization [facility] Address [address] [place] [address] [address] [place] [address] Phone Care Team Providers Care Level Vial Curvature Gauger Name Role Phone Morgan OD, Jeremias Unavailable Unavailable Procedures Procedure Date No Charge Contact Lens Check CL Replacement - Vistakon Disp W/BW Soft Tax - Medical Contact Lens Fitting Office Consultation Eye Exam & Treatment Advance Directives Directive Yes / No Effective Date File Name No Information Encounters Encounter Description Practice Location Reason(s) For Visit Diagnoses Date Provider Providers Copied on Encounter [facility], [address] [place] [address] [address], [place], [place], [id number], [place] tel:[phone] [facility] No Information 6-200 8 Morgan OD Jeremias. [address] [facility] , [address], [place], [place], [facility], . tel:[phone] [facility], [address] [place] [address] [address], [place], [place], [id number], [place] tel:[phone] [facility] No Information 3-200 8 Morgan OD Jeremias. [address] [facility] , [address], [place], [address], [place]. tel:[phone] Referring Provider: Jones Rosas, [address] [place], [address]. tel:[phone] Office Consultation [facility], [address] [place] [address] [address], [place], [place], [address], [place] tel:[phone] [facility] No Information 200 [address] Alison Pedroza. [address] [facility], [place], [address], [place]. tel:[phone] Referring Provider: Mila Holguin [address], [place], [place], [facility] [place] [place]. tel:[phone] [facility], [address], [place], [place], [id number], tel:[phone] [facility] No Information 8 Jenny Zaragoza. [address] , [address], [place], [address], [place]. tel:[phone] Family History Family Member Type Diagnosis Age At Onset No Information Payers Payer name Insurance type Covered democrat ID Authoriza tion(s) Medicare [facility] [id number] Social History Type Description Quantity Date Captured [...]
[2025-02-17 12:25] LABS: Hematocrit 47.8 % (35.0-42.0); Hemoglobin 15.1 g/dL (11.7-13.8); Immature Granulocyte Percent A 0.3 % (0.0-0.0); Lymphocytes Absolute Auto 2.17 K/mm3 (1.10-4.50); Mean Corpuscular HGB Conc 31.6 g/dL (32-36); Mean Corpuscular Hemoglobin 27.7 pg (27.0-31.0); Mean Corpuscular Volume 87.5 fL (78.0-102.0); Nucleated Red Blood Cells Absolute Auto 0.00 K/mm3 (0.00-0.00); Nucleated Red Blood Cells Perc 0.0 % (0-0.0); Platelet Count Result 171 K/mm3 (150-420); Red Blood Count 5.46 M/mm3 (4.20-5.40); White Blood Count 8.6 K/mm3 (4.8-10.8)
[2025-02-17 12:30] VITALS: BP 136/80; PULSE 85; RESP 18; O2SAT 97
[2025-02-17 12:45] LABS: NT Pro B Type Natriuretic Pept 63 pg/mL (19.9-100)
[2025-02-17 13:33] LABS: Anion Gap 5 mmol/L (4-12); Blood Urea Nitrogen 19 mg/dL (7-17); Calcium 9.6 mg/dL (8.4-10.2); Carbon Dioxide 33 mmol/L (22-30); Chloride 101 mmol/L (98-107); Estimated CRCL calculation 41 ml/min; Estimated Glomerular Filt Rate 41; Glucose 139 mg/dL (65-110); Osmolality Calculated 292 mOsm/kg (285-295); Potassium 3.3 mmol/L (3.4-5.0); Sodium 139 mmol/L (137-145)
[2025-02-17 13:36] LABS: INR 0.9; Partial Thromboplastin Time 29.4 Sec (23.9-30.70); Prothrombin Time 10.2 Seconds (9.50-12.1)
--- NOTE | 2025-02-17 13:39 | ECG_ITS ---
Test Date: 2025-02-17 13:45:46 Measurements Intervals [place] Rate: 88 P: 53 AK: 195 QRS: -18 QRSD: 93 T: 56 QT: 373 QTc: 453 Interpretive Statements SINUS RHYTHM BORDERLINE R WAVE PROGRESSION, ANTERIOR LEADS BORDERLINE ECG Compared to ECG 09/27/2024 12:32:41 NO SIGNIFICANT CHANGE Electronically Signed On 02-17-2025 14:52:52 CDT by Jamari Vallejo D.O.
[2025-02-17 13:50] VITALS: BP 133/78; PULSE 86; RESP 20; O2SAT 95
== END 2025-02-17 13:55 | disposition short-term general hospital (02) ==
PROVIDERS: Emergency Provider Internal Medicine Critical Care Medicine; PCP Family Medicine
DX: M79.604 Pain in right leg (principal); M79.18 Myalgia, other site; R79.1 Abnormal coagulation profile; I25.10 Atherosclerotic heart disease of native coronary artery without angina pectoris; J44.9 Chronic obstructive pulmonary disease, unspecified; I12.9 Hypertensive chronic kidney disease with stage 1 through stage 4 chronic kidney disease, or unspecified chronic kidney disease; N18.4 Chronic kidney disease, stage 4 (severe); F17.210 Nicotine dependence, cigarettes, uncomplicated
CPT/HCPCS: 36415; 73562; 80048; 83880; 85025; 85380; 85610; 85730; 93005; 99285

== ENCOUNTER 2025-02-17 14:39 | Emergency (ER) | payer MEDICARE, MEDICAID, SELFPAY ==
--- NOTE | ~2025-02-17 | US_ITS ---
EXAMINATION: US venous doppler LE RT DATE: 02/17/2025 16:54 INDICATION: Leg pain 4 days . TECHNIQUE: Grayscale images without and with compression and Doppler images of the right lower extrem ity veins were obtained. COMPARISON: None FINDINGS: The right common femoral vein, profunda (deep) femoral vein, femoral vein, popliteal vein, peroneal v ein, posterior tibial veins, gastrocnemius vein, and greater saphenous vein are patent. IMPRESSION: Patent right lower extremity veins. No evidence of deep venous thrombosis. Reviewed, dictated and finalized at location K.
[2025-02-17 14:41] VITALS: BP 140/73; PULSE 95; RESP 16; TEMP 36.6; O2SAT 94
--- OUTSIDE RECORDS SUMMARY | 2025-02-17 14:42 | XMS_ITS | Continuity of Care Document ---
Author Organization [facility] Address [address] [place] [address] [address] [place] [address] Phone Care Team Providers Care Cutter Woodwind Reeds Name Role Phone Morgan OD, Jeremias Unavailable Unavailable Procedures Procedure Date No Charge Contact Lens Check CL Replacement - Vistakon Disp W/BW Soft Tax - Medical Contact Lens Fitting Office Consultation Eye Exam & Treatment Advance Directives Directive Yes / No Effective Date File Name No Information Encounters Encounter Description Practice Location Reason(s) For Visit Diagnoses Date Provider Providers Copied on Encounter [facility], [address] [place] [address] [address], [place], [place], [id number], [place] tel:[phone] [facility] No Information 6-200 8 Morgan OD Jeremias. [address] [facility] , [address], [place], [place], [facility], . tel:[phone] [facility], [address] [place] [address] [address], [place], [place], [id number], [place] tel:[phone] [facility] No Information 3-200 8 Morgan OD Jeremias. [address] [facility] , [address], [place], [address], [place]. tel:[phone] Referring Provider: Jones Rosas, [address] [place], [address]. tel:[phone] Office Consultation [facility], [address] [place] [address] [address], [place], [place], [id number], [place] tel:[phone] [facility] No Information 200 8 Alison Pedroza. [address] [facility], [place], [address], [place]. tel:[phone] Referring Provider: Mila Holguin [address], [place], [place], [facility]. tel:[phone] [facility] Eye [facility], [address], [place], [place], [id number], tel:[phone] [facility] No Information 8 Jenny Zaragoza. [address] , [address], [place], [address], [place]. tel:[phone] Family History Family Member Type Diagnosis Age At Onset No Information Payers Payer name Insurance type Covered libertarian ID Authoriza tion(s) Medicare [facility] [id number] Social History Type Description Quantity Date Captured [...]
--- OUTSIDE RECORDS SUMMARY | 2025-02-17 14:42 | XMS_ITS | Encounter Summary ---
Author Organization [facility] Address [address] [place] [address] Care Team Providers Care Mercury Recoverer Name Role Phone Fabien Jarrett MD Unavailable [phone] Jaqueline Rosas NP Unavailable [phone] Leo Jacobson MD Primary Care Provider [phone] Simba Keating MD Unavailable [phone] Rah Reid MD Unavailable Bj Cox MD Unavailable Unavailable Leo Jacobson MD Primary Care Provider +[phone] Kyle Montenegro DO Primary Care Provider [phone] Irma Miller MD Unavailable Rah Reid MD Unavailable Simba Keating MD Unavailable +[phone] Abdirahman Mcghee APRN Unavailable + [phone] Jamil Flanagan MD Unavailable [phone] Vera Rice MD Unavailable [phone] Encounter Details Date Type Department Care Team (Late st Contact Info) Description 09/25/2017 Abstract [facility] [address] [place], [place] [id number] , Generic MD Shanon Social History Tobacco [...] CDT Gender Identity Female 09/18/2021 2:09 PM CARTON CATCHER Sexual Orientation Not on file Occupation Industry Job Start Date Job End Date Disability Not on file Not on file Not on file Not on file Not on file Not on file Not on file documented as of this encounter Plan of Treatment Upcoming Encounters Date Type Department Care Team (Late st Contact Info) Description 02/26/2025 2:20 PM CDT Appointment [facility] [address] [place] [address] Abdirahman Mcghee, MANAGER UTILIZATION MANAGEMENT [address] [place] [phone] 02/26/2025 3:15 PM CDT Office Visit [facility] eld [address] [place] [phone] Simba Keating MD [address] [facility], [address] [place] [address] documented as of this encounter Visit Diagnoses Not on filedocumented in this encounter Additional Health Concerns Infection Onset Date Last Indicated Resolved Time COVID-19 Rule Out 11/24/2022 11/24/2022 11/24/2022 2:05 PM CDT documented as of this encounter Care Teams Mercury Recoverer Relationship Specialty Start Date End Date Leo Jacobson MD [address] [place] [address] PCP - General FAMILY PRACTICE 11/03/16 08/20/19 Leo Jacobson MD [address] [place] [address] PCP - General FAMILY PRACTICE 08/21/19 08/21/19 Kyle Montenegro DO [address] [place] [address] PCP - General FAMILY PRACTICE 08/22/19 Fabien Jarrett MD CARDIOVASCULAR DISEASE 06/02/16 07/19/18 Jaqueline Rosas NP [address] [place] [address] [address] [place] [address] [employer] Driver NURSE PRACTITIONER 11/03/16 07/19/18 Simba Keating MD [address] [place] [address] CARDIOVASCULAR DISEASE 09/09/17 11/17/20 Rah eRid MD [address] [place] [address] Vascular/Caterpillar Driver INTERNAL MEDICINE 05/18/18 Bj Cox MD [address] [place] [address] [employer] Driver INTERVENTIONAL CARDIOLOGY 07/20/18 11/17/20 Irma Miller MD [address] [place] [address] Consulting Physician CARDIOVASCULAR DISEASE 11/18/20 Rah Reid MD [address] [place] [address] Vascular/[employer] Driver INTERNAL MEDICINE 12/01/21 Simba Keating MD [address] [place] [address] Consulting Physician INTERVENTIONAL CARDIOLOGY 05/11/22 Abdirahman Mcghee APRN [address] [place] [address] Nurse Practitioner NURSE PRACTITIONER 05/21/22 Jamil Flanagan MD [address] [place] [address] Consulting Physician INTERNAL MEDICINE 04/22/23 Vera Rice MD [address] [address] SURGERY 04/22/23 documented as of this encounter
--- OUTSIDE RECORDS SUMMARY | 2025-02-17 14:42 | XMS_ITS | Encounter Summary ---
Author Organization [facility] Address [address] [place] [address] Care Team Providers Care Foot Gatherer Name Role Phone Fabien Jarrett MD Unavailable [phone] Jaqueline Rosas NP Unavailable [phone] Leo Jacobson MD Primary Care Provider + [phone] Simba Keating MD Unavailable + [phone] Rah Reid MD Unavailable Bj Cox MD Unavailable Unavailable Leo Jacobson MD Primary Care Provider + [phone] Kyle Montenegro DO Primary Care Provider [phone] Irma Miller MD Unavailable Rah Reid MD Unavailable Simba Keating MD Unavailable + [phone] Abdirahman Mcghee APRN Unavailable [phone] Jamil Flanagan MD Unavailable [phone] Vera Rice MD Unavailable [phone] Encounter Details Date Type Department Care Team (Late st Contact Info) Description 04/17/2015 Abstract [facility] [address] [place] [address] Fabien Jarrett MD [address] [place] [address], [address] [place], [place] [phone] Social History Tobacco Use Types Packs/Day Years Used Date Smoking Tobacco: Former Smokeless Tobacco: Never Alcohol Use Standard Drinks/Week Comments No 0 (1 standard drink = 0.6 oz pur e alcohol) Comments Unknown Sex and Gender Information Value Date Recorded Sex Assigned at Female 09/21/2024 8:52 AM CDT Legal Sex Female 9:27 PM CDT Gender Identity Female 09/18/2021 2:09 PM VETERINARY LABORATORY DIAGNOSTICIAN Sexual Orientation Not on file Occupation Industry Job Start Date Job End Date Disability Not on file Not on file Not on file documented as of this encounter Plan of Treatment Upcoming Encounters Date Type Department Care Team (Late st Contact Info) Description 02/26/2025 2:20 PM CDT Appointment [facility] [address] [place] [address] Abdirahman Mcghee, LOCKER ATTENDANT [address] [place] [phone] 02/26/2025 3:15 PM CDT Office Visit [facility] eld [address] [place] [phone] Simba Keating MD [address] [facility], [address] [place] [address] documented as of this encounter Visit Diagnoses Not on filedocumented in this encounter Additional Health Concerns Infection Onset Date Last Indicated Resolved Time COVID-19 Rule Out 11/24/2022 11/24/2022 11/24/2022 2:05 PM CDT documented as of this encounter Care Teams Foot Gatherer Relationship Specialty Start Date End Date Leo Jacobson MD [address] [place] [address] PCP - General FAMILY PRACTICE 11/03/16 08/20/19 Leo Jacobson MD [address] [place] [address] PCP - General FAMILY PRACTICE 08/21/19 08/21/19 Kyle Montenegro DO [address] [place] [address] PCP - General FAMILY PRACTICE 08/22/19 Fabien Jarrett MD CARDIOVASCULAR DISEASE 06/02/16 07/19/18 Jaqueline Rosas NP [address] [place] [address] [place] [phone] [employer] Mechanic NURSE PRACTITIONER 11/03/16 07/19/18 Simba Keating MD [address] [place] [address] CARDIOVASCULAR DISEASE 09/09/17 11/17/20 Rah Reid MD [address] [place] [address] Vascular/Turbine Mechanic INTERNAL MEDICINE 05/18/18 Bj Cox MD [address] [place] [address] [employer] Mechanic INTERVENTIONAL CARDIOLOGY 07/20/18 11/17/20 Irma Miller MD [address] [place] [address] Consulting Physician CARDIOVASCULAR DISEASE 11/18/20 Rah Reid MD [address] [place] [address] Vascular/Turbine Mechanic INTERNAL MEDICINE 12/01/21 Simba Keating MD [address] [place] [address] Consulting Physician INTERVENTIONAL CARDIOLOGY 05/11/22 Abdirahman Mcghee APRN [address] [place] [address] Nurse Practitioner NURSE PRACTITIONER 05/21/22 Jamil Flanagan MD [address] [place] [phone] Consulting Physician INTERNAL MEDICINE 04/22/23 Vera Rice MD [address] [place] [address] SURGERY 04/22/23 documented as of this encounter
--- OUTSIDE RECORDS SUMMARY | 2025-02-17 14:42 | XMS_ITS | Clinical Summary ---
Author Organization [facility] Address [address] [place] [address] Care Team Providers Care Turf Farm Worker Name Role Phone Kyle Montenegro Primary Care Provider [phone] Rah Reid MD Unavailable Simba Keating MD Unavailable [phone] Abdirahman Mcghee APRN Unavailable [phone] Sera Fisher MD Unavailable [phone] Vera Rice MD Unavailable [phone] Medications aspirin 81 MG tablet Aspirin 81 [...] aneurysm repair 02/23/2023 Acute hypoxemic respiratory failure ([facility]) 11/24/2022 (aortic stenosis) 10/02/2020 Pain of right lower extremity 06/11/2020 Palpitation 08/21/2019 Tobacco abuse 08/21/2019 Hypercholesterolemia 10/04/2018 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[facility]) 10/03/2018 Bilateral carotid bruits 10/03/2018 Other closed fracture of pro ximal end of left fibula, sequela 01/06/2017 COPD (chronic obstructive pu lmonary disease) ([facility]) 06/03/2016 Essential hypertension AAA (abdominal aortic aneurysm) Innominate artery stenosis PAD (peripheral artery disease) Resolved Problems Problem Noted Date Diagnosed Date Resolved Date Ruptured aneurysm of thoraci c aorta ([facility]) 02/23/2023 02/23/2023 High blood cholesterol 02/11/201710/04 Aortic [...] place to sleep or slept in a residential (including now)? No 11/24/2022 Comments No Sex and Gender Information Value Date Recorded Sex Assigned at Female 09/21/2024 8:52 AM CDT Legal Sex Female 9:27 PM CDT Gender Identity Female 09/18/2021 2:09 PM PRODUCTION LEADER Sexual Orientation Not on file Occupation Industry [...] Info) Description 02/26/2025 2:20 PM CDT Appointment [facility] [address] [place] [address] Abdirahman Mcghee, SENIOR DATABASE ENGINEER [address] [place] [phone] 02/26/2025 3:15 PM CDT Office Visit [facility] eld [address] [place] [address] Simba Keating MD [address] [facility] [address] [place] [address] Health Maintenance Due Date Last [...] home upon discharge Lifestyle No Leti Gupta, loom setter Procedure Name Priority Date/Time Associated Diagnosis Comments [...] 10:18 AM Narrative 09/21/2024 11:14 AM CDT [address] [place] [address] Examination: CT CHEST WO CON Clinical Information: [...] Procedure Note Young Yi MD - 09/21/[address] [place] [address] Examination: CT CHEST WO CON Clinical Information: [...] ID:Not on file Type:Not on file Address: [address] MEDICAID Advance Directives * Full Code (Latest Code Status on File) Date Activated Date Inactivated Comments 11/24/2022 12:16 PM 11/30/2022 2:43 PM Care Teams Turf Farm Worker Relationship Specialty Start Date End Date Kyle Montenegro DO [address] [place] [address] PCP - General FAMILY PRACTICE 08/22/19 Rah Reid MD [address] [place] [address] Vascular/Mine Supervisor INTERNAL MEDICINE 12/01/21 Simba Keating MD [address] [place] [address] Consulting Physician INTERVENTIONAL CARDIOLOGY 05/11/22 Abdirahman Mcghee APRN [address] [place] [address] Nurse Practitioner NURSE PRACTITIONER 05/21/22 Sera Fisher MD [address] [place] [phone] Consulting Physician INTERNAL MEDICINE 04/22/23 Vera Rice MD [address] [facility] [address] [place] [address] SURGERY 04/22/23
--- OUTSIDE RECORDS SUMMARY | 2025-02-17 14:42 | XMS_ITS | Clinical Summary ---
Author Organization [facility] Address [address] [place] [address] Phone Care Team Providers Care Director Of Compliance Name Role Phone Kyle Montenegro MD Primary Care Provider [phone] Sharad aFulkner MD Unavailable [phone] Allergies No known active allergies Medications citalopram (CeleXA) 10 MG Tablet Take 10 mg by mouth daily. Active aspirin EC 81 MG Tablet Delayed Response Take 81 mg by mouth daily. Active Calcium Carbonate (CALCIUM 600 PO) Take by mouth. Activ e VITAMIN D PO Take by mouth. Ac tive Multiple Vitamin (MULTIVITAMIN PO) Take by mouth. Activ e Endeavor-3 Fatty Acids (FISH OIL PO) Take by [...] Description 02/05/2025 1:45 PM CDT Office Visit [facility] [address] [place] [address] Sharad Faulkner MD Dizziness (Primary Dx); Polyneuropathy [...] st Contact Info) Description 08/07/2025 10:30 AM SUPERINTENDENT COLLIERY Office Visit [facility] - [facility]rology [facility] [address] [place] [address] Sharad Faulkner MD [address] [place] [address] Health Maintenance Due Date Last Done Comments [...] MEDICARE C [employer] [place]ID [place] Care Teams Director Of Compliance Relationship Specialty Start Date End Date Kyle Montenegro MD [address] [place] [address] PCP - General Family Medicine 10/31/24 Sharad Faulkner MD [address] [place] [address] Consulting Physician Neurology 02/02/25
--- OUTSIDE RECORDS SUMMARY | 2025-02-17 14:42 | XMS_ITS | Clinical Summary ---
Author Organization [facility] Address [address] [place] [address] Care Team Providers Care Shuttle Bus Driver Name Role Phone Papo Ambriz MD Primary Care Provider [phone] Source Comments [facility],non-owned Affiliates and Associated Physician Practices is amultiple site organization consisting of ambulatory clinics and hospital sitesin [place], [place] and [place]. This disclosure is being madepursuant to the Care Everywhere program and may not contain all information available regarding this patient. Last updated 18.[facility] Allergies No known active allergies Medications * [...] 4 times daily as needed. Active Tiotropium [place] Monohydrate (SPIRIVA HANDIHALER [place]) once daily. Act [...] on file Legal Sex Female 2:12 PM DRILL PRESSER Gender Identity Not on file Sexual Orientation [...] MAMMO BILAT DIAGNOSTIC Routine 05/21/2015 1:58 PM DRILL PRESSER Breast cyst, left from Last 3 Months or Most Recently Relevant to Health Maintenance Results * MAMMO DIAG DIRECT DIGITAL IMAGE BILA (05/21/2015 1:58 PM DRILL PRESSER) Anatomical Region Laterality Modality Bilateral Mammography 05/21/2015 5:00 PM DRILL PRESSER Impressions 05/21/2015 5:03 PM DRILL PRESSER 1. No evidence of malignancy in either [...] of your patient. [facility] utilizes sMedio as a reminder system to notify patients of their next recommended mammogram. Narrative 05/21/2015 5:03 PM DRILL PRESSER EXAMINATION: Digital bilateral diagnostic mammogram and targeted [...] Most Recently Relevant to Health Maintenance Insurance [facility] MANAGED MEDICARE ADV [id number] [place] [id number] Care Teams Shuttle Bus Driver Relationship Specialty Start Date End Date Papo Ambriz MD PCP - General Internal Medicine 10/14/12
--- OUTSIDE RECORDS SUMMARY | 2025-02-17 14:42 | XMS_ITS | Encounter Summary ---
Author Organization [facility] Address [facility] [place] [address] Care Team Providers Care Clamper Name Role Phone Leo Jacobson MD Primary Care Provider [phone] Simba Keating MD Unavailable [phone] Rah Reid MD Unavailable Bj Cox MD Unavailable Unavailable Leo Jacobson MD Primary Care Provider + [phone] Kyle Montenegro DO Primary Care Provider [phone] Irma Miller MD Unavailable Rah Reid MD Unavailable Simba Keating MD Unavailable + [phone] Abdirahman Mcghee APRN Unavailable [phone] Jamil Flanagan MD Unavailable [phone] Vera Rice MD Unavailable [phone] Encounter Details Date Type Department Care Team (Late st Contact Info) Description 12/17/2018 Abstract [facility] CONVERSION [address] [place] [address] , Generic Conversion, Social History [...] CDT Gender Identity Female 09/18/2021 2:09 PM MANAGER BANK Sexual Orientation Not on file Occupation Industry [...] Appointment [facility] [address] [place] [address] Abdirahman Mcghee, HR CONSULTANT [address] [place] [phone] 02/26/2025 3:15 PM CDT [facility] [address] [place] [phone] Simba Keating MD [address] [facility], [address] [place], [place] [address] documented as of this encounter Visit Diagnoses Not on filedocumented in this encounter Additional Health Concerns Infection Onset Date Last Indicated Resolved Time COVID-19 Rule Out 11/24/2022 11/24/2022 11/24/2022 2:05 PM CDT documented as of this encounter Care Teams Clamper Relationship Specialty Start Date End Date Leo Jacobson MD [address] [place] [address] PCP - General FAMILY PRACTICE 11/03/16 08/20/19 Leo Jacobson MD [address] [place] [address] PCP - General FAMILY PRACTICE 08/21/19 08/21/19 Kyle Montenegro DO [address] [place] [address] PCP - General FAMILY PRACTICE 08/22/19 Simba Keating MD [address] [place] [address] CARDIOVASCULAR DISEASE 09/09/17 11/17/20 Rah Reid MD [address] [place] [address] Vascular/Nursing Assistant INTERNAL MEDICINE 05/18/18 Bj Cox MD [address] [place] [address] Nursing Assistant INTERVENTIONAL CARDIOLOGY 07/20/18 11/17/20 Irma Miller MD [address] [place] [address] Consulting Physician CARDIOVASCULAR DISEASE 11/18/20 Rah Reid MD [address] [place] [address] Vascular/Nursing Assistant INTERNAL MEDICINE 12/01/21 Simba Keating MD [address] [place] [address] Consulting Physician INTERVENTIONAL CARDIOLOGY 05/11/22 Abdirahman Mcghee APRN [address] [place] [address] Nurse Practitioner NURSE PRACTITIONER 05/21/22 Jamil Flanagan MD [address] [place] [phone] Consulting Physician INTERNAL MEDICINE 04/22/23 Vera Rice MD [facility] [address] SURGERY 04/22/23 documented as of this encounter
--- OUTSIDE RECORDS SUMMARY | 2025-02-17 16:17 | XMS_ITS | Continuity of Care Document ---
Author Organization [facility] Address [address] [place] [address] [address] [place] [address] Phone Care Team Providers Care Mri Specialist Name Role Phone [place] OD, Jeremias Unavailable Unavailable Procedures Procedure Date No Charge Contact Lens Check CL Replacement - Vistakon Disp W/BW Soft Tax - Medical Contact Lens Fitting Office Consultation Eye Exam & Treatment Advance Directives Directive Yes / No Effective Date File Name No Information Encounters Encounter Description Practice Location Reason(s) For Visit Diagnoses Date Provider Providers Copied on Encounter [facility], [address] [place] [address] [address], [place], [place], [id number], [place] tel:[phone] [facility] No Information 6-200 8 [place] OD Jeremias. [address] [facility] , [address], [place], [place], [facility], . tel:[phone] [facility], [address] [place] [address] [address], [place], [place], [id number], [place] tel:[phone] [facility] No Information 3-200 8 [place] OD Jeremias. [address] [facility] , [address], [place], [address], [place]. tel:[phone] Referring Provider: Jones Rosas, [address] [place], [address]. tel:[phone] Office Consultation [facility], [address] [place] [address] [address], [place], [place], [id number], [place] tel:[phone] [facility] No Information 200 [address] Alison Pedroza. [address] [facility], [place], [address], [place]. tel:[phone] Referring Provider: Mila Holguin [address], [place], [place], [facility]. tel:[phone] [facility], [address], [place], [place], [id number], tel:[phone] [facility] No Information 8 Jenny Zaragoza. [address] , [address], [place], [address], [place]. tel:[phone] Family History Family Member Type Diagnosis Age At Onset No Information Payers Payer name Insurance type Covered republican ID Authoriza tion(s) Medicare [facility] [id number] Social History Type Description Quantity Date Captured [...]
--- OUTSIDE RECORDS SUMMARY | 2025-02-17 16:17 | XMS_ITS | Encounter Summary ---
Author Organization [facility] Address [facility] [place] [address] Care Team Providers Care Pipe Puller Name Role Phone Leo Jacobson MD Primary Care Provider [phone] Simba Keating MD Unavailable [phone] Rah Reid MD Unavailable Bj Cox MD Unavailable Unavailable Leo Jacobson MD Primary Care Provider + [phone] Kyle Montenegro DO Primary Care Provider [phone] Irma Miller MD Unavailable Rah Reid MD Unavailable Simba Keating MD Unavailable + [phone] Abdirahman Mcghee APRN Unavailable [phone] Jamil Flanagan MD Unavailable [phone] Vera Rice MD Unavailable [phone] Encounter Details Date Type Department Care Team (Late st Contact Info) Description 12/17/2018 Abstract [facility] CONVERSION [address] [place] [address] , Generic Conversion, Social History [...] CDT Gender Identity Female 09/18/2021 2:09 PM DONOR SERVICES MANAGER Sexual Orientation Not on file Occupation Industry Job Start Date Job End Date Disability Not on file Not on file Not on file Not on file Not on file Not on file Not on file documented as of this encounter Plan of Treatment Upcoming Encounters Date Type Department Care Team (Late st Contact Info) Description 02/26/2025 2:20 PM CDT Appointment [facility] [address] [place] [address] Abdirahman Mcghee, MECHANICAL SERVICE SPECIALIST [address] [place] [phone] 02/26/2025 3:15 PM CDT [facility] [address] [place] [phone] Simba Keating MD [address] [facility] [place], [address] [place], [place] [address] documented as of this encounter Visit Diagnoses Not on filedocumented in this encounter Additional Health Concerns Infection Onset Date Last Indicated Resolved Time COVID-19 Rule Out 11/24/2022 11/24/2022 11/24/2022 2:05 PM CDT documented as of this encounter Care Teams Pipe Puller Relationship Specialty Start Date End Date Leo Jacobson MD [address] [place] [address] PCP - General FAMILY PRACTICE 11/03/16 08/20/19 Leo Jacobson MD [address] [place] [address] PCP - General FAMILY PRACTICE 08/21/19 08/21/19 Kyle Montenegro DO [address] [place] [address] PCP - General FAMILY PRACTICE 08/22/19 Simba Keating MD [address] [place] [address] CARDIOVASCULAR DISEASE 09/09/17 11/17/20 Rah Reid MD [address] [place] [address] Vascular/Bonded Structures Repairer INTERNAL MEDICINE 05/18/18 Bj Cox MD [address] [place] [address] Bonded Structures Repairer INTERVENTIONAL CARDIOLOGY 07/20/18 11/17/20 Irma Miller MD [address] [place] [address] Consulting Physician CARDIOVASCULAR DISEASE 11/18/20 Rah Reid MD [address] [place] [address] Vascular/Bonded Structures Repairer INTERNAL MEDICINE 12/01/21 Simba Keating MD [address] [place] [address] Consulting Physician INTERVENTIONAL CARDIOLOGY 05/11/22 Abdirahman Mcghee APRN [address] [place] [address] Nurse Practitioner NURSE PRACTITIONER 05/21/22 Jamil Flanagan MD [address] [place] [address] [phone] Consulting Physician INTERNAL MEDICINE 04/22/23 Vera Rice MD [facility] [address] SURGERY 04/22/23 documented as of this encounter
--- OUTSIDE RECORDS SUMMARY | 2025-02-17 16:17 | XMS_ITS | Encounter Summary ---
Author Organization [facility] Address [address] [place] [address] Care Team Providers Care Cytology Technologist Name Role Phone Fabien Jarrett MD Unavailable [phone] Jaqueline Rosas NP Unavailable [phone] Leo Jacobson MD Primary Care Provider [phone] Simba Keating MD Unavailable [phone] Rah Reid MD Unavailable Bj Cox MD Unavailable Unavailable Leo Jacobson MD Primary Care Provider [phone] Kyle Montenegro DO Primary Care Provider [phone] Irma Miller MD Unavailable Rah Reid MD Unavailable Simba Keating MD Unavailable [phone] Abdirahman Mcghee APRN Unavailable + [phone] Jamil Flanagan MD Unavailable [phone] Vera Rice MD Unavailable [phone] Encounter Details Date Type Department Care Team (Late st Contact Info) Description 09/25/2017 Abstract [facility] CONVERSION [address] [place], [place] [phone] , Generic MD Shanon Social History Tobacco [...] CDT Gender Identity Female 09/18/2021 2:09 PM VICE PRESIDENT QUALITY Sexual Orientation Not on file Occupation Industry [...] Appointment [facility] [address] [place] [address] Abdirahman Mcghee, RUBBER TESTER [address] [place] [phone] 02/26/2025 3:15 PM CDT Office Visit [facility] eld [address] [place] [phone] Simba Keating MD [address] [facility], [address] [place] [address] documented as of this encounter Visit Diagnoses Not on filedocumented in this encounter Additional Health Concerns Infection Onset Date Last Indicated Resolved Time COVID-19 Rule Out 11/24/2022 11/24/2022 11/24/2022 2:05 PM CDT documented as of this encounter Care Teams Cytology Technologist Relationship Specialty Start Date End Date Leo Jacobson MD [address] [place] [address] PCP - General FAMILY PRACTICE 11/03/16 08/20/19 Leo Jacobson MD [address] [place] [address] PCP - General FAMILY PRACTICE 08/21/19 08/21/19 Kyle Montenegro DO [address] [place] [address] PCP - General FAMILY PRACTICE 08/22/19 Fabien Jarrett MD CARDIOVASCULAR DISEASE 06/02/16 07/19/18 Jaqueline Rosas NP [address] [place] [address] [address] [place] [address] [place] [employer] Wire Finisher NURSE PRACTITIONER 11/03/16 07/19/18 Simba Keating MD [address] [place] [address] CARDIOVASCULAR DISEASE 09/09/17 11/17/20 Rah Reid MD [address] [place] [address] Vascular/Asbestos Wire Finisher INTERNAL MEDICINE 05/18/18 Bj Cox MD [address] [place] [address] [place] [employer] Wire Finisher INTERVENTIONAL CARDIOLOGY 07/20/18 11/17/20 Irma Miller MD [address] [place] [address] Consulting Physician CARDIOVASCULAR DISEASE 11/18/20 Rah Reid MD [address] [place] [address] Vascular/Asbestos Wire Finisher INTERNAL MEDICINE 12/01/21 Simba Keating MD [address] [place] [address] Consulting Physician INTERVENTIONAL CARDIOLOGY 05/11/22 Abdirahman Mcghee APRN [address] [place] [address] Nurse Practitioner NURSE PRACTITIONER 05/21/22 Jamil Flanagan MD [address] [place] [address] Consulting Physician INTERNAL MEDICINE 04/22/23 Vera Rice MD [address] [address] SURGERY 04/22/23 documented as of this encounter
--- OUTSIDE RECORDS SUMMARY | 2025-02-17 16:17 | XMS_ITS | Encounter Summary ---
Author Organization [facility] Address [address] [place] [address] Care Team Providers Care Tightening Machine Operator Name Role Phone Fabien Jarrett MD Unavailable [phone] Jaqueline Rosas NP Unavailable [phone] Leo Jacobson MD Primary Care Provider + [phone] Simba Keating MD Unavailable + [phone] Rah Reid MD Unavailable Bj Cox MD Unavailable Unavailable Leo Jacobson MD Primary Care Provider + [phone] Kyle Montenegro DO Primary Care Provider [phone] Irma [place] MD Unavailable Rah Reid MD Unavailable Simba Keating MD Unavailable + [phone] Abdirahman Mcghee APRN Unavailable [phone] Jamil Flanagan MD Unavailable [phone] Vera Rice MD Unavailable [phone] Encounter Details Date Type Department Care Team (Late st Contact Info) Description 04/17/2015 Abstract [facility] [address] [place] [address] Fabien Jarrett MD [address] [place] [address], [address] [place], [place] [phone] Social History Tobacco Use Types Packs/Day Years Used Date Smoking Tobacco: Former Smokeless Tobacco: Never Alcohol Use Standard Drinks/Week Comments No 0 (1 standard drink = 0.6 oz pur e alcohol) Comments Unknown Sex and Gender Information Value Date Recorded Sex Assigned at Female 09/21/2024 8:52 AM CDT Legal Sex Female 9:27 PM CDT Gender Identity Female 09/18/2021 2:09 PM 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, [address] [place] [address] documented as of this encounter Visit Diagnoses Not on filedocumented in this encounter Additional Health Concerns Infection Onset Date Last Indicated Resolved Time COVID-19 Rule Out 11/24/2022 11/24/2022 11/24/2022 2:05 PM CDT documented as of this encounter Care Teams Tightening Machine Operator Relationship Specialty Start Date End Date Leo Jacobson MD [address] [place] [address] PCP - General FAMILY PRACTICE 11/03/16 08/20/19 Leo Jacobson MD [address] [place] [address] PCP - General FAMILY PRACTICE 08/21/19 08/21/19 Kyle Montenegro DO [address] [place] [address] PCP - General FAMILY PRACTICE 08/22/19 Fabien Jarrett MD CARDIOVASCULAR DISEASE 06/02/16 07/19/18 Jaqueline Rosas NP [address] [place], [place] [address] [place] [phone] [place] Roofing Technician NURSE PRACTITIONER 11/03/16 07/19/18 Simba Keating MD [address] [place] [address] CARDIOVASCULAR DISEASE 09/09/17 11/17/20 Rah Reid MD [address] [place] [address] Vascular/Roofing Technician INTERNAL MEDICINE 05/18/18 Bj Cox MD [address] [place] [address] [place] Roofing Technician INTERVENTIONAL CARDIOLOGY 07/20/18 11/17/20 Irma Miller MD [address] [place] [address] Consulting Physician CARDIOVASCULAR DISEASE 11/18/20 Rah Reid MD [address] [place] [address] Vascular/Roofing Technician INTERNAL MEDICINE 12/01/21 Simba Keating MD [address] [place] [address] Consulting Physician INTERVENTIONAL CARDIOLOGY 05/11/22 Abdirahman Mcghee APRN [address] [place] [address] Nurse Practitioner NURSE PRACTITIONER 05/21/22 Jamil Flanagan MD [address] [place] [phone] Consulting Physician INTERNAL MEDICINE 04/22/23 Vera Rice MD [address] [place] [address] SURGERY 04/22/23 documented as of this encounter
--- OUTSIDE RECORDS SUMMARY | 2025-02-17 16:17 | XMS_ITS | Clinical Summary ---
Author Organization [facility] Address [address] [place] [address] Care Team Providers Care Reeling And Tubing Machine Operator Name Role Phone Papo Ambriz MD Primary Care Provider [phone] Source Comments [facility],non-owned Affiliates and Associated Physician Practices is amultiple site organization consisting of ambulatory clinics and hospital sitesin [place], [place], [place] and [place]. This disclosure is being madepursuant to the Care Everywhere program and may not contain all information available regarding this patient. Last updated 18.[facility] Allergies No known active allergies Medications * [...] 4 times daily as needed. Active Tiotropium [place] Monohydrate (SPIRIVA HANDIHALER [place]) once daily. Act [...] on file Legal Sex Female 2:12 PM LEGAL SUMMER INTERN Gender Identity Not on file Sexual Orientation [...] MAMMO BILAT DIAGNOSTIC Routine 05/21/2015 1:58 PM LEGAL SUMMER INTERN Breast cyst, left from Last 3 Months or Most Recently Relevant to Health Maintenance Results * MAMMO DIAG DIRECT DIGITAL IMAGE BILA (05/21/2015 1:58 PM LEGAL SUMMER INTERN) Anatomical Region Laterality Modality Bilateral Mammography 05/21/2015 5:00 PM LEGAL SUMMER INTERN Impressions 05/21/2015 5:03 PM LEGAL SUMMER INTERN 1. No evidence of malignancy in either [...] of your patient. [facility] utilizes [employer]rian[employer] as a reminder system to notify patients of their next recommended mammogram. Narrative 05/21/2015 5:03 PM LEGAL SUMMER INTERN EXAMINATION: Digital bilateral diagnostic mammogram and targeted [...] Most Recently Relevant to Health Maintenance Insurance [facility] MANAGED MEDICARE ADV [address] [place] [id number] Care Teams Reeling And Tubing Machine Operator Relationship Specialty Start Date End Date Papo Ambriz MD PCP - General Internal Medicine 10/14/12
--- OUTSIDE RECORDS SUMMARY | 2025-02-17 16:17 | XMS_ITS | Clinical Summary ---
Author Organization [facility] Address [address] [place] [address] Care Team Providers Care Agricultural Loan Officer Name Role Phone Kyle Montenegro Primary Care Provider [phone] Rah Reid MD Unavailable Simba Keating MD Unavailable [phone] Abdirahman Mcghee APRN Unavailable [phone] Sera Fisher MD Unavailable [phone] Vera Rice MD Unavailable [phone] Medications aspirin 81 MG tablet Aspirin 81 [...] aneurysm repair 02/23/2023 Acute hypoxemic respiratory failure (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) 10/03/2018 Bilateral carotid bruits 10/03/2018 Other closed fracture of pro ximal end of left fibula, sequela 01/06/2017 COPD (chronic obstructive pu lmonary disease) ([facility]) 06/03/2016 Essential hypertension AAA (abdominal aortic aneurysm) Innominate artery stenosis PAD (peripheral artery disease) Resolved Problems Problem Noted Date Diagnosed Date Resolved Date Ruptured aneurysm of thoraci c aorta ([facility]) 02/23/2023 02/23/2023 High blood cholesterol 02/11/201710/04 [...] place to sleep or slept in a skilled nursing (including now)? 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 OPERATIONS MANAGER Sexual Orientation Not on file Occupation [...] Info) Description 02/26/2025 2:20 PM CDT Appointment [facility] [address] [place] [address] Abdirahman Mcghee, TRUST EVALUATION SUPERVISOR [address] [place] [address] 02/26/2025 3:15 PM CDT Office Visit [facility] eld [address] [place] [address] Simba Kaeting MD [address] [place] [address] Health Maintenance Due Date Last [...] home upon discharge Lifestyle No Leti Gupta, rib knitter Procedure Name Priority Date/Time Associated Diagnosis Comments [...] 10:18 AM Narrative 09/21/2024 11:14 AM CDT [address] [place] [address] Examination: CT CHEST WO CON Clinical Information: [...] Procedure Note Young Yi MD - 09/21/[address] [place] [address] Examination: CT CHEST WO CON Clinical Information: [...] ID:Not on file Type:Not on file Address: [address] MEDICAID Advance Directives * Full Code (Latest Code Status on File) Date Activated Date Inactivated Comments 11/24/2022 12:16 PM 11/30/2022 2:43 PM Care Teams Agricultural Loan Officer Relationship Specialty Start Date End Date Kyle Montenegro DO [address] [place] [address] PCP - General FAMILY PRACTICE 08/22/19 Rah Reid MD [address] [place] [address] Vascular/Retail Business Analyst INTERNAL MEDICINE 12/01/21 Simba Keating MD [address] [place] [address] Consulting Physician INTERVENTIONAL CARDIOLOGY 05/11/22 Abdirahman Mcghee APRN [address] [place] [address] Nurse Practitioner NURSE PRACTITIONER 05/21/22 Sera Fisher MD [address] [place] [address] Consulting Physician INTERNAL MEDICINE 04/22/23 Vera Rice MD [address] [facility] [address] [place] [address] SURGERY 04/22/23
--- OUTSIDE RECORDS SUMMARY | 2025-02-17 16:17 | XMS_ITS | Clinical Summary ---
Author Organization [facility] - [facility] Address [address] [place] [address] Phone Care Team Providers Care Bunghole Borer Name Role Phone Kyle Montenegro MD Primary Care Provider [phone] Sharad Faulkner MD Unavailable [phone] Allergies No known active allergies Medications citalopram (CeleXA) 10 MG Tablet Take 10 mg by mouth daily. Active aspirin EC 81 MG Tablet Delayed Response Take 81 mg by mouth daily. Active Calcium Carbonate (CALCIUM 600 PO) Take by mouth. Activ e VITAMIN D PO Take by mouth. Ac tive Multiple Vitamin (MULTIVITAMIN PO) Take by mouth. Activ e [place]-3 Fatty Acids (FISH OIL PO) Take by [...] Description 02/05/2025 1:45 PM CDT Office Visit [facility] - Neurology [facility] [address] [place] [address] Sharad Faulkner MD Dizziness (Primary Dx); Polyneuropathy [...] st Contact Info) Description 08/07/2025 10:30 AM HOGSHEAD BUILDER Office Visit [facility] - Neurology [facility] [address] [place] [address] Sharad Faulkner MD [address] [place] [address] Health Maintenance Due Date Last Done Comments [...] MEDICARE C [employer] [place] Care Teams Bunghole Borer Relationship Specialty Start Date End Date Kyle Montenegro MD [address] [place] [address] PCP - General Family Medicine 10/31/24 Sharad Faulkner MD [address] [place] [address] Consulting Physician Neurology 02/02/25
--- NOTE | 2025-02-17 16:24 | ED_ITS ---
HPI - General Adult General Chief complaint: Extremity Problem,Nontraumatic Stated complaint: R LEG PAIN, SENT TO R/O DVT Time Seen by Provider: 02/17/25 16:07 History of Present Illness HPI narrative: A 69-year-old female present to the emergency department for evaluation for right leg pain. Patient does report she has got chronic lower back pain and patient does have prior history of sciatica. Patient states this current back pain and leg pain has been bothering her for the last 4 days. She describes pain that radiates down to her knee. Patient does have intermittent pain that radiates past the knee. Patient denies any change in bowel or bladder habits. Patient denies any numbness or weakness of the lower leg. Patient was evaluated outside hospital referred to our hospital in order to have an ultrasound to rule out for DVT. Patient has no lower extremity edema or erythema. Related Data Home Medications ?Medication ?Instructions ?Recorded ?Confirmed ?Last Taken ?Type aspirin 81 mg tablet,delayed 81 mg PO DAILY 07/16/22 02/02/25 Unknown History release (Enteric Coated Aspirin) calcium 600 mg (as carbonate)-vit 600 tablet PO DAILY 07/16/22 02/02/25 Unknown History D3 10 mcg (400 unit) chewable tablet (Calcium 600 with Vitamin D3) cholecalciferol (vitamin D3) 25 25 mcg PO DAILY 07/16/22 02/02/25 Unknown History mcg (1,000 unit) capsule multivitamin 1 tablet PO DAILY 07/16/22 02/02/25 Unknown History omega-3 fatty acids 1,000 mg 2,000 mg PO DAILY 07/16/22 02/02/25 Unknown History capsule clobetasol 0.05 % scalp solution 1 applic topical DAILY 10/01/23 02/02/25 Unknown History hydrocodone 10 mg-acetaminophen 1 tablet PO Q6-8H PRN Pain 10/01/23 02/02/25 Unknown History 325 mg tablet mupirocin 2 % topical ointment 1 applic topical DAILY 10/01/23 02/02/25 Unknown History pregabalin 75 mg capsule 75 mg PO BID 09/22/24 02/02/25 Unknown History Allergies Allergy/AdvReac Type Severity Reaction Status Date / Time No Known Allergies Allergy Verified 02/17/25 14:40 Review of Systems Review of Systems: All systems reviewed & are unremarkable except as noted in HPI and below PMFSH Past Medical History Medical History Peripheral neuropathy Asthma History of aortic dissection 2002 Tobacco abuse Chronic back pain Chronic kidney disease (CKD) stage G4/A1, severely decreased glomerular filtration rate (GFR) between 15-29 mL/min/1.73 square meter and albuminuria creatinine ratio less than 30 mg/g Gout Age related osteoporosis Hypertension Hyperlipidemia GERD (gastroesophageal reflux disease) WILLIAM (generalized anxiety disorder) COPD (chronic obstructive pulmonary disease) Overweight Surgical History Surgical History S/P insertion of iliac artery stent History of mandibular surgery History of hip replacement, total right Hx of cataract surgery Family History Family History Father Family history of malignant neoplasm Sibling Family history of malignant neoplasm of breast in first degree relative Mother Family history of congestive heart failure Other Hypertension Social History Social History Smoking packs per day: 0.5 Smoking cigarettes per day: 10.0 Years smoked: 50 Smoking pack-years: 25.00 Smoking status: Current every day smoker Tobacco type: cigarettes Second hand tobacco smoke exposure: Yes Alcohol intake: current Alcohol use details: 1 glass of wine per year Substance use: current Substance use type: marijuana Other substance usage details: OCCASIONALLY Last use: 07/07/20 Do You Feel Safe in your Home?: Yes Lack of Transportation: No Lack of Food: Never True Current Housing: I Have Housing Concerned About Future Housing: No Difficulty Paying Gas/Electric Bills: YES Difficulty Paying for Meds: No Currently Unemployed: No Education: High School Diploma/GED Difficulty w/ Childcare or Family Care: No Living arrangements: with family Additional living arrangements comments: [facility] WITH PT Occupation/Education: retired Gender identity (if verbalized by the patient): Female Spiritual care concerns: No Agree to blood products: Yes Exam Narrative: APPEARANCE: Well appearing, no pain, no distress, well-nourished. HEAD: normocephalic, atraumatic. EYES: PERRLA/EOMI, conjunctivae clear. NOSE: Normal no drainage EARS:TMS clear with good light reflex. THROAT: Pharynx clear, no exudate. NECK: Supple. No adenopathy, no masses. RESPIRATORY: Airway patent, respirations nonlabored. Clear to auscultation bilaterally, no rales, rhonchi, wheezing. CARDIOVASCULAR: Regular rate and rhythm without murmurs rubs or gallops. ABDOMINAL: Soft, nontender, nondistended, normal bowel sounds MUSCULOSKELETAL: Lower back tenderness to palpation into the right hip and buttock consistent with sciatica. Right calf tenderness to palpation with no lower extremity edema or erythema. NEURO: Alert. Cranial nerves II through XII intact. Good gait. Good coordination SKIN: Warm, dry. Normal Color Course Vital Signs Vital signs: Vital Signs Temperature 97.8 F 02/17/25 14:41 Pulse Rate 95 02/17/25 14:41 Respiratory Rate 16 02/17/25 14:41 Blood Pressure 140/73 02/17/25 14:41 Pulse Oximetry 94 02/17/25 14:41 Oxygen Delivery Room Air 02/17/25 14:41 Temperature 97.8 F 02/17/25 14:41 Pulse Rate 66 02/17/25 17:39 Respiratory Rate 18 02/17/25 17:39 Blood Pressure 149/78 H 02/17/25 17:39 Pulse Oximetry 99 02/17/25 17:39 Oxygen Delivery Room Air 02/17/25 14:41 Medical Decision Making MDM Narrative Medical decision making narrative: 69-year-old female presents emergency department for evaluation for right lower leg pain. Patient's exam is consistent with sciatica. Patient was referred to our emergency department for evaluation with ultrasound to rule out DVT. DVT was negative. Patient did feel improved with treatment. Patient was discharged home with a Medrol Dosepak along with Flexeril for muscle spasm. Patient does have [place] at home for pain control. Patient was encouraged of close follow-up with her primary care physician. Differential Diagnosis Differential Diagnosis: Sciatica, hip strain, DVT, cellulitis Vital Signs Vital Signs: Vital Signs Temperature 97.8 F 02/17/25 14:41 Pulse Rate 95 02/17/25 14:41 Respiratory Rate 16 02/17/25 14:41 Blood Pressure 140/73 02/17/25 14:41 Pulse Oximetry 94 02/17/25 14:41 Oxygen Delivery Room Air 02/17/25 14:41 Temperature 97.8 F 02/17/25 14:41 Pulse Rate 66 02/17/25 17:39 Respiratory Rate 18 02/17/25 17:39 Blood Pressure 149/78 H 02/17/25 17:39 Pulse Oximetry 99 02/17/25 17:39 Oxygen Delivery Room Air 02/17/25 14:41 Imaging Data Radiologist's impression: Impressions Venous Doppler Study 02/17/25 16:56 IMPRESSION: Patent right lower extremity veins. No evidence of deep venous thrombosis. Discharge Plan Discharge Clinical Impression: Sciatica Patient Disposition: Home Condition: Stable Instructions: Antibiotic Form, Sciatica (ED) Additional Instructions: Medrol Dosepak as directed until completed. Flexeril for muscle spasm. [place] as needed for pain control. Have close follow-up with your primary care physician. Patient Language: Romanian Prescriptions: New cyclobenzaprine 10 mg tablet 10 mg PO BID PRN (Reason: muscle spasm) Qty: 14 0RF methylprednisolone [Medrol (Arnoldo)] 4 mg tablets,dose pack See Rx Instructions .ROUTE .COMPLEX Qty: 21 0RF Rx Instructions: for 6 days No Action multivitamin Tablet 1 tablet PO DAILY Calcium 600 with Vitamin D3 600 mg-10 mcg (400 unit) tablet,chewable 600 tablet PO DAILY cholecalciferol (vitamin D3) 25 mcg (1,000 unit) capsule 25 mcg PO DAILY omega-3 fatty acids 1,000 mg capsule 2,000 mg PO DAILY aspirin [Enteric Coated Aspirin] 81 mg tablet,delayed release (DR/EC) 81 mg PO DAILY (DME) nebulizers Misc See Rx Instructions .Route Qty: 1 0RF Rx Instructions: As directed pregabalin 75 mg capsule 75 mg PO BID gabapentin 600 mg tablet 300 mg PO TID Qty: 270 3RF hydrocodone-acetaminophen 10-325 mg tablet 1 tablet PO Q6-8H PRN (Reason: Pain) mupirocin 2 % ointment 1 applic TOPICAL DAILY clobetasol 0.05 % solution 1 applic TOPICAL DAILY citalopram 40 mg tablet See Rx Instructions .ROUTE .COMPLEX Qty: 90 3RF Dose Instruction: TAKE ONE TABLET BY MOUTH DAILY. Rx Instructions: TAKE ONE TABLET BY MOUTH DAILY. atorvastatin 40 mg tablet See Rx Instructions .ROUTE .COMPLEX Qty: 90 0RF Dose Instruction: TAKE 1 TABLET BY MOUTH DAILY Rx Instructions: TAKE 1 TABLET BY MOUTH DAILY albuterol sulfate 2.5 mg /3 mL (0.083 %) solution for nebulization 2.5 mg inhalation Q4H PRN (Reason: shortness of breath or wheezing) Qty: 180 3RF buspirone 15 mg tablet See Rx Instructions .ROUTE .COMPLEX Qty: 360 0RF Dose Instruction: TAKE 2 TABLETS BY MOUTH 2 TIMES DAILY Rx Instructions: TAKE 2 TABLETS BY MOUTH 2 TIMES DAILY albuterol sulfate 90 mcg/actuation HFA aerosol inhaler See Rx Instructions .ROUTE .COMPLEX Qty: 6.7 1RF Dose Instruction: INHALE 1 PUFF BY MOUTH EVERY 4 HOURS OR EVERY 6 HOURS NEEDED FOR SHORTNESS OF BREATH Rx Instructions: INHALE 1 PUFF BY MOUTH EVERY 4 HOURS OR EVERY 6 HOURS NEEDED FOR SHORTNESS OF BREATH Trelegy Ellipta 100-62.5-25 mcg blister with device See Rx Instructions .ROUTE .COMPLEX Qty: 60 3RF Dose Instruction: 1 INHALATIONS INHALED DAILY Rx Instructions: 1 INHALATIONS INHALED DAILY metoprolol succinate 50 mg tablet extended release 24 hr See Rx Instructions .ROUTE .COMPLEX Qty: 90 0RF Dose Instruction: TAKE 1 TABLET BY MOUTH DAILY. Rx Instructions: TAKE 1 TABLET BY MOUTH DAILY. pantoprazole 40 mg tablet,delayed release (DR/EC) See Rx Instructions .ROUTE .COMPLEX Qty: 90 0RF Dose Instruction: TAKE ONE TABLET BY MOUTH EVERY MORNING Rx Instructions: TAKE ONE TABLET BY MOUTH EVERY MORNING amlodipine 5 mg tablet See Rx Instructions .ROUTE .COMPLEX Qty: 90 1RF Dose Instruction: TAKE ONE TABLET BY MOUTH DAILY Rx Instructions: TAKE ONE TABLET BY MOUTH DAILY furosemide 20 mg tablet See Rx Instructions .ROUTE .COMPLEX Qty: 90 1RF Dose Instruction: TAKE 1 TABLET BY MOUTH EVERY MORNING Rx Instructions: TAKE 1 TABLET BY MOUTH EVERY MORNING alendronate 70 mg tablet See Rx Instructions .ROUTE .COMPLEX Qty: 12 0RF Dose Instruction: TAKE 1 TABLET BY MOUTH WEEKLY Rx Instructions: TAKE 1 TABLET BY MOUTH WEEKLY varenicline tartrate 1 mg tablet See Rx Instructions .ROUTE .COMPLEX Qty: 56 0RF Dose Instruction: 1 MG ORALLY TWICE A DAY Rx Instructions: 1 MG ORALLY TWICE A DAY Follow-up/Referrals: Kyle Montenegro, [Primary Care Provider] -
[2025-02-17] MEDS: HYDROcodone/acetaminophen (*CRX) 5-325 MG TABLET 1 TAB PO (16:58)
[2025-02-17] MEDS: CYCLOBENZAPRINE HCL 10 MG TABLET PO (16:58)
[2025-02-17] MEDS: dexAMETHasone SOD PHOS INJ 10 MG/ML 1 ML VIAL IM (16:58)
[2025-02-17 17:39] VITALS: BP 149/78; PULSE 66; RESP 18; O2SAT 99
== END 2025-02-17 17:40 | disposition home or self-care (01) ==
PROVIDERS: Emergency Provider Emergency Medicine; PCP Family Medicine
DX: M54.30 Sciatica, unspecified side (principal); I12.9 Hypertensive chronic kidney disease with stage 1 through stage 4 chronic kidney disease, or unspecified chronic kidney disease; N18.4 Chronic kidney disease, stage 4 (severe); J44.9 Chronic obstructive pulmonary disease, unspecified; F17.210 Nicotine dependence, cigarettes, uncomplicated
CPT/HCPCS: 93971; 96372; 99284; A9270; J1100

== ENCOUNTER 2025-04-10 09:46 | Outpatient (CLI) | payer MEDICARE, MEDICAID, SELFPAY ==
--- NOTE | ~2025-04-10 | XR_ITS ---
EXAMINATION: XR chest 2V, 04/10/2025 10:04 CDT HISTORY: SOB COPD cough COMPARISON: No comparisons available. Technique: 2 views obtained. Findings: COPD changes with scattered calcified granulomas. There is a nodular density noted on the lateral view probably in the left lower lobe measuring 1.5 x 1 cm incompletely evaluated. No pneumothorax. Heart is normal size. Mediastinal and hilar contours are within normal limits. Bony thorax no acute abnormality. Endovascular stent noted. Impression: 1. Left lung nodule. CT chest with contrast recommended Reviewed, dictated and finalized at location P. Impression: 1. Left lung nodule. CT chest with contrast recommended
[2025-04-10 10:01] LABS: Hematocrit 45.8 % (35.0-42.0); Hemoglobin 14.7 g/dL (11.7-13.8); Immature Granulocyte Percent A 0.8 % (0.0-0.0); Lymphocytes Absolute Auto 1.94 K/mm3 (1.10-4.50); Mean Corpuscular HGB Conc 32.1 g/dL (32-36); Mean Corpuscular Hemoglobin 27.0 pg (27.0-31.0); Mean Corpuscular Volume 84.0 fL (78.0-102.0); Nucleated Red Blood Cells Absolute Auto 0.00 K/mm3 (0.00-0.00); Nucleated Red Blood Cells Perc 0.0 % (0-0.0); Platelet Count Result 270 K/mm3 (150-420); Red Blood Count 5.45 M/mm3 (4.20-5.40); White Blood Count 16.0 K/mm3 (4.8-10.8)
[2025-04-10 10:05] LABS: Add Urine Microscopic? YES; Appearance Urine Clear (Clear); Glucose Urine UA Negative (Negative); Leukocyte Esterase Ur 3+ (Negative); Nitrate Urine Negative (Negative); Specific Grav Ur 1.010 (1.010-1.020)
--- OUTSIDE RECORDS SUMMARY | 2025-04-10 10:29 | XMS_ITS | Clinical Summary ---
Author Organization [facility] - [facility]Y [facility] Address [address] [place] [address] Phone Care Team Providers Care Plumber Assistant Name Role Phone Kyle Montenegro MD Primary Care Provider [phone] Sharad Faulkner MD Unavailable [phone] Allergies No known active allergies Medications citalopram (CeleXA) 10 MG Tablet Take 10 mg by mouth daily. Active aspirin EC 81 MG Tablet Delayed Response Take 81 mg by mouth daily. Active Calcium Carbonate (CALCIUM 600 PO) Take by mouth. Activ e VITAMIN D PO Take by mouth. Ac tive Multiple Vitamin (MULTIVITAMIN PO) Take by mouth. Activ e [place]-3 Fatty Acids (FISH OIL PO) Take by [...] daily. Active meclizine (ANTIVERT) 25 MG Tablet TAKE 1 TABLET BY MOUTH 3 TIMES DAILY NEEDED FOR DIZZINESS. 30 Tablet 04/09/20 25 Active meclizine (ANTIVERT) 25 MG Tablet TAKE 1 TABLET BY MOUTH 3 TIMES DAILY NEEDED FOR DIZZINESS. 30 Tablet 03/05/20 25 025 Discontinued Encounters Date Type Department Care Team Description 04/07/2025 Refill [facility] [address] [place] [address] Sharad Faulkner MD Medication Refill 03/03/2025 Refill [facility] [address] [place] [address] Sharad Faulkner MD Medication Refill 02/05/2025 1:45 PM CDT Office Visit [facility] [address] [place] [address] Sharad Faulkner MD Dizziness (Primary Dx); Polyneuropathy [...] st Contact Info) Description 08/07/2025 10:30 AM CASTING DIRECTOR Office Visit [facility] - Neurology [facility] [address] [place] [address] Sharad Faulkner MD [address] [place] [address] Health Maintenance Due Date Last Done Comments DEXA Bone Density 1955 Hepatitis C Virus (HCV) Screening 1955 TdaP Immunization 1955 Cologuard 2000 Colonoscopy 2000 Colorectal Cancer Screening 2000 Immunochemical Fecal Occult Blood 2000 Zoster Immunization (1 of 2) 2005 Mammogram 05/21/2016 05/21/2015, 05/05/2012 Welcome to Medicare (IPPE) [id number] 07/12/2024 Influenza Immunization (#1) 2025 02/0 02/2024, 04/30/2022, 09/08/2021, Additional history exists SARS-COV-2 Immunization (3 - 2024- season) 2025 11/01/2020, 10/04/2020 Respiratory Syncytial Virus (RSV) Immunization (Adult) (1 [...] to complete this topic Insurance MEDICARE C [facility] [place]ICAID [place] Care Teams Plumber Assistant Relationship Specialty Start Date End Date Kyle Montenegro MD [address] [place] [id number] PCP - General Family Medicine 10/31/24 Sharad Faulkner MD [address] [place] [address] Consulting Physician Neurology 02/02/25
--- OUTSIDE RECORDS SUMMARY | 2025-04-10 10:29 | XMS_ITS | Clinical Summary ---
Author Organization [facility] Address [address] [place] [address] Care Team Providers Care Offset Printing Pressmen Name Role Phone Papo Ambriz MD Primary Care Provider [phone] Source Comments [facility],non-owned Affiliates and Associated Physician Practices is amultiple site organization consisting of ambulatory clinics and hospital sitesin [place], [place], [place] and [place]. This disclosure is being madepursuant to the Care Everywhere program and may not contain all information available regarding this patient. Last updated 18.[facility] Allergies No known active allergies Medications * [...] 4 times daily as needed. Active Tiotropium [place] Monohydrate (SPIRIVA HANDIHALER [place]) once daily. Act [...] on file Legal Sex Female 2:12 PM CLERICAL ADMINISTRATOR Gender Identity Not on file Sexual Orientation [...] 1-dose series) 2015 MAMMOGRAM 05/21/2017 05/21/2015, 05/05/2012 DEPRESSION SCREENING 07/12/2024 MEDICARE AWV CALENDAR YEAR 2024 COVID-19 VACCINE ( season) 2025 INFLUENZA VACCINE (#1) 2025 6, 03/14/2015, 05/04/2014, [...] MAMMO BILAT DIAGNOSTIC Routine 05/21/2015 1:58 PM CLERICAL ADMINISTRATOR Breast cyst, left from Last 3 Months or Most Recently Relevant to Health Maintenance Results * MAMMO DIAG DIRECT DIGITAL IMAGE BILA (05/21/2015 1:58 PM CLERICAL ADMINISTRATOR) Anatomical Region Laterality Modality Bilateral Mammography 05/21/2015 5:00 PM CLERICAL ADMINISTRATOR Impressions 05/21/2015 5:03 PM CLERICAL ADMINISTRATOR 1. No evidence of malignancy in either [...] of your patient. [facility] utilizes Need as a reminder system to notify patients of their next recommended mammogram. Narrative 05/21/2015 5:03 PM CLERICAL ADMINISTRATOR EXAMINATION: Digital bilateral diagnostic mammogram and targeted [...] Most Recently Relevant to Health Maintenance Insurance [facility] MANAGED MEDICARE ADV [address] [place] [id number] Care Teams Offset Printing Pressmen Relationship Specialty Start Date End Date Papo Ambriz MD PCP - General Internal Medicine 10/14/12
--- OUTSIDE RECORDS SUMMARY | 2025-04-10 10:29 | XMS_ITS | Encounter Summary ---
Author Organization [facility] Address [address] [place] [address] Phone Care Team Providers Care Fabricating Machine Operator Name Role Phone Kyle Montenegro MD Primary Care Provider [phone] Sharad Faulkner MD Unavailable [phone] Reason for Visit * Reason Comments Medication Refill Encounter Details Date Type Department Care Team (Late st Contact Info) Description 04/07/2025 Refill [facility] - [facility] [address] [place] [address] Sharad Faulkner MD [address] [place] [id number] Medication Refill Social History Tobacco Use Types Packs/Day Years [...] on file Sexual Orientation Not on file documented as of this encounter Miscellaneous Notes * Telephone Encounter - Nancie Nxi RN - 04/09/2025 9:02 AM CDT Medication failed the protocol, provider to review and approve the medication order if appropriate. Requested Prescriptions Pending Prescriptions Disp Refills meclizine (ANTIVERT) 25 MG Tablet [Pharmacy Med Name: MECLIZINE HYDROCHLORIDE 25MG TABLET] 30 Tablet 0 Sig: TAKE 1 TABLET BY MOUTH 3 TIMES DAILY NEEDED FOR DIZZINESS. Not Delegated - Off Protocol Failed - 04/09/2025 9:02 AM Failed - This refill cannot be delegated Passed - Visit with relevant provider in past 12 months or upcoming 90 days Recent Visits Date Type Provider Dept 02/05/25 Office Visit Sharad Faulkner MD [facility] 11/09/24 Office Visit Sharad Faulkner MD [facility] Neu[facility] Showing recent visits within past 365 days and meeting all other requirements Future Appointments No visits were found meeting these conditions. Showing future appointments within next 90 days and meeting all other requirements documented in this encounter Plan of Treatment Upcoming Encounters Date Type Department Care Team (Late st Contact Info) Description 08/07/2025 10:30 AM WATERWORKS OPERATOR Office Visit [facility] - [facility] [address] [place] [address] Sharad Faulkner MD [address] [place] [address] documented as of this encounter Visit Diagnoses Not on filedocumented in this encounter Care Teams Fabricating Machine Operator Relationship Specialty Start Date End Date Kyle Montenegro MD [address] [place] [id number] PCP - General Family Medicine 10/31/24 Sharda Faulkner MD [address] [place] [address] Consulting Physician Neurology 02/02/25 documented as of this encounter
[2025-04-10 10:38] LABS: Alanine Aminotransferase 22 U/L (6-35); Albumin Level 4.0 g/dL (3.5-5.1); Alkaline Phosphatase 77 U/L (38-126); Anion Gap 13 mmol/L (4-12); Aspartate Amino Transferase 28 U/L (14-36); Bilirubin,Total 1.2 mg/dL (0.2-1.3); Blood Urea Nitrogen 35 mg/dL (7-17); Calcium 9.7 mg/dL (8.4-10.2); Carbon Dioxide 34 mmol/L (22-30); Chloride 88 mmol/L (98-107); Estimated Glomerular Filt Rate 42; Glucose 217 mg/dL (65-110); Osmolality Calculated 295 mOsm/kg (285-295); Sodium 135 mmol/L (137-145); Total Protein 10.1 g/dL (6.3-8.2)
[2025-04-10 10:44] LABS: Potassium 2.6 mmol/L (3.4-5.0)
[2025-04-10 11:08] LABS: Thyroid Stimulating Hormone Reflex 0.746 uIU/mL (0.465-4.68)
== END 2025-04-10 09:47 | disposition home or self-care (01) ==
LOC: CHSLAB 09:47
PROVIDERS: PCP Family Medicine; Visit Provider Family Medicine
DX: R53.83 Other fatigue (principal); E03.9 Hypothyroidism, unspecified; R91.1 Solitary pulmonary nodule
CPT/HCPCS: 36415; 71046; 80053; 81001; 84443; 85025

== ENCOUNTER 2025-04-10 16:30 | Emergency (ER) | payer MEDICARE, MEDICAID, SELFPAY ==
--- OUTSIDE RECORDS SUMMARY | 2008-01-05 05:22 | XMS_ITS | Continuity of Care Document ---
Author Organization [facility] [place] [id number] [place] [address] [address] [place] [address] Phone Care Team Providers Care Record Pressman Name Role Phone Morgan OD, Jeremias Unavailable Unavailable Procedures Procedure Date No Charge Contact Lens Check CL Replacement - Vistakon Disp W/BW Soft Tax - Medical Contact Lens Fitting Office Consultation Eye Exam & Treatment Advance Directives Directive Yes / No Effective Date File Name No Information Encounters Encounter Description Practice Location Reason(s) For Visit Diagnoses Date Provider Providers Copied on Encounter Merged with [facility], [address] [place] [address] [address], [place], [place], [id number], [place] tel:[phone] [facility] No Information 6-200 8 Morgan OD Jeremias. [address] [facility] , [address], [place], [place], [facility], . tel:[phone] Merged with [facility], [address] [place] [address] [address], [place], [place], [id number], [place] tel:[phone] [facility] No Information 3-200 8 Morgan OD Jeremias. [address] [facility] , [address], [place], [address], [place]. tel:[phone] Referring Provider: Jones Rosas, [address] [place], [address]. tel:[phone] Office Consultation Merged with [facility], [address] [place] [address] [address], [place], [place], [id number], [place] tel:[phone] [facility] No Information 200 8 Alison Pedroza. [address] [facility] [place], [address], [place]. tel:[phone] Referring Provider: Mila Holguin [address], [place], [place], [facility]. tel:[phone] [facility], [address], [place], [place], [id number], tel:[phone] [facility] No Information 8 Jenny Zaragoza. [address] , [address], [place], [address], [place]. tel:[phone] Family History Family Member Type Diagnosis Age At Onset No Information Payers Payer name Insurance type Covered republican ID Authoriza tion(s) Medicare [facility] [id number] Social History Type Description Quantity Date Captured Comments Sex Female Smoking Status No Information Chief Complaint And Reason For Visit No Information Reason For Referral Reason For Referral No Information History Of Present Illness Encounter Date Complaint History Of Prese nt Illness No Information Functional Status Date Functional Assessmen t No Information Instructions Date Instruction Additional Infor mation No Information Assessments Type Assessment Date No Information Patient Care Teams Name Effective Dates (start - stop) Status Members No Information
--- OUTSIDE RECORDS SUMMARY | 2008-01-05 05:22 | XMS_ITS | Continuity of Care Document ---
Author Organization [facility] [place] Address [address] [place] [address] [address] [place] [address] Phone Care Team Providers Care Expansion Envelope Maker Hand Name Role Phone Morgan OD, Jeremias Unavailable Unavailable Procedures Procedure Date No Charge Contact Lens Check CL Replacement - Vistakon Disp W/BW Soft Tax - Medical Contact Lens Fitting Office Consultation Eye Exam & Treatment Advance Directives Directive Yes / No Effective Date File Name No Information Encounters Encounter Description Practice Location Reason(s) For Visit Diagnoses Date Provider Providers Copied on Encounter [facility], [address] [place] [address] [address], [place], [place], [id number], [place] tel:[phone] [facility] No Information 6-200 8 Morgan OD Jeremias. [address] [facility] , [address], [place], [place], [facility], . tel:[phone] [facility], [address] [place] [address] [address], [place], [place], [id number], [place] tel:[phone] [facility] No Information 3-200 8 Morgan OD Jeremias. [address] [facility] , [address], [place], [address], [place]. tel:[phone] Referring Provider: Jones Rosas, [address] [place], [address]. tel:[phone] Office Consultation [facility], [address] [place] [address] [address], [place], [place], [id number], [place] tel:[phone] [facility] No Information 200 8 Alison Pedroza. [address] [facility], [place], [address], [place]. tel:[phone] Referring Provider: Mila Holguin [address], [place], [place], [facility]. tel:[phone] [facility], [address], [place], [place], [id number], tel:[phone] [facility] No Information 8 Jenny Zaragoza. [address] , [address], [place], [address], [place]. tel:[phone] Family History Family Member Type Diagnosis Age At Onset No Information Payers Payer name Insurance type Covered alliance party ID Authoriza tion(s) Medicare [facility] [id number] Social History Type Description Quantity Date Captured [...]
[2025-04-10] VITALS (17 sets, daily range): BP systolic 113–142; BP diastolic 60–79; PULSE 67–81; RESP 5–27; TEMP 36.6; O2SAT 91–96
--- NOTE | 2025-04-10 16:31 | ED_ITS ---
HPI - General Adult General Chief complaint: Unspecified Stated complaint: abnormal labs Time Seen by Provider: 04/10/25 16:30 Source: patient Mode of arrival: ambulatory Limitations: no limitations History of Present Illness HPI narrative: 70-year-old female, smoker with a history WILLIAM, chronic back pain, status post hip replacement, aortic dissection, CKD, gout, hypertension, dyslipidemia, COPD, PVD status post iliac stent presented to her primary care physician with a 2 week history of -- fatigue and weakness -- urinary continence. She is diagnosed to have urinary tract infection -- cough which is nonproductive -- sacral decubitus she had blood work which revealed a potassium of 2.6, BUN / creatinine of 35/1.26. Patient is on Lasix 20 mg daily She was asked to come to the ED for correction of her hypokalemia. Onset (ago): week(s) ( 2 weeks) Severity: mild Relieving factors: none Exacerbating factors: none Associated symptoms: cough and rash ( decubitus) Treatments prior to arrival: other ( patient was started on antibiotics for UTI) Related Data Home Medications ?Medication ?Instructions ?Recorded ?Confirmed ?Last Taken ?Type aspirin 81 mg tablet,delayed 81 mg PO DAILY 07/16/22 0 02/02/25 Unknown History release (Enteric Coated Aspirin) calcium 600 mg (as carbonate)-vit 600 tablet PO DAILY 07/16/22 02/02/25 Unknown History D3 10 mcg (400 unit) chewable tablet (Calcium 600 with Vitamin D3) cholecalciferol (vitamin D3) 25 25 mcg PO DAILY 02/02/25 Unknown History mcg (1,000 unit) capsule multivitamin 1 tablet PO DAILY 07/16/22 0 02/02/25 Unknown History omega-3 fatty acids 1,000 mg 2,000 mg PO DAILY 3 02/02/25 Unknown History capsule clobetasol 0.05 % scalp solution 1 applic topical SE Y 10/01/23 02/02/25 Unknown History hydrocodone 10 mg-acetaminophen 1 tablet PO Q6-8H PRN Pain 10/01/23 02/02/25 Unknown History 325 mg tablet mupirocin 2 % topical ointment 1 applic topical DAILY 10/01/23 02/02/25 Unknown History pregabalin 75 mg capsule 75 mg PO BID 09/22/24 Unknown History Allergies Allergy/AdvReac Type Severity Reaction Status Date / Time No Known Allergies Allergy Verified 04/10/25 17:04 Review of Systems 2 Review of Systems: All systems reviewed & are unremarkable except as noted in HPI and below Constitutional: Constitutional: Reports as per HPI, Reports fatigue and Reports weakness Eyes: Eyes: Reports as per HPI and Reports no additional eye complaints ENT: Reports system reviewed and no additional complaints, except as documented and Reports as per HPI Cardiovascular: Cardiovascular: Reports as per HPI and Reports no additional cardiovascular complaints Respiratory: Respiratory: Reports as per HPI, Reports no additional respiratory complaints, Reports cough and Reports dyspnea Gastrointestinal: Gastrointestinal: Reports as per HPI and Reports no additional gastrointestinal complaints Genitourinary: Genitourinary: Reports no additional female genitourinary complaints, Reports as per HPI, Reports nocturia and Reports urinary incontinence Musculoskeletal: Musculoskeletal: Reports no additional musculoskeletal complaints, Reports as per HPI and Reports back pain Integumentary/Breasts: Comments: bilateral gluteal pressure sores Neurologic: Reports system reviewed and no additional complaints, except as documented and Reports as per HPI Psychiatric: Psychiatric: Reports no additional psychiatric complaints and Reports as per HPI Endocrine: Endocrine: Reports no additional endocrine complaints and Reports as per HPI Hematologic/Lymphatic: Hematologic/Lymphatic: Reports no additional hematologic/lymphatic complaints and Reports as per HPI Allergic/Immunologic: Allergic/Immunologic: Reports no additional allergic/immunologic complaints and Reports as per HPI [facility] Past Medical History Medical History Peripheral neuropathy Asthma History of aortic dissection 2002 Tobacco abuse Chronic back pain Chronic kidney disease (CKD) stage G4/A1, severely decreased glomerular filtration rate (GFR) between 15-29 mL/min/1.73 square meter and albuminuria creatinine ratio less than 30 mg/g Gout Age related osteoporosis Hypertension Hyperlipidemia GERD (gastroesophageal reflux disease) WILLIAM (generalized anxiety disorder) COPD (chronic obstructive pulmonary disease) Overweight Surgical History Surgical History S/P insertion of iliac artery stent History of mandibular surgery History of hip replacement, total right Hx of cataract surgery Family History Family History Father Family history of malignant neoplasm Sibling Family history of malignant neoplasm of breast in first degree relative Mother Family history of congestive heart failure Other Hypertension Social History Social History Smoking packs per day: 0.5 Smoking cigarettes per day: 10.0 Years smoked: 50 Smoking pack-years: 25.00 Smoking status: Current every day smoker Tobacco type: cigarettes Second hand tobacco smoke exposure: Yes Alcohol intake: current Alcohol use details: 1 glass of wine per year Substance use: current Substance use type: marijuana Other substance usage details: OCCASIONALLY Last use: 07/07/20 Do You Feel Safe in your Home?: Yes Lack of Transportation: No Lack of Food: Never True Current Housing: I Have Housing Concerned About Future Housing: No Difficulty Paying Gas/Electric Bills: YES Difficulty Paying for Meds: No Currently Unemployed: No Education: High School Diploma/GED Difficulty w/ Childcare or Family Care: No Living arrangements: with family Additional living arrangements comments: [facility] WITH [facility] Occupation/Education: retired Gender identity (if verbalized by the patient): Female Spiritual care concerns: No Agree to blood products: Yes Exam 2 Narrative: vitals stable Const: General: no acute distress Orientation/consciousness: patient oriented x3 Limitations: no limitations HENMT: Head: normal to inspection Ears: external ears normal F rachel/Nose/Sinus: Normal external nose present Face and sinus: normal facial exam Mouth: Yes Normal oral and palatal mucosa present Throat: posterior oropharynx normal Eyes: Conjunctivae: conjunctivae normal Pupils: Equal, round and reactive pupils present EOM: EOMs intact bilaterally Direct Ophthalmoscopy: no photophobia Neck: Neck: normal visual inspection, no lymphadenopathy and no meningeal signs Chest: Chest palpation & inspection: normal inspection of the chest Resp: Effort & Inspection: normal respiratory effort Auscultation: rhonchi and diminished lung sounds Cardio: Rate: regular rate Rhythm: regular rhythm GI: GI Palp: Yes Soft to palpation Auscultation: normal bowel sounds O ther: tenderness/rigidity/rebound. : General: Yes no CVA tenderness Back/Spine/Pelvis: Back: no CVA tenderness Skin: General skin exam: normal color Other: Bilateral gluteal stage I bedsores-- Measuring 7 cm on each buttock Neuro: General: patient oriented x3, moves all extremities, no meningeal signs, no focal motor deficits and CN's II-XI intact bilaterally Cranial nerves: Yes Nystagmus not present Speech: normal speech Gait exam (Neuro): Normal gait present Extrem: General: normal to inspection and no clubbing, cyanosis or edema Psych: Mental Status: mental status grossly normal Affect: normal affect Attitude: cooperative Course Course Emergency Course: urinary tract infection urinary incontinence gluteal bedsores generalized weakness electrolyte imbalance Vital Signs Vital signs: Vital Signs Temperature 36.6 C 04/10/25 16:30 Pulse Rate 81 04/10/25 16:30 Respiratory Rate 20 04/10/25 16:30 Blood Pressure 142/69 H 04/10/25 16:30 Pulse Oximetry 95 04/10/25 16:30 Oxygen Delivery Room Air 04/10/25 16:30 Temperature 36.6 C 04/10/25 16:30 Pulse Rate 76 04/10/25 18:35 Respiratory Rate 18 04/10/25 18:35 Blood Pressure 123/67 04/10/25 18:35 Pulse Oximetry 96 04/10/25 18:35 Oxygen Delivery Room Air 04/10/25 16:30 Medical Decision Making [facility] Narrative Medical decision making narrative: Gluteal bedsore stage I urinary tract infection hypokalemia Differential Diagnosis Differential Diagnosis: magnesium deficiency. Renal insufficiency Medical Records Medical records reviewed: Yes I reviewed the external patient's medical records. Vital Signs Vital Signs: Vital Signs Temperature 36.6 C 04/10/25 16:30 Pulse Rate 81 04/10/25 16:30 Respiratory Rate 20 04/10/25 16:30 Blood Pressure 142/69 H 04/10/25 16:30 Pulse Oximetry 95 04/10/25 16:30 Oxygen Delivery Room Air 04/10/25 16:30 Temperature 36.6 C 04/10/25 16:30 Pulse Rate 76 04/10/25 18:35 Respiratory Rate 18 04/10/25 18:35 Blood Pressure 123/67 04/10/25 18:35 Pulse Oximetry 96 04/10/25 18:35 Oxygen Delivery Room Air 04/10/25 16:30 Lab Data Lab results reviewed: Yes I reviewed the patient's lab results. 04/10/25 22:25 Labs: Lab Results 04/10/25 Range/Units 22:25 Sodium 136 L (137-145) mmol/L Potassium 3.3 L (3.4-5.0) mmol/L Chloride 93 L (98-107) mmol/L Carbon Dioxide 36 H (22-30) mmol/L Anion Gap 7 (4-12) mmol/L BUN 31 H (7-17) mg/dL Creatinine 1.33 H (0.7-1.0) mg/dL Estim Creat Clear Calc 38 ml/min Estimated GFR 39 L (59 - ) Glucose 119 H (65-110) mg/dL Calculated Osmolality 289 (285-295) mOsm/kg Calcium 8.9 (8.4-10.2) mg/dL Magnesium 2.5 H (1.6-2.3) mg/dL ECG Data EKG #1: ECG completion date: 04/10/25 ECG completion time: 17:17 Interpretation: Normal sinus rhythm. Normal axis. T flattening. No ST elevation. Discharge Plan Discharge Clinical Impression: Hypokalemia, Bedsores Patient Disposition: Home Condition: Stable Instructions: Antibiotic Form, Urinary Tract Infection in Women (DC), Hypokalemia (ED) Additional Instructions: continue antibiotics as prescribed the primary care physician Patient Language: Cook Islander Prescriptions: New potassium chloride [K-Tab] 20 mEq tablet extended release 20 meq PO DAILY Qty: 30 0RF No Action multivitamin Tablet 1 tablet PO DAILY Calcium 600 with Vitamin D3 600 mg-10 mcg (400 unit) tablet,chewable 600 tablet PO DAILY cholecalciferol (vitamin D3) 25 mcg (1,000 unit) capsule 25 mcg PO DAILY omega-3 fatty acids 1,000 mg capsule 2,000 mg PO DAILY aspirin [Enteric Coated Aspirin] 81 mg tablet,delayed release (DR/EC) 81 mg PO DAILY (DME) nebulizers Misc See Rx Instructions .Route Qty: 1 0RF Rx Instructions: As directed pregabalin 75 mg capsule 75 mg PO BID gabapentin 600 mg tablet 300 mg PO TID Qty: 270 3RF hydrocodone-acetaminophen 10-325 mg tablet 1 tablet PO Q6-8H PRN (Reason: Pain) mupirocin 2 % ointment 1 applic TOPICAL DAILY clobetasol 0.05 % solution 1 applic TOPICAL DAILY cyclobenzaprine 10 mg tablet 10 mg PO BID PRN (Reason: muscle spasm) Qty: 14 0RF methylprednisolone [Medrol (Arnoldo)] 4 mg tablets,dose pack See Rx Instructions .ROUTE .COMPLEX Qty: 21 0RF Rx Instructions: for 6 days citalopram 40 mg tablet See Rx Instructions .ROUTE .COMPLEX Qty: 90 3RF Dose Instruction: TAKE ONE TABLET BY MOUTH DAILY. Rx Instructions: TAKE ONE TABLET BY MOUTH DAILY. atorvastatin 40 mg tablet See Rx Instructions .ROUTE .COMPLEX Qty: 90 0RF Dose Instruction: TAKE 1 TABLET BY MOUTH DAILY Rx Instructions: TAKE 1 TABLET BY MOUTH DAILY albuterol sulfate 2.5 mg /3 mL (0.083 %) solution for nebulization 2.5 mg inhalation Q4H PRN (Reason: shortness of breath or wheezing) Qty: 180 3RF albuterol sulfate 90 mcg/actuation HFA aerosol inhaler See Rx Instructions .ROUTE .COMPLEX Qty: 6.7 1RF Dose Instruction: INHALE 1 PUFF BY MOUTH EVERY 4 HOURS OR EVERY 6 HOURS NEEDED FOR SHORTNESS OF BREATH Rx Instructions: INHALE 1 PUFF BY MOUTH EVERY 4 HOURS OR EVERY 6 HOURS NEEDED FOR SHORTNESS OF BREATH Trelegy Ellipta 100-62.5-25 mcg blister with device See Rx Instructions .ROUTE .COMPLEX Qty: 60 3RF Dose Instruction: 1 INHALATIONS INHALED DAILY Rx Instructions: 1 INHALATIONS INHALED DAILY metoprolol succinate 50 mg tablet extended release 24 hr See Rx Instructions .ROUTE .COMPLEX Qty: 90 0RF Dose Instruction: TAKE 1 TABLET BY MOUTH DAILY. Rx Instructions: TAKE 1 TABLET BY MOUTH DAILY. pantoprazole 40 mg tablet,delayed release (DR/EC) See Rx Instructions .ROUTE .COMPLEX Qty: 90 0RF Dose Instruction: TAKE ONE TABLET BY MOUTH EVERY MORNING Rx Instructions: TAKE ONE TABLET BY MOUTH EVERY MORNING amlodipine 5 mg tablet See Rx Instructions .ROUTE .COMPLEX Qty: 90 1RF Dose Instruction: TAKE ONE TABLET BY MOUTH DAILY Rx Instructions: TAKE ONE TABLET BY MOUTH DAILY furosemide 20 mg tablet See Rx Instructions .ROUTE .COMPLEX Qty: 90 1RF Dose Instruction: TAKE 1 TABLET BY MOUTH EVERY MORNING Rx Instructions: TAKE 1 TABLET BY MOUTH EVERY MORNING alendronate 70 mg tablet See Rx Instructions .ROUTE .COMPLEX Qty: 12 0RF Dose Instruction: TAKE 1 TABLET BY MOUTH WEEKLY Rx Instructions: TAKE 1 TABLET BY MOUTH WEEKLY varenicline tartrate 1 mg tablet See Rx Instructions .ROUTE .COMPLEX Qty: 56 0RF Dose Instruction: 1 MG ORALLY TWICE A DAY Rx Instructions: 1 MG ORALLY TWICE A DAY buspirone 15 mg tablet See Rx Instructions .ROUTE .COMPLEX Qty: 360 0RF Dose Instruction: TAKE 2 TABLETS BY MOUTH 2 TIMES DAILY Rx Instructions: TAKE 2 TABLETS BY MOUTH 2 TIMES DAILY Follow-up/Referrals: Kyle Montenegro DO [Primary Care Provider, Family Practice] Time of Disposition: 22:51
--- OUTSIDE RECORDS SUMMARY | 2025-04-10 16:32 | XMS_ITS | Encounter Summary ---
Author Organization [facility] Address [address] [place] [address] Care Team Providers Care Flight Service Agent Name Role Phone Fabien Jarrett MD Unavailable [phone] Jaqueline Rosas NP Unavailable [phone] Leo Jacobson MD Primary Care Provider [phone] Simba Keating MD Unavailable [phone] Rah Reid MD Unavailable Bj Cox MD Unavailable Unavailable Leo Jacobson MD Primary Care Provider [phone] Kyle Montenegro DO Primary Care Provider [phone] Irma Miller MD Unavailable Rah Reid MD Unavailable Simba Keating MD Unavailable [phone] Abdirahman Mcghee APRN Unavailable [phone] Jamil Flanagan MD Unavailable [phone] Vera Rice MD Unavailable [phone] Encounter Details Date Type Department Care Team (Late st Contact Info) Description 04/17/2015 Abstract [facility] [address] [place] [address] Fabien Jarrett MD [address] [place] [address], [address] [place] [address] Social History Tobacco Use Types Packs/Day Years Used Date Smoking Tobacco: Former Smokeless Tobacco: Never Alcohol Use Standard Drinks/Week Comments No 0 (1 standard drink = 0.6 oz pur e alcohol) Comments Unknown Sex and Gender Information Value Date Recorded Sex Assigned at Female 09/21/2024 8:52 AM CDT Legal Sex Female 9:27 PM CDT Gender Identity Female 09/18/2021 2:09 PM GRINDING SUPERVISOR Sexual Orientation Not on file Occupation Industry Job Start Date Job End Date Disability Not on file Not on file Not on file documented as of this encounter Plan of Treatment Not on file documented as of this encounter Visit Diagnoses Not on filedocumented in this encounter Additional Health Concerns Infection Onset Date Last Indicated Resolved Time COVID-19 Rule Out 11/24/2022 11/24/2022 11/24/2022 2:05 PM CDT documented as of this encounter Care Teams Flight Service Agent Relationship Specialty Start Date End Date Leo Jacobson MD [address] [place] [address] PCP - General FAMILY PRACTICE 11/03/16 08/20/19 Leo Jacobson MD [address] [place] [address] PCP - General FAMILY PRACTICE 08/21/19 08/21/19 Kyle Montenegro DO [address] [place] [address] PCP - General FAMILY PRACTICE 08/22/19 Fabien Jarrett MD CARDIOVASCULAR DISEASE 06/02/16 07/19/18 Jaqueline Rosas NP [facility] [address] [facility] [address] [place] [address] [employer]saile Oil Burner Mechanic NURSE PRACTITIONER 11/03/16 07/19/18 Simba Keating MD [address] [place] [address] CARDIOVASCULAR DISEASE 09/09/17 11/17/20 Rah Reid MD [address] [place] [address] Vascular/Oil Burner Mechanic INTERNAL MEDICINE 05/18/18 Bj Cox MD [address] [place] [address] [employer] Oil Burner Mechanic INTERVENTIONAL CARDIOLOGY 07/20/18 11/17/20 Irma Miller MD [address] [place] [address] Consulting Physician CARDIOVASCULAR DISEASE 11/18/20 Rah Reid MD [address] [place] [address] Vascular/Oil Burner Mechanic INTERNAL MEDICINE 12/01/21 Simba Keating MD [address] [place] [address] Consulting Physician INTERVENTIONAL CARDIOLOGY 05/11/22 Abdirahman Mcghee APRN [address] [place] [address] Nurse Practitioner NURSE PRACTITIONER 05/21/22 Jamil Flanagan MD [address] [place] [phone] Consulting Physician INTERNAL MEDICINE 04/22/23 Vera Rice MD [address] [address] SURGERY 04/22/23 documented as of this encounter
--- OUTSIDE RECORDS SUMMARY | 2025-04-10 16:32 | XMS_ITS | Clinical Summary ---
Author Organization [facility] Address [address] [place] [address] Phone Care Team Providers Care Ferry Terminal Supervisor Name Role Phone Kyle Montenegro MD Primary Care Provider Sharad Faulkner MD Unavailable [phone] Allergies No known active allergies Medications citalopram (CeleXA) 10 MG Tablet Take 10 mg by mouth daily. Active aspirin EC 81 MG Tablet Delayed Response Take 81 mg by mouth daily. Active Calcium Carbonate (CALCIUM 600 PO) Take by mouth. Activ e VITAMIN D PO Take by mouth. Ac tive Multiple Vitamin (MULTIVITAMIN PO) Take by mouth. Activ e [place]-3 Fatty Acids (FISH OIL PO) Take by [...] Type Department Care Team Description 04/07/2025 Refill [facility] [address] [place] [address] Sharad Faulkner MD Medication Refill 03/03/2025 Refill [facility] [address] [place] [address] Sharad Faulkner MD Medication Refill 02/05/2025 1:45 PM CDT Office Visit [facility] [address] [place] [address] Sharad Faulkner MD Dizziness (Primary Dx); Polyneuropathy [...] st Contact Info) Description 08/07/2025 10:30 AM MATERIAL LISTER Office Visit [facility] - Neurology [facility] [address] [place] [address] Sharad Faulkner MD [address] [place] [address] Health Maintenance Due Date Last Done Comments [...] to complete this topic Insurance MEDICARE C [facility] MEDICAID [place] Care Teams Ferry Terminal Supervisor Relationship Specialty Start Date End Date Kyle Montenegro MD [address] [place] [id number] PCP - General Family Medicine 10/31/24 Sharad Faulkner MD [address] [place] [address] Consulting Physician Neurology 02/02/25
--- OUTSIDE RECORDS SUMMARY | 2025-04-10 16:32 | XMS_ITS | Encounter Summary ---
Author Organization [facility] Address [address] [place] [address] Phone Care Team Providers Care Electric Power Line Examiner Name Role Phone Kyle Montenegro MD Primary Care Provider [phone] Sharad Faulkner MD Unavailable [phone] Reason for Visit * Reason Comments Medication Refill Encounter Details Date Type Department Care Team (Late st Contact Info) Description 04/07/2025 Refill [facility] - [facility] [address] [place] [address] Sharad Faulkner MD [address] [place] [address] Medication Refill Social History Tobacco Use Types [...] Miscellaneous Notes * Telephone Encounter - Nancie Nix RN - 04/09/2025 9:02 AM CDT Medication [...] Dept 02/05/25 Office Visit Sharad Faulkner MD [facility] 11/09/24 Office Visit Sharad Faulkner MD [facility] Showing recent visits within past 365 days and meeting all other requirements Future Appointments No visits were found meeting these conditions. Showing future appointments within next 90 days and meeting all other requirements documented in this encounter Plan of Treatment Upcoming Encounters Date Type Department Care Team (Late st Contact Info) Description 08/07/2025 10:30 AM ENVIRONMENTAL FIELD TEAM MEMBER Office Visit [facility] - [facility] [address] [place] [address] Sharad Faulkner MD [address] [place] [address] documented as of this encounter Visit Diagnoses Not on filedocumented in this encounter Care Teams Electric Power Line Examiner Relationship Specialty Start Date End Date Kyle Montenegro MD [address] [place] [id number] PCP - General Family Medicine 10/31/24 Sharad Faulkner MD [address] [place] [address] Consulting Physician Neurology 02/02/25 documented as of this encounter
--- OUTSIDE RECORDS SUMMARY | 2025-04-10 16:32 | XMS_ITS | Clinical Summary ---
Author Organization [facility] Address [address] [place] [address] Care Team Providers Care Truss Driver Helper Name Role Phone Kyle Montenegro Primary Care Provider [phone] Rah Reid MD Unavailable Simba Keating MD Unavailable [phone] Abdirahman Mcghee APRN Unavailable [phone] Jamil Flanagan MD Unavailable [phone] Vera Rice MD Unavailable [phone] Medications aspirin 81 MG tablet Aspirin 81 [...] aneurysm repair 02/23/2023 Acute hypoxemic respiratory failure (CMS/HCC [facility]) 11/24/2022 (aortic stenosis) 10/02/2020 Pain of right lower extremity 06/11/2020 Palpitation 08/21/2019 Tobacco abuse 08/21/2019 Hypercholesterolemia 10/04/2018 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) 02/23/2023 02/23/2023 High blood cholesterol 02/11/201710/04 Aortic dissection, thoracoabdominal 10/03/2018 Overview (06/02/2016): S-P ThoracicAortic Stent Graft, Bilateral common iliac stents () Encounters Date Type Department Care Team Description 03/21/2025 7:32 AM CDT - 03/21/2025 11:59 PM CDT Hospital Encounter [facility] [address] [address] Abdirahman Mcghee, TOUR BUS DRIVER Discharge Disposition: Home or Self Care (Routine Discharge) 03/21/2025 Travel 02/26/2025 Travel from Last 3 Months Immunizations Immunization Administration [...] place to sleep or slept in a halfway (including now)? No 11/24/2022 Comments No Sex and Gender Information Value Date Recorded Sex Assigned at Female 09/21/2024 8:52 AM CDT Legal Sex Female 9:27 PM CDT Gender Identity Female 09/18/2021 2:09 PM WHEELCHAIR VAN DRIVER Sexual Orientation Not on file Occupation Industry [...] 02/22/2024 10:04 AM CDT Plan of Treatment Health Maintenance [...] Wellness Visit 2020 Dexa Scan (General) 2020 ASCVD LDL 02/21/2025 02/22/2024, 09/09, 06/22/2012 COVID-19 Vaccine ( - 2024- season) 2025 11/01/2020, 10/04/2020 Pneumococcal Vaccine: 50+ Years Completed 10/26/2024, 08/19/2023, 05/16/2018, Additional history exists Meningococcal B Vaccine Aged [...] home upon discharge Lifestyle No Leti Gupta, perch mender Procedure Name Priority Date/Time Associated Diagnosis Comments CTA CHEST+ABD+PEL Routine 03/21/2025 7:5 9 AM CDT Abdominal aortic aneurysm, without rupture, unspecified LIPID PANEL Routine 02/22/2024 11:20 AM CDT Dyslipidemia from Last 3 Months or Most Recently Relevant to Health Maintenance Results * CTA CHEST+ABD+PEL (03/21/2025 7:59 AM CDT) Anatomical Region Laterality Modality Chest, Abdomen, Pelvis Computed Tomography 03/30/2025 3:11 PM CDT Impressions 03/30/2025 3:23 PM CDT IMPRESSION: 1. No significant change from 02/22/2024 CTA chest, abdomen, pelvis. 2. Patent aortic graft. This is excluding aneurysmal dilatation of the aorta as well as old dissection. No endoleak. 3. Stable appearance of chronic abdominal aortic dissection with some persistent filling of the false lumen in the infrarenal aorta. Chronic narrowing of the true lumen just above the bifurcation region. 4. Kissing bilateral common iliac stent grafts again with no restenosis. 5. Severe focal distal right external iliac stenosis as described previously. 6. Chronic atrophic appearing right kidney. 7. Unchanged 2 cm mixed density lesion in the left lung. See the discussion on 09/21/2024 CT. 2. Unchanged 4.5 mm nodule in the left lung. Referred By: ABDIRAHMAN MCGHEE Interpreted By: Huan Davalos MD, 03/30/2025 3:11 PM Narrative 03/30/2025 3:23 PM [address]T [address] [place] [address] [place] [address] EXAMINATION: CTA CHEST, ABDOMEN AND PELVIS CLINICAL HISTORY: Follow-up aortic dissection. Prior descending thoracic aortic stent graft. COMPARISON: 09/21/2024 05/16/2024 02/22/2024 10/27/2023 02/21/2020 09/05/2018 09/09/2017 TECHNIQUE: CT images were obtained precontrast through the chest, abdomen and pelvis and then repeated following administration of intravenous contrast, 90 mL Isovue-370, according to CTA protocol. Additional MIP and/or 3-D volume rendered images were obtained. A dose lowering technique was used for this procedure, which may include, but is not limited to, dose reduction technique, automated exposure control, the use of iterative reconstruction, and ALARA (As Low As Reasonably Achievable) / Image Gently techniques. FINDINGS: VASCULAR FINDINGS: Thoracic aortic: Ascending and transverse aorta normal caliber. Descending thoracic aortic stent graft is again seen extending from the origin of the left subclavian down to the level of the diaphragm. This is noted to be excluding a thrombosed localized aneurysm of the false lumen involving the proximal descending thoracic aorta as well as dissection flap involving the distal descending aorta. No endoleak seen in this region. [place] aortic aneurysm sac size unchanged. No evidence of new dissection. Measurements: Aortic root at Sinuses of Valsalva: 3.6 cm Sinotubular junction: 2.7 cm Mid ascending thoracic aorta: 3.2 cm Transverse Aortic arch: 2.4 cm Proximal descending thoracic aorta (or[place]ar[place]iut aneurysm sac): 4.5 cm Mid descending thoracic aorta: 3.5 cm Distal descending thoracic aorta (at level of the hiatus) : 4.1 cm Great vessels: Moderate stenosis of the innominate artery origin. Mild stenosis of the left common carotid artery origin. Left vertebral artery noted to be arising directly off the arch distal to the left subclavian artery. Abdominal aorta: Chronic aortic dissection extends into the abdominal aorta and down to the bifurcation where there are kissing stent grafts present. There is significant compression/flattening of the true lumen just above the level of the kissing stents. There is persistent opacification of the false lumen anteriorly from the level of the left renal artery down to the bifurcation, the false lumen is probably filling retrogradely from just above the bifurcation. Maximum diameter of the infrarenal aorta measures 4.2 cm, this is unchanged from previous. Celiac artery: Severe proximal stenosis probably related to median arcuate ligament indentation. SMA: Patent with no significant stenosis. This is supplied by the true lumen. MATILDA: Patent, this is filling from the false lumen.. Right renal artery: Single right renal artery. This is supplied by the false lumen is noted be diffusely small with atrophic appearing kidney. Left renal artery: Single left renal artery. Supplied by the the retrograde filling in the false lumen. Right common iliac stent graft/overlapping stent extending down to the proximal external iliac which appears patent with minimal intimal hyperplasia. Internal iliac origin is likely excluded with filling of the internal iliac just distal to the origin which demonstrates fusiform dilatation measuring up to 1.2 cm. Small focal dissection flap visualized in the proximal external iliac just distal to the stent. Additional focal severe stenosis distal right external iliac. Mild common femoral plaque. Left common iliac stent graft with probably additional overlapping external iliac stents as well as extending down to the distal external iliac artery. Internal iliac is excluded. These demonstrate just minimal intimal hyperplasia with no significant stenosis. Common femoral artery patent with mild plaque. NONVASCULAR FINDINGS: No mediastinal adenopathy. Cardiac size normal. No pleural or pericardial effusions. Central airways and esophagus unremarkable. Scattered calcified granulomas are present. Right basilar atelectasis/scarring noted. Mild centrilobular emphysematous changes. Redemonstrated approximately 2 cm mixed density nodular region within the superior segment of the left lower lobe. A stable 4.5 mm nodule is seen in the posterior left lower lobe. Stable appearance of a few small left breast nodules which have been noted on multiple prior exams. Enlarged spleen. No definite cirrhosis or fatty disease. Tiny hemangioma in the left liver. Gallbladder not visualized. Spleen, pancreas, and adrenals demonstrate no acute abnormality. Right kidney appears small and atrophic with chronic scarring changes. There a few small nonobstructing calcifications noted in the left kidney as well has small cystic changes. This all appears chronic. Left kidney demonstrates normal perfusion. Multiple renal cysts are noted, the largest being a parapelvic cyst measuring 3.4 cm. No solid renal masses or hydronephrosis. Note is made of severe narrowing of the left renal vein anterior to the aorta with prominent paravertebral venous collaterals coursing down to the left common iliac vein region. Left gonadal vein just mildly prominent. No para- aortic adenopathy. Bowel appears unremarkable. Images through the pelvis degraded from streak artifact from right hip arthroplasty. No pelvic masses or adenopathy. Bone windows demonstrate no destructive bony abnormalities. 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 Severe degenerative changes L3-L4. Degenerative changes noted in the visualized lower cervical spine at the upper margin of this study. Procedure Note Huan Davalos MD - 03/30/2025 [facility] [address] [place] [address] EXAMINATION: CTA CHEST, ABDOMEN AND PELVIS CLINICAL HISTORY: Follow-up aortic dissection. Prior descending thoracicaortic stent graft. COMPARISON: 09/21/2024 05/16/2024 02/22/2024 10/27/2023 02/21/2020 09/05/2018 09/09/2017 TECHNIQUE: CT images were obtained precontrast through the chest, abdomenand pelvis and then repeated following administration of intravenouscontrast, 90 mL Isovue- 370, according to CTA protocol. Additional MIPand/or 3-D volume rendered images were obtained. A dose lowering technique was used for this procedure, which may include,but is not limited to, dose reduction technique, automated exposurecontrol, the use of iterative reconstruction, and ALARA (As Low AsReasonably Achievable) / Image Gently techniques. FINDINGS: VASCULAR FINDINGS: Thoracic aortic: Ascending and transverse aorta normal caliber. Descendingthoracic aortic stent graft is again seen extending from the origin of theleft subclavian down to the level of the diaphragm. This is noted to beexcluding a thrombosed localized aneurysm of the false lumen involving theproximal descending thoracic aorta as well as dissection flap involvingthe distal descending aorta. No endoleak seen in this region. Nativeaortic aneurysm sac size unchanged. No evidence of new dissection. Measurements: Aortic root at Sinuses of Valsalva: 3.6 cm Sinotubular junction: 2.7 cm Mid ascending thoracic aorta: 3.2 cm Transverse Aortic arch: 2.4 cm Proximal descending thoracic aorta ([place]iut aneurysm sac): 4.5 cm Mid descending thoracic aorta: 3.5 cm Distal descending thoracic aorta (at level of the hiatus) : 4.1 cm Great vessels: Moderate stenosis of the innominate artery origin. Mildstenosis of the left common carotid artery origin. Left vertebral arterynoted to be arising directly off the arch distal to the left subclavianartery. Abdominal aorta: Chronic aortic dissection extends into the abdominalaorta and down to the bifurcation where there are kissing stent graftspresent. There is significant compression/flattening of the true lumenjust above the level of the kissing stents. There is persistentopacification of the false lumen anteriorly from the level of the leftrenal artery down to the bifurcation, the false lumen is probably fillingretrogradely from just above the bifurcation. Maximum diameter of theinfrarenal aorta measures 4.2 cm, this is unchanged from previous. Celiac artery: Severe proximal stenosis probably related to median arcuateligament indentation. SMA: Patent with no significant stenosis. This is supplied by the truelumen. MATILDA: Patent, this is filling from the false lumen.. Right renal artery: Single right renal artery. This is supplied by thefalse lumen is noted be diffusely small with atrophic appearing kidney. Left renal artery: Single left renal artery. Supplied by the theretrograde filling in the false lumen. Right common iliac stent graft/overlapping stent extending down to theproximal external iliac which appears patent with minimal intimalhyperplasia. Internal iliac origin is likely excluded with filling of theinternal iliac just distal to the origin which demonstrates fusiformdilatation measuring up to 1.2 cm. Small focal dissection flap visualizedin the proximal external iliac just distal to the stent. Additional focalsevere stenosis distal right external iliac. Mild common femoral plaque. Left common iliac stent graft with probably additional overlappingexternal iliac stents as well as extending down to the distal externaliliac artery. Internal iliac is excluded. These demonstrate just minimalintimal hyperplasia with no significant stenosis. Common femoral arterypatent with mild plaque. NONVASCULAR FINDINGS: No mediastinal adenopathy. Cardiac size normal. No pleural or pericardialeffusions. Central airways and esophagus unremarkable. Scatteredcalcified granulomas are present. Right basilar atelectasis/scarringnoted. Mild centrilobular emphysematous changes. Redemonstratedapproximately 2 cm mixed density nodular region within the superiorsegment of the left lower lobe. A stable 4.5 mm nodule is seen in theposterior left lower lobe. Stable appearance of a few small left breast nodules which have been notedon multiple prior exams. Enlarged spleen. No definite cirrhosis or fatty disease. Tiny hemangiomain the left liver. Gallbladder not visualized. Spleen, pancreas, andadrenals demonstrate no acute abnormality. Right kidney appears small andatrophic with chronic scarring changes. There a few small nonobstructingcalcifications noted in the left kidney as well has small cystic changes.This all appears chronic. Left kidney demonstrates normal perfusion.Multiple renal cysts are noted, the largest being a parapelvic cystmeasuring 3.4 cm. No solid renal masses or hydronephrosis. Note is made ofsevere narrowing of the left renal vein anterior to the aorta withprominent paravertebral venous collaterals coursing down to the leftcommon iliac vein region. Left gonadal vein just mildly prominent. Nopara-aortic adenopathy. Bowel appears unremarkable. Images through the pelvis degraded from streak artifact from right hiparthroplasty. No pelvic masses or adenopathy. Bone windows demonstrate no destructive bony abnormalities. 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 Severe degenerativechanges L3-L4. Degenerative changes noted in the visualized lower cervicalspine at the upper margin of this study. IMPRESSION: 1. No significant change from 02/22/2024 CTA chest, abdomen, pelvis. 2. Patent aortic graft. This is excluding aneurysmal dilatation of theaorta as well as old dissection. No endoleak. 3. Stable appearance of chronic abdominal aortic dissection with somepersistent filling of the false lumen in the infrarenal aorta. Chronicnarrowing of the true lumen just above the bifurcation region. 4. Kissing bilateral common iliac stent grafts again with no restenosis. 5. Severe focal distal right external iliac stenosis as describedpreviously. 6. Chronic atrophic appearing right kidney. 7. Unchanged 2 cm mixed density lesion in the left lung. See thediscussion on 09/21/2024 CT. 2. Unchanged 4.5 mm nodule in the left lung. Referred By: ABDIRAHMAN MCGHEE Interpreted By: Huan Davalos MD, 03/30/2025 3:11 PM us Abdirahman Mcghee TOUR BUS DRIVER CT Final R esult * (ABNORMAL) LIPID PANEL (02/22/2024 11:20 AM CDT) CHOLESTEROL 180 MG/DL 02/22/2024 12:[address] [facility] Comment:DESIRABLE: <200 TRIGLYCERIDES 340 MG/DL 02/22/2024 12:[address] [facility] Comment:200-499 HIGH HDL 36(L) >49 MG/DL 02/22/2024 12:[address] [facility] LDL (CALCULATED) 76 MG/DL 02/22/20 12:[address] [facility] Comment:<100 OPTIMAL VLDL CALCULATION 68 MG/DL 02/22/20 12:[address] [facility] Comment:REFERENCE RANGE NOT ESTABLISHED CHOL/HDL RATIO 5.0 02/22/2024 12:[address] [facility] Comment:REFERENCE RANGE NOT ESTABLISHED LDL/HDL 2.1 02/22/2024 12:[address] [facility] Comment:REFERENCE RANGE NOT ESTABLISHED NON HDL CHOLESTEROL 144 MG/DL 02/22/2024 12:[address] [facility] Comment:REFERENCE RANGE NOT ESTABLISHED 02/22/2024 11:2 0 AM CDT us Abdirahman Mcghee TOUR BUS DRIVER LABORATORY Final R esult [facility] [address] [id number], [id number] from Last 3 Months or Most Recently Relevant to Health Maintenance Insurance MEDICAID DEPT OF [address] MEDICARE MEDICAID Member Subscriber Plan / Payer (Ef fective 2017-Present) Name:Rosa Escalante Relation to Subscriber:Self Name:Rosa Escalante Payer ID:Not on file Group ID:Not on file Type:Not on file [address] Advance Directives * Full Code (Latest Code Status on File) Date Activated Date Inactivated Comments 11/24/2022 12:16 PM 11/30/2022 2:43 PM Care Teams Truss Driver Helper Relationship Specialty Start Date End Date Kyle Montenegro DO [address] [place] [address] PCP - General FAMILY PRACTICE 08/22/19 Rah Reid MD [address] [place] [address] Vascular/Rn Family Practice INTERNAL MEDICINE 12/01/21 Simba Keating MD [address] [place] [address] Consulting Physician INTERVENTIONAL CARDIOLOGY 05/11/22 Abdirahman Mgchee APRN [address] [place] [address] Nurse Practitioner NURSE PRACTITIONER 05/21/22 Jamil Flanagan MD [address] [place] [phone] Consulting Physician INTERNAL MEDICINE 04/22/23 Vera Rice MD [address] [facility] [address] [place] [address] SURGERY 04/22/23
--- OUTSIDE RECORDS SUMMARY | 2025-04-10 16:33 | XMS_ITS | Encounter Summary ---
Author Organization [facility] Address [address] [place] [address] Care Team Providers Care Ticket Scheduler Name Role Phone Fabien Jarrett MD Unavailable [phone] Jaqueline Rosas NP Unavailable [phone] Leo Jacobson MD Primary Care Provider [phone] Simba Keating MD Unavailable [phone] Rah Reid MD Unavailable Bj Cox MD Unavailable Unavailable Leo Jacobson MD Primary Care Provider [phone] Kyle Montenegro DO Primary Care Provider [phone] Irma Miller MD Unavailable Rah Reid MD Unavailable Simba Keating MD Unavailable [phone] Abdirahman Mcghee APRN Unavailable [phone] Jamil Flanagan MD Unavailable [phone] Vera Rice MD Unavailable [phone] Encounter Details Date Type Department Care Team (Late st Contact Info) Description 09/25/2017 Abstract [facility] CON[facility] [address] [place] [address] , Generic MD Shanon Social History Tobacco [...] CDT Gender Identity Female 09/18/2021 2:09 PM ONCOLOGY PHYSICIAN ASSISTANT Sexual Orientation Not on file Occupation Industry [...] documented as of this encounter Care Teams Ticket Scheduler Relationship Specialty Start Date End Date Leo Jacobson MD [address] [place] [address] PCP - General FAMILY PRACTICE 11/03/16 08/20/19 Leo Jacobson MD [address] [place] [id number] PCP - General FAMILY PRACTICE 08/21/19 08/21/19 Kyle Montenegro DO [address] [place] [address] PCP - General FAMILY PRACTICE 08/22/19 Fabien Jarrett MD CARDIOVASCULAR DISEASE 06/02/16 07/19/18 Jaqueline Rosas NP [facility] Peyton [facility] [address] [place] [phone] [place] [employer] Technician NURSE PRACTITIONER 11/03/16 07/19/18 Simba Keating MD [address] [place] [id number] CARDIOVASCULAR DISEASE 09/09/17 11/17/20 Rah Reid MD [address] [place] [address] Vascular/Emanations Analysis Technician INTERNAL MEDICINE 05/18/18 Bj Cox MD [address] [place] [address] [place] [employer] Analysis Technician INTERVENTIONAL CARDIOLOGY 07/20/18 11/17/20 Irma Miller MD [address] [place] [address] Consulting Physician CARDIOVASCULAR DISEASE 11/18/20 Rah Reid MD [address] [place] [address] Vascular/Emanations Analysis Technician INTERNAL MEDICINE 12/01/21 Simba Keating MD [address] [place] [address] Consulting Physician INTERVENTIONAL CARDIOLOGY 05/11/22 Abdirahman Mcghee APRN [address] [place] [address] Nurse Practitioner NURSE PRACTITIONER 05/21/22 Jamil Flanagan MD [address] [place] [phone] Consulting Physician INTERNAL MEDICINE 04/22/23 Vera Rice MD [address] [place] [address] SURGERY 04/22/23 documented as of this encounter
--- OUTSIDE RECORDS SUMMARY | 2025-04-10 16:33 | XMS_ITS | Clinical Summary ---
Author Organization [facility] Address [address] [place] [address] Care Team Providers Care Systems Programmer Name Role Phone Papo Ambriz MD Primary Care Provider [phone] Source Comments [facility],non-owned Affiliates and Associated Physician Practices is amultiple site organization consisting of ambulatory clinics and hospital sitesin [place], [place], [place] and [place]. This disclosure is being madepursuant to the Care Everywhere program and may not contain all information available regarding this patient. Last updated 18.[facility] Allergies No known active allergies Medications * [...] 4 times daily as needed. Active Tiotropium [place] Monohydrate (SPIRIVA HANDIHALER [place]) once daily. Act [...] on file Legal Sex Female 2:12 PM PHARMACY SALES ASSISTANT Gender Identity Not on file Sexual Orientation [...] MAMMO BILAT DIAGNOSTIC Routine 05/21/2015 1:58 PM PHARMACY SALES ASSISTANT Breast cyst, left from Last 3 Months or Most Recently Relevant to Health Maintenance Results * MAMMO DIAG DIRECT DIGITAL IMAGE BILA (05/21/2015 1:58 PM PHARMACY SALES ASSISTANT) Anatomical Region Laterality Modality Bilateral Mammography 05/21/2015 5:00 PM PHARMACY SALES ASSISTANT Impressions 05/21/2015 5:03 PM PHARMACY SALES ASSISTANT 1. No evidence of malignancy in either [...] of your patient. [facility] utilizes SENSIMED as a reminder system to notify patients of their next recommended mammogram. Narrative 05/21/2015 5:03 PM PHARMACY SALES ASSISTANT EXAMINATION: Digital bilateral diagnostic mammogram and targeted [...] Most Recently Relevant to Health Maintenance Insurance [facility] MANAGED MEDICARE ADV [address] [place] [id number] Care Teams Systems Programmer Relationship Specialty Start Date End Date Papo Ambriz MD PCP - General Internal Medicine 10/14/12
--- OUTSIDE RECORDS SUMMARY | 2025-04-10 16:33 | XMS_ITS | Encounter Summary ---
Author Organization [facility] Address [address] [place] [address] Care Team Providers Care Supervisor Stave Finishing Name Role Phone Leo Jacobson MD Primary Care Provider + [phone] Simba Keating MD Unavailable + [phone] Rah Reid MD Unavailable Bj Cox MD Unavailable Unavailable Leo Jacobson MD Primary Care Provider + [phone] Kyle Montenegro DO Primary Care Provider [phone] Irma Miller MD Unavailable Rah Reid MD Unavailable Simba Keating MD Unavailable + [phone] Abdirahman Mcghee APRN Unavailable [phone] Jamil Flanagan MD Unavailable [phone] Vera Rice MD Unavailable [phone] Encounter Details Date Type Department Care Team (Late st Contact Info) Description 12/17/2018 Abstract SFL CONVERSION [address] [place] [address] , Generic Conversion, Social History [...] CDT Gender Identity Female 09/18/2021 2:09 PM STUNNER ANIMAL Sexual Orientation Not on file Occupation Industry [...] documented as of this encounter Care Teams Supervisor Stave Finishing Relationship Specialty Start Date End Date Leo Jacobson MD [address] [place] [address] PCP - General FAMILY PRACTICE 11/03/16 08/20/19 Leo Jacobson MD [address] [place] [address] PCP - General FAMILY PRACTICE 08/21/19 08/21/19 Kyel Montenegro DO [address] [place] [address] PCP - General FAMILY PRACTICE 08/22/19 Simba Keating MD [address] [place] [address] CARDIOVASCULAR DISEASE 09/09/17 11/17/20 Rah Reid MD [address] [place] [address] Vascular/Dean Of Graduate Studies INTERNAL MEDICINE 05/18/18 Bj Cox MD [address] [place] [address] [place] Dean Of Graduate Studies INTERVENTIONAL CARDIOLOGY 07/20/18 11/17/20 Irma Miller MD [address] [place] [address] Consulting Physician CARDIOVASCULAR DISEASE 11/18/20 Rah Reid MD [address] [place] [address] Vascular/Dean Of Graduate Studies INTERNAL MEDICINE 12/01/21 Simba Keating MD [address] [place] [address] Consulting Physician INTERVENTIONAL CARDIOLOGY 05/11/22 Abdirahman Mcghee APRN [address] [place] [address] Nurse Practitioner NURSE PRACTITIONER 05/21/22 Jamil Flanaagn MD [address] [place] [address] Consulting Physician INTERNAL MEDICINE 04/22/23 Vera Rice MD [address] [place] [address] SURGERY 04/22/23 documented as of this encounter
--- OUTSIDE RECORDS SUMMARY | 2025-04-10 17:07 | XMS_ITS | Clinical Summary ---
Author Organization [facility] Address [address] [place] [address] Care Team Providers Care Management Advisor Name Role Phone Kyle Montenegro Primary Care Provider [phone] Rah Reid MD Unavailable Simba Keating MD Unavailable [phone] Abdirahman Mcghee APRN Unavailable [phone] Jamil Flanagan MD Unavailable [phone] Vera Rice MD Unavailable [phone] Medications aspirin 81 MG tablet Aspirin 81 [...] repair 02/23/2023 Acute hypoxemic respiratory failure (CMS/HCC [facility]) 11/24/2022 (aortic stenosis) 10/02/2020 Pain of right lower extremity 06/11/2020 Palpitation 08/21/2019 Tobacco abuse 08/21/2019 Hypercholesterolemia 10/04/2018 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CMS/HCC [facility]) 10/03/2018 Bilateral carotid bruits 10/03/2018 Other closed fracture of pro ximal end of left fibula, sequela 01/06/2017 COPD (chronic obstructive pu lmonary disease) ([facility]) 06/03/2016 Essential hypertension AAA (abdominal aortic aneurysm) Innominate artery stenosis PAD (peripheral artery disease) Resolved Problems Problem Noted Date Diagnosed Date Resolved Date Ruptured aneurysm of thoraci c aorta ([facility]) 02/23/2023 02/23/2023 High blood cholesterol 02/11/201710/04 Aortic dissection, thoracoabdominal 10/03/2018 Overview (06/02/2016): S-P ThoracicAortic Stent Graft, Bilateral common iliac stents () Encounters Date Type Department Care Team Description 03/21/2025 7:32 AM CDT - 03/21/2025 11:59 PM CDT Hospital Encounter [facility] [address] [place] [address] Abdirahman Mcghee, REED POLISHER Discharge Disposition: Home or Self Care (Routine [...] place to sleep or slept in a longterm (including now)? 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 [place] [address] EXAMINATION: CTA CHEST, ABDOMEN AND PELVIS CLINICAL [...] aorta. No endoleak seen in this region. [place] aortic aneurysm sac size unchanged. No evidence of new dissection. Measurements: Aortic root at Sinuses of Valsalva: 3.6 cm Sinotubular junction: 2.7 cm Mid ascending thoracic aorta: 3.2 cm Transverse Aortic arch: 2.4 cm Proximal descending thoracic aorta ([place] aneurysm sac): 4.5 cm Mid descending thoracic [...] Procedure Note Huan Davalos MD - 03/30/2025 [facility] [address] [place] [address] EXAMINATION: CTA CHEST, ABDOMEN AND PELVIS CLINICAL [...] arch: 2.4 cm Proximal descending thoracic aorta ([place] aneurysm sac): 4.5 cm Mid descending thoracic [...] MD, 03/30/2025 3:11 PM us Abdirahman Mcghee REED POLISHER CT Final R esult * (ABNORMAL) LIPID PANEL (02/22/2024 11:20 AM CDT) CHOLESTEROL 180 MG/DL 02/22/2024 12:18 PM CDT [facility] Comment:DESIRABLE: <200 TRIGLYCERIDES 340 MG/DL 02/22/2024 12:18 PM CDT [facility] Comment:200-499 HIGH HDL 36(L) >49 MG/DL 02/22/2024 12:18 PM CDT [facility] LDL (CALCULATED) 76 MG/DL 02/22/20 12:18 PM CDT [facility] Comment:<100 OPTIMAL VLDL CALCULATION 68 MG/DL 02/22/20 12:18 PM CDT [facility] Comment:REFERENCE RANGE NOT ESTABLISHED CHOL/HDL RATIO 5.0 02/22/2024 12:18 PM CDT [facility] Comment:REFERENCE RANGE NOT ESTABLISHED LDL/HDL 2.1 02/22/2024 12:18 PM CDT [facility] Comment:REFERENCE RANGE NOT ESTABLISHED NON HDL CHOLESTEROL 144 MG/DL 02/22/2024 12:18 PM CDT [facility] Comment:REFERENCE RANGE NOT ESTABLISHED 02/22/2024 11:2 0 AM CDT us Abdirahman Mcghee REED POLISHER LABORATORY Final R esult [facility] [address] [id number], [id number] from Last 3 Months or Most Recently Relevant to Health Maintenance Insurance MEDICAID DEPT OF [address] MEDICARE MEDICAID Member Subscriber Plan / Payer (Ef fective 2017-Present) Name:Rosa Escalante Relation to Subscriber:Self Name:Rosa Escalante Payer ID:Not on file Group ID:Not on file Type:Not on file Address: [address]ARE Advance Directives * Full Code (Latest Code Status on File) Date Activated Date Inactivated Comments 11/24/2022 12:16 PM 11/30/2022 2:43 PM Care Teams Management Advisor Relationship Specialty Start Date End Date Kyle Montenegro DO [address] [place] [address] PCP - General FAMILY PRACTICE 08/22/19 Rah Reid MD [address] [place] [address] Vascular/Forensic Science Technician INTERNAL MEDICINE 12/01/21 Simba Keating MD [address] [place] [address] Consulting Physician INTERVENTIONAL CARDIOLOGY 05/11/22 Abdirahman Mcghee APRN [address] [place] [address] Nurse Practitioner NURSE PRACTITIONER 05/21/22 Jamil Flanagan MD [address] [place] [phone] Consulting Physician INTERNAL MEDICINE 04/22/23 Vera Rice MD [address] [facility] [address] [place] [address] SURGERY 04/22/23
--- OUTSIDE RECORDS SUMMARY | 2025-04-10 17:07 | XMS_ITS | Encounter Summary ---
Author Organization [facility] Address [address] [place] [address] Care Team Providers Care National Park Ranger Name Role Phone Leo Jacobson MD Primary Care Provider + [phone] Simba Keating MD Unavailable + [phone] Rah Reid MD Unavailable Bj Cox MD Unavailable Unavailable Leo Jacobson MD Primary Care Provider + [phone] Kyle Montenegro DO Primary Care Provider [phone] Irma Miller MD Unavailable Rah Reid MD Unavailable Simba Keating MD Unavailable + [phone] Abdirahman Mcghee APRN Unavailable [phone] Jamil Flanagan MD Unavailable [phone] Vera Rice MD Unavailable [phone] Encounter Details Date Type Department Care Team (Late st Contact Info) Description 12/17/2018 Abstract SFL CONVERSION [address] [place] [address] , Generic Conversion, Social History [...] Gender Identity Female 09/18/2021 2:09 PM HAND PLATE STACKER Sexual Orientation Not on file Occupation Industry [...] documented as of this encounter Care Teams National Park Ranger Relationship Specialty Start Date End Date Leo Jacobson MD [address] [place] [address] PCP - General FAMILY PRACTICE 11/03/16 08/20/19 Leo Jacobson MD [address] [place] [address] PCP - General FAMILY PRACTICE 08/21/19 08/21/19 Kyle Montenegro DO [address] [place] [address] PCP - General FAMILY PRACTICE 08/22/19 Simba Keating MD [address] [place] [address] CARDIOVASCULAR DISEASE 09/09/17 11/17/20 Rah Reid MD [address] [place] [address] Vascular/Site Surveyor INTERNAL MEDICINE 05/18/18 Bj Cox MD [address] [place] [address] [place] Site Surveyor INTERVENTIONAL CARDIOLOGY 07/20/18 11/17/20 Irma Miller MD [address] [place] [address] Consulting Physician CARDIOVASCULAR DISEASE 11/18/20 Rah Reid MD [address] [place] [address] Vascular/Site Surveyor INTERNAL MEDICINE 12/01/21 Simba Keating MD [address] [place] [address] Consulting Physician INTERVENTIONAL CARDIOLOGY 05/11/22 Abdirahman Mcghee APRN [address] [place] [address] Nurse Practitioner NURSE PRACTITIONER 05/21/22 Jamil Flanagan MD [address] [place] [address] Consulting Physician INTERNAL MEDICINE 04/22/23 Vera Rice MD [address] [place] [address] SURGERY 04/22/23 documented as of this encounter
--- OUTSIDE RECORDS SUMMARY | 2025-04-10 17:07 | XMS_ITS | Encounter Summary ---
Author Organization [facility] Address [address] [place] [address] Care Team Providers Care Converter Operator Name Role Phone Fabien Jarrett MD Unavailable [phone] Jaqueline Rosas NP Unavailable [phone] Leo Jacobson MD Primary Care Provider + [phone] Simba Keating MD Unavailable + [phone] Rah Reid MD Unavailable Bj Cox MD Unavailable Unavailable Leo Jacobson MD Primary Care Provider + [phone] Kyle Montenegro DO Primary Care Provider [phone] Irma Miller MD Unavailable Rah Reid MD Unavailable Simba Keating MD Unavailable + [phone] Abdirahman Mcghee APRN Unavailable [phone] Jamil Flanagan MD Unavailable [phone] Vera Rice MD Unavailable [phone] Encounter Details Date Type Department Care Team (Late st Contact Info) Description 04/17/2015 Abstract [facility] [address] [place] [address] Fabien Jarrett MD [address] [place] [address], [address] [place] [address] Social History Tobacco Use Types Packs/Day Years Used Date Smoking Tobacco: Former Smokeless Tobacco: Never Alcohol Use Standard Drinks/Week Comments No 0 (1 standard drink = 0.6 oz pur e alcohol) Comments Unknown Sex and Gender Information Value Date Recorded Sex Assigned at Female 09/21/2024 8:52 AM CDT Legal Sex Female 9:27 PM CDT Gender Identity Female 09/18/2021 2:09 PM MED SURG NURSE Sexual Orientation Not on file Occupation Industry [...] documented as of this encounter Care Teams Converter Operator Relationship Specialty Start Date End Date Leo Jacobson MD [address] [place] [address] PCP - General FAMILY PRACTICE 11/03/16 08/20/19 Leo Jacobson MD [address] [place] [address] PCP - General FAMILY PRACTICE 08/21/19 08/21/19 Kyle Montenegro DO [address] [place] [address] PCP - General FAMILY PRACTICE 08/22/19 Fabien Jarrett MD CARDIOVASCULAR DISEASE 06/02/16 07/19/18 Jaqueline Rosas NP [facility] Peyton CORD[facility]BA [facility] [address] [place] [address] [place] Jai Alai Player NURSE PRACTITIONER 11/03/16 07/19/18 Simba Keating MD [address] [place] [address] CARDIOVASCULAR DISEASE 09/09/17 11/17/20 Rah Reid MD [address] [place] [address] Vascular/Jai Alai Player INTERNAL MEDICINE 05/18/18 Bj Cox MD [address] [place] [address] [place] Jai Alai Player INTERVENTIONAL CARDIOLOGY 07/20/18 11/17/20 Irma Miller MD [address] [place] [address] Consulting Physician CARDIOVASCULAR DISEASE 11/18/20 Rah Reid MD [address] [place] [address] Vascular/Jai Alai Player INTERNAL MEDICINE 12/01/21 Simba Keating MD [address] [place] [address] Consulting Physician INTERVENTIONAL CARDIOLOGY 05/11/22 Abdirahman Mcghee APRN [address] [place] [address] Nurse Practitioner NURSE PRACTITIONER 05/21/22 Jamil Flanagan MD [address] [place] [phone] Consulting Physician INTERNAL MEDICINE 04/22/23 Vera Rice MD [address] [address] SURGERY 04/22/23 documented as of this encounter
--- OUTSIDE RECORDS SUMMARY | 2025-04-10 17:07 | XMS_ITS | Encounter Summary ---
Author Organization [facility] Address [address] [place] [address] Care Team Providers Care Supervisor Belt And Link Assembly Name Role Phone Fabien Jarrett MD Unavailable [phone] Jaqueline Rosas NP Unavailable [phone] Leo Jacobson MD Primary Care Provider [phone] Simba Keating MD Unavailable [phone] Rah Reid MD Unavailable Bj Cox MD Unavailable Unavailable Leo Jacobson MD Primary Care Provider + [phone] Kyle Montenegro DO Primary Care Provider [phone] Irma Miller MD Unavailable Rah Reid MD Unavailable Simba Keating MD Unavailable + [phone] Abdirahman Mcghee APRN Unavailable [phone] Jamil Flanagan MD Unavailable [phone] Vera Rice MD Unavailable [phone] Encounter Details Date Type Department Care Team (Late st Contact Info) Description 09/25/2017 Abstract [facility] CONVERSION [address] [place] [address] , Generic MD Shanon Social [...] CDT Gender Identity Female 09/18/2021 2:09 PM PLAYGROUND WORKER Sexual Orientation Not on file Occupation [...] as of this encounter Care Teams Supervisor Belt And Link Assembly Relationship Specialty Start Date End Date Leo Jacobson MD [address] [place] [address] PCP - General FAMILY PRACTICE 11/03/16 08/20/19 Leo Jacobson MD [address] [place] [address] PCP - General FAMILY PRACTICE 08/21/19 08/21/19 Kyle Montenegro DO [address] [place] [address] PCP - General FAMILY PRACTICE 08/22/19 Fabien Jarrett MD CARDIOVASCULAR DISEASE 06/02/16 07/19/18 Jaqueline Rosas NP [facility] Peyton CORDOBA [facility] [address] [place] [phone] Platina Alteration Tailor Apprentice NURSE PRACTITIONER 11/03/16 07/19/18 Simba Keating MD [address] [place] [address] CARDIOVASCULAR DISEASE 09/09/17 11/17/20 Rah Reid MD [address] [place] [address] Vascular/Alteration Tailor Apprentice INTERNAL MEDICINE 05/18/18 Bj Cox MD [address] [place] [address] [place] Alteration Tailor Apprentice INTERVENTIONAL CARDIOLOGY 07/20/18 11/17/20 Irma Miller MD [address] [place] [address] Consulting Physician CARDIOVASCULAR DISEASE 11/18/20 Rah Reid MD [address] [place] [address] Vascular/Alteration Tailor Apprentice INTERNAL MEDICINE 12/01/21 Simba Keating MD [address] [place] [address] Consulting Physician INTERVENTIONAL CARDIOLOGY 05/11/22 Abdirahman Mcghee APRN [address] [place] [address] Nurse Practitioner NURSE PRACTITIONER 05/21/22 Jamil Flanagan MD [address] [place] [address] Consulting Physician INTERNAL MEDICINE 04/22/23 Vera Rice MD [address] [place] [address] SURGERY 04/22/23 documented as of this encounter
--- OUTSIDE RECORDS SUMMARY | 2025-04-10 17:07 | XMS_ITS | Encounter Summary ---
Author Organization [facility] Address [address] [place] [address] Phone Care Team Providers Care Car Tracer Name Role Phone Klye Montenegro MD Primary Care Provider [phone] Sharad Faulkner MD Unavailable [phone] Reason for Visit * Reason Comments Medication Refill Encounter Details Date Type Department Care Team (Late st Contact Info) Description 04/07/2025 Refill [facility] - Neurology [facility] [address] [place] [address] Sharad Faulkner MD [address] [place] [phone] Medication Refill Social History Tobacco Use Types [...] Dept 02/05/25 Office Visit Sharad Faulkner MD [facility] Neurology [facility] 11/09/24 Office Visit Sharad Faulkner MD [facility] Neurology [facility] Showing recent visits within past 365 days and meeting all other requirements Future Appointments No visits were found meeting these conditions. Showing future appointments within next 90 days and meeting all other requirements documented in this encounter Plan of Treatment Upcoming Encounters Date Type Department Care Team (Late st Contact Info) Description 08/07/2025 10:30 AM FINISH CLEANER Office Visit [facility] - Neurology [facility] [address] [place] [address] Sharad Faulkner MD [address] [place] [address] documented as of this encounter Visit Diagnoses Not on filedocumented in this encounter Care Teams Car Tracer Relationship Specialty Start Date End Date Kyle Montenegro MD [address] [place] [address] PCP - General Family Medicine 10/31/24 Sharad Faulkner MD [address] [place] [address] Consulting Physician Neurology 02/02/25 documented as of this encounter
--- OUTSIDE RECORDS SUMMARY | 2025-04-10 17:07 | XMS_ITS | Clinical Summary ---
Author Organization [facility] [employer] Address [address] [place] [address] Care Team Providers Care Sediment Remediation Consultant Name Role Phone Papo Ambriz MD Primary Care Provider [phone] Source Comments [facility] [employer],non-owned Affiliates and Associated Physician Practices is amultiple site organization consisting of ambulatory clinics and hospital sitesin [place], [place] and [place]. This disclosure is being madepursuant to the Care Everywhere program and may not contain all information available regarding this patient. Last updated 18.[facility] [employer] Allergies No known active allergies Medications * [...] 4 times daily as needed. Active Tiotropium [place] Monohydrate ([place] HAND[place]AL[place]) once daily. Act [...] on file Legal Sex Female 2:12 PM LIQUOR TESTER Gender Identity Not on file Sexual Orientation [...] MAMMO BILAT DIAGNOSTIC Routine 05/21/2015 1:58 PM LIQUOR TESTER Breast cyst, left from Last 3 Months or Most Recently Relevant to Health Maintenance Results * MAMMO DIAG DIRECT DIGITAL IMAGE BILA (05/21/2015 1:58 PM LIQUOR TESTER) Anatomical Region Laterality Modality Bilateral Mammography 05/21/2015 5:00 PM LIQUOR TESTER Impressions 05/21/2015 5:03 PM LIQUOR TESTER 1. No evidence of malignancy in either [...] of your patient. [facility] utilizes [employer] as a reminder system to notify patients of their next recommended mammogram. Narrative 05/21/2015 5:03 PM LIQUOR TESTER EXAMINATION: Digital bilateral diagnostic mammogram and targeted [...] Most Recently Relevant to Health Maintenance Insurance [facility] MANAGED MEDICARE ADV [address] [id number] Care Teams Sediment Remediation Consultant Relationship Specialty Start Date End Date Papo Ambriz MD PCP - General Internal Medicine 10/14/12
--- NOTE | 2025-04-10 17:12 | ECG_ITS ---
Test Date: 2025-04-10 17:17:45 Measurements Intervals [place] Rate: 71 P: -70 LA: 170 QRS: 31 QRSD: 95 T: 86 QT: 311 QTc: 339 Interpretive Statements sinus rhythm SEPTAL MYOCARDIAL INFARCTION , OF INDETERMINATE AGE [40+ ms Q WAVE IN V1/V2] Electronically Signed On 04-10-2025 19:37:34 CDT by Conner Guevara M.D.
[2025-04-10] MEDS: MAGNESIUM OXIDE 400 MG TABLET PO ×2 (17:20→19:45)
[2025-04-10] MEDS: KCL 20 MEQ/SW 100 ML 100 ML 50 MEQ IVPB ×2 (17:20→19:52)
[2025-04-10] MEDS: SODIUM CHLORIDE 0.9% IV 500 ML 250 ML IV CONT (17:52)
[2025-04-10] MEDS: POTASSIUM CHLORIDE 20 MEQ PACKET (FOR LIQUID) 40 MEQ PO (19:45)
[2025-04-10] MEDS: SODIUM CHLORIDE 0.9% IV 1,000 ML 100 ML IV CONT (20:00)
[2025-04-10 22:41] LABS: Anion Gap 7 mmol/L (4-12); Blood Urea Nitrogen 31 mg/dL (7-17); Calcium 8.9 mg/dL (8.4-10.2); Carbon Dioxide 36 mmol/L (22-30); Chloride 93 mmol/L (98-107); Estimated CRCL calculation 38 ml/min; Estimated Glomerular Filt Rate 39; Glucose 119 mg/dL (65-110); Magnesium 2.5 mg/dL (1.6-2.3); Osmolality Calculated 289 mOsm/kg (285-295); Potassium 3.3 mmol/L (3.4-5.0); Sodium 136 mmol/L (137-145)
== END 2025-04-10 23:15 | disposition home or self-care (01) ==
PROVIDERS: Emergency Provider Internal Medicine Critical Care Medicine; PCP Family Medicine
DX: L89.321 Pressure ulcer of left buttock, stage 1 (principal); L89.311 Pressure ulcer of right buttock, stage 1; I12.9 Hypertensive chronic kidney disease with stage 1 through stage 4 chronic kidney disease, or unspecified chronic kidney disease; N18.9 Chronic kidney disease, unspecified; E78.5 Hyperlipidemia, unspecified; J45.909 Unspecified asthma, uncomplicated; J44.9 Chronic obstructive pulmonary disease, unspecified; E87.6 Hypokalemia; F17.210 Nicotine dependence, cigarettes, uncomplicated
CPT/HCPCS: 36415; 80048; 83735; 93005; 96365; 96366; 99284; A9270; J3480; J7030; J7040

== ENCOUNTER 2025-05-11 08:48 | Outpatient (CLI) | payer MEDICARE, MEDICAID, SELFPAY ==
--- OUTSIDE RECORDS SUMMARY | 2025-05-11 09:07 | XMS_ITS | Clinical Summary ---
Author Organization [facility] [employer] Address [address] [place] [address] Care Team Providers Care Therapeutic Radiologist Name Role Phone Papo Ambriz MD Primary Care Provider [phone] Source Comments [facility] [employer],non-owned Affiliates and Associated Physician Practices is amultiple site organization consisting of ambulatory clinics and hospital sitesin [place], [place], [place] and [place]. This disclosure is being madepursuant to the Care Everywhere program and may not contain all information available regarding this patient. Last updated 18.[facility] [employer] Allergies No known active allergies Medications * [...] 4 times daily as needed. Active Tiotropium [place] Monohydrate (SPIRIVA HANDIHALER [place]) once daily. Act [...] on file Legal Sex Female 2:12 PM HOSPICE HOME CARE COORDINATOR Gender Identity Not on file Sexual Orientation [...] MAMMO BILAT DIAGNOSTIC Routine 05/21/2015 1:58 PM HOSPICE HOME CARE COORDINATOR Breast cyst, left from Last 3 Months or Most Recently Relevant to Health Maintenance Results * MAMMO DIAG DIRECT DIGITAL IMAGE BILA (05/21/2015 1:58 PM HOSPICE HOME CARE COORDINATOR) Anatomical Region Laterality Modality Bilateral Mammography 05/21/2015 5:00 PM HOSPICE HOME CARE COORDINATOR Impressions 05/21/2015 5:03 PM HOSPICE HOME CARE COORDINATOR 1. No evidence of malignancy in either [...] of your patient. [facility] utilizes [employer] as a reminder system to notify patients of their next recommended mammogram. Narrative 05/21/2015 5:03 PM HOSPICE HOME CARE COORDINATOR EXAMINATION: Digital bilateral diagnostic mammogram and targeted [...] Most Recently Relevant to Health Maintenance Insurance [facility] MANAGED MEDICARE ADV [address] [place] [address] [id number] Care Teams Therapeutic Radiologist Relationship Specialty Start Date End Date Papo Ambriz MD PCP - General Internal Medicine 10/14/12
--- OUTSIDE RECORDS SUMMARY | 2025-05-11 09:07 | XMS_ITS | Data Portability ---
Author Organization [facility], [address] [place] [address] [place]rology ([place]) Address [address] 4th [place] [address] Care Team Providers Care Library Circulation Assistant Name Role Phone YOBANI MARTINEZ Toxicology Teacher VALERIA VELAZQUEZ Director Strategic Planning STEVE DURAND Primary Care Provider Assessment Encounter Date Assessment Date Assessment LastModified by Organization Details LastModified Time 12/06/2024 12/06/2024 #Inflamed seborrheic keratosis LOCATION: right cheek (1) soft, pigmented, tlgax-[id number] papule with pinkish hue and surrounding erythema CRYOTHERAPY: We discussed the benign nature of the lesions and that it is legitimately irritated. The risks and benefits of the procedure, the risks and benefits of alternative procedures, as well as the possible consequences of not undergoing the procedure were discussed. The potential for recurrence and development of further lesions was discussed. The potential pigmentary changes were discussed. The patient verbalizes understanding. A total of 1 lesion was treated with liquid nitrogen,12-15 sec x 2.. The patient tolerated the procedure well. Post-treatment instructions were discussed. Patient is asked to call the office if the lesions are not healed/resolved as expected. ------ The patient s condition required a significant, separately identifiable E/M service above and beyond the other services/procedure s provided by the same physician on the same day of the procedure or other service. The following diagnoses are categorized as CHRONIC ILLNESS WITH EXACERBATION, PROGRESSION OR SIDE EFFECTS #Seborrheic dermatitis LOCATION: face, BL ear canal oily thin scaly ill-defined plaques Discussed diagnosis and treatment PRESCRIPTION: -Start Hydrocortisone 2.5% topical cream and start Ketoconazole 2% cream. Advised to mix a 1:1 ratio of the creams and apply once daily to the affected areas until clear. Start: fluocinolone 0.01% otic oil 2-3 drops BID until clear then once a week for maintenance. #Psoriasis including #Scalp Psoriasis LOCATION: scalp (mild involvement), BL ears, face BSA: 2% pink well-demarcated plaques with micaceous scale Discussed [...] informed pt about psoriasis, cause, and that trauma/rubbing/itc ej can make it worse. The various therapeutic [...] reaction, worsening heart failure and may cause anaphylaxis/hypers ensitivity reaction. Common adverse effects include but not limited to infections (i.e. candidiasis, URI), headache, fatigue, dizziness, skin rash, nausea, antibody development, injection site reaction, arthralgia, back pain. Discussed possible increased risk of NMSC. Pt instructed to hold the medication and seek medical attention right away if there is concern of infections, signs of demyelinating disease/pancytopen ia/heart failure/autoimmune disease or development of malignancies. Patient advised that NO live vaccination while on this medication. Advised pt to update his vaccines prior to starting. Obtain flu,up to date tetanus. Consider pneumonia (especially >65 years old) and Shingle's (>50 years old) . Some forms of flu and Shingles are live so check with PCP. She denies any history of malignancy, heart failure, IBD - UC or Crohn's, or personal or family history of MS Patient does have COPD WNL: CBC/diff, CMP, quantiferon gold, HBsAg, HBsAb, HBcoreAb, HCV Ab, and HIV Mind.Px testing obtained (06/16/2024) -- triple responder. Prior Samples: Skyrizi 150mg/ml was injected subcutaneously in Right Upper Arm Pt states that the once initial Skyrizi loading dose sample worked better than the multiple Cosentyx injections. Her insurance preferred Cosentyx but pt would like to go back to Skyrizi. We will discuss more at her follow up in 3 months. If patient not completely clear at follow up, we'll consider requesting switch to Skyrizi. PRESCRIPTION: Standard dosing for Cosentyx is 300 [...] skin is no longer red and raised. Prescription drug management was performed including discussion with the patient and/or family member that may include dose, expectations of treatment including potential side effects, review of patient response and, when necessary or clinically appropriate, change in medication or dosage. The risks of termite helper use of topical steroids including thinning of the skin, striae formation, and hypopigmentation were discussed. I stressed that this medication should only be used as directed. Patient voiced understanding of education/counseli ng provided. Follow up in 3 months for psoriasis [email or web address] Not available 12/22/2024 02:35:57 12/21/2024 12/21/2024 IMPRESSION: 1. Bilateral hand osteoarthritis. 2. Psoriasis in the absence of psoriatic arthritis. 3. Osteoarthritis of the left ankle. PLAN: 1. Referral to physical therapy for the left ankle and foot twice a week for 6 weeks. 2. Patient will follow up with Dermatology regarding psoriasis management. 3. Advised the patient to obtain a right thumb spica thumb splint to be work at [employer] off during the day. I did offer a cortisone injection today of the right thumb carpometacarpal joint but this is declined. 4. Referral to occupational therapy twice a week for 6 weeks for bilateral hand osteoarthritis. 5. Followup visit in 4-6 months for recheck. angelique Not available 12/23/2024 15:35:19 02/15/2025 02/15/2025 The following diagnoses are categorized as CHRONIC ILLNESS WITH EXACERBATION, PROGRESSION OR SIDE EFFECTS #Seborrheic dermatitis LOCATION: face, BL ear canal oily thin scaly ill-defined plaques Discussed diagnosis and treatment PRESCRIPTION: -Start Hydrocortisone 2.5% topical cream and start Ketoconazole 2% cream. Advised to mix a 1:1 ratio of the creams and apply once daily to the affected areas until clear. Start: fluocinolone 0.01% otic oil 2-3 drops BID until clear then once a week for maintenance. #Psoriasis including #Scalp Psoriasis LOCATION: scalp (mild involvement), BL ears, face BSA: 1% pink well-demarcated plaques with micaceous scale Discussed [...] informed pt about psoriasis, cause, and that trauma/rubbing/itc ej can make it worse. The various therapeutic [...] reaction, worsening heart failure and may cause anaphylaxis/hypers ensitivity reaction. Common adverse effects include but not limited to infections (i.e. candidiasis, URI), headache, fatigue, dizziness, skin rash, nausea, antibody development, injection site reaction, arthralgia, back pain. Discussed possible increased risk of NMSC. Pt instructed to hold the medication and seek medical attention right away if there is concern of infections, signs of demyelinating disease/pancytopen ia/heart failure/autoimmune disease or development of malignancies. Patient advised that NO live vaccination while on this medication. Advised pt to update his vaccines prior to starting. Obtain flu,up to date tetanus. Consider pneumonia (especially >65 years old) and Shingle's (>50 years old) . Some forms of flu and Shingles are live so check with PCP. She denies any history of malignancy, heart failure, IBD - UC or Crohn's, or personal or family history of MS Patient does have COPD WNL: CBC/diff, CMP, quantiferon gold, HBsAg, HBsAb, HBcoreAb, HCV Ab, and HIV Mind.Px testing obtained (06/16/2024) -- triple responder. Prior Samples: Skyrizi 150mg/ml was injected subcutaneously in Right Upper Arm Pt states that the once initial Skyrizi loading dose sample worked better than the multiple Cosentyx injections. Her insurance preferred Cosentyx but pt would like to go back to Skyrizi. At this time, she is responding fairly well on Cosentyx with almost clear skin. We will revisit switching to Skyrizi, if she loses response to Cosentyx. Samples Provided: START: Zoryve 0.3 cream apply once daily to affected areas. The most common adverse reactions ( 1 %) for ZORYVE cream 0.3% for plaque psoriasis include diarrhea (3.1%), headache (2.4%), insomnia (1.4%), nausea (1.2%), application site pain (1.0%), upper respiratory tract infection (1.0%), and urinary tract infection (1.0%). PRESCRIPTION: Standard dosing for Cosentyx is 300 [...] skin is no longer red and raised. Prescription drug management was performed including discussion with the patient and/or family member that may include dose, expectations of treatment including potential side effects, review of patient response and, when necessary or clinically appropriate, change in medication or dosage. The risks of termite helper use of topical steroids including thinning of the skin, striae formation, and hypopigmentation were discussed. I stressed that this medication should only be used as directed. Patient voiced understanding of education/counseli ng provided. Follow up in 6 months for psoriasis This encounter is considered [...] routine, or time-limited nature. [email or web address] Not available 02/25/2025 15:20:38 02/23/2025 02/23/2025 Thoracic Aortic Aneurysm (s/p TEVAR): The natural history and therapeutic options were explained to the patient. The patient remains asymptomatic. Should the patient's upcoming CTA chest/abdomen/pelv is demonstrate stable findings, I would recommend symptomatic observation, blood pressure control, and repeat imaging with a CTA chest/abdomen/pelv is in 1 year. I will perform an echocardiogram at that time, too. Abdominal Aortic Aneurysm: The natural history and therapeutic options were explained to the patient. I recommend continued symptomatic observation, blood pressure control, and repeat CTA in the coming weeks. Localized Swelling to Left Trunk/Abdomen: She reports ongoing left sided abdominal swelling that has persistently gotten larger over the past year. She reports previously having an ultrasound completed without any acute findings. I will evaluate this area with her upcoming CTA chest/abdominal/pe lvis. Hypertension: The patient's blood pressure is well controlled in the office today. I will continue the patient's current anti-hypertensive medication regimen in this regard. Dyslipidemia: The patient's goal LDL is less than 70. Her lipid panel from February demonstrated a LDL close to goal at 76, for which I will make no changes to her cholesterol lowering therapy regimen in this regard. I have asked for the patient to follow up in 1 year with a CTA chest/abdomen/pelv is and echocardiogram prior to the appointment. If you or the patient feels that he or she needs to be seen sooner, we would be happy to do so. If you have any questions or concerns, please do not hesitate to call. Thank you for allowing us the privilege of participating in this patient's care. [email or web address] Not available 02/23/2025 14:02:22 Plan of Treatment Reminders Order Date Submit Date Provider Last Modified By Organization Details Last Modified Time Details Appointments Laine perea Patient 10.EST 2024 10:30A M Dr. Valeria Velazquez Not available Not available Not available Laine perea Patient 10.EST 2025 10:10A M Dr. Valeria Velazquez Not available Not available Not available Imaging 5.PRO 2025 10:00A M Radiology Not available Not available Not available Imaging 5.PRO 2025 10:15A M Radiology Not available Not available Not available Echocar diogram .PRO 2025 11:00A M Cardiology Not available Not available Not available Laine perea Patient 30.EST 2025 12:00P M YOBANI MARTINEZ Not available Not available Not available Lab None recorde d. Referral None recorde d. Procedures None recorde d. Surgeries None recorde d. Imaging None recorde d. Medication Orders Zoryve 0.3 % topical cream 2024 025 tguard [facility], [address] [facility] [address], [address], 02/15/2025 16:28:15 fluocin olone acetoni de oil 0.01 % ear drops 2024 025 [email or web address] [facility], [address] [facility] [address], [place], [address], 12/06/2024 18:46:12 hydroco rtisone 2.5 % topical cream 2024 025 pascual [facility], [address] [facility] [facility] [address], [place], [address], 12/06/2024 18:46:12 ketocon azole 2 % topical cream 2024 025 pascual [facility], [address], [place], [address], 12/06/2024 18:46:12 Patient TargetsNo targets recorded. Patient InstructionsNo instructions recorded. Reason for Referral None Reported. Results Created Date Observation Date Name Description Value Unit Range Abnormal Flag Note LastModifiedBy Organization Detail LastModifiedTime 04/02/2003/21/2025 CT, angio gram, chest , w/wo contr ast No observ ation record ed. KAYCEE [facility] [address] [place], [address], 04/03/2025 12:17:52 Result Notes None recorded. Problems Name Problem SNOMED Code Status Onset Date Resolution Date Notes Provider Name and Address Organization Details Recorded Time Psoriasis of scalp 925868791 Active 2023 [facility] 4 12:55:25 Psoriasis 9500174 Active 2023 [facility] 4 12:56:04 Milia 732997459 Active 2023 [facility] 4 12:43:58 Facial wart 669335116 Active 2023 [facility] 4 12:44:04 Pain of multiple joints 92947357 Active 2024 Santy Brooks MD [address] [place] [address], [phone] [place] [address] 5 14:45:45 Generaliz ed osteoarth ritis 185222950 Active 2024 Santy Brooks MD [address] [place] [address], [phone], [facility] 5 14:45:53 Pain of bilateral hands 396123206640 75536 Active 2024 Reagan King null, [facility] 5 14:45:58 Periphera l sensory neuropath y 060266144 Active 2024 Santy Brooks MD [address] [place] [address], [phone], [facility] 5 14:46:37 Postmenop ausal osteoporo sis 794186153 Active 2024 [facility] 5 14:46:56 Seborrhei c dermatiti s 57484603 Active 2024 Ching Guard null, [facility] 5 12:46:02 Inflamed seborrhei c keratosis 290334084 Active 2024 Ching Guard null, [facility] 5 12:47:49 Osteoarth ritis of joint of bilateral hands 513951700282 109 Active 2024 Santy Brooks MD [address] [place] [address], [phone], [facility] 5 12:25:43 Chronic ankle pain 218574294359 09 Active 2024 Santy Brooks MD [address] [place] [address], [phone], [facility] 5 12:26:10 Essential hypertens ion 59179304 Active 2024 [facility] 5 17:45:41 Dyslipide asif 145975795 Active 2024 [facility] 5 17:45:49 Abdominal aortic aneurysm 793626008 Active 2024 Kelly Pierce null, [facility] 5 17:46:49 Thoracic aortic aneurysm without rupture 61735863 Active 2024 Kelly Pierce null, [facility] 5 17:50:33 Acute respirato ry failure 33572829 Completed 202402/15/2025 [facility] 5 17:51:00 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 986613537 Active 2024 [facility] 5 17:51:31 Stenosis of brachioce phalic artery 667347007 Active 2024 [facility] 5 17:51:51 Chronic obstructi ve pulmonary disease 39790469 Active 2024 [facility] 5 17:52:13 Aortic valve stenosis 19743205 Active 2024 [facility] 5 17:52:30 Hyperchol esterolem ia 12701119 Active 2024 [facility] 5 17:52:45 Carotid bruit 049092356 Active 2024 [facility] 5 17:53:03 Aneurysm of infrarena l abdominal aorta 355830385 Active 2024 YOBANI GOLDEN H, [employer] [address] [place] [address], [phone] 3, [facility] 5 13:45:23 Finding of trunk structure 357831075 Active 2024 YOBANI GOLDEN H, [employer] [address] [place] [address], [phone], [facility] 5 13:55:47 Pressure injury of right buttock Active 2024 [facility] 12:59:18 Problem Notes None recorded. Procedures Surgical History Date Name Laterality Status Provider Name and Address Organization Details Recorded Time 07/12/19 17 peripheral angiography completed [facility] 02/15/2025 17:57:37 11/10/19 15 total replacement of hip completed [facility] 02/15/2025 17:57:15 05/09/20 09 peripheral angiography completed [facility] 02/15/2025 17:55:53 06/21/20 02 cardiac catheterization completed [facility] 02/15/2025 17:56:14 Prq card stent w/angio 1 vsl completed Not Available Health Note 08/08/2024 10:08:42 Colonoscopy with biopsy completed Not Available Health Note 08/08/2024 10:08:42 Total hip arthroplasty completed [facility] 02/23/2025 13:37:22 placement of stent in coronary artery completed [facility] 02/15/2025 17:56:45 Imaging Results None recorded. Procedure Notes None recorded. Medical Equipment None Reported. Allergies No known drug allergies Medications Name Sig Start Date Stop Date Status Note LastModified by Organization Details LastModified Time Prescriptio n - Prior Authorizati on Request active Not Available Not Available N ot Available atorvastati n 40 mg tablet Take 1 tablet every day by oral route. active Not Available Not Available No t Available gabapentin 600 mg tablet Take 1 tablet 3 times a day by oral route. active Not Available Not Available No t Available ketoconazol e 2 % shampoo Lather to the scalp, leave on for 5 minutes, then rinse. Unse daily until clear. 08/14 completed Not Available Not Available Not Available citalopram 40 mg tablet Take 1 tablet every day by oral route. active Not Available Not Available No t Available metoprolol succinate ER 50 mg tablet,exte nded release 24 hr Take 1 tablet every day by oral route. active Not Available Not Available No t Available fluticasone propionate 0.05 % topical cream Apply to affected areas twice daily until clear 2024 active Not Available Not Available Not Avai lable alendronate 70 mg tablet Take 1 tablet every week by oral route. active Not Available Not Available No t Available Douglas 3 120 mg-180 mg-1000 mg capsule once daily active Not Available Not Available No t Available amlodipine 5 mg tablet Take 1 tablet every day by oral route. active Not Available Not Available No t Available hydrocodone 10 mg-acetamin ophen 325 mg tablet TAKE 1 TABLET BY MOUTH EVERY 6 HOURS NEEDED active Not Available Not Available No t Available hydrocodone 7.5 mg-acetamin ophen 325 mg tablet TAKE 1 TABLET BY MOUTH FIVE TIMES DAILY NEEDED 08/14 completed Not Available Not Available Not Available pantoprazol e 40 mg tablet,christi yed release Take 1 tablet every day by oral route. active Not Available Not Available No t Available hydrocortis one 2.5 % topical cream Mix 1:1 with ketoconaz ole and apply to the face and external ears until clear, then use once weekly for maintenan ce 2024 active Not Available Not Available Not Avai lable alcohol swabs USE DIRECTED 08/14 completed Not Available Not Available Not Available hydrochloro thiazide 25 mg tablet Take 1 tablet every day by oral route. active Not Available Not Available No t Available mupirocin 2 % topical ointment Combine 1:1:1 with hydrocort isone and ketoconaz ole. Apply to buttocks once daily until clear. 2024 active Not Available Not Available Not Avai lable furosemide 20 mg tablet Take 1 tablet every day by oral route. active Not Available Not Available No t Available albuterol 90 mcg/actuati on aerosol inhaler active Not Available Not Available Not Available ketoconazol e 2 % topical cream Mix 1:1 with hydrocort isone and apply to the face and external ears until clear, then use once weekly for maintenan ce 2024 active Not Available Not Available Not Avai lable clobetasol 0.05 % scalp solution Apply to the [...] Available Asprin Ec Low Dose 81 mg tablet,christi yed release Take 1 tablet every day by oral route. active Not Available Not Available No t Available Calcium 600 two tablets daily active Not Available Not Available No t Available fluocinolon e acetonide oil 0.01 % ear drops Apply 2-3 drops to both ear canals twice daily until clear, then use once weekly for maintenan ce 2024 active Not Available Not Available Not Avai lable D3-2000 50 mcg (2,000 unit) capsule Take 1 capsule every day by oral route. active Not Available Not Available No t Available SharpSafety Container USE DIRECTED 08/14 completed Not Available Not Available Not Available Multi Vitamin once daily active Not Available Not Available No t Available Cosentyx 300 mg/2 Syringes (150 mg/mL) subcutaneou s syringe active Not Available Not Available No t Available naloxone 4 mg/actuatio n nasal spray CALL 911. SPR CONTENTS OF ONE SPRAYER (0.1ML) INTO ONE NOSTRIL. REPEAT IN 2-3 MIN IF SYMPTOMS OF OPIOID EMERGENCY PERSIST, ALTERNATE NOSTRILS 08/14 completed Not Available Not Available Not Available Trelegy Ellipta 100 mcg-62.5 mcg-25 mcg powder for inhalation Inhale 1 puff every day by inhalatio n route. active Not Available Not Available No t Available Skyrizi 150 mg/mL subcutaneou s pen injector Inject one pen subcutane ously every 4 weeks 2024 active Not Available Not Available Not Avai lable Vtama 1 % topical cream APPLY A THIN LAYER TO THE AFFECTED AREA(S) BY TOPICAL ROUTE ONCE DAILY 2024 active Not Available Not Available Not Avai lable Zoryve 0.3 % topical cream APPLY TO THE AFFECTED AREA(S) BY TOPICAL ROUTE ONCE DAILY 2024 active Not Available Not Available Not Avai lable Cosentyx UnoReady Pen 300 mg/2 mL subcutaneou s pen injector Inject 300 MG (1 pen) Subcutane ously every 4 weeks 2024 active Not Available Not Available Not Avai lable Vitals Date Recorded Body height Oxygen saturation Oxygen saturation in Arterial blood by Pulse oximetry Heart rate Body mass index (BMI) Body weight Provider Name and Address Organization Details Last Updated DateTime 5 177.8 cm 94 % 94 % 110 /min 29 kg/m2 80725.1 g [facility] 5 12:34:46 Date Recorded Body height Heart rate Oxygen saturation Oxygen saturation in Arterial blood by Pulse oximetry Provider Name and Address Organization Details Last Updated DateTime 12/21/2024 177.8 cm 78 /min 91 % 91 % Gurvinder Kyle [facility] 12/21/2024 11:49:10 Date Recorded Body height Body mass index (BMI) Body weight Oxygen saturation Oxygen saturation in Arterial blood by Pulse oximetry Heart rate Provider Name and Address Organization Details Last Updated DateTime 5 177.8 cm 29.7 kg/m2 36332.3 4 g 92 % 92 % 99 /min [facility] 5 15:59:52 Date Recorded Body height Body mass index (BMI) Body weight Oxygen saturation Oxygen saturation in Arterial blood by Pulse oximetry Heart rate Systolic And Diastolic Provider Name and Address Organization Details Last Updated DateTime 5 177.8 cm 28.1 kg/m2 82592.1 g 91 % 91 % 93 /min 126/72 mm[Hg] Nabila Fernandez [facility] 5 13:33:15 Date Recorded Body height Body mass index (BMI) Body weight Oxygen saturation Oxygen saturation in Arterial blood by Pulse oximetry Heart rate Provider Name and Address Organization Details Last Updated DateTime 5 177.8 cm 29.4 kg/m2 07887.1 5 g 93 % 93 % 90 /min [facility] 5 12:43:24 Social History Question Answer Notes LastModified by Organizat ion Details LastModified Time Tobacco Smoking Status Current Every Day [facility]14[facility]2024 14:15:12 Do You Have An Advance [...] GPAL:G 0 P 0 0 0 0 Immunizations Vaccine Type Date Status Note Provider Nam e and Address Organization Details Recorded Time Influenza, split virus, quadrivalent, preservative 4 completed [facility] 12/21/2024 11:49:17 Influenza, split virus, quadrivalent, preservative 9 completed [facility] 12/21/2024 11:49:17 Influenza, adjuvanted, quadrivalent, PF 4 completed [facility] 12/21/2024 11:49:17 Influenza, adjuvanted, quadrivalent, PF 2 completed [facility] 12/21/2024 11:49:17 Influenza, adjuvanted, quadrivalent, PF 1 completed [facility] 11:49:17 Influenza, adjuvanted, quadrivalent, PF 2 completed [facility] 12/21/2024 11:49:17 COVID-19, mRNA, LNP-S, PF, 100 mcg/0.5mL dose or 50 mcg/0.25mL dose 1 completed [facility] 12/21/2024 11:49:17 COVID-19, mRNA, LNP-S, PF, 100 mcg/0.5mL dose or 50 mcg/0.25mL dose 1 completed [facility] 12/21/2024 11:49:17 Pneumococcal conjugate PCV20, polysaccharide [id number] conjugate, adjuvant, PF 4 completed [facility] 12/21/2024 11:49:17 pneumococcal polysaccharide PPV23 4 completed [facility] 12/21/2024 11:49:17 Pneumococcal conjugate PCV 13 5 completed [facility] 12/21/2024 11:49:17 Influenza, split virus, trivalent, preservative 3 completed [facility] 12/21/2024 11:49:17 Influenza, split virus, trivalent, preservative 6 completed i [facility] 12/21/2024 11:49:17 Influenza, split virus, trivalent, preservative [facility] 12/21/2024 11:49:17 Influenza, split virus, trivalent, PF 5 completed i [facility] 12/21/2024 11:49:17 Pneumococcal conjugate PCV20, polysaccharide [id number] conjugate, adjuvant, PF 5 completed Not Available [facility] 05[facility]03[facility] 12:25:29 Past Encounters Encounter ID Performer Location Encounter Start Date Encounter Closed Date Diagnosis/Indication Diagnosis SNOMED-CT Code Diagnosis ICD10 Code Diagnosis IMO Codes Diagnosis Note [id number] MD [facility] ([place] [address] [place] [address] [place] [address] 06/01/2024 11:40:53 06/01/2024 12:56:23 Psoriasis of scalp 873509542 L40.9 936488 Psoriasis 4683895 L40.9 19328 Taking hig h risk medication 6086543495 53073 Z79.113 [id number] MD [facility] [place] [address] [place] [address] [place] [address] 06/29/2024 11:49:28 06/29/2024 13:16:46 Psoriasis of scalp 459246094 L40.9 570206 Psoriasis 8801851 L40.9 87794 Milia 655392051 L72.0 54021 Facial wart 671044771 B0 7.9 [id number] MD [facility] [place] [address] [place] [address] [place] [address] 08/04/2024 14:29:02 08/04/2024 14:50:33 Psoriasis 7238664 L40.9 01964 Counseling 751434113 Z71 .89 95701 [id number] Santy Brooks MD [address] [facility] ([place]) [address] [place] [address] 08/14/2024 13:53:50 08/15/2024 18:26:54 Psoriasis 4829449 L40.9 57552 Pain of mu ltiple joints 14151834 M25.50 871693 Generalize d osteoarthritis 337100851 M15.9 1453 Postmenopausal state 764 81395 Z78.0 637249 Peripheral sensory neuropathy 087559689 G60.8 535424 [id number] MD [facility] [place] [address] [facility] [place] [address] 12/06/2024 11:50:28 12/06/2024 12:52:51 Psoriasis of scalp 237211058 L40.9 910200 Psoriasis 9760937 L40.9 30805 Seborrheic dermatitis 50 387357 L21.9 56499 Inflamed s eborrheic keratosis 529241258 L82.0 49515 [id number] Santy Brooks MD [facility] ([place]) [address] [place] [address] 12/21/2024 11:33:32 12/25/2024 06:35:37 Osteoarthritis of joint of bilateral hands 9362825342 96734 M19.041 M19.042 96437757 Psoriasis of scalp 86411 8008 L40.9 026574 Chronic ankle pain 74043 42799 9109 M25.572 G89.29 [id number] MD [facility] [place] [address] [facility] [address] [place], [place] [address] 02/15/2025 15:25:51 02/15/2025 16:28:15 Psoriasis of scalp 365236405 L40.9 950061 Psoriasis 2018977 L40.9 15814 Seborrheic dermatitis 50 850100 L21.9 00086 watermaster current use of immunomodulator 4509988369 56718697 Z79.61 [id number] YOBANI MARTINEZ , GROUND HOST/HOSTESS [facility] [place] [facility] ([place] [address] [place] [address] 02/23/2025 13:19:17 02/23/2025 13:59:06 Essential hypertension 57503302 I10 78902 Dyslipidemia 899493609 E 78.5 525847 History of repair of thoracic aortic aneurysm 8957318159 55737 Z86.79 Z98.890 3085706652 Aneurysm o f infrarenal abdominal aorta 017663398 I71.43 1124381984 Finding of trunk structure 695860996 R22.2 901305 [id number] MD [facility] [place] [address] [place] [address] 05/03/2025 12:22:52 05/03/2025 13:22:02 Psoriasis of scalp 593446555 L40.9 421885 Psoriasis 4138732 L40.9 19008 Seborrheic dermatitis 50 159793 L21.9 16912 watermaster current use of immunomodulator 9943571129 55419885 Z79.61 4117617363 Pressure i njury of right buttock 1862321230 5101 L89.319 2927589823 Health Concerns Section Related Observation LastModified by Organization Detai ls LastModified Time None Recorded Concern Status LastModified by Organization Details LastModified Time None Recorded Advance Directives Directive N: Payers Insurance Date Sequence Insurance Name Policy Number Policy Jj Covered Member ID Jj Member ID Guarantor Name 05/02/2025 1 [facility] (MEDICARE REPLACEMENT/AD VANTAGE - PPO) [id number] Rosa Escalante [id number] Rosa Escalante 02/23/2025 2 [facility] Coun[facility]yl [facility] - DOS PRIOR TO 2025 (MEDICAID REPLACEMENT - HMO) [id number] Rosa Escalante [id number] Rosa Escalante 05/02/2025 3 [place] [employer] Rosa Escalante [id number] Rosa Escalante 05/02/2025 2 [facility] Coun[place] [facility] - DOS ON OR AFTER 2025 (MEDICAID REPLACEMENT - HMO) [id number] Rosa Escalante [id number] Rosa Escalante Notes Date Note Type Note Provider Name and Address Organization Details Recorded Time 12/06/2024 text/html ROS as noted in the HPI Room # 6 Reason For Visit: 3 month psoriasis f/u Concerns: Pt states she thinks the Skyrizi 150 mg works much better than cosentyx. She notes she is still itchy on her scalp and BL ears.She reports using the Ketoconazole 2% shampoo but not the clobetasol 0.05% solution for scalp. She states she never got the solution.She has some spots on her face she would like removed. Smoking: yes Make up: no Currently , breast-feeding, or trying to conceive: n/a Valeria Velazquez MD [address] [place] [address], [phone], [facility] 12/22/2024 02:36:10 12/21/2024 text/html The patient is a 69-year-old female with a history of psoriatic arthritis and scalp psoriasis, as well as osteoarthritis, who is here today for a followup visit. The patient continues on COSENTYX therapy from Dr. Velazquez. She reports tolerating the injections well. Her scalp is actually doing much better. She does complain of some aching and stiffness in her left ankle and at times triggers her to have to use a cane for ambulation. She also experiences some professor of medicine weakness in the hands, which she relates to arthritis at the base of her thumbs. She denies any numbness or tingling. She does complain of professor of medicine weakness in both hands. Today she rates her pain level a 6-7/10 on a scale. Her morning stiffness is currently lasting 5-10 minutes in duration. On further review of systems, she has had no fever or chills. No aphthous ulcers, inflammatory eye symptoms, neck swelling, lymph node swelling, cough or pleurisy, shortness of breath, chest pain or palpitations, GERD, melena or hematochezia, diarrhea or constipation. Her appetite is normal. Energy level is fair.angelique Brooks MD [address] [place] [address], [phone], [facility] 12/25/2024 09:12:20 02/15/2025 text/html ROS as noted in the HPI Room # 4 Reason For Visit: 3 month Psoriasis Concerns: Pt states her ears are still itchy even after using the topical. She notes her forehead has been flaring. Pt states she would prefer to be on Skyrizi rather than theCosentyx is 300 mg.She reports using and liking that clobetasol 0.05% solution for her scalp as well as the Ketoconazole 2% shampoo (she would like a refill).-Hydrocortis one 2.5% topical cream mix 1:1 with Ketoconazole 2% cream for Seborrheic dermatitis on face, BL ear canal-fluocinolone 0.01% otic oil-Cosentyx is 300 mg (due to insurance but she would prefer Skyrizi 150mg/ml) She is concerned about an inflammation in her abdomin that she has been told is fat. She would like a recommendations for a new PCP. Smoking: yes Make up: no Currently , breast-feeding, or trying to conceive: n/a Valeria Velazquez MD [address] [place] [address], [phone], [facility] 02/25/2025 15:20:50 02/23/2025 text/html I saw this patient in the outpatient cardiology clinic today to establish care at [facility]. As you know, this patient has a cardiovascular history of thoracic aortic aneurysm (status post thoracic endovascular aneurysm repair), peripheral arterial disease (status post bilateral iliac artery stenting), hypertension, and dyslipidemia. The patient has been doing well overall, but she voices concern over her ongoing left abdominal swelling over the past year. She began noticing it as she lost weight. She reports undergoing an ultrasound without any explanation behind this area of swelling. The patient denies anginal type chest discomfort, palpitations, shortness of breath, dyspnea on exertion, orthopnea, paroxysmal nocturnal dyspnea, peripheral edema, claudication, pre-syncope, syncope, or symptoms consistent with TIA or stroke. YOBANI MARTINEZ APRN [address] [place], [address], [facility] 02/23/2025 14:02:33 05/03/2025 text/html ROS as noted in the HPI Room # 5 Reason For Visit: Flakey peeling skin on face/possible paradoxical eczema from the Cosentyx Concerns: She is very concerned about the flaking that is getting in her BL eyes. She reports using the Hydrocortisone 2.5% topical cream and Ketoconazole 2% cream with no relief.She has been using the fluocinolone 0.01% otic oil and has noticed an improvement inside her ears. Smoking: yes Make up: no Currently , breast-feeding, or trying to conceive: n/a Not Available Not Available Not Available OBGyn Episode No OBEpisode recorded.
--- OUTSIDE RECORDS SUMMARY | 2025-05-11 09:07 | XMS_ITS | Encounter Summary ---
Author Organization [facility] Address [address] [place] [address] Care Team Providers Care Loan Broker Name Role Phone Fabien Jarrett MD Unavailable [phone] Jaqueline Rosas NP Unavailable [phone] Leo Jacobson MD Primary Care Provider + [phone] Simba Keating MD Unavailable [phone] Rah Reid MD Unavailable Bj Cox MD Unavailable Unavailable Leo Jacobson MD Primary Care Provider + [phone] Kyle Montenegro DO Primary Care Provider [phone] Irma Miller MD Unavailable Rah Reid MD Unavailable Simba Keating MD Unavailable [phone] Abdirahman Mcghee APRN Unavailable [phone] Jamil Flanagan MD Unavailable [phone] Vera Rice MD Unavailable [phone] Encounter Details Date Type Department Care Team (Late st Contact Info) Description 04/17/2015 Abstract [facility] [address] [place] [address] Fabien Jarrett MD [address] [place] [address], [address] [place] [address] Social History Tobacco Use Types Packs/Day Years Used Date Smoking Tobacco: Former Smokeless Tobacco: Never Alcohol Use Standard Drinks/Week Comments No 0 (1 standard drink = 0.6 oz pur e alcohol) Comments Unknown Sex and Gender Information Value Date Recorded Sex Assigned at Female 09/21/2024 8:52 AM CDT Legal Sex Female 9:27 PM CDT Gender Identity Female 09/18/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 Sexual Orientation Not on file Occupation Industry [...] documented as of this encounter Care Teams Loan Broker Relationship Specialty Start Date End Date Leo Jacobson MD [address] [place] [address] PCP - General FAMILY PRACTICE 11/03/16 08/20/19 Leo Jacobson MD [address] [place] [address] PCP - General FAMILY PRACTICE 08/21/19 08/21/19 Kyle Montenegro DO [address] [place] [address] PCP - General FAMILY PRACTICE 08/22/19 Fabien Jarrett MD CARDIOVASCULAR DISEASE 06/02/16 07/19/18 Jaqueline Rosas NP [facility] [address] [place] [address] [place] Certified Master Locksmith NURSE PRACTITIONER 11/03/16 07/19/18 Simba Keating MD [address] [place] [address] CARDIOVASCULAR DISEASE 09/09/17 11/17/20 Rah Reid MD [address] [place] [address] Vascular/Certified Master Locksmith INTERNAL MEDICINE 05/18/18 Bj Cox MD [address] [place] [address] [place] Certified Master Locksmith INTERVENTIONAL CARDIOLOGY 07/20/18 11/17/20 Irma Miller MD [address] [place] [address] Consulting Physician CARDIOVASCULAR DISEASE 11/18/20 Rah Reid MD [address] [place] [address] Vascular/Certified Master Locksmith INTERNAL MEDICINE 12/01/21 Simba Keating MD [address] [place] [address] Consulting Physician INTERVENTIONAL CARDIOLOGY 05/11/22 Abdirahman Mcghee APRN [address] [place] [address] Nurse Practitioner NURSE PRACTITIONER 05/21/22 Jamil Flanagan MD [address] [place] [phone] Consulting Physician INTERNAL MEDICINE 04/22/23 Vera Rice MD [address] [address] SURGERY 04/22/23 documented as of this encounter
--- OUTSIDE RECORDS SUMMARY | 2025-05-11 09:07 | XMS_ITS | Clinical Summary ---
Author Organization [facility] Address [address] [place] [address] Phone Care Team Providers Care Shipfitter Name Role Phone Kyle Montenegro MD Primary Care Provider [phone] Sharad Faulkner MD Unavailable [phone] Allergies No known active allergies Medications citalopram (CeleXA) 10 MG Tablet Take 10 mg by mouth daily. Active aspirin EC 81 MG Tablet Delayed Response Take 81 mg by mouth daily. Active Calcium Carbonate (CALCIUM 600 PO) Take by mouth. Activ e VITAMIN D PO Take by mouth. Ac tive Multiple Vitamin (MULTIVITAMIN PO) Take by mouth. Activ e Milroy-3 Fatty Acids (FISH OIL PO) Take by [...] TIMES DAILY NEEDED FOR DIZZINESS. 30 Tablet 05/09/20 25 Active meclizine (ANTIVERT) 25 MG Tablet TAKE 1 TABLET BY MOUTH 3 TIMES DAILY NEEDED FOR DIZZINESS. 30 Tablet 04/09/20 25 025 Discontinued Encounters Date Type Department Care Team Description 05/09/2025 [facility]ill [facility] [place] [address] Sharad Faulkner MD Medication Refill 04/07/2025 Refill [facility] [place] [address] Sharad Faulkner MD Medication Refill 03/03/2025 Refill [facility] [address] [place] [address] Sharad Faulkner MD Medication Refill from Last 3 Months Family History Medical [...] st Contact Info) Description 08/07/2025 10:30 AM DIRECTOR PROFESSIONAL SERVICES Office Visit [facility] - [place] [address] [place] [address] Sharad Faulkner MD [address] [place] [address] Health Maintenance Due Date Last Done Comments DEXA Bone Density 1955 Hepatitis C Virus (HCV) Screening 1955 TdaP Immunization 1955 Cologuard 2000 Colonoscopy 2000 Colorectal Cancer Screening 2000 Immunochemical Fecal Occult Blood 2000 Zoster Immunization (1 of 2) 2005 Mammogram 05/21/2016 05/21/2015, 05/05/2012 Welcome to Medicare (IPPE) [id number] 07/12/2024 Influenza Immunization (#1) 2025 02/0 02/2024, 04/30/2022, 09/08/2021, Additional history exists SARS-COV-2 Immunization ( season) 2025 11/01/2020, 10/04/2020 Respiratory Syncytial Virus [...] MEDICARE C [employer] [place]ICAID [place] Care Teams Shipfitter Relationship Specialty Start Date End Date Kyle Montenegro MD [address] [place] [address] PCP - General Family Medicine 10/31/24 Sharad Faulkner MD [address] [place] [address] Consulting Physician Neurology 02/02/25
--- OUTSIDE RECORDS SUMMARY | 2025-05-11 09:07 | XMS_ITS | Clinical Summary ---
Author Organization [facility] Address [address] [place] [address] Care Team Providers Care Ship Worker Name Role Phone Kyle Montenegro Primary Care Provider [phone] Rah Reid MD Unavailable Simba Keating MD Unavailable [phone] Abdirahman Mcghee APRN Unavailable [phone] Jamil Flanagan MD Unavailable [phone] Vera Rice MD Unavailable [phone] Medications aspirin 81 MG tablet Aspirin 81 [...] aneurysm repair 02/23/2023 Acute hypoxemic respiratory failure 11/24/2022 (aortic stenosis) 10/02/2020 Pain of right lower extremity 06/11/2020 Palpitation 08/21/2019 Tobacco abuse 08/21/2019 Hypercholesterolemia 10/04/2018 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 Bilateral carotid bruits 10/03/2018 Other closed fracture of pro ximal end of left fibula, sequela 01/06/2017 COPD (chronic obstructive pulmonary disease) Essential hypertension AAA (abdominal aortic aneurysm) Innominate artery stenosis PAD (peripheral artery disease) Resolved Problems Problem Noted Date Diagnosed Date Resolved Date Ruptured aneurysm of thoracic aorta 02/23/2023 02/23/2023 High blood cholesterol 02/11/201710/04 Aortic dissection, thoracoabdominal 10/03/2018 Overview (06/02/2016): S-P ThoracicAortic Stent Graft, Bilateral common iliac stents () Encounters Date Type Department Care Team Description 03/21/2025 7:32 AM CDT - 03/21/2025 11:59 PM CDT Hospital Encounter [facility] [address] [place] [address] Abdirahman Mcghee, ELECTRONIC SECURITY TECHNICIAN Discharge Disposition: Home or Self Care (Routine [...] place to sleep or slept in a long-term (including now)? 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 Sexual Orientation Not on file Occupation [...] 02/21/2025 02/22/2024, 09/09, 06/22/2012 COVID-19 Vaccine ( season) 2025 11/01/2020, 10/04/2020 Influenza Adult (#1) 2025 04/30/2022, 06/06/2019, 05/12/2016, Additional history exists Pneumococcal Vaccine: 50+ Years Completed 10/26/2024, 08/19/2023, 05/16/2018, Additional history exists Hepatitis A Vaccines Aged Out No long er eligible based on patient's age to complete this topic Meningococcal B Vaccine Aged Out No l [...] home upon discharge Lifestyle No Leti Gupta, window glass cutter off Procedure Name Priority Date/Time Associated Diagnosis Comments [...] 3:11 PM Narrative 03/30/2025 3:[address] [place] [address] EXAMINATION: CTA CHEST, ABDOMEN AND PELVIS CLINICAL [...] aorta. No endoleak seen in this region. Creek aortic aneurysm sac size unchanged. No evidence of new dissection. Measurements: Aortic root at Sinuses of Valsalva: 3.6 cm Sinotubular junction: 2.7 cm Mid ascending thoracic aorta: 3.2 cm Transverse Aortic arch: 2.4 cm Proximal descending thoracic aorta (saint regis aneurysm sac): 4.5 cm Mid descending thoracic [...] upper margin of this study. Procedure Note Davalos, Huan S, MD - 03/30/2025 [facility] [address] [place] [address] EXAMINATION: CTA CHEST, ABDOMEN AND PELVIS CLINICAL [...] arch: 2.4 cm Proximal descending thoracic aorta (saint regis aneurysm sac): 4.5 cm Mid descending thoracic [...] MD, 03/30/2025 3:11 PM us Abdirahman Mcghee ELECTRONIC SECURITY TECHNICIAN CT Final R esult * (ABNORMAL) LIPID PANEL (02/22/2024 11:20 AM CDT) CHOLESTEROL 180 MG/DL 02/22/2024 12:18 PM CDT [facility] Comment:DESIRABLE: <200 TRIGLYCERIDES 340 MG/DL 02/22/2024 12:18 PM CDT [facility] Comment:200-499 HIGH HDL 36(L) >49 MG/DL 02/22/2024 12:18 PM CDT [facility] LDL (CALCULATED) 76 MG/DL 02/22/20 12:18 PM CDT [facility] Comment:<100 OPTIMAL VLDL CALCULATION 68 MG/DL 02/22/20 12:18 PM CDT [facility] Comment:REFERENCE RANGE NOT ESTABLISHED CHOL/HDL RATIO 5.0 02/22/2024 12:18 PM CDT [facility] Comment:REFERENCE RANGE NOT ESTABLISHED LDL/HDL 2.1 02/22/2024 12:18 PM CDT [facility] Comment:REFERENCE RANGE NOT ESTABLISHED NON HDL CHOLESTEROL 144 MG/DL 02/22/2024 12:18 PM CDT [facility] Comment:REFERENCE RANGE NOT ESTABLISHED 02/22/2024 11:2 0 AM CDT us Abdirahman Mcghee ELECTRONIC SECURITY TECHNICIAN LABORATORY Final R esult [facility] [address] [place] [address], [id number] from Last 3 Months or Most Recently Relevant to Health Maintenance Insurance MEDICAID UHC MEDICARE MEDICAID Member Subscriber Plan / Payer (Ef fective 2017-Present) Name:Rosa Escalante Relation to Subscriber:Self Name:Rosa Escalante Payer ID:Not on file Group ID:Not on file Type:Not on file Address: [address] MEDICARE Advance Directives * Full Code (Latest Code Status on File) Date Activated Date Inactivated Comments 11/24/2022 12:16 PM 11/30/2022 2:43 PM Care Teams Ship Worker Relationship Specialty Start Date End Date Kyle Montenegro DO [address] [place] [address] PCP - General FAMILY PRACTICE 08/22/19 Rah Reid MD [address] [place] [address] Vascular/State Editor INTERNAL MEDICINE 12/01/21 Simba Keating MD [address] [place], [place] [phone] Consulting Physician INTERVENTIONAL CARDIOLOGY 05/11/22 Abdirahman Mcghee APRN [address] [place] [address] Nurse Practitioner NURSE PRACTITIONER 05/21/22 Jamil Flanagan MD [address] [place] [address] Consulting Physician INTERNAL MEDICINE 04/22/23 Vera Rice MD [facility] [address] [address] SURGERY 04/22/23
--- OUTSIDE RECORDS SUMMARY | 2025-05-11 09:07 | XMS_ITS | Encounter Summary ---
Author Organization [facility] Address [address] [place] [address] Care Team Providers Care Makeup Sales Advisor Name Role Phone Fabien Jarrett MD Unavailable [phone] Jaqueline Rosas NP Unavailable [phone] Leo Jacobson MD Primary Care Provider +[phone] Simba Keating MD Unavailable [phone] Rah Reid MD Unavailable Bj Cox MD Unavailable Unavailable Leo Jacobson MD Primary Care Provider + [phone] Kyle Montenegro DO Primary Care Provider [phone] Irma Miller MD Unavailable Rah Reid MD Unavailable Simba Keating MD Unavailable + [phone] Abdirahman Mcghee APRN Unavailable [phone] Jamil Flanagan MD Unavailable [phone] Vera Rice MD Unavailable [phone] Encounter Details Date Type Department Care Team (Late st Contact Info) Description 09/25/2017 Abstract SJS CONVERSION [address] [place] [address] , Generic MD Shanon Social [...] CDT Gender Identity Female 09/18/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 Sexual Orientation Not on file Occupation Industry [...] documented as of this encounter Care Teams Makeup Sales Advisor Relationship Specialty Start Date End Date Leo Jacobson MD [address] [place] [address] PCP - General FAMILY PRACTICE 11/03/16 08/20/19 Leo Jacobson MD [address] [place] [id number] PCP - General FAMILY PRACTICE 08/21/19 08/21/19 Kyle Montenegro DO [address] [place] [address] PCP - General FAMILY PRACTICE 08/22/19 Fabien Jarrett MD CARDIOVASCULAR DISEASE 06/02/16 07/19/18 Jaqueline Rosas NP [facility] [place]eyton [facility] [address] [place] [id number] [place] NURSE PRACTITIONER 11/03/16 07/19/18 Simba Keating MD [address] [place] [address] CARDIOVASCULAR DISEASE 09/09/17 11/17/20 Rah Reid MD [address] [place] [address] Vascular/[place] INTERNAL MEDICINE 05/18/18 Bj Cox MD [address] [place] [address] [place] INTERVENTIONAL CARDIOLOGY 07/20/18 11/17/20 Irma Miller MD [address] [place] [address] Consulting Physician CARDIOVASCULAR DISEASE 11/18/20 Rah Reid MD [address] [place] [address] Vascular/[place] INTERNAL MEDICINE 12/01/21 Simba Keating MD [address] [place] [address] Consulting Physician INTERVENTIONAL CARDIOLOGY 05/11/22 Abdirahman Mcghee APRN [address] [place] [address] Nurse Practitioner NURSE PRACTITIONER 05/21/22 Jamil Flanagan MD [address] [place] [id number] Consulting Physician INTERNAL MEDICINE 04/22/23 Vera Rice MD [address] [place] [address] SURGERY 04/22/23 documented as of this encounter
--- OUTSIDE RECORDS SUMMARY | 2025-05-11 09:07 | XMS_ITS | Encounter Summary ---
Author Organization [facility] Address [address] [place] [address] Care Team Providers Care Glass Sander Belt Name Role Phone Leo Jacobson MD Primary Care Provider + [phone] Simba Keating MD Unavailable [phone] Rah Reid MD Unavailable Bj Cox MD Unavailable Unavailable Leo Jacobson MD Primary Care Provider + [phone] Kyle Montenegro DO Primary Care Provider [phone] Irma Miller MD Unavailable Rah Reid MD Unavailable Simba Keating MD Unavailable + [phone] Abdirahman Mcghee APRN Unavailable [phone] Jamil Flanagan MD Unavailable [phone] Vera Rice MD Unavailable [phone] Encounter Details Date Type Department Care Team (Late st Contact Info) Description 12/17/2018 Abstract [facility]FL CONVERSION [address] [place] [address] , Generic Conversion, Social History [...] CDT Gender Identity Female 09/18/2021 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 Sexual Orientation Not on file Occupation Industry [...] documented as of this encounter Care Teams Glass Sander Belt Relationship Specialty Start Date End Date Leo Jacobson MD [address] [place] [address] PCP - General FAMILY PRACTICE 11/03/16 08/20/19 Leo Jacobson MD [address] [place] [address] PCP - General FAMILY PRACTICE 08/21/19 08/21/19 Kyle Montenegro DO [address] [place] [address] PCP - General FAMILY PRACTICE 08/22/19 Simba Keating MD [address] [place] [address] CARDIOVASCULAR DISEASE 09/09/17 11/17/20 Rah Reid MD [address] [place] [address] Vascular/Assembly Instructions Writer INTERNAL MEDICINE 05/18/18 Bj Cox MD [address] [place] [address] [place] Assembly Instructions Writer INTERVENTIONAL CARDIOLOGY 07/20/18 11/17/20 Irma Miller MD [address] [place] [address] Consulting Physician CARDIOVASCULAR DISEASE 11/18/20 Rah Reid MD [address] [place] [address] Vascular/Assembly Instructions Writer INTERNAL MEDICINE 12/01/21 Simba Keating MD [address] [place] [address] Consulting Physician INTERVENTIONAL CARDIOLOGY 05/11/22 Abdirahman Mcghee APRN [address] [place] [address] Nurse Practitioner NURSE PRACTITIONER 05/21/22 Jamil Flanagan MD [address] [place] [address] Consulting Physician INTERNAL MEDICINE 04/22/23 Vera Rice MD [address] [place] [address] SURGERY 04/22/23 documented as of this encounter
[2025-05-11 09:31] LABS: Anion Gap 9 mmol/L (4-12); Blood Urea Nitrogen 23 mg/dL (7-17); Calcium 9.3 mg/dL (8.4-10.2); Carbon Dioxide 28 mmol/L (22-30); Chloride 107 mmol/L (98-107); Estimated Glomerular Filt Rate 38; Glucose 105 mg/dL (65-110); Osmolality Calculated 301 mOsm/kg (285-295); Potassium 4.5 mmol/L (3.4-5.0); Sodium 144 mmol/L (137-145)
[2025-05-11 11:26] LABS: Add Urine Microscopic? YES; Appearance Urine Cloudy (Clear); Glucose Urine UA Negative (Negative); Leukocyte Esterase Ur 3+ LEU/UL (Negative); Nitrate Urine Positive (Negative); Specific Grav Ur 1.020 (1.010-1.020)
== END 2025-05-11 08:49 | disposition home or self-care (01) ==
LOC: CHSLAB 08:50
PROVIDERS: PCP Family Medicine; Visit Provider Family Medicine
DX: N18.4 Chronic kidney disease, stage 4 (severe) (principal); R30.0 Dysuria; R82.90 Unspecified abnormal findings in urine
CPT/HCPCS: 36415; 80048; 81001; 87077; 87086; 87186